=== PATIENT | male | born 1970 | race Caucasian/White ===

== ENCOUNTER → 2017-02-06 | Outpatient (CLI) | payer OTHER ==
[~2017-02-06] MED LIST: /LINE60TA; ACET65TA; ALBU17IN2; ALBU17IN2 INH; BABY81CH; CIPR500T19; COZA100T2 PO; COZA25TA8; CYCL1POW PO; DIOVAN; FOLI1TAB86 PO; GLUC1000; INSUDET SC; INSUR SC; LIPI80TA PO; LOPR50TA; LOPR50TA PO; LOSA50TA20 PO; MEDR4TAB PO; METF1000 PO; NAPR500T2 PO; NITR0.4S; PERC5TAB6 PO; PROV90AE; PROZ20CA11 PO; SYMB80AE; TRAM100T; TRAM50TA2 PO; TRAZ50TA2 PO; VITA100T2 PO; VITMTA PO; ZOCO10TA; ZOCO40TA
== END ==
LOC: M WUC 10:20
PROVIDERS: ATTEND Family Medicine
DX: Z71.3 Dietary counseling and surveillance (principal)

== ENCOUNTER → 2017-04-28 | Outpatient (REF) | payer OTHER ==
[~2017-04-28] MED LIST changes: -METF1000 PO; +METF10004 PO; -NAPR500T2 PO; +NAPR500T3 PO; +NOVOINJ3 SC; +PERC5TAB12 PO; -PERC5TAB6 PO; +TOUJ1.2I SC
[2017-04-28 12:25] LABS: MEAN CORPUSCULAR HEMOGLOBIN 28.5 pg (27.0-33.0); MEAN CORPUSCULAR HGB CONC 33.4 g/dl (32.0-36.5); MEAN CORPUSCULAR VOLUME 85.2 fl (80.0-96.0); RED CELL DISTRIBUTION WIDTH 13.5 % (11.5-14.5); WHITE BLOOD COUNT 6.6 K/mm3 (4.0-10.0)
== END ==
LOC: M SFHCPLAZ 09:12
PROVIDERS: ATTEND Family Medicine
DX: R53.83 Other fatigue (principal)

== ENCOUNTER 2017-05-09 15:11 | Emergency (ER) | payer OTHER ==
[~2017-05-09] VITALS: Ht 193 cm; Wt 159.0 kg
[~2017-05-09 15:11] MED LIST changes: -NOVOINJ3 SC; -TOUJ1.2I SC
[2017-05-09] MEDS ORDERED: NOVOINJ3 SC (15:21)
[2017-05-09] MEDS ORDERED: TOUJ1.2I SC (15:21)
[2017-05-09] MEDS ORDERED: KETOROLAC 30 MG/ML VIAL (J1885) IV ONE (16:15)
[2017-05-09] MEDS ORDERED: NS 1,000 ML IV ONE ×2 (16:15→18:00)
[2017-05-09] MEDS ORDERED: ONDANSETRON 4MG/2ML VIAL (J2405) IV ONE (16:15)
[2017-05-09] MEDS: MORPHINE 4 MG/ML 1ML SYRINGE IV PRN ×2 (16:25→18:02)
[2017-05-09 16:41] LABS: BASO # 0.1 K/mm3 (0.0-0.2); BASO % 0.8 % (0.0-1.0); EOS # 0.2 K/mm3 (0.0-0.50); EOS % 3.4 % (0.0-3.0); LARGE UNSTAINED CELL # 0.2 K/mm3 (0.0-0.4); LARGE UNSTAINED CELL % 2.1 % (0.0-4.0); LYMPH % 26.2 % (24.0-44.0); MEAN CORPUSCULAR HEMOGLOBIN 29.1 pg (27.0-33.0); MEAN CORPUSCULAR HGB CONC 34.5 g/dl (32.0-36.5); MEAN CORPUSCULAR VOLUME 84.2 fl (80.0-96.0); MONO # 0.5 K/mm3 (0.0-0.8); MONO % 6.8 % (0.0-5.0); NEUTROPHILS # 4.2 K/mm3 (1.8-7.7); NEUTROPHILS % 60.7 % (36.0-66.0); PLATELET COUNT, AUTOMATED 237 k/mm3 (150-450); RED CELL DISTRIBUTION WIDTH 13.4 % (11.5-14.5)
--- NOTE | 2017-05-09 16:45 | REP ---
CT ABDOMEN PELVIS WITHOUT IV OR ORAL CONTRAST: Renal stone protocol. HISTORY: Right flank pain. Evaluate for ureteral calculus. COMPARISON STUDY: November 23, 2015. CT FINDINGS: The lung bases are essentially clear. There is no evidence of pleural effusion or upper abdominal ascites. There is mild diffuse fatty infiltration of the liver. No focal liver lesion is seen. Spleen is unremarkable. No adrenal lesion is observed on either side. The gallbladder and the pancreas are unremarkable. There is no evidence of hydronephrosis on either side. No intrarenal calculus is seen. No ureteral stone is observed. No bladder calculus is seen. Prostate and seminal vesicles are unremarkable. There is mild left colonic diverticulosis without CT evidence of diverticulitis. A normal appendix is seen. No abdominal wall defect is observed. Bone window settings show degenerative facet changes in the lumbar spine. Early osteoarthritic spurring is seen in the hips bilaterally. IMPRESSION: No urinary tract calculus. No hydronephrosis seen. Left colonic diverticulosis without CT evidence of diverticulitis. Mild diffuse fatty infiltration of the liver. Normal appendix seen. Signed by Garcia Almanza MD 05/09/2017 04:58 P
[2017-05-09 17:17] LABS: ALBUMIN 4.1 GM/DL (3.2-5.2); ALBUMIN/GLOBULIN RATIO 1.14 (1.00-1.93); ALKALINE PHOSPHATASE 57 U/L (45-117); ALT/SGPT 77 U/L (12-78); ANION GAP 6 MEQ/L (8-16); AST/SGOT 37 U/L (15-37); BILIRUBIN,DIRECT 0.1 MG/DL (0.0-0.2); BILIRUBIN,TOTAL 0.5 MG/DL (0.2-1.0); BLOOD UREA NITROGEN 15 MG/DL (7-18); CARBON DIOXIDE LEVEL 27 MEQ/L (21-32); CHLORIDE LEVEL 106 MEQ/L (98-107); CREATININE FOR GFR 1.03 MG/DL (0.70-1.30); GLOMERULAR FILTRATION RATE > 60.0 (>60); GLUCOSE, FASTING 133 MG/DL (70-105); POTASSIUM SERUM 3.9 MEQ/L (3.5-5.1); SODIUM LEVEL 139 MEQ/L (136-145); TOTAL PROTEIN 7.7 GM/DL (6.4-8.2)
[2017-05-09] MEDS ORDERED: NORCO, ANEXSIA 5/325MG TABLET (HYDROcodone/ACETAMINOPHEN) PO ONE (18:15)
[2017-05-09 19:28] VITALS: BP 112/82
== END 2017-05-09 19:29 | disposition home or self-care (01) ==
LOC: M ED 15:11
DX: R10.9 Unspecified abdominal pain (principal); E11.9 Type 2 diabetes mellitus without complications; F33.9 Major depressive disorder, recurrent, unspecified; Z79.4 Long term (current) use of insulin; Z79.84 Long term (current) use of oral hypoglycemic drugs; Z79.899 Other long term (current) drug therapy; Z88.8 Allergy status to other drugs, medicaments and biological substances
CPT/HCPCS: 74176; 80048; 80076; 81001; 83605; 83690; 85025; 96374; 96375; 96376; 99283; J1885; J2405

== ENCOUNTER → 2017-05-31 | Outpatient (REF) | payer OTHER ==
[~2017-05-31] MED LIST changes: +NOVOINJ3 SC; +TOUJ1.2I SC; +TYLE325T5 PO
[2017-05-31 12:25] LABS: ANION GAP 11 MEQ/L (8-16); BLOOD UREA NITROGEN 11 MG/DL (7-18); CALCIUM LEVEL 8.6 MG/DL (8.5-10.1); CARBON DIOXIDE LEVEL 25 MEQ/L (21-32); CHLORIDE LEVEL 101 MEQ/L (98-107); CREATININE FOR GFR 0.94 MG/DL (0.70-1.30); GLOMERULAR FILTRATION RATE > 60.0 (>60); GLUCOSE, FASTING 311 MG/DL (70-105); POTASSIUM SERUM 4.5 MEQ/L (3.5-5.1); SODIUM LEVEL 137 MEQ/L (136-145)
== END ==
LOC: M SFHCPLAZ 10:03
PROVIDERS: ATTEND Family Medicine
DX: Z01.818 Encounter for other preprocedural examination (principal); I10 Essential (primary) hypertension

== ENCOUNTER → 2017-07-14 | Outpatient (CLI) | payer OTHER ==
[~2017-07-14] MED LIST changes: +MULTCAP PO
[2017-07-14 10:40] LABS: BASO % 0.3 % (0.0-1.0); EOS # 0.2 10^3/uL (0.0-0.50); IMMATURE GRANULOCYTE % 0.2 % (0-0); LYMPH # 1.4 10^3/uL (1.5-4.5); LYMPH % 24.8 % (24.0-44.0); MEAN CORPUSCULAR HEMOGLOBIN 27.8 pg (27.0-33.0); MEAN CORPUSCULAR HGB CONC 32.9 g/dl (32.0-36.5); MEAN CORPUSCULAR VOLUME 84.4 fl (80.0-96.0); MONO # 0.5 10^3/uL (0.0-0.8); MONO % 8.9 % (0.0-5.0); NEUTROPHILS # 3.6 10^3/uL (1.8-7.7); NEUTROPHILS % 62.8 % (36.0-66.0); PLATELET COUNT, AUTOMATED 274 10^3/uL (150-450); RED CELL DISTRIBUTION WIDTH 13.5 % (11.5-14.5); WHITE BLOOD COUNT 5.7 10^3/uL (4.0-10.0)
[2017-07-14 11:21] LABS: ALBUMIN 4.1 GM/DL (3.2-5.2); ALBUMIN/GLOBULIN RATIO 1.17 (1.00-1.93); ALKALINE PHOSPHATASE 82 U/L (45-117); ALT/SGPT 214 U/L (12-78); ANION GAP 9 MEQ/L (8-16); AST/SGOT 109 U/L (15-37); BILIRUBIN,TOTAL 0.7 MG/DL (0.2-1.0); BLOOD UREA NITROGEN 16 MG/DL (7-18); CALCIUM LEVEL 9.1 MG/DL (8.5-10.1); CARBON DIOXIDE LEVEL 27 MEQ/L (21-32); CHLORIDE LEVEL 103 MEQ/L (98-107); CREATININE FOR GFR 0.91 MG/DL (0.70-1.30); FERRITIN 650 NG/ML (26-388); GLOMERULAR FILTRATION RATE > 60.0 (>60); GLUCOSE, FASTING 115 MG/DL (70-105); MAGNESIUM LEVEL 2.1 MG/DL (1.8-2.4); PERCENT SATURATION 22.3 % (19.7-50.0); PHOSPHORUS LEVEL 3.9 MG/DL (2.5-4.9); POTASSIUM SERUM 4.3 MEQ/L (3.5-5.1); SODIUM LEVEL 139 MEQ/L (136-145); TOTAL IRON BINDING CAPACITY 355 UG/DL (250-450); TOTAL PROTEIN 7.6 GM/DL (6.4-8.2)
[2017-07-14 11:41] LABS: VITAMIN B12 LEVEL 1775 PG/ML (247-911)
[2017-07-14 12:36] LABS: PRETREATED FOLATE FOR RBCFOL 17.4 NG/ML
== END ==
LOC: M LAB 09:00
PROVIDERS: ATTEND Surgery
DX: K91.2 Postsurgical malabsorption, not elsewhere classified (principal); E55.9 Vitamin D deficiency, unspecified; Z98.84 Bariatric surgery status

== ENCOUNTER 2017-07-29 08:01 | Emergency (ER) | payer OTHER ==
[~2017-07-29] VITALS: Ht 193 cm; Wt 132.0 kg
[~2017-07-29 08:01] MED LIST changes: -MULTCAP PO; -TYLE325T5 PO
[2017-07-29] MEDS ORDERED: TYLE325T5 PO (08:12)
[2017-07-29] MEDS ORDERED: RIZATRIPTAN MLT 10 MG TAB PO PRN (09:15)
[2017-07-29 09:39] VITALS: BP 120/85
== END 2017-07-29 09:40 | disposition home or self-care (01) ==
LOC: M ED 08:01
DX: R51 Headache (principal); E86.0 Dehydration; R25.2 Cramp and spasm; Z98.84 Bariatric surgery status; Z87.891 Personal history of nicotine dependence; Z79.899 Other long term (current) drug therapy; Z88.8 Allergy status to other drugs, medicaments and biological substances

== ENCOUNTER 2017-08-01 14:36 | Emergency (ER) | payer OTHER ==
[~2017-08-01] VITALS: Ht 193 cm; Wt 127.3 kg
[~2017-08-01 14:36] MED LIST changes: +TYLE325T5 PO
[2017-08-01] MEDS ORDERED: MULTCAP PO (14:46)
[2017-08-01] MEDS ORDERED: NS 1,000 ML IV ONE ×2 (16:30→18:00)
[2017-08-01 17:07] LABS: BASO % 0.7 % (0.0-1.0); EOS # 0.2 10^3/uL (0.0-0.50); EOS % 3.8 % (0.0-3.0); IMMATURE GRANULOCYTE % 0.2 % (0-0); LYMPH # 1.5 10^3/uL (1.5-4.5); LYMPH % 25.4 % (24.0-44.0); MEAN CORPUSCULAR HEMOGLOBIN 28.1 pg (27.0-33.0); MEAN CORPUSCULAR HGB CONC 32.8 g/dl (32.0-36.5); MEAN CORPUSCULAR VOLUME 85.7 fl (80.0-96.0); MONO # 0.6 10^3/uL (0.0-0.8); MONO % 10.2 % (0.0-5.0); NEUTROPHILS # 3.6 10^3/uL (1.8-7.7); NEUTROPHILS % 59.7 % (36.0-66.0); PLATELET COUNT, AUTOMATED 206 10^3/uL (150-450); RED CELL DISTRIBUTION WIDTH 14.1 % (11.5-14.5)
[2017-08-01 17:41] LABS: ALBUMIN 3.9 GM/DL (3.2-5.2); ALBUMIN/GLOBULIN RATIO 1.44 (1.00-1.93); ALKALINE PHOSPHATASE 71 U/L (45-117); ALT/SGPT 84 U/L (12-78); ANION GAP 8 MEQ/L (8-16); AST/SGOT 36 U/L (7-37); BILIRUBIN,DIRECT 0.2 MG/DL (0.0-0.2); BILIRUBIN,TOTAL 0.5 MG/DL (0.2-1.0); BLOOD UREA NITROGEN 14 MG/DL (7-18); CALCIUM LEVEL 9.1 MG/DL (8.5-10.1); CARBON DIOXIDE LEVEL 28 MEQ/L (21-32); CHLORIDE LEVEL 106 MEQ/L (98-107); CREATININE FOR GFR 0.91 MG/DL (0.70-1.30); GLOMERULAR FILTRATION RATE > 60.0 (>60); GLUCOSE, FASTING 91 MG/DL (70-105); SODIUM LEVEL 142 MEQ/L (136-145); TOTAL PROTEIN 6.6 GM/DL (6.4-8.2)
[2017-08-01 19:51] VITALS: BP 129/93
--- NOTE | 2017-08-02 14:13 | ECGEPIP ---
Stationary ECG Study [facility] - ED Test Date: 2017-08-01 Pat Name: JUAN MARRERO Department: Room: - Gender: M Certified [employer]: JEvelyn : 1970 Requested By: LEVAR Mina Order Number: [id number] Reading MD: Aye Troncoso Measurements Intervals [place] Rate: 56 P: 42 DE: 149 QRS: 45 QRSD: 105 T: 22 QT: 409 QTc: 397 Interpretive Statements SINUS BRADYCARDIA NONSPECIFIC T-WAVE ABNORMALITY DECREASED RATE 07/06/15 Electronically Signed On 08-02-2017 14:13:32 EST by Aye Troncoso
== END 2017-08-01 20:27 | disposition home or self-care (01) ==
LOC: M ED 14:36
DX: R63.4 Abnormal weight loss (principal); E86.0 Dehydration; E11.9 Type 2 diabetes mellitus without complications; Z98.0 Intestinal bypass and anastomosis status; Z88.0 Allergy status to penicillin

== ENCOUNTER → 2017-09-22 | Outpatient (CLI) | payer OTHER ==
[2017-09-22 10:28] LABS: BASO # 0.1 10^3/uL (0.0-0.2); BASO % 0.9 % (0.0-1.0); EOS # 0.2 10^3/uL (0.0-0.50); EOS % 2.7 % (0.0-3.0); HEMATOCRIT 42.1 % (42.0-52.0); HEMOGLOBIN 14.2 g/dl (14.0-18.0); IMMATURE GRANULOCYTE % 0.2 % (0-0); LYMPH # 1.4 10^3/uL (1.5-4.5); LYMPH % 24.8 % (24.0-44.0); MEAN CORPUSCULAR HEMOGLOBIN 28.6 pg (27.0-33.0); MEAN CORPUSCULAR HGB CONC 33.7 g/dl (32.0-36.5); MEAN CORPUSCULAR VOLUME 84.9 fl (80.0-96.0); MONO # 0.5 10^3/uL (0.0-0.8); MONO % 8.6 % (0.0-5.0); NEUTROPHILS # 3.4 10^3/uL (1.8-7.7); NEUTROPHILS % 62.8 % (36.0-66.0); PLATELET COUNT, AUTOMATED 244 10^3/uL (150-450); RED BLOOD COUNT 4.96 10^6/uL (4.30-6.10); RED CELL DISTRIBUTION WIDTH 14.1 % (11.5-14.5); WHITE BLOOD COUNT 5.5 10^3/uL (4.0-10.0)
[2017-09-22 10:51] LABS: ALBUMIN 4.2 GM/DL (3.2-5.2); ALKALINE PHOSPHATASE 87 U/L (45-117); ALT/SGPT 58 U/L (12-78); ANION GAP 7 MEQ/L (8-16); AST/SGOT 26 U/L (7-37); BILIRUBIN,TOTAL 0.5 MG/DL (0.2-1.0); BLOOD UREA NITROGEN 10 MG/DL (7-18); CARBON DIOXIDE LEVEL 28 MEQ/L (21-32); CHLORIDE LEVEL 106 MEQ/L (98-107); CREATININE FOR GFR 0.73 MG/DL (0.70-1.30); GLOMERULAR FILTRATION RATE > 60.0 (>60); GLUCOSE, FASTING 125 MG/DL (70-105); POTASSIUM SERUM 4.2 MEQ/L (3.5-5.1); SODIUM LEVEL 141 MEQ/L (136-145); TOTAL PROTEIN 7.2 GM/DL (6.4-8.2)
[2017-09-27 14:13] LABS: ANTINUCLEAR ANTIBODIES DIRECT Negative (Negative); HLA-B27 Negative (.); T PALLIDUM AB (FTA-AB) Non Reactive (Non Reactive); TOXOPLASMA IgG ABY <3.0 IU/mL (0.0-7.1); TOXOPLASMA IgM ABY <3.0 AU/mL (0.0-7.9)
== END ==
LOC: M LAB 09:48
DX: H44.113 Panuveitis, bilateral (principal)
CPT/HCPCS: 80053

== ENCOUNTER → 2017-09-25 | Outpatient (CLI) | payer OTHER ==
[~2017-09-25] MED LIST changes: -/LINE60TA; -ACET65TA; -ALBU17IN2; -ALBU17IN2 INH; -BABY81CH; -CIPR500T19; -COZA100T2 PO; -COZA25TA8; -CYCL1POW PO; -DIOVAN; -FOLI1TAB86 PO; -GLUC1000; -INSUDET SC; -INSUR SC; -LIPI80TA PO; -LOPR50TA; -LOPR50TA PO; -LOSA50TA20 PO; -MEDR4TAB PO; -METF10004 PO; -NAPR500T3 PO; -NITR0.4S; -NOVOINJ3 SC; -PERC5TAB12 PO; +PROHANCE 279.3MG/ML 15ML VIAL (A9576) As Ordered; +PROHANCE 279.3MG/ML 5ML VIAL (A9576) As Ordered; -PROV90AE; -PROZ20CA11 PO; -SYMB80AE; -TOUJ1.2I SC; -TRAM100T; -TRAM50TA2 PO; -TRAZ50TA2 PO; -TYLE325T5 PO; -VITA100T2 PO; -VITMTA PO; -ZOCO10TA; -ZOCO40TA
== END ==
LOC: M RAD 10:35
DX: H44.113 Panuveitis, bilateral (principal); R90.82 White matter disease, unspecified
CPT/HCPCS: A9576

== ENCOUNTER → 2017-11-28 | Outpatient (REF) | payer OTHER ==
[2017-11-28 14:17] LABS: PTT LUPUS TYPE ANTICOAG SCREEN 0.9 (0-1.2)
[2017-11-28 14:18] LABS: BASO % 0.6 % (0.0-1.0); EOS # 0.1 10^3/uL (0.0-0.50); EOS % 1.7 % (0.0-3.0); HEMATOCRIT 41.8 % (42.0-52.0); HEMOGLOBIN 13.9 g/dl (14.0-18.0); IMMATURE GRANULOCYTE % 0.3 % (0-3.0); LYMPH # 1.5 10^3/uL (1.5-4.5); LYMPH % 20.9 % (24.0-44.0); MEAN CORPUSCULAR HEMOGLOBIN 28.6 pg (27.0-33.0); MEAN CORPUSCULAR HGB CONC 33.3 g/dl (32.0-36.5); MONO # 0.6 10^3/uL (0.0-0.8); MONO % 8.2 % (0.0-5.0); NEUTROPHILS # 4.8 10^3/uL (1.8-7.7); NEUTROPHILS % 68.3 % (36.0-66.0); PLATELET COUNT, AUTOMATED 366 10^3/uL (150-450); RED BLOOD COUNT 4.86 10^6/uL (4.30-6.10); RED CELL DISTRIBUTION WIDTH 13.1 % (11.5-14.5); WHITE BLOOD COUNT 7.1 10^3/uL (4.0-10.0)
[2017-11-28 14:29] LABS: VITAMIN B12 LEVEL 725 PG/ML
[2017-11-28 14:30] LABS: FOLATE 15.2 NG/ML
[2017-11-28 14:40] LABS: ERYTHROCYTE SEDIMENTATION RATE 18 mm/hr (0-15)
[2017-11-28 14:47] LABS: ALBUMIN/GLOBULIN RATIO 1.25 (1.00-1.93); ALKALINE PHOSPHATASE 117 U/L (45-117); ALT/SGPT 61 U/L (12-78); ANION GAP 8 MEQ/L (8-16); AST/SGOT 28 U/L (7-37); BILIRUBIN,TOTAL 0.4 MG/DL (0.2-1.0); BLOOD UREA NITROGEN 17 MG/DL (7-18); CALCIUM LEVEL 9.1 MG/DL (8.5-10.1); CARBON DIOXIDE LEVEL 28 MEQ/L (21-32); CHLORIDE LEVEL 105 MEQ/L (98-107); CREATININE FOR GFR 0.71 MG/DL (0.70-1.30); GLOMERULAR FILTRATION RATE > 60.0 (>60); GLUCOSE, FASTING 106 MG/DL (70-100); POTASSIUM SERUM 4.5 MEQ/L (3.5-5.1); RHEUMATOID FACTOR QUANT < 10.0 IU/ML (0-15.0); SODIUM LEVEL 141 MEQ/L (136-145); TOTAL PROTEIN 7.2 GM/DL (6.4-8.2)
[2017-11-28 15:47] LABS: ESTIMATED AVERAGE GLUCOSE 114 MG/DL (60-110); HEMOGLOBIN A1c 5.6 %
[2017-11-29 13:08] LABS: ALBUMIN % 57.1 % (55.8-66.1); ALPHA-1-GLOBULIN % 4.5 % (2.9-4.9); ALPHA-2-GLOBULINS % 14.6 % (7.1-11.8); BETA-1-GLOBULINS % 5.9 % (4.7-7.2); BETA-2-GLOBULINS % 5.2 % (3.2-6.5)
[2017-11-29 13:09] LABS: ALBUMIN 4.11 GM/DL (3.29-5.55); ALPHA-1-GLOBULINS 0.32 GM/DL (0.17-0.41); ALPHA-2-GLOBULINS 1.05 GM/DL (0.42-0.99); BETA-1-GLOBULINS 0.42 GM/DL (0.28-0.60); BETA-2-GLOBULINS 0.37 GM/DL (0.19-0.55); GAMMA GLOBULIN % 12.7 % (11.1-18.8); GAMMA GLOBULINS 0.91 GM/DL (0.65-1.58)
[2017-12-01 00:06] LABS: ANCA-ATYPICAL <1:20 titer (Neg:<1:20); ANTI DOUBLE STRAND-DNA AB 1 IU/mL (0-9); ANTINUCLEAR ANTIBODIES DIRECT Negative (Negative); CYTOPLASMIC NEUTROP AB ANCA-C <1:20 titer (Neg:<1:20); PERINUCLEAR AB ANCA-P <1:20 titer (Neg:<1:20); SJOGREN'S ANTI SS-A <0.2 AI (0.0-0.9); SJOGREN'S ANTI SS-B <0.2 AI (0.0-0.9); VITAMIN E LEVEL 11.4 mg/L (5.3-17.5)
== END ==
LOC: M LABNEURO 08:49
DX: R55 Syncope and collapse (principal)
CPT/HCPCS: 82746

== ENCOUNTER → 2017-12-21 | Outpatient (REF) | payer OTHER ==
[2017-12-21 13:27] LABS: PHOSPHORUS LEVEL 4.6 MG/DL (2.5-4.9)
[2017-12-21 13:27] LABS: MAGNESIUM LEVEL 2.3 MG/DL (1.8-2.4)
== END ==
LOC: M LABDRAWP 11:54
DX: H43.399 Other vitreous opacities, unspecified eye (principal)

== ENCOUNTER → 2018-03-05 | Outpatient (REF) | payer OTHER ==
[2018-03-05 13:18] LABS: APPEARANCE, URINE HAZY (CLEAR); BACTERIA, URINE AUTO NEGATIVE (NEGATIVE); BILIRUBIN, URINE AUTO NEGATIVE (NEGATIVE); BLOOD, URINE BLOOD NEGATIVE (NEGATIVE); COLOR, URINE AMBER (YELLOW); GLUCOSE, URINE (UA) AUTO NEGATIVE (NEGATIVE); KETONE, URINE AUTO NEGATIVE (NEGATIVE); LEUKOCYTE ESTERASE, URINE AUTO NEGATIVE (NEGATIVE); NITRITE, URINE AUTO NEGATIVE (NEGATIVE); PROTEIN, URINE AUTO NEGATIVE (NEGATIVE); RBC, URINE AUTO 0 /HPF (0-3); SPECIFIC GRAVITY URINE AUTO 1.023 (1.002-1.035); SQUAMOUS EPITHELIAL CELL UR AU 0 /HPF (0-6); WBC, URINE AUTO 2 /HPF (0-3)
== END ==
LOC: M SMT 12:55
DX: R39.198 Other difficulties with micturition (principal)

== ENCOUNTER 2018-04-20 04:55 | Emergency (ER) | payer OTHER ==
[2018-04-20] MEDS: diazePAM 5 MG TAB PO (06:15)
[2018-04-20] MEDS: NS 1,000 ML IV (06:15)
[2018-04-20 06:45] LABS: BASO % 0.5 % (0.0-1.0); EOS # 0.1 10^3/uL (0.0-0.50); EOS % 2.1 % (0.0-3.0); HEMATOCRIT 36.5 % (42.0-52.0); HEMOGLOBIN 12.6 g/dl (13.5-17.5); IMMATURE GRANULOCYTE % 0.2 % (0-3.0); LYMPH # 1.8 10^3/uL (1.5-4.5); LYMPH % 28.2 % (24.0-44.0); MEAN CORPUSCULAR HEMOGLOBIN 29.6 pg (27.0-33.0); MEAN CORPUSCULAR HGB CONC 34.5 g/dl (32.0-36.5); MEAN CORPUSCULAR VOLUME 85.9 fl (80.0-96.0); MONO # 0.6 10^3/uL (0.0-0.8); MONO % 10.1 % (0.0-5.0); NEUTROPHILS # 3.7 10^3/uL (1.8-7.7); NEUTROPHILS % 58.9 % (36.0-66.0); PLATELET COUNT, AUTOMATED 261 10^3/uL (150-450); RED BLOOD COUNT 4.25 10^6/uL (4.30-6.10); RED CELL DISTRIBUTION WIDTH 13.6 % (11.5-14.5); WHITE BLOOD COUNT 6.2 10^3/uL (4.0-10.0)
[2018-04-20 07:01] LABS: ANION GAP 8 MEQ/L (8-16); BLOOD UREA NITROGEN 22 MG/DL (7-18); CALCIUM LEVEL 8.5 MG/DL (8.5-10.1); CARBON DIOXIDE LEVEL 27 MEQ/L (21-32); CHLORIDE LEVEL 108 MEQ/L (98-107); CREATININE FOR GFR 0.87 MG/DL (0.70-1.30); GLOMERULAR FILTRATION RATE > 60.0 (>60); GLUCOSE, FASTING 176 MG/DL (70-100); POTASSIUM SERUM 3.9 MEQ/L (3.5-5.1); SODIUM LEVEL 143 MEQ/L (136-145)
== END 2018-04-20 08:45 | disposition home or self-care (01) ==
LOC: M ED 04:55
DX: R25.2 Cramp and spasm (principal); H30.90 Unspecified chorioretinal inflammation, unspecified eye; Z98.84 Bariatric surgery status; Z88.8 Allergy status to other drugs, medicaments and biological substances; Z79.899 Other long term (current) drug therapy
CPT/HCPCS: 83735

== ENCOUNTER 2018-07-27 23:31 | Emergency (ER) | payer OTHER ==
[2018-07-28] MEDS: MECLIZINE 25 MG TABLET PO (00:28)
[2018-07-28] MEDS: ONDANSETRON 4MG/2ML VIAL (J2405) IV (00:28)
[2018-07-28] MEDS: NS 1,000 ML IV (00:28)
[2018-07-28 00:33] LABS: ALBUMIN/GLOBULIN RATIO 1.25 (1.00-1.93); ALKALINE PHOSPHATASE 80 U/L (45-117); ALT/SGPT 75 U/L (12-78); ANION GAP 10 MEQ/L (8-16); AST/SGOT 49 U/L (7-37); BILIRUBIN,DIRECT 0.1 MG/DL (0.0-0.2); BILIRUBIN,TOTAL 0.4 MG/DL (0.2-1.0); BLOOD UREA NITROGEN 19 MG/DL (7-18); CALCIUM LEVEL 8.9 MG/DL (8.5-10.1); CARBON DIOXIDE LEVEL 25 MEQ/L (21-32); CHLORIDE LEVEL 104 MEQ/L (98-107); CPK CREATINE PHOSPHOKINASE 166 U/L (39-308); CREATININE FOR GFR 0.98 MG/DL (0.70-1.30); GLOMERULAR FILTRATION RATE > 60.0 (>60); GLUCOSE, FASTING 103 MG/DL (70-100); LIPASE 125 U/L (73-393); MAGNESIUM LEVEL 2.1 MG/DL (1.8-2.4); MB/CK RELATIVE INDEX 1.02 (< OR =4); POTASSIUM SERUM 4.2 MEQ/L (3.5-5.1); SODIUM LEVEL 139 MEQ/L (136-145); TOTAL PROTEIN 7.2 GM/DL (6.4-8.2); TROPONIN I < 0.02 NG/ML (< 0.10)
[2018-07-28 00:50] LABS: LACTIC ACID SEPSIS PROTOCOL 2.1 MMOL/L (0.4-2.0)
[2018-07-28 00:56] LABS: CALCIUM OXALATE CRYSTALS RFX SMALL; HEMATOCRIT 42.6 % (42.0-52.0); HEMOGLOBIN 14.2 g/dl (13.5-17.5); KETONE, URINE AUTO RFX TRACE mg/dL (NEGATIVE); LEUKOCYTE ESTERASE UR AUTO RFX NEGATIVE (NEGATIVE); MEAN CORPUSCULAR HEMOGLOBIN 29.5 pg (27.0-33.0); MEAN CORPUSCULAR HGB CONC 33.3 g/dl (32.0-36.5); MEAN CORPUSCULAR VOLUME 88.6 fl (80.0-96.0); MUCUS, URINE RFX SMALL (NEGATIVE); NITRITE, URINE AUTO RFX NEGATIVE (NEGATIVE); PLATELET COUNT, AUTOMATED 306 10^3/uL (150-450); RBC, URINE AUTO RFX 0 /HPF (0-3); RED BLOOD COUNT 4.81 10^6/uL (4.30-6.10); RED CELL DISTRIBUTION WIDTH 12.6 % (11.5-14.5); SPECIFIC GRAVITY UR AUTO RFX 1.032 (1.002-1.035); SQUAM EPITHELIAL CELL UR AURFX 0 /HPF (0-6); WBC, URINE AUTO RFX 2 /HPF (0-3)
[2018-07-28 00:57] LABS: ADD MANUAL DIFFER YES; DIFF SLIDE NUMBER 299; POSITIVE DIFF POS FLAG; WHITE BLOOD COUNT 11.6 10^3/uL (4.0-10.0)
[2018-07-28] MEDS: GASTROGRAFIN SOLUTION 30ML PO ×2 (00:59→01:02)
[2018-07-28 01:25] LABS: ATYPICAL LYMPH 1 % (0-5); BASOPHILS 1 % (0-4); LYMPHOCYTES 40 % (16-52); MONOCYTES 9 % (0-8); NEUTROPHILS 49 % (35-75); PLATELET ESTIMATE NORMAL (NORMAL)
[2018-07-28] MEDS ORDERED: ISOVUE-370 76% 100ML VIAL (Q9967) As Ordered (01:41)
[2018-07-28] MEDS: LORazepam 2 MG/ML VIAL (J2060) IV (03:15)
== END 2018-07-28 04:52 | disposition home or self-care (01) ==
LOC: M ED 23:31
DX: R42 Dizziness and giddiness (principal); R11.10 Vomiting, unspecified; R19.7 Diarrhea, unspecified; I49.9 Cardiac arrhythmia, unspecified; E11.9 Type 2 diabetes mellitus without complications; Z98.84 Bariatric surgery status; Z88.8 Allergy status to other drugs, medicaments and biological substances; Z79.899 Other long term (current) drug therapy
CPT/HCPCS: Q9963

== ENCOUNTER → 2018-10-31 | Outpatient (CLI) | payer OTHER ==
[~2018-10-31] MED LIST changes: +/LINE60TA; +ACET65TA; +ALBU17IN2; +ALBU17IN2 INH; +BABY81CH; +CIPR500T19; +COZA100T2 PO; +COZA25TA8; +CYCL1CAP5; +CYCL1POW PO; +DIOVAN; +DULO1CAP PO; +FINA5TAB2; +FOLI1TAB86 PO; +GLUC1000; +HUMI40KI2 IM; +INSUDET SC; +INSUR SC; +LIPI80TA PO; +LOPR50TA; +LOPR50TA PO; +LOSA50TA88 PO; +MEDR4TAB PO; +METF10004 PO; +MULTCAP PO; +MYCO500T; +NAPR-885 PO; +NITR0.4S; +NOVOINJ3 SC; +PERC5TAB12 PO; -PROHANCE 279.3MG/ML 15ML VIAL (A9576) As Ordered; +PROHANCE 279.3MG/ML 15ML VIAL (A9576) As Ordered ONE; -PROHANCE 279.3MG/ML 5ML VIAL (A9576) As Ordered; +PROHANCE 279.3MG/ML 5ML VIAL (A9576) As Ordered ONE; +PROV90AE; +PROZ20CA11 PO; +RANI150T; +SYMB80AE; +TOUJ1.2I SC; +TRAM100T; +TRAM50TA2 PO; +TRAZ50TA2 PO; +TYLE325T5 PO; +VENTAER; +VITA100T2 PO; +VITMTA PO; +ZOCO10TA; +ZOCO40TA
--- NOTE | 2018-10-31 15:21 | REP ---
MR BRAIN WITHOUT AND WITH CONTRAST: HISTORY: Syncope. CONTRAST: ProHance, 20 mL COMPARISON: 09/25/2017 Several punctate areas of increased signal intensity on T2-weighted images are present in the subcortical white matter. This represents small vessel ischemic disease. There is no intraparenchymal hemorrhage, infarct, mass or midline shift. There is no abnormal enhancement. A small developmental venous anomaly is present in the right frontal lobe. There is no abnormal enhancement. The ventricular system is normal in appearance. There is no extracerebral collection. Mucosal thickening is present in the ethmoid and maxillary sinuses. IMPRESSION: Minimal small vessel ischemic disease. Electronically Signed by Jaren Saini MD 10/31/2018 03:26 P
--- NOTE | 2018-10-31 15:29 | REP ---
MR CERVICAL SPINE WITHOUT CONTRAST: HISTORY: Syncope. A small left paracentral disc protrusion is present at the C2-3 level. There is minimal effacement of the thecal sac without spinal cord compression. Uncinate process hypertrophy is present on the left. This produces mild narrowing of the left C2 neural foramen. The right C2 neural foramen is patent. A disc bulge is present at the C3-4 level. There is moderate effacement of the thecal sac without spinal cord compression. Bilateral uncinate process and facet hypertrophy are present. These findings produce moderate narrowing of the C3 neural foramina. A disc bulge is present at the C4-5 level. There is moderate effacement of the thecal sac without spinal cord compression. Bilateral uncinate process and right facet hypertrophy are present. These findings produce moderate narrowing of the C4 neural foramina. A disc bulge and small central disc protrusion are present at the C5-6 level. There is mild effacement of the thecal sac without spinal cord compression. The C5 neural foramina are patent. There is no other disc bulge or herniation. The remaining neural foramina are patent. The spinal cord is normal in signal intensity. Normal signal intensity is present in the cervical vertebral bodies. IMPRESSION: There is cervical spondylosis at the C2-3 through C5-6 levels without spinal cord compression. Electronically Signed by Jaren Saini MD 10/31/2018 03:32 P
== END ==
LOC: M RAD 10:29
PROVIDERS: ATTEND Psychiatry & Neurology Neurology
DX: R55 Syncope and collapse (principal); M50.21 Other cervical disc displacement, high cervical region; M50.221 Other cervical disc displacement at C4-C5 level; M50.222 Other cervical disc displacement at C5-C6 level; M50.223 Other cervical disc displacement at C6-C7 level; M47.892 Other spondylosis, cervical region; I67.82 Cerebral ischemia
CPT/HCPCS: 70553; 72141; A9576

== ENCOUNTER → 2018-11-19 | Outpatient (REF) | payer OTHER ==
[~2018-11-19] MED LIST changes: -PROHANCE 279.3MG/ML 15ML VIAL (A9576) As Ordered ONE; -PROHANCE 279.3MG/ML 5ML VIAL (A9576) As Ordered ONE
[2018-11-19 13:44] LABS: BASO # 0.1 10^3/uL (0.0-0.2); EOS # 0.2 10^3/uL (0.0-0.50); EOS % 3.2 % (0.0-3.0); HEMOGLOBIN 13.3 g/dl (13.5-17.5); LYMPH # 1.8 10^3/uL (1.5-4.5); LYMPH % 29.4 % (24.0-44.0); MEAN CORPUSCULAR HEMOGLOBIN 29.3 pg (27.0-33.0); MEAN CORPUSCULAR HGB CONC 32.4 g/dl (32.0-36.5); MEAN CORPUSCULAR VOLUME 90.3 fl (80.0-96.0); MONO # 0.7 10^3/uL (0.0-0.8); MONO % 10.8 % (0.0-5.0); NEUTROPHILS # 3.4 10^3/uL (1.8-7.7); NEUTROPHILS % 55.3 % (36.0-66.0); PLATELET COUNT, AUTOMATED 290 10^3/uL (150-450); RED BLOOD COUNT 4.54 10^6/uL (4.30-6.10); WHITE BLOOD COUNT 6.2 10^3/uL (4.0-10.0)
[2018-11-19 14:09] LABS: PERCENT SATURATION 33.4 % (19.7-50.0)
== END ==
LOC: M SFHCPLAZ 11:00
PROVIDERS: ATTEND Family Medicine
DX: D64.9 Anemia, unspecified (principal)

== ENCOUNTER → 2018-12-12 | Outpatient (REF) | payer OTHER ==
[2018-12-12 12:10] LABS: ALBUMIN 4.5 GM/DL (3.2-5.2); ALT/SGPT 56 U/L (12-78); BILIRUBIN,TOTAL 0.5 MG/DL (0.2-1.0); BLOOD UREA NITROGEN 14 MG/DL (7-18); C REACTIVE PROTEIN QUANTITATIV < 0.30 MG/DL (0.00-0.30); CALCIUM LEVEL 8.7 MG/DL (8.5-10.1); CARBON DIOXIDE LEVEL 29 MEQ/L (21-32); CHLORIDE LEVEL 108 MEQ/L (98-107); CREATININE FOR GFR 0.78 MG/DL (0.70-1.30); GLOMERULAR FILTRATION RATE > 60.0 (>60); GLUCOSE, FASTING 91 MG/DL (70-100); RHEUMATOID FACTOR QUANT < 10.0 IU/ML (<15.0); SODIUM LEVEL 143 MEQ/L (136-145); TOTAL PROTEIN 7.3 GM/DL (6.4-8.2)
[2018-12-18 00:08] LABS: ANA (HEP2) Negative (.); ANGIOTENSIN 1 CONVERTING ENZYM 26 U/L (14-82); ANTI-SACCHAROMYCES CEREV. IgA <20.0 Units (0.0-24.9); ANTI-SACCHAROMYCES CEREV. IgG 23.6 Units (0.0-24.9); CYCLIC CITRULLINATED PEPTIDE 5 units (0-19); HLA-B27 Negative (.); VITAMIN D 1,25 DIHYDROXY 48.2 pg/mL (19.9-79.3)
== END ==
LOC: M SFHCPLAZ 08:29
PROVIDERS: ATTEND Internal Medicine Rheumatology
DX: H20.9 Unspecified iridocyclitis (principal); M13.0 Polyarthritis, unspecified

== ENCOUNTER 2019-04-08 06:10 | Emergency (ER) | payer OTHER ==
[~2019-04-08] VITALS: Ht 190.5 cm; Wt 104.5 kg
[~2019-04-08 06:10] MED LIST changes: -/LINE60TA; -DULO1CAP PO; +DULO1CAP4 PO; -MYCO500T; +MYCO500T PO; -RANI150T; +RANI150T PO; +ZYVO100T
[2019-04-08] MEDS ORDERED: ONDANSETRON 4MG/2ML VIAL (J2405) IV ONE ×2 (06:30→11:15)
[2019-04-08] MEDS ORDERED: NS 1,000 ML IV ONE (06:30)
[2019-04-08] MEDS ORDERED: KETOROLAC 30 MG/ML VIAL (J1885) IV ONE (06:30)
[2019-04-08 07:10] LABS: BASO # 0.1 10^3/uL (0.0-0.2); BASO % 0.4 % (0.0-1.0); EOS # 0.2 10^3/uL (0.0-0.50); EOS % 1.1 % (0.0-3.0); HEMATOCRIT 45.6 % (42.0-52.0); HEMOGLOBIN 15.1 g/dl (13.5-17.5); LYMPH # 1.3 10^3/uL (1.5-4.5); LYMPH % 8.4 % (24.0-44.0); MEAN CORPUSCULAR HGB CONC 33.1 g/dl (32.0-36.5); MEAN CORPUSCULAR VOLUME 90.5 fl (80.0-96.0); MONO # 1.3 10^3/uL (0.0-0.8); MONO % 8.9 % (0.0-5.0); NEUTROPHILS # 12.2 10^3/uL (1.8-7.7); NEUTROPHILS % 80.8 % (36.0-66.0); PLATELET COUNT, AUTOMATED 268 10^3/uL (150-450); RED BLOOD COUNT 5.04 10^6/uL (4.30-6.10); WHITE BLOOD COUNT 15.1 10^3/uL (4.0-10.0)
[2019-04-08] MEDS ORDERED: ISOVUE-370 76% 100ML VIAL (Q9967) As Ordered ONE (07:16)
[2019-04-08 07:36] LABS: ALBUMIN 4.4 GM/DL (3.2-5.2); BILIRUBIN,DIRECT 0.2 MG/DL (0.0-0.2); BILIRUBIN,TOTAL 0.7 MG/DL (0.2-1.0); TOTAL PROTEIN 8.5 GM/DL (6.4-8.2)
--- NOTE | 2019-04-08 09:36 | REP ---
CT of the abdomen and pelvis with IV contrast, without bowel contrast: Comparison is 07/28/2018. The visualized lung escobar are unremarkable and unchanged. The hepatic parenchyma is homogeneous. The gallbladder is unremarkable. Pancreas and spleen are unremarkable. There is bariatric surgery. This is unchanged. The adrenals and right kidney are unremarkable and unchanged. One of the two previous left renal calculi has migrated into the mid left ureter at the L4 level. There is left hydronephrosis and hydroureter. The abdominal aorta is unremarkable. The bowel and mesentery are unremarkable except for the bariatric surgery. Pelvis: There is no ascites or adenopathy. The bladder is unremarkable. The pelvic bowel loops are unremarkable. Impression: One of the two previous left renal calculi has migrated into the left mid ureter at the L4 level. There is left hydronephrosis and hydroureter. Bariatric surgery. Electronically Signed by César Snyder MD 04/08/2019 09:27 A
[2019-04-08 10:38] VITALS: BP 117/72
[2019-04-08] MEDS ORDERED: BACT800T5 PO (11:03)
[2019-04-08] MEDS ORDERED: ZOFR8TAB24 PO (11:11)
[2019-04-08] MEDS ORDERED: NORC1TAB7 PO (11:11)
[2019-04-17] MEDS ORDERED: OXYC1TAB23 PO (13:34)
[2019-04-17] MEDS ORDERED: INFL10VL IV (13:34)
== END 2019-04-08 11:17 | disposition home or self-care (01) ==
LOC: M ED 06:10
DX: N20.0 Calculus of kidney (principal); E11.9 Type 2 diabetes mellitus without complications; I10 Essential (primary) hypertension; J45.909 Unspecified asthma, uncomplicated
CPT/HCPCS: 74177; 80047; 80076; 81001; 82150; 83605; 83690; 85025; 96374; 96375; 96376; 99284; J1885; J2405; Q9967

== ENCOUNTER → 2019-04-17 | Outpatient (REF) | payer OTHER ==
[~2019-04-17] MED LIST changes: +BACT800T5 PO; +INFL10VL IV; +NORC1TAB7 PO; +OXYC1TAB23 PO; +ZOFR8TAB24 PO
[2019-04-17 14:26] LABS: AMORPHOUS SEDIMENT SMALL (NEGATIVE); APPEARANCE, URINE CLOUDY (CLEAR); BACTERIA, URINE AUTO 1+ (NEGATIVE); BILIRUBIN, URINE AUTO NEGATIVE (NEGATIVE); BLOOD, URINE BLOOD 3+ (NEGATIVE); COLOR, URINE YELLOW (YELLOW); GLUCOSE, URINE (UA) AUTO NEGATIVE (NEGATIVE); GRANULAR CAST, URINE AUTO 3 /LPF; KETONE, URINE AUTO TRACE mg/dL (NEGATIVE); LEUKOCYTE ESTERASE, URINE AUTO 3+ (NEGATIVE); MUCUS, URINE SMALL (NEGATIVE); NITRITE, URINE AUTO NEGATIVE (NEGATIVE); PROTEIN, URINE AUTO NEGATIVE (NEGATIVE); RBC, URINE AUTO 56 /HPF (0-3); SPECIFIC GRAVITY URINE AUTO 1.023 (1.002-1.035); SQUAMOUS EPITHELIAL CELL UR AU 1 /HPF (0-6); UROBILINOGEN, URINE AUTO 0.2 mg/dL (0.0-2.0); WBC, URINE AUTO 54 /HPF (0-3)
== END ==
LOC: M SMT 13:12
PROVIDERS: ATTEND Nurse Practitioner Women's Health
DX: N20.0 Calculus of kidney (principal)

== ENCOUNTER 2019-04-18 07:53 | Day surgery (SDC) | payer OTHER ==
[~2019-04-18] VITALS: Ht 193 cm; Wt 106.3 kg
[2019-04-18 08:42] LABS: INR 0.95; PROTHROMBIN TIME 12.4 SECONDS (11.8-14.0)
[2019-04-18 08:43] LABS: PARTIAL THROMBOPLASTIN TIME 33.1 SECONDS (25.0-38.4)
[2019-04-18] MEDS ORDERED: LIDOCAINE 2% INJ 100 MG/5 ML SDV (FOR ANES.) As Ordered ONE (09:42)
[2019-04-18] MEDS ORDERED: dexameTHASONE 4 MG/ML 1ML VIAL (J1100) As Ordered ONE (09:42)
[2019-04-18] MEDS ORDERED: PROPOFOL 200 MG/20 ML VIAL As Ordered ONE (09:42)
[2019-04-18] MEDS ORDERED: ONDANSETRON 4MG/2ML VIAL (J2405) As Ordered ONE (09:42)
[2019-04-18] MEDS ORDERED: MIDAZOLAM INJ 2 MG/2 ML VIAL (J2250) As Ordered ONE (09:44)
[2019-04-18] MEDS ORDERED: fentaNYL 100 MCG/2 ML INJECTION (J3010) As Ordered ONE (09:45)
[2019-04-18] MEDS ORDERED: CONRAY-60 60% 50ML VIAL (Q9961) As Ordered ONE (10:11)
[2019-04-18] MEDS ORDERED: GLYCOPYRROLATE INJ 0.2 MG/ML 2 ML VIAL As Ordered ONE (10:43)
[2019-04-18] MEDS ORDERED: KETOROLAC 60 MG/2 ML VIAL (J1885) As Ordered ONE (11:06)
[2019-04-18] MEDS ORDERED: PERCOCET 5MG/325MG TAB PO PRN (11:30)
[2019-04-18] MEDS ORDERED: ONDANSETRON 4MG/2ML VIAL (J2405) IV PRN (11:30)
[2019-04-18] MEDS ORDERED: fentaNYL 100 MCG/2 ML INJECTION (J3010) IV PRN (11:30)
[2019-04-18] MEDS ORDERED: LR 1,000 ML IV SCH (11:30)
[2019-04-18] MEDS: oxyCODONE 5MG TAB PO PRN ×2 (11:32→12:10)
[2019-04-18 11:57] VITALS: BP 140/84
--- NOTE | 2019-04-18 12:49 | RO ---
DATE OF PROCEDURE: 04/18/2019 PREPROCEDURE DIAGNOSIS: Left ureteral stones. POSTPROCEDURE DIAGNOSIS: Left ureteral stones. PROCEDURE: Cystoscopy, left ureteroscopy with basket extraction of stones, left retrograde pyelogram with intraoperative interpretation of images, left ureteral stent placement. SURGEON: Dr. Josh Hauser CERTIFIED FAMILY MEDIATOR: None. ANESTHESIA: General. OPERATIVE INDICATIONS: This is a 48-year-old male who was found to have a 7 mm obstructing left ureteral stone and was having intractable pain from this. It was recommended he be brought to the operating room today for the above listed procedure. DESCRIPTION OF PROCEDURE: The patient was brought to the operating room and general anesthesia was induced. Prophylactic antibiotics were infused. He was then placed in dorsal lithotomy position and prepped and draped in the usual sterile fashion. The rigid cystoscope inserted into the urethral meatus and advanced to the bladder. A guide wire was advanced up the left collecting system. I then advanced a ureteral access sheath over the wire into the left collecting system. I then went up the access sheath with the flexible ureteroscope and within the proximal ureter a 5 mm stone was seen. The stone was removed with the basket. I then advanced the scope into the kidney and examined it thoroughly. The kidney was hydronephrotic and only very tiny stone debris was seen. A retrograde pyelogram was performed and notable for moderate left hydronephrosis with no extravasation. I then withdrew the ureteroscope along with the access sheath. In the distal ureter the 7 mm stone was seen. The stone was then grasped with the basket and withdrawn. No additional stones were seen. At this point, the wire was utilized to advance a 6 German x 22-32 cm JJ ureteral stent up into the left collecting system. The wire was removed and there were adequate curls of the stent in the left renal pelvis and in the bladder. The bladder was then emptied of all fluids and this marked the conclusion of the procedure. The patient was then taken out of the dorsal lithotomy position, awakened from anesthesia and transported to the recovery room in stable condition. Estimated blood loss: 5 mL. Complications: None. Specimen: Ureteral stones. Plan: The patient will follow up in the clinic in a few weeks for stent removal. LEANDRO
--- NOTE | 2019-04-18 13:51 | REP ---
RETROGRADE PYELOGRAM: Three views. HISTORY: Cystoscopy. Left ureteroscopy. 8 seconds of fluoroscopy time is reported. FINDINGS: A sequence of three last image hold fluoroscopically obtained spot radiographs of the abdomen document ureteral cannulation, contrast injection, and stent placement. No laterality markers are visible. Electronically Signed by Garcia Almanza MD 04/18/2019 02:20 P
== END 2019-04-18 12:53 | disposition home or self-care (01) ==
LOC: M SDC 07:53
PROVIDERS: ATTEND Urology
DX: N20.1 Calculus of ureter (principal); R10.9 Unspecified abdominal pain; E78.5 Hyperlipidemia, unspecified; Z87.891 Personal history of nicotine dependence; Z98.84 Bariatric surgery status; Z88.8 Allergy status to other drugs, medicaments and biological substances; Z79.899 Other long term (current) drug therapy; Z79.51 Long term (current) use of inhaled steroids; J45.909 Unspecified asthma, uncomplicated
CPT/HCPCS: 36415; 52332; 52352; 74420; 82360; 85610; 85730; 88300; C1769; C1894; C2617; J0690; J1100; J1885; J2250; J2405; J3010; Q9961

== ENCOUNTER → 2019-04-22 | Outpatient (CLI) | payer OTHER ==
--- NOTE | 2019-04-23 04:39 | REP ---
Clinical: Right hand pain Technique: AP, lateral, bilateral oblique views right hand . Findings: There is a minimally displaced corner fracture at the base of the fifth metacarpal bone with overlying soft tissue swelling. Moderate arthritic degenerative changes at the distal interphalangeal joints noted. Impression: Minimally displaced corner fracture at the base of the fifth metacarpal bone. Degenerative changes at the interphalangeal joints. Electronically Signed by Lewis Brooks MD 04/23/2019 04:30 A
== END ==
LOC: M WUC 13:51
PROVIDERS: ATTEND Physician Assistant
DX: S62.316A Displaced fracture of base of fifth metacarpal bone, right hand, initial encounter for closed fracture (principal); X58.XXXA Exposure to other specified factors, initial encounter; Y92.9 Unspecified place or not applicable; Y93.9 Activity, unspecified; Y99.9 Unspecified external cause status

== ENCOUNTER 2019-05-31 18:58 | Emergency (ER) | payer OTHER ==
[~2019-05-31] VITALS: Ht 190.5 cm; Wt 100.0 kg
[~2019-05-31 18:58] MED LIST changes: -VENTAER; +VENTAER INH
[2019-05-31 18:59] VITALS: BP 144/84
[2019-05-31] MEDS ORDERED: RANI1TAB38 PO (19:19)
[2019-05-31] MEDS ORDERED: AUGM875T28 PO (19:48)
[2019-05-31] MEDS ORDERED: AUGMENTIN 875 MG TAB PO ONE (20:00)
== END 2019-05-31 19:56 | disposition home or self-care (01) ==
LOC: M ED 18:58
DX: R68.84 Jaw pain (principal); R22.0 Localized swelling, mass and lump, head; E11.9 Type 2 diabetes mellitus without complications; K21.9 Gastro-esophageal reflux disease without esophagitis; J45.909 Unspecified asthma, uncomplicated; Z87.891 Personal history of nicotine dependence; Z88.8 Allergy status to other drugs, medicaments and biological substances

== ENCOUNTER → 2020-01-27 | Outpatient (REF) | payer OTHER ==
[~2020-01-27] MED LIST changes: +AUGM875T28 PO; +DULO1CAP6 PO; +OLAN5TAB PO; +QUET5TAB PO; +RANI1TAB38 PO
[2020-01-27 13:33] LABS: BASO # 0.1 10^3/uL (0.0-0.2); EOS # 0.3 10^3/uL (0.0-0.5); EOS % 4.6 % (0.0-3.0); HEMATOCRIT 40.8 % (42.0-52.0); HEMOGLOBIN 13.6 g/dl (13.5-17.5); LYMPH # 2.3 10^3/uL (1.5-5.0); LYMPH % 30.8 % (24.0-44.0); MEAN CORPUSCULAR HEMOGLOBIN 29.8 pg (27.0-33.0); MEAN CORPUSCULAR HGB CONC 33.3 g/dl (32.0-36.5); MEAN CORPUSCULAR VOLUME 89.3 fl (80.0-96.0); MONO # 0.7 10^3/uL (0.0-0.8); MONO % 9.4 % (0.0-5.0); NEUTROPHILS % 53.9 % (36.0-66.0); PLATELET COUNT, AUTOMATED 299 10^3/uL (150-450); RED BLOOD COUNT 4.57 10^6/uL (4.30-6.10); WHITE BLOOD COUNT 7.4 10^3/uL (4.0-10.0)
[2020-01-27 13:41] LABS: ALBUMIN 3.8 GM/DL (3.2-5.2); ALT/SGPT 32 U/L (12-78); BILIRUBIN,TOTAL 0.3 MG/DL (0.2-1.0); BLOOD UREA NITROGEN 14 MG/DL (7-18); CARBON DIOXIDE LEVEL 29 MEQ/L (21-32); CHLORIDE LEVEL 107 MEQ/L (98-107); CHOLESTEROL LEVEL 202 MG/DL (<200); CHOLESTEROL RISK RATIO 2.767 (<5); CREATININE FOR GFR 0.86 MG/DL (0.70-1.30); GLOMERULAR FILTRATION RATE > 60.0 (>60); GLUCOSE, FASTING 104 MG/DL (70-100); HDL CHOLESTEROL 73 MG/DL (>40); IRON (FE) 113 UG/DL (65-175); LDL CHOLESTEROL 92 MG/DL (<100); NON-HDL-C 129 MG/DL; POTASSIUM SERUM 4.1 MEQ/L (3.5-5.1); SODIUM LEVEL 141 MEQ/L (136-145); TOTAL PROTEIN 7.1 GM/DL (6.4-8.2); TRIGLYCERIDES LEVEL 187 MG/DL (<150)
[2020-01-27 13:48] LABS: TOTAL 25(OH) VITAMIN D 14.8 NG/ML (30.0-100.0); VITAMIN B12 LEVEL 1224 PG/ML
[2020-01-27 14:17] LABS: FOLATE > 24.0 NG/ML
[2020-01-27 15:01] LABS: HEMOGLOBIN A1c 6.2 %
[2020-01-30 10:07] LABS: VITAMIN A, RETINOL LEVEL 52.7 ug/dL (20.1-62.0); VITAMIN K1 0.9 ng/mL (0.13-1.88)
== END ==
LOC: M SFHCPLAZ 11:26
PROVIDERS: ATTEND Physician Assistant
DX: Z98.84 Bariatric surgery status (principal); E11.9 Type 2 diabetes mellitus without complications; E78.5 Hyperlipidemia, unspecified

== ENCOUNTER 2020-09-14 14:24 | Inpatient (IN) | payer OTHER ==
[~2020-09-14] VITALS: Ht 182.9 cm; Wt 105.2 kg
[2020-09-14] MEDS ORDERED: LORazepam 2 MG/ML VIAL IV STA ×2 (14:30→16:59)
[2020-09-14] MEDS ORDERED: NS 1,000 ML IV ONE ×3 (14:30→16:45)
[2020-09-14 15:06] LABS: BASO # 0.1 10^3/uL (0.0-0.2); BASO % 0.2 % (0.0-1.0); HEMATOCRIT 43.4 % (42.0-52.0); HEMOGLOBIN 14.2 g/dl (13.5-17.5); LYMPH # 1.8 10^3/uL (1.5-5.0); LYMPH % 7.1 % (24.0-44.0); MEAN CORPUSCULAR HEMOGLOBIN 29.6 pg (27.0-33.0); MEAN CORPUSCULAR HGB CONC 32.7 g/dl (32.0-36.5); MEAN CORPUSCULAR VOLUME 90.6 fl (80.0-96.0); MONO # 1.8 10^3/uL (0.0-0.8); MONO % 7.3 % (0.0-5.0); NEUTROPHILS % 84.9 % (36.0-66.0); PLATELET COUNT, AUTOMATED 405 10^3/uL (150-450); RED BLOOD COUNT 4.79 10^6/uL (4.30-6.10); WHITE BLOOD COUNT 24.8 10^3/uL (4.0-10.0)
[2020-09-14 15:46] LABS: ACETAMINOPHEN LEVEL < 2.0 UG/ML (10.0-30.0); ALT/SGPT 46 U/L (12-78); BILIRUBIN,DIRECT 0.5 MG/DL (0.0-0.2); BILIRUBIN,TOTAL 1.2 MG/DL (0.2-1.0); BLOOD UREA NITROGEN 43 MG/DL (7-18); CALCIUM LEVEL 9.7 MG/DL (8.5-10.1); CARBON DIOXIDE LEVEL 19 MEQ/L (21-32); CHLORIDE LEVEL 104 MEQ/L (98-107); CK-MB VALUE MASS 42.4 NG/ML (<3.6); CPK CREATINE PHOSPHOKINASE 3619 U/L (39-308); CREATININE FOR GFR 2.32 MG/DL (0.70-1.30); ETHYL ALCOHOL (ETHANOL) < 0.003 % (0.000-0.010); GLUCOSE, FASTING 96 MG/DL (70-100); MB/CK RELATIVE INDEX 1.17 (< OR =4); SALICYLATE LEVEL 1.7 MG/DL (5.0-30.0); SODIUM LEVEL 141 MEQ/L (136-145); THYROID STIMULATING HORMONE 0.546 uIU/ML (0.358-3.740); TOTAL PROTEIN 8.5 GM/DL (6.4-8.2); TROPONIN I 0.17 NG/ML (< 0.10)
--- NOTE | 2020-09-14 16:39 | REP ---
INDICATION: AMS COMPARISON: None. TECHNIQUE: Axial noncontrast images from the skull base to the vertex with coronal reformations. This CT examination was performed using the following dose reduction techniques: Automated exposure control, adjustment of mA and/or kv according to the patient's size, and use of iterative reconstruction technique. FINDINGS: The ventricles, sulci, and cisterns are normal in position and appearance. [place]-white differentiation is maintained. No acute intracranial hemorrhage, mass/mass effect, pathology or trauma/injury. No evidence for acute infarction. No extra-axial fluid collection. Calvarium is intact. Paranasal sinuses and mastoid air cells are clear. IMPRESSION: Normal noncontrast head CT. No evidence for acute intracranial pathology or trauma/injury. <Electronically signed by Lewis Brooks > 09/14/20 1987
[2020-09-14 17:52] LABS: AMPHETAMINES LEVEL URINE NEGATIVE (NEGATIVE); BARBITURATES URINE NEGATIVE (NEGATIVE); BENZODIAZEPINES URINE NEGATIVE (NEGATIVE); CANNABINOIDS URINE POSITIVE (NEGATIVE); COCAINE METABOLITE URINE NEGATIVE (NEGATIVE); METHADONE URINE NEGATIVE (NEGATIVE); OPIATES URINE NEGATIVE (NEGATIVE); PHENCYCLIDINE URINE NEGATIVE (NEGATIVE)
[2020-09-14] MEDS ORDERED: METH50IN8 SC (19:03)
[2020-09-14] MEDS ORDERED: DULO1CAP6 PO (19:03)
[2020-09-14] MEDS ORDERED: MULT-40 PO (19:03)
[2020-09-14] MEDS ORDERED: MAALOX 30 ML SUSP *UDC PO PRN (19:15)
[2020-09-14] MEDS ORDERED: MOM 30ML SUSPENSION UDC PO PRN (19:15)
[2020-09-14] MEDS ORDERED: ACETAMINOPHEN TAB 650MG DOSE (2X325MG) PO PRN (19:15)
[2020-09-14] MEDS ORDERED: COMMENTS (19:41)
[2020-09-14 20:15] LABS: CK-MB VALUE MASS 35.6 NG/ML (<3.6); MB/CK RELATIVE INDEX 1.22 (< OR =4); TROPONIN I 0.11 NG/ML (< 0.10)
[2020-09-14] MEDS: NS 1,000 ML IV SCH (20:26)
[2020-09-14 20:41] LABS: MAGNESIUM LEVEL 2.1 MG/DL (1.8-2.4)
[2020-09-14] MEDS ORDERED: FOLI1TAB11 PO (20:47)
[2020-09-14 20:56] LABS: PTH INTACT 78.6 PG/ML (18.5-88.0)
[2020-09-14] MEDS ORDERED: ALBUTEROL 90 MCG/ACT 8GM HFA INHALER INH PRN (21:00)
[2020-09-14] MEDS: DULoxetine 30 MG CAP (CYMBALTA) PO SCH (21:00)
[2020-09-14 21:09] LABS: PTH INTACT 61.7 PG/ML (18.5-88.0)
--- NOTE | 2020-09-14 21:22 | HPEPDOC ---
[facility] Medical History & Physical Date of Admission Sep 14, 2020 Date of Service: Sep 14, 2020 Attending Physician: FAWN BUTT MD History and Physical TIME OF SERVICE: 7 35 PM CHIEF COMPLAINT: psychosis HISTORY OF PRESENT ILLNESS: The history was obtained from Scotty Salazar, the patient was to sedated to provide any meaningful history. This 49 yr old males sister called EMS because he was acting erratically; per ER intake notes it was suspected that ingested some kind of recreational drug. When he arrived in the ER he was screaming and agitated and had to be sedated with 4 point restraints and Ativan. After the restraints were removed the patient remained alert but confused and was able to stand up and ambulate but urinated on the floor. At the time of my assessment he was arousable but not speaking. He nodded his head no when asked if he had any pain and asked if he knew where we were. REVIEW OF SYSTEMS: 12-point review of systems negative except as listed in HPI PAST MEDICAL/ SURGICAL HISTORY: Asthma Birdshot choreoretinopathy Gastric bypass (hx of HTN, DLP and DM but these are no longer active issues / likely resolved after surgery) Left finger surgery Tonsillectomy SOCIAL HISTORY: per chart review History of cocaine and alcohol use FAMILY HISTORY: unobtainable ALLERGIES: Please see below. HOME MEDICATIONS: Please see below. PHYSICAL EXAMINATION: VITAL SIGNS: Please see below. GENERAL APPEARANCE: lying in hospital bed HEENT: NC in place / mucus membranes dry / no scleral icterus / no conjunctival injection CARDIOVASCULAR: tachycardic / NMRG / no LE edema LUNGS: CTAB ABDOMEN: flat / soft & NT with palpation MUSCULOSKELETAL: JOSE x 4 extremities /intermittently twitching and flexing and extending his neck NEUROLOGICAL: EOMI / no asterisks PSYCHIATRIC: alert / not answering questions / appears intoxicated with some kind of substance LABORATORY DATA: 09/14/20 14:46 09/14/20 14:46: Immature Granulocyte % (Auto) 0.5, Neutrophils (%) (Auto) 84.9H, Lymphocytes (%) (Auto) 7.1L, Monocytes (%) (Auto) 7.3H, Eosinophils (%) (Auto) 0.0, Basophils (%) (Auto) 0.2, Neutrophils # (Auto) 21.0H, Lymphocytes # (Auto) 1.8, Monocytes # (Auto) 1.8H, Eosinophils # (Auto) 0.0, Basophils # (Auto) 0.1, Nucleated Red Blood Cells % (auto) 0.0, Anion Gap 18H, Glomerular Filtration Rate 32.0L, Calcium Level 9.7, Total Bilirubin 1.2H, Direct Bilirubin 0.5H, Aspartate Amino Transf (AST/SGOT) 108H, Alanine Aminotransferase (ALT/SGPT) 46, Alkaline Phosphatase 99, Total Creatine Kinase 3619H, Creatine Kinase MB 42.4H, Creatine Kinase MB Relative Index 1.17, Troponin I 0.17H, Total Protein 8.5H, Albumin 5.0, Albumin/Globulin Ratio 1.4, Thyroid Stimulating Hormone (TSH) 0.546, Parathyroid Hormone (Intact) 78.6, Salicylates Level 1.7L, Acetaminophen Level < 2.0L, Ethyl Alcohol Level < 0.003 09/14/20 17:14: Urine Opiates Screen NEGATIVE, Urine Methadone Screen NEGATIVE, Urine Barbiturates Screen NEGATIVE, Urine Phencyclidine Screen NEGATIVE, Urine Amphetamines Screen NEGATIVE, Urine Benzodiazepines Screen NEGATIVE, Urine Cocaine Metabolite Screen NEGATIVE, Urine Cannabinoids Screen POSITIVEH 09/14/20 19:23: Total Creatine Kinase 2915H, Creatine Kinase MB 35.6H, Creatine Kinase MB Relative Index 1.22, Troponin I 0.11#H, Parathyroid Hormone (Intact) 61.7, Magnesium Level 2.1 09/14/20 20:34: Lactic Acid Level 7.5*H IMAGING: CT head IMPRESSION: Normal noncontrast head CT.No evidence for acute intracranial pathology or trauma/injury. MICROBIOLOGY: 09/14/20 Blood Culture, Received Pending 09/14/20 Blood Culture, Received Pending 09/14/20 Respiratory Virus Panel (PCR) (SOURAV) - pending.... ASSESSMENT: is a 49 yr old w a hx of Asthma and Birdshot choreoretinopathy who presented with psychosis that may be drug induced; he will be admitted for management and evaluation of Metabolic Encephalopathy, LÁZARO, Rhabdo and SIRS. PLAN: 1 Metabolic Encephalopathy Likely due to polysubstance abuse Tox screen only positive for Cannabinoids CT head neg Plan: admit to medical floor / fall precautions /neurochecks q8H 2 LÁZARO Likely intrarenal 2/2 ingestion of toxins and or Rhabdo Plan: f/u Is and Os / f/u UA with microscopy, Ulytes for FENa / Renal US / IVF / 3 Rhabdomyolysis Likely 2/2 ingestion of toxins Plan: trend CK / IVF / f/u PTH to calculate [place] Rhabdomyolysis Risk Score to predict the risk of severe LÁZARO or mortality in patients with rhabdomyolysis 4 SIRS Likely reactive 2/2 drugs. SIRS criteria: HR = 111 / WBC = 24.8 / RR = 22 qSOFA Score = 1 points = not high risk Plan: f/u lactic acid, UA, chest xray and blood cx to definitively r/o infection 5. Elevated troponin Possibly 2/2 reduced troponin clearance in the setting of LÁZARO and or tachycardia (aka demand ischemia) EKG showed sinus tachycardia with mild (less than 2mm) T wave inversions in V3- V6, II, III, aVF Plan: telemetry / trend trops / treat LÁZARO 6. Chronic Asthma Plan: albuterol PRN along with Fluticasone Inhaler (he will need to be discharged with an inhaled corticosteroid i.e. Fluticasone as a part of maintenance regimen per YESI 2019 guidelines) 7. Birdshot choreoretinopathy Plan: MTX w folic acid 8. Class 1 Obesity ? w BMI of 31.5 He had gastricbypass and clinically doesnt appear obese Plan: will ask staff to recheck his weight DVT Px w SCDs / Ariela Prediction Score for Risk of VTE = 1 = pharmacological px not indicated Dispo: home after more than 2 midnights stay Home Medications Scheduled Duloxetine Hcl (Duloxetine HCl) 60 Mg Capsule.dr, 60 MG PO BID Folic Acid (Folic Acid) 1 Mg Tablet, 1 MG PO DAILY Methotrexate Sodium/Pf (Methotrexate 50 mg/2 ml Vial) 25 Mg/1 Ml Vial, 0.4 ML SC 1XWK Multivitamin (Multivitamins) 1 Each Tablet, 1 TAB PO DAILY Scheduled PRN Albuterol Sulfate (Ventolin Hfa) 108 Mcg/Act Aer, 2 PUFF INH Q4-6HP PRN for W HEEZING Miscellaneous Medications [Comments] MED REC COMPLETED WITH EXTERNAL MED HISTORY Allergies Coded Allergies: lisinopril (Verified Allergy, Severe, ANAPHYLAXIS, 04/08/19) A-FIB/CHADSVASC A-FIB History Current/History of A-Fib/PAF?: No Current PO Anticoag Therapy: No FAWN BUTT MD Sep 14, 2020 21:22
--- NOTE | 2020-09-14 21:24 | REP ---
INDICATION: Leukocytosis and tachycardia COMPARISON: 11/23/2015 TECHNIQUE: Portable AP view of the chest FINDINGS: The mediastinum and cardiac silhouette are stable and within normal limits for portable technique. The lung escobar are clear without acute consolidation, effusion, or pneumothorax. Skeletal structures are intact. IMPRESSION: No acute consolidation or effusion. <Electronically signed by Lewis Brooks > 09/14/20 [id number]
--- NOTE | 2020-09-14 22:27 | REPVR ---
PROCEDURE INFORMATION: Exam: US Retroperitoneal Limited, Kidneys Exam date and time: 09/14/2020 8:06 PM Age: 49 years old Clinical indication: Other: Avni TECHNIQUE: Imaging protocol: Real-time ultrasound of the retroperitoneum with image documentation. Examination was focused on the kidneys. COMPARISON: CT ABD/PEL W/IV CONTRAST ONLY 04/08/2019 7:22 AM FINDINGS: Right kidney: Right kidney measures 12.3 x 6.7 x 5.3 cm. Left kidney: Left kidney measures 10.5 x 5.2 x 7 cm. Bladder: Visualized urinary bladder unremarkable. IMPRESSION: Unremarkable scan. Electronically signed by: Antione Travis On 09/14/2020 22:27:52 PM
[2020-09-15] MEDS: FLUTICASONE HFA 110 MCG 12 GM INHALER (FLOVENT) INH SCH ×3 (00:02→22:58)
[2020-09-15 00:52] LABS: APPEARANCE, URINE CLEAR (CLEAR); BACTERIA, URINE AUTO NEGATIVE (NEGATIVE); BILIRUBIN, URINE AUTO NEGATIVE (NEGATIVE); BLOOD, URINE BLOOD NEGATIVE (NEGATIVE); COLOR, URINE YELLOW (YELLOW); GLUCOSE, URINE (UA) AUTO NEGATIVE (NEGATIVE); KETONE, URINE AUTO 2+ mg/dL (NEGATIVE); LEUKOCYTE ESTERASE, URINE AUTO NEGATIVE (NEGATIVE); MUCUS, URINE SMALL (NEGATIVE); NITRITE, URINE AUTO NEGATIVE (NEGATIVE); PROTEIN, URINE AUTO NEGATIVE (NEGATIVE); RBC, URINE AUTO 3 /HPF (0-3); SPECIFIC GRAVITY URINE AUTO 1.026 (1.002-1.035); SQUAMOUS EPITHELIAL CELL UR AU 0 /HPF (0-6); WBC, URINE AUTO 2 /HPF (0-3)
[2020-09-15 01:31] LABS: PHOSPHOROUS,RANDOM URINE 233.5 MG/DL; POTASSIUM RANDOM URINE 40.7 MEQ/L
[2020-09-15] MEDS: NS 1,000 ML IV SCH ×3 (05:30→10:10)
--- NOTE | 2020-09-15 06:55 | ECGEPIP ---
[facility] - ED Test Date: 2020-09-14 Pat Name: JUAN MARRERO Department: Room: - Gender: Male Hospital Cook: : 1970 Requested By: LEVAR KENT Order Number: [id number] Reading MD: Danie Noonan Measurements Intervals [place] Rate: 95 P: 66 LA: 146 QRS: 51 QRSD: 106 T: 180 QT: 372 QTc: 469 Interpretive Statements SINUS RHYTHM ST DEVIATION AND MODERATE T-WAVE ABNORMALITY, CONSIDER ANTEROLATERAL ISCHEMIA Electronically Signed on 09-15-2020 6:54:47 EST by Danie Noonan
[2020-09-15 07:00] LABS: HEMATOCRIT 37.9 % (42.0-52.0); HEMOGLOBIN 12.4 g/dl (13.5-17.5); MEAN CORPUSCULAR HEMOGLOBIN 29.7 pg (27.0-33.0); MEAN CORPUSCULAR HGB CONC 32.7 g/dl (32.0-36.5); MEAN CORPUSCULAR VOLUME 90.7 fl (80.0-96.0); RED BLOOD COUNT 4.18 10^6/uL (4.30-6.10); WHITE BLOOD COUNT 11.7 10^3/uL (4.0-10.0)
[2020-09-15 07:09] LABS: PLATELET COUNT, AUTOMATED 267 10^3/uL (150-450)
[2020-09-15 07:18] LABS: BLOOD UREA NITROGEN 28 MG/DL (7-18); CALCIUM LEVEL 8.5 MG/DL (8.5-10.1); CARBON DIOXIDE LEVEL 23 MEQ/L (21-32); CHLORIDE LEVEL 109 MEQ/L (98-107); CREATININE FOR GFR 1.01 MG/DL (0.70-1.30); GLOMERULAR FILTRATION RATE > 60.0 (>60); GLUCOSE, FASTING 84 MG/DL (70-100); SODIUM LEVEL 140 MEQ/L (136-145); TROPONIN I 0.04 NG/ML (< 0.10)
[2020-09-15 07:30] VITALS: BP 151/75
[2020-09-15] MEDS ORDERED: ENOXAPARIN 40MG/0.4ML SYRINGE (J1650 PER 10MG) SC SCH (09:00)
[2020-09-15] MEDS: DULoxetine 30 MG CAP (CYMBALTA) PO SCH (09:00)
[2020-09-15] MEDS ORDERED: FOLIC ACID 1 MG TAB PO SCH (09:00)
--- NOTE | 2020-09-15 13:22 | DS.PDOC ---
Discharge Summary General Date of Admission Sep 14, 2020 at 19:10 Date of Discharge 09/15/2020 Discharge Summary PROCEDURES PERFORMED DURING STAY: [None]. ADMITTING DIAGNOSES / DISCHARGE DIAGNOSES: s/p Metabolic Encephalopathy - likely 2/2 polysubstance abuse s/p LÁZARO s/p Rhabdomyolysis s/p Lactic acidosis s/p Elevated troponin Chronic Asthma Birdshot chorioretinopathy Obesity DVT prophylaxis COMPLICATIONS/CHIEF COMPLAINT: Psychosis HISTORY OF PRESENT ILLNESS: Patient is a 49-year-old male with a PMHx of Asthma, Birdshot chorioretinopathy, Gastric bypass, who presented to the emergency room after EMS was called for erratic behavior. Patient was noted to have used recreational drugs. This morning patient had admitted that he had snorted Alejandra. Patient was initially placed on 4-point restraints and given chemical sedation. This morning patient is fully oriented to person, place and time. Denies any suicidal ideation. Denies any chest pain, shortness breath, palpitations, nausea , vomiting, abdominal pain, diarrhea, or urinary discomfort. HOSPITAL COURSE: s/p Metabolic Encephalopathy - likely 2/2 polysubstance abuse - Currently patient is fully oriented to person, place and time - patient had admitted to consuming Alejandra intranasally - CT head negative - Patient denies any suicidal ideation - Patient does not want to seek any counseling at this time - Patient has been advised to remain abstinent of any drug use - Patient has been advised to follow-up with his primary care provider within the next 7 days s/p LÁZARO s/p Rhabdomyolysis s/p Elevated troponin - Patient denies any CP, SOB, palpitations - Troponin trended down - EKG reviewed Chronic Asthma - No evidence of exacerbation - c/w inhaled therapy as ordered Birdshot chorioretinopathy - c/w MTX and Folic acid Obesity - BMI of 31.5 - Complicating medical care DVT prophylaxis - c/w TEDs/Sequentials DISCHARGE MEDICATIONS: Please see below. ALLERGIES: Please see below. PHYSICAL EXAMINATION ON DISCHARGE: General: Lying in bed, no acute distress, comfortable, AAOx3 HEENT: NC, AT CVS: +S1S2 Lungs: Fair air entry b/l, no appreciable wheezing / rhonchi / crackles Abdomen: Soft, ND, NT Extremities: - Edema, - Calf tenderness LABORATORY DATA: Please see below. ACTIVITY: [As tolerated]. DISCHARGE PLAN: Follow-up with primary care provider within the next 7 days Remain compliant with treatment plan and medications Return to the ER if you experience any problems DISPOSITION: Home DISCHARGE CONDITION: [Stable]. TIME SPENT ON DISCHARGE: 35 minutes. Vital Signs/I&Os Vital Signs Date Time Temp Pulse Resp B/P (MAP) Pulse Ox O2 Delivery O2 Flow Rate FiO2 09/15/20 07:30 97.3 86 20 151/75 (100) 98 Room Air 09/14/20 20:01 2.0 I&O- Last 24 Hours up to 6 AM 09/15/20 06:00 Intake Total 4000 ml Balance 4000 ml Laboratory Data Labs 24H Laboratory Tests 2 09/14/20 14:46: Immature Granulocyte % (Auto) 0.5, Neutrophils (%) (Auto) 84.9H, Lymphocytes (%) (Auto) 7.1L, Monocytes (%) (Auto) 7.3H, Eosinophils (%) (Auto) 0.0, Basophils (%) (Auto) 0.2, Neutrophils # (Auto) 21.0H, Lymphocytes # (Auto) 1.8, Monocytes # (Auto) 1.8H, Eosinophils # (Auto) 0.0, Basophils # (Auto) 0.1, Nucleated Red Blood Cells % (auto) 0.0, Anion Gap 18H, Glomerular Filtration Rate 32.0L, Calcium Level 9.7, Total Bilirubin 1.2H, Direct Bilirubin 0.5H, Aspartate Amino Transf (AST/SGOT) 108H, Alanine Aminotransferase (ALT/SGPT) 46, Alkaline Phosphatase 99, Total Creatine Kinase 3619H, Creatine Kinase MB 42.4H, Creatine Kinase MB Relative Index 1.17, Troponin I 0.17H, Total Protein 8.5H, Albumin 5.0, Albumin/Globulin Ratio 1.4, Thyroid Stimulating Hormone (TSH) 0.546, Parathyroid Hormone (Intact) 78.6, Salicylates Level 1.7L, Acetaminophen Level < 2.0L, Ethyl Alcohol Level < 0.003 09/14/20 17:14: Urine Opiates Screen NEGATIVE, Urine Methadone Screen NEGATIVE, Urine Barbiturates Screen NEGATIVE, Urine Phencyclidine Screen NEGATIVE, Urine Amphetamines Screen NEGATIVE, Urine Benzodiazepines Screen NEGATIVE, Urine Cocaine Metabolite Screen NEGATIVE, Urine Cannabinoids Screen POSITIVEH 09/14/20 19:23: Total Creatine Kinase 2915H, Creatine Kinase MB 35.6H, Creatine Kinase MB Relative Index 1.22, Troponin I 0.11#H, Parathyroid Hormone (Intact) 61.7, Magnesium Level 2.1 09/14/20 20:34: Lactic Acid Level 7.5*H 09/15/20 00:17: Troponin I 0.08# 09/15/20 00:18: Urine Color YELLOW, Urine Appearance CLEAR, Urine pH 5.0, Urine Specific [place] 1.026, Urine Protein NEGATIVE, Urine Glucose (Auto)(UA) NEGATIVE, Urine Ketones (Auto) 2+H, Urine Blood NEGATIVE, Urine Nitrite NEGATIVE, Urine Bilirubin NEGATIVE, Urine Urobilinogen 2.0H, Urine Leukocyte Esterase (Auto) NEGATIVE, Urine WBC (Auto) 2, Urine RBC (Auto) 3, Urine Hyaline Casts (Auto) 0, Urine Bacteria (Auto) NEGATIVE, Urine Squamous Epithelial Cells 0, Urine Mucus (Auto) SMALL, Urine Sperm (Auto) , Urine Random Osmolality 1012H, Urine Random Creatinine 151.0, Urine Random Sodium 75, Urine Random Potassium 40.7, Urine Random Phosphorus 233.5, Urine Random Urea Nitrogen 1429 09/15/20 01:08: Lactic Acid Followup at 4 Hours 1.2 09/15/20 06:20: Troponin I 0.04#, Nucleated Red Blood Cells % (auto) 0.0, Anion Gap 8, Glomerular Filtration Rate > 60.0, Calcium Level 8.5 CBC/BMP Laboratory Tests 09/14/20 14:46 09/15/20 06:20 Microbiology Microbiology 09/14/20 Blood Culture, Received Pending 09/14/20 Blood Culture, Received Pending 09/14/20 Respiratory Virus Panel (PCR) ([facility]V) - Final, Complete Discharge Medications Scheduled Duloxetine Hcl (Duloxetine HCl) 60 Mg Capsule.dr, 60 MG PO BID, (Reported) Folic Acid (Folic Acid) 1 Mg Tablet, 1 MG PO DAILY, (Reported) Methotrexate Sodium/Pf (Methotrexate 50 mg/2 ml Vial) 25 Mg/1 Ml Vial, 0.4 ML SC 1XWK, (Reported) Multivitamin (Multivitamins) 1 Each Tablet, 1 TAB PO DAILY, (Reported) Scheduled PRN Albuterol Sulfate (Ventolin Hfa) 108 Mcg/Act Aer, 2 PUFF INH Q4-6HP PRN for WHEEZING, (Reported) Allergies Coded Allergies: lisinopril (Verified Allergy, Severe, ANAPHYLAXIS, 04/08/19) JANETTE FAUSTIN MD Sep 15, 2020 13:22
[2020-09-20] MEDS ORDERED: METHOTREXATE 50MG/2ML VIAL (J9260 PER 50MG) SC SCH (09:00)
== END 2020-09-15 14:00 | disposition home or self-care (01) | DRG 812 ==
LOC: M ED 14:24 → M ED INP 19:10
PROVIDERS: ADMIT Internal Medicine; ATTEND Internal Medicine
DX: T43.641A Poisoning by ecstasy, accidental (unintentional), initial encounter (principal); N17.9 Acute kidney failure, unspecified; E87.2 Acidosis; G93.41 Metabolic encephalopathy; M62.82 Rhabdomyolysis; F12.188 Cannabis abuse with other cannabis-induced disorder; J45.909 Unspecified asthma, uncomplicated; H35.719 Central serous chorioretinopathy, unspecified eye; E66.9 Obesity, unspecified; Z68.31 Body mass index [BMI] 31.0-31.9, adult; Z88.8 Allergy status to other drugs, medicaments and biological substances; Z79.899 Other long term (current) drug therapy; F15.188 Other stimulant abuse with other stimulant-induced disorder

== ENCOUNTER 2020-11-05 09:58 | Emergency (ER) | payer OTHER ==
[~2020-11-05] VITALS: Ht 190.5 cm; Wt 111.4 kg
[~2020-11-05 09:58] MED LIST changes: +COMMENTS; +FOLI1TAB11 PO; +METH50IN8 SC; +MULT-40 PO; +QUET50TA3 PO; -QUET5TAB PO
--- OUTSIDE RECORDS SUMMARY | 2020-11-05 10:06 | CCD ---
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 Care Testing Director Name Role Phone Isreal SANDY Unavailable Unavailable Neerukonda, K Vamsee Unavailable Unavailable Neerukonda, K Vamsee Unavailable Unavailable Neerukonda, K Vamsee Unavailable Unavailable Neerukonda, K Vamsee Unavailable Unavailable Christ CROWLEY Unavailable Unavailable ALIASES , DEFAULT / GENERIC / UNKNOWN PROVIDER * Unavailable Unavailable ALIASES , DEFAULT / GENERIC / UNKNOWN PROVIDER * Unavailable Unavailable ALIASES , DEFAULT / GENERIC / UNKNOWN PROVIDER * Unavailable Unavailable ALIASES , DEFAULT / GENERIC / UNKNOWN PROVIDER * Unavailable Unavailable ALIASES , DEFAULT / GENERIC / UNKNOWN PROVIDER * Unavailable Unavailable ALIASES , DEFAULT / GENERIC / UNKNOWN PROVIDER * Unavailable Unavailable ALIASES , DEFAULT / GENERIC / UNKNOWN PROVIDER * Unavailable Unavailable ALIASES , DEFAULT / GENERIC / UNKNOWN PROVIDER * Unavailable Unavailable ALIASES , DEFAULT / GENERIC / UNKNOWN PROVIDER * Unavailable Unavailable ALIASES , DEFAULT / GENERIC / UNKNOWN PROVIDER * Unavailable Unavailable ALIASES , DEFAULT / GENERIC / UNKNOWN PROVIDER * Unavailable Unavailable ALIASES , DEFAULT / GENERIC / UNKNOWN PROVIDER * Unavailable Unavailable ALIASES , DEFAULT / GENERIC / UNKNOWN PROVIDER * Unavailable Unavailable ALIASES , DEFAULT / GENERIC / UNKNOWN PROVIDER * Unavailable Unavailable ALIASES , DEFAULT / GENERIC / UNKNOWN PROVIDER * Unavailable Unavailable ALIASES , DEFAULT / GENERIC / UNKNOWN PROVIDER * Unavailable Unavailable ALIASES , DEFAULT / GENERIC / UNKNOWN PROVIDER * Unavailable Unavailable ALIASES , DEFAULT / GENERIC / UNKNOWN PROVIDER * Unavailable Unavailable ALIASES , DEFAULT / GENERIC / UNKNOWN PROVIDER * Unavailable Unavailable ALIASES , DEFAULT / GENERIC / UNKNOWN PROVIDER * Unavailable Unavailable ALIASES , DEFAULT / GENERIC / UNKNOWN PROVIDER * Unavailable Unavailable ALIASES , DEFAULT / GENERIC / UNKNOWN PROVIDER * Unavailable Unavailable ALIASES , DEFAULT / GENERIC / UNKNOWN PROVIDER * Unavailable Unavailable ALIASES , DEFAULT / GENERIC / UNKNOWN PROVIDER * Unavailable Unavailable ALIASES , DEFAULT / GENERIC / UNKNOWN PROVIDER * Unavailable Unavailable ALIASES , DEFAULT / GENERIC / UNKNOWN PROVIDER * Unavailable Unavailable ALIASES , DEFAULT / GENERIC / UNKNOWN PROVIDER * Unavailable Unavailable ALIASES , DEFAULT / GENERIC / UNKNOWN PROVIDER * Unavailable Unavailable ALIASES , DEFAULT / GENERIC / UNKNOWN PROVIDER * Unavailable Unavailable ALIASES , DEFAULT / GENERIC / UNKNOWN PROVIDER * Unavailable Unavailable ALIASES , DEFAULT / GENERIC / UNKNOWN PROVIDER * Unavailable Unavailable ALIASES , DEFAULT / GENERIC / UNKNOWN PROVIDER * Unavailable Unavailable ALIASES , DEFAULT / GENERIC / UNKNOWN PROVIDER * Unavailable Unavailable ALIASES , DEFAULT / GENERIC / UNKNOWN PROVIDER * Unavailable Unavailable ALIASES , DEFAULT / GENERIC / UNKNOWN PROVIDER * Unavailable Unavailable ALIASES , DEFAULT / GENERIC / UNKNOWN PROVIDER * Unavailable Unavailable ALIASES , DEFAULT / GENERIC / UNKNOWN PROVIDER * Unavailable Unavailable ALIASES , DEFAULT / GENERIC / UNKNOWN PROVIDER * Unavailable Unavailable ALIASES , DEFAULT / GENERIC / UNKNOWN PROVIDER * Unavailable Unavailable ALIASES , DEFAULT / GENERIC / UNKNOWN PROVIDER * Unavailable Unavailable ALIASES , DEFAULT / GENERIC / UNKNOWN PROVIDER * Unavailable Unavailable ALIASES , DEFAULT / GENERIC / UNKNOWN PROVIDER * Unavailable Unavailable ALIASES , DEFAULT / GENERIC / UNKNOWN PROVIDER * Unavailable Unavailable ALIASES , DEFAULT / GENERIC / UNKNOWN PROVIDER * Unavailable Unavailable ALIASES , DEFAULT / GENERIC / UNKNOWN PROVIDER * Unavailable Unavailable ALIASES , DEFAULT / GENERIC / UNKNOWN PROVIDER * Unavailable Unavailable ALIASES , DEFAULT / GENERIC / UNKNOWN PROVIDER * Unavailable Unavailable ALIASES , DEFAULT / GENERIC / UNKNOWN PROVIDER * Unavailable Unavailable ALIASES , DEFAULT / GENERIC / UNKNOWN PROVIDER * Unavailable Unavailable ALIASES , DEFAULT / GENERIC / UNKNOWN PROVIDER * Unavailable Unavailable ALIASES , DEFAULT / GENERIC / UNKNOWN PROVIDER * Unavailable Unavailable ALIASES , DEFAULT / GENERIC / UNKNOWN PROVIDER * Unavailable Unavailable ALIASES , DEFAULT / GENERIC / UNKNOWN PROVIDER * Unavailable Unavailable Cecille SOUAS Unavailable Unavailable SWAN [id number], T EMIL [id number] Unavailable Unavailable SWAN [id number], T EMIL [id number] Unavailable Unavailable SWAN [id number], T EMIL [id number] Unavailable Unavailable Isreal REEDTHIA Unavailable Unavailable Marga B Scotty HIGGINS Unavailable Unavailable Velasquez Gresham MD Unavailable Unavailable Velasquez Gresham MD Unavailable Unavailable Velasquez Gresham MD Unavailable Unavailable Velasquez Gresham MD Unavailable Unavailable Velasquez Gresham MD Unavailable Unavailable Velasquez Gresham MD Unavailable Unavailable Velasquez Gresham MD Unavailable Unavailable Velasquez Gresham MD Unavailable Unavailable Velasquez Gresham MD Unavailable Unavailable Velasquez Gresham MD Unavailable Unavailable Velasquez Gresham MD Unavailable Unavailable Velasquez Gresham MD Unavailable Unavailable Velasquez Gresham MD Unavailable Unavailable Velasquez Gresham MD Unavailable Unavailable Velasquez Gresham MD Unavailable Unavailable Velasquez Gresham MD Unavailable Unavailable Velasquez Gresham MD Unavailable Unavailable Velasquez Gresham MD Unavailable Unavailable Velasquez Gresham MD Unavailable Unavailable Velasquez Gresham MD Unavailable Unavailable Velasquez Gresham MD Unavailable Unavailable Velasquez Gresham MD Unavailable Unavailable Velasquez Gresham MD Unavailable Unavailable Velasquez Gresham MD Unavailable Unavailable Velasquez Gresham MD Unavailable Unavailable Velasquez Gresham MD Unavailable Unavailable Velasquez Gresham MD Unavailable Unavailable Velasquez Gresham MD Unavailable Unavailable Velasquez Gresham MD Unavailable Unavailable Velasquez Gresham MD Unavailable Unavailable Velasquez Gresham MD Unavailable Unavailable Velasquez Gresham MD Unavailable Unavailable Velasquez Gresham MD Unavailable Unavailable Velasquez Gresham MD Unavailable Unavailable Velasquez Gresham MD Unavailable Unavailable Velasquez Gresham MD Unavailable Unavailable Velasquez Gresham MD Unavailable Unavailable Velasquez Gresham MD Unavailable Unavailable Velasquez Gresham MD Unavailable Unavailable Won SCOTT Unavailable Unavailable EDGAR HIGGINS, [id number] Isreal HWANG MD Unavailable Unavailisreal HERNÁNDEZ MD, [id number] Isreal HWANG MD Unavailable Unavailisreal HERNÁNDEZ MD, [id number] Isreal HWANG MD Unavailable Unavailisreal HERNÁNDEZ MD, [id number] Isreal HWANG MD Unavailable Unavailisreal HERNÁNDEZ MD, [id number] Isreal HWANG MD Unavailable Unavailisreal HERNÁNDEZ MD, [id number] Isreal HWANG MD Unavailable Unavailisreal HERNÁNDEZ MD, [id number] Isreal HWANG MD Unavailable Unavailisreal HERNÁNDEZ MD, [id number] Isreal HWANG MD Unavailable Unavailisreal HERNÁNDEZ MD, [id number] Isreal HWANG MD Unavailable Unavailisreal HERNÁNDEZ MD, [id number] Isreal HWANG MD Unavailable Unavailisreal HERNÁNDEZ MD, [id number] Isreal HWANG MD Unavailable Unavailisreal HERNÁNDEZ MD, [id number] Isreal HWANG MD Unavailable Unavailisreal HERNÁNDEZ MD, [id number] Isreal HWANG MD Unavailable Unavailisreal HERNÁNDEZ MD, [id number] Isreal HWANG MD Unavailable Unavailisreal HERNÁNDEZ MD, [id number] Isreal HWANG MD Unavailable Kirill HERNÁNDEZ MD, [id number] Isreal HWANG MD Unavailable Kirill HERNÁNDEZ MD, [id number] Isreal HWANG MD Unavailable Kirill beasley Re-disclosure Warning The records that you are about to access may contain information from federally-assisted alcohol or drug abuse programs. If such information is present, then the following federally mandated warning applies: This information has been disclosed to you from records protected by federal confidentiality rules (42 CFR part 2). The federal rules prohibit you from making any further disclosure of this information unless further disclosure is expressly permitted by the written consent of the person to whom it pertains or as otherwise permitted by 42 CFR part 2. A general authorization for the release of medical or other information is NOT sufficient for this purpose. The Federal rules restrict any use of the information to criminally investigate or prosecute any alcohol or drug abuse patient.The records that you are about to access may contain highly sensitive health information, the redisclosure of which is protected by Article 27-F of the [facility] Public Health law. If you continue you may have access to information: Regarding HIV / AIDS; Provided by facilities licensed or operated by the [facility] Office of Mental Health; or Provided by the [facility] Office for People With Developmental Disabilities. If such information is present, then the following [facility] mandated warning applies: This information has been disclosed to you from confidential records which are protected by state law. State law prohibits you from making any further disclosure of this information without the specific written consent of the person to whom it pertains, or as otherwise permitted by law. Any unauthorized further disclosure in violation of state law may result in a fine or assisted sentence or both. A general authorization for the release of medical or other information is NOT sufficient authorization for further disc losure. Family History Family Member Name Family Member Gender Family Member Status Date o f Status Description Data Source(s) Unknown Male Problem [facility] ([facility]) Unknown Male Problem [facility] ([facility]) Encounters Encounter Providers Location Date Indications Data Source(s ) Outpatient Attender: Scotty Gresham MD 2020 12:00:00 A M [facility] Outpatient 11/09/2020 12:00:00 AM [facility] Outpatient 11/02/2020 12:00:00 AM [facility] Outpatient 10/12/2020 12:00:00 AM [facility] Outpatient Attender: EMIL LUANN [id number] 10/02/2020 12:00:0 0 AM [facility] Outpatient Attender: [id number] ERI HERNÁNDEZ MD 10/01/2020 12:00:00 AM [facility] Outpatient Attender: Scotty Gresham MD 09/08/2020 12:00:00 A M [facility] Outpatient Attender: EMIL KONG [id number] 09/03/2020 12:00:0 0 AM [facility] Outpatient Attender: Scotty Gresham MD 09/01/2020 12:00:00 A M [facility] Outpatient Attender: Scotty Gresham MD 08/25/2020 12:00:00 A [facility] Outpatient Attender: DEFAULT / [place] / UNKNOWN PROVIDER ALIASES Attender: LIZETTE SOUSA 08/05/2020 12:00:00 AM [facility] 08/05/2020 11:47:06 AM [facility] 07/31/2020 12:00:00 AM [facility] Outpatient 07/20/2020 12:00:00 AM [facility] Outpatient 07/14/2020 12:00:00 AM [facility] Outpatient Attender: EMIL KONG [id number] 06/23/2020 12:00:0 0 AM [facility] Outpatient Attender: DEFAULT / [place] / UNKNOWN PROVIDER ALIASES Attender: MATTEO CROWLEY 06/22/2020 12:00:00 AM [facility] Outpatient 06/02/2020 12:00:00 AM [facility] Outpatient Attender: Scotty Gresham MD [id number] 12:00:00 AM [facility] - 04/21/2020 01:19:08 PM [facility] Attender: Scotty Gresham MD 04/14/2020 12:00:00 A M [facility] Outpatient Attender: Scotty Gresham MD 04/07/2020 12:00:00 A M [facility] Outpatient Attender: Scotty Gresham MD 03/31/2020 12:00:00 A M [facility] Outpatient Attender: EMIL KONG [id number] 03/2020 12:00:00 AM EDT - 03/24/2020 09:33:36 AM [facility] Attender: [id number] ERI HERNÁNDEZ MD 03/24/2020 12:00:00 AM [facility] Outpatient Attender: [id number] ERI HERNÁNDEZ MD 03/24/2020 12:00:00 AM [facility] Outpatient Attender: PAT SCOTT 03/09/2020 12:00:00 AM [facility] Outpatient 03/05/2020 12:00:00 AM [facility] Outpatient 02/27/2020 12:00:00 AM [facility] Outpatient 02/21/2020 12:00:00 AM [facility] Outpatient [id number] [place] [address] 01/27/2020 12:00:00 AM EDT [facility] ([facility]) Outpatient Attender: EMIL KONG [id number] 01/2020 12:00:00 AM EDT - 01/21/2020 01:40:58 PM [facility] Attender: MARCELO REED 01/10/2020 12:00:00 AM [facility] Outpatient Attender: Scotty Gresham MD 12/03/2019 12:00:00 A M [facility] Outpatient Attender: Scotty Gresham MD 11/26/2019 12:00:00 A M [facility] Outpatient Attender: Scotty Gresham MD 11/19/2019 12:00:00 A M [facility] Outpatient Attender: Otf Lackeytender: EMIL KONG [id number] 11/05/2019 12:00:00 AM EST - 11/05/2019 11:46:54 AM [facility] Attender: [id number] ERI HERNÁNDEZ MD 11/05/2019 12:00:00 AM [facility] Outpatient Attender: [id number] ERI HERNÁNDEZ MD 10/01/2019 12:00:00 AM [facility] Outpatient Attender: MANUEL SANDY 09/30/2019 12:00:00 AM [facility] Outpatient Attender: EMIL KONG [id number] 09/24/2019 12:00:0 0 AM [facility] Outpatient 09/23/2019 12:00:00 AM [facility] Outpatient Attender: Scotty Gresham MD 09/20/2019 12:00:00 A M [facility] Outpatient Attender: [id number] ERI HERNÁNDEZ MD 09/12/2019 12:00:00 AM [facility] Outpatient Attender: [id number] ERI HERNÁNDEZ MD 09/10/2019 12:00:00 AM [facility] Medications Medication Brand Name Start Date Product Form Dose Route Admi nistrative Instructions Pharmacy Instructions Status Indications Reaction Description Data Source(s) Tropicamide 10 MG/ML Ophthalmic Solution tropicamide (MYDRIACYL) 1 % ophthalmic solution 1 drop tropicamide (MYDRIACYL) 1 % ophthalmic solution 1 drop 03/24/2020 09:00:00 AM EDT 1 [drp] Both Eyes completed 1 drop, Both Eyes, Once, Mon03/24/20 at 0900, For 1 [facility] Medication administered onsite Phenylephrine Hydrochloride 25 MG/ML Oph thalmic Solution phenylephrine (MYDFRIN) 2.5 % ophthalmic solution 1 drop phenylephrine (MYDFRIN) 2.5 % ophthalmic solution 1 drop 03/24/2020 09:00:00 AM EDT 1 [drp] Both Eyes completed 1 drop, Both Eyes, Once, Mon03/24/20 at 0900, For 1 [facility] Medication administered onsite Proparacaine hydrochloride 5 MG/ML Ophth almic Solution proparacaine (ALCAINE) 0.5 % ophthalmic solution 1 drop proparacaine (ALCAINE) 0.5 % ophthalmic solution 1 drop 03/24/2020 09:00:00 AM EDT 1 [drp] Both Eyes completed 1 drop, Both Eyes, Once, Tu03/24/20 at 0900, For 1 [facility] Medication administered onsite indocyanine green (IC-GREEN) injection 2.5 mg [id number] 12:45:00 PM EDT 2.5 mg Intravenous completed On Cellcept t herapyRetinal vasculitis of both eyesPanuveitis, both eyes 2.5 mg, Intravenous, Once, T ue 5/5/20 at 1245, For 1 dose [facility] 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, both eyes Medication administered onsite fluorescein 10 % injection 300 mg [id number] 01/21/2020 12:45:00 PM E DT 300 mg Intravenous completed On Cellcept ther apyRetinal vasculitis of both eyesPanuveitis, both eyes 300 mg (rounded from 250 mg = 2.5 mL), Intravenous, Once, 5/5/20 at 1245, For 1 dose [facility] 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, both eyes Medication administered onsite Proparacaine hydrochloride 5 MG/ML Ophth almic Solution proparacaine (ALCAINE) 0.5 % ophthalmic solution 1 drop proparacaine (ALCAINE) 0.5 % ophthalmic solution 1 drop 01/21/2020 12:00:00 PM EDT 1 [drp] Both Eyes completed 1 drop, Both Eyes, Once, 5/5/20 at 1200, For 1 [facility] Medication administered onsite Phenylephrine Hydrochloride 25 MG/ML Oph thalmic Solution phenylephrine (MYDFRIN) 2.5 % ophthalmic solution 1 drop phenylephrine (MYDFRIN) 2.5 % ophthalmic solution 1 drop 01/21/2020 12:00:00 PM EDT 1 [drp] Both Eyes completed 1 drop, Both Eyes, Once, 5/5/20 at 1200, For 1 [facility] Medication administered onsite Tropicamide 10 MG/ML Ophthalmic Solution tropicamide (MYDRIACYL) 1 % ophthalmic solution 1 drop tropicamide (MYDRIACYL) 1 % ophthalmic solution 1 drop 01/21/2020 12:00:00 PM EDT 1 [drp] Both Eyes completed 1 drop, Both Eyes, Once, 5/5/20 at 1200, For 1 [facility] Medication administered onsite 2 ML Methotrexate 25 MG/ML Injection Met hotrexate Sodium (PF) 50 MG/2ML Injection Solution Methotrexate Sodium (PF) 50 MG/2ML Injection Solution 01/21/2020 12:00:00 AM EDT 10 mg Subcutaneous active Inject 0.4 mLs into the skin once for 1 dose [facility] Insulin Syringe-Needle U-100 26G X 1/2" 1 ML (B-D INSU JOSE SYRINGE 1CC/26G) [id number] 01/21/2020 12:00:00 AM EDT active Use as directed. Use as directed [facility] Folic Acid 1 MG Oral Tablet Folic Acid 1 MG Oral Table t (FOLVITE) Folic Acid 1 MG Oral Tablet (FOLVITE) 01/21/2020 12:00:00 AM EDT 1 mg Oral active Take 1 tablet by mouth daily [facility] Omeprazole 40 MG Delayed Release Oral Ca psule Omeprazole 40 MG Oral Capsule Delayed Release Omeprazole 40 MG Oral Capsule Delayed Release 01/16/20 20 12:00:00 AM EDT 40 mg Oral aborted Take 1 capsule by mouth daily [facility] mycophenolate mofetil 500 MG Oral Tablet Mycophenolate Mofetil 500 MG Oral Tablet (CellCept) Mycophenolate Mofetil 500 MG Oral Tablet (CellCept) 12:00:00 AM EDT 500 mg Oral aborted Take 1 tablet by mouth Two Times Daily [facility] fluorescein 10 % injection 500 mg [id number] 11/05/2019 10:45:[address] 500 mg Intravenous completed Panuveitis, both eyes 50 0 mg (5 mL), Intravenous, Once, 11/05/19 at 1045, For 1 dose [facility] Panuveitis, both eyes Medication administered onsite indocyanine green (IC-GREEN) injection 2.5 mg [id number] 10:45:00 AM EST 2.5 mg Intravenous completed Panuveitis, both eyes 2.5 mg, Intravenous, Once, 11/05/19 at 1045, For 1 dose [facility] Panuveitis, both eyes Medication administered onsite Proparacaine hydrochloride 5 MG/ML Ophth almic Solution proparacaine (ALCAINE) 0.5 % ophthalmic solution 1 drop proparacaine (ALCAINE) 0.5 % ophthalmic solution 1 drop 11/05/2019 10:30:00 AM EST 1 [drp] Both Eyes completed 1 drop, Both Eyes, Once, 11/05/19 at 1030, For 1 do se [facility] Medication administered onsite Phenylephrine Hydrochloride 25 MG/ML Oph thalmic Solution phenylephrine (MYDFRIN) 2.5 % ophthalmic solution 1 drop phenylephrine (MYDFRIN) 2.5 % ophthalmic solution 1 drop 11/05/2019 10:30:00 AM EST 1 [drp] Both Eyes completed 1 drop, Both Eyes, Once, Mon11/05/19 at 1030, For 1 do se [facility] Medication administered onsite Tropicamide 10 MG/ML Ophthalmic Solution tropicamide (MYDRIACYL) 1 % ophthalmic solution 1 drop tropicamide (MYDRIACYL) 1 % ophthalmic solution 1 drop 11/05/2019 10:30:00 AM EST 1 [drp] Both Eyes completed 1 drop, Both Eyes, Once, Mon11/05/19 at 1030, For 1 [facility] Medication administered onsite Insurance Providers Payer name Policy type / Coverage type Policy ID Covered libertarian ID Covered libertarian's relationship to bowling Policy Bowling Plan Information [facility] [id number] SP [id number] [facility] I [id number] Self [id number] [facility] [id number] SP [id number] [facility] [id number] SP [id number] [facility] O [id number] S [id number] [facility]-Med[facility] [id number] ANS-Medicaid [id number] ANS-Medicaid [id number] ANS-Medicaid [id number] ANS-Medicaid [id number] ANSI-Medicaid [id number] ANSI-Medicaid [id number] ANSI-Medicaid [id number] ANSI-Medicaid [id number] ANSI-Medicaid [id number] ANSI-Medicaid [id number] ANSI-Medicaid [id number] ANSI-Medicaid [id number] ANSI-Medicaid [id number] ANSI-Medicaid [id number] ANSI-Medicaid [id number] ANSI-Medicaid [id number] ANSI-Medicaid [id number] ANSI-Medicaid [id number] ANSI-Medicaid [id number] ANSI-Medicaid [id number] ANSI-Medicaid [id number] ANSI-Medicaid [id number] ANSI-Medicaid [id number] ANSI-Medicaid [id number] ANSI-Medicaid [id number] ANSI-Medicaid [id number] ANSI-Medicaid [id number] ANSI-Medicaid [id number] ANSI-Medicaid [id number] ANSI-Medicaid [id number] ANSI-Medicaid [id number] ANSI-Medicaid [id number] ANSI-Medicaid [id number] ANSI-Medicaid [id number] ANSI-Medicaid [id number] ANSI-Medicaid [id number] ANSI-Medicaid [id number] ANSI-Medicaid [id number] ANSI-Medicaid [id number] ANSI-Medicaid [id number] ANSI-Medicaid [id number] ANSI-Medicaid [id number] ANSI-Medicaid [id number] ANSI-Medicaid [id number] ANSI-Medicaid [id number] ANSI-Medicaid [id number] ANSI-Medicaid [id number] ANSI-Medicaid [id number] ANSI-Medicaid [id number] ANSI-Medicaid [id number] ANSI-Medicaid [id number] [facility] [id number] [facility] [id number] [id number] S [id number] [facility] [id number] Self [id number] [facility] I [id number] Self [id number] [employer] COMM[employer] PLAN MCDHMO [id number] SP [id number] [facility] U [id number] Self [id number] [employer] COMMUNITY PLAN MCDHMO [id number] [facility] Medicaid Medicaid [id number] Self [id number] [facility] MEDICAID [id number] [place] [id number] MEDICAID [id number] [place] [id number] [facility] MEDICAID PI PI UNHC COMMUNITY PLAN MCDHMO [id number] SP [id number] [employer]HC COMMUNITY PLAN MCDHMO [id number] SP [id number] MEDICAID [id number] SP [id number] [employer] COMMUNITY PLAN MCDHMO [id number] SP [id number] [place] PPO 302/307 [id number] SP [id number] SELF PAY UNAVAILABLE SP UNAVAILA BLE MEDICAID [id number] SP [id number] [facility] [id number] SP [id number] [employer] [id number] SP [id number] [employer] PLUS [id number] SP [id number] [employer] COMMUNITY PLAN [facility] [id number] SP [id number] [employer] COMMUNITY PLAN [facility] [id number] SP [id number] [employer] COMMUNITY PLAN [facility] [id number] SP [id number] MEDICAID S [id number] S [id number] [facility] INSURANCE FUND [id number] SP [id number] Problems, Conditions, and Diagnoses Code Display Name Description Problem Type Effective Dates Data Source(s) H35.00 10798556 Retinopathy Problem 01/27/2020 12:00:00 AM E DT eCW1 ([facility]) R26.89 [id number] Loss of balance Problem 01/27/2020 12:00:00 AM EDT eCW1 ([facility]) D89.89 [id number] 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, not elsewhere classified Problem 01/27/2020 12:00:00 AM EDT eCW1 ([facility]) H35.00 [id number] Unspecified background retinopathy Proble m 01/27/2020 12:00:00 AM EDT eCW1 ([facility]) E11.9 [id number] Type 2 diabetes mellitus in remission Pro blem 10/28/2019 12:00:00 AM EST eCW1 ([facility]) F32.9 Major depression, single episode Major d epressive disorder, single episode, unspecified Problem 10/28/2019 12:00:00 AM EST eCW1 (Critical access hospital) 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 Di agnosis 08/05/2020 08:06:40 AM EST [facility] Z79.899 Other buttermaker (current) drug therapy [facility] (current[facility] drug therapy Diagnosis 03/24/2020 08:53:24 AM EDT [facility] 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, bilateral Cystoid macular degeneration, bilateral Diagnosis 03/24/2020 08:53:24 AM EDT [facility] 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, bilateral Retinal vasculitis, bila teral Diagnosis 03/24/2020 08:53:24 AM T [facility] H44.113 Panuveitis, bilateral Panuveitis, bilateral Diagnosis 03/24/2020 08:53:24 AM [facility] Surgeries/Procedures Procedure Description Date Indications Data Source(s) INDOCYANINE GREEN ANGIOGRAPHY W/INTERP & REPORT INDOC YANINE GREEN ANGIOGRAPHY (ICG)-OD-RIGHT EYE Routine 01/21/2020 1:11 PM EDT Panuveitis, 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 01/21/2020 05:11:37 PM EDT On Cellcept t herapyRetinal vasculitis of both eyesPanuveitis, both eyes [facility] 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, both eyes COLOR FUNDUS PHOTOGRAPHY - OU - BOTH EYES COLOR FUNDU S PHOTOGRAPHY - OU - BOTH EYES Routine 01/21/2020 1:11 PM EDT Panuveitis, 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 01/21/2020 05:11:33 PM EDT On Cellcept t herapyRetinal vasculitis of both eyesPanuveitis, both eyes [facility] 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, both eyes FLUORESCEIN ANGIOGRAPHY - OU - BOTH EYES FLUORESCEIN ANGIOGRAPHY - OU - BOTH EYES Routine 01/21/2020 1:11 PM EDT Panuveitis, 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 01/21/2020 05:11:26 PM EDT On Cellcept t herapyRetinal vasculitis of both eyesPanuveitis, both eyes [facility] 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, both eyes OCT RETINA OCT RETINA Routine 01/21/2020 12:05 PM EDT Panuveitis, both eyes 01/21/2020 04:05:28 PM EDT Panuveitis, bot h [facility] Panuveitis, both eyes FLUORESCEIN ANGIOGRAPHY - OU - BOTH EYES FLUORESCEIN ANGIOGRAPHY - OU - BOTH EYES Routine 11/05/2019 11:16 AM EST Panuveitis, both eyes 11/05/2019 04:16:43 PM EST Panuveitis, bot h [facility] Panuveitis, both eyes INDOCYANINE GREEN ANGIOGRAPHY W/INTERP & REPORT INDOC YANINE GREEN ANGIOGRAPHY (ICG)-OU-BOTH EYES Routine 11/05/2019 11:16 AM EST Panuveitis, both eyes 11/05/2019 04:16:29 PM EST Panuveitis, bot h [facility] Panuveitis, both eyes COLOR FUNDUS PHOTOGRAPHY - OU - BOTH EYES COLOR FUNDU S PHOTOGRAPHY - OU - BOTH EYES Routine 11/05/2019 11:16 AM EST Panuveitis, both eyes 11/05/2019 04:16:25 PM EST Panuveitis, bot h [facility] Panuveitis, both eyes Results ID Date Data Source [id number] 09/14/2020 07:43:00 PM EST [facility] Name Value Range Interpretation Code Description Data Kacey rce(s) Supporting Document(s) SARS-CoV-2 (COVID 19) [facility] This lab was ordered by [facility] a nd reported by [facility]. ID Date Data Source [id number] 08/05/2020 09:11:48 AM EST [facility] Name Value Range Interpretation Code Description Data Kacey rce(s) Supporting Document(s) Leukocytes [#/volume] in Blood by Automated count 5.6 10*3/uL 4-10 [facility] Erythrocytes [#/volume] in Blood by Automated count 4.36 10*6/uL 4.6- 6.1 L [facility] Hemoglobin [Mass/volume] in Blood 12.9 g/dL 13.5-18 L [facility] Hematocrit [Volume Fraction] of Blood by Automated count 38.5 % 4 1-53 L [facility] Erythrocyte mean corpuscular volume [Entitic volume] by Auto mated count 88.3 fL 80-96 [facility] Erythrocyte mean corpuscular hemoglobin [Entitic mass] by Automated count 29.6 pg 27-33 [facility] Erythrocyte mean corpuscular hemoglobin concentration [Mass/volume] by Automated count 33.5 g/dL 32.0-36.[facility] distribution width [Ratio] by Automated count 14.3 % 11.5-14.5 [facility] Platelets [#/volume] in Blood by Automated count 236 10*3/uL 150-400 [facility] Differential cell count method - Blood [facility] Neutrophils/100 leukocytes in Blood by Automated count 51 % [facility] Lymphocytes/100 leukocytes in Blood by Automated count 32 % [facility] Monocytes/100 leukocytes in Blood by Automated count 12 % [facility] Eosinophils/100 leukocytes in Blood by Automated count 4 % [facility] Basophils/100 leukocytes in Blood by Automated count 1 % [facility] Neutrophils [#/volume] in Blood by Automated count 2.86 10*3/uL 1.8-7 .0 [facility] Lymphocytes [#/volume] in Blood by Automated count 1.79 10*3/uL 1.2-4 .0 [facility] Monocytes [#/volume] in Blood by Automated count 0.66 10*3/uL 0-0.8 [facility] Eosinophils [#/volume] in Blood by Automated count 0.23 10*3/uL 0-0.5 [facility] Basophils [#/volume] in Blood by Automated count 0.05 10*3/uL 0-0.2 [facility] Nucleated erythrocytes/100 leukocytes [Ratio] in Blood by Automated count 0 /100{WBCs} 0-0 [facility] ID Date Data Source [id number] 08/05/2020 09:45:39 AM [facility] Name Value Range Interpretation Code Description Data Kacey rce(s) Supporting Document(s) Albumin [Mass/volume] in Serum or Plasma by Bromocresol green (BCG) dye binding method 4.1 g/dL 3.5-5.2 [facility] Bilirubin.total [Mass/volume] in Serum or Plasma 0.3 mg/dL <1.2 [facility] Calcium [Mass/volume] in Serum or Plasma 8.3 mg/dL 8.6-10.0 L [facility] Chloride [Moles/volume] in Serum or Plasma 105 mmol/L 98-107 [facility] Creatinine [Mass/volume] in Serum or Plasma 0.72 mg/dL 0.70-1.20 [facility] Glucose [Mass/volume] in Serum or Plasma 133 mg/dL 70-140 [facility] Alkaline phosphatase [Enzymatic activity/volume] in Serum or Plasma 63 U/L 40-129 [facility] Potassium [Moles/volume] in Serum or Plasma 4.3 mmol/L 3.4-5.1 [facility] Protein [Mass/volume] in Serum or Plasma 6.2 g/dL 6.4-8.3 L [facility] Sodium [Moles/volume] in Serum or Plasma 139 mmol/L 136-145 [facility] Aspartate aminotransferase [Enzymatic activity/volume] in Serum or Plasma 23 U/L <40 [facility] Urea nitrogen [Mass/volume] in Serum or Plasma 13 mg/dL 6-20 [facility] Osmolality of Serum or Plasma by calculation 290 mosm/kg 275-300 [facility] Creatinine/Urea nitrogen [Mass Ratio] in Serum or Plasma 18 [facility] Bicarbonate [Moles/volume] in Serum 25 mmol/L 22-29 [facility] Alanine aminotransferase [Enzymatic activity/volume] in Seru m or Plasma 15 U/L <41 [facility] Anion gap 3 in Serum or Plasma 9 mmol/L 8-15 [facility] Glomerular filtration rate/1.73 sq M pre dicted among non-blacks [Volume Rate/Area] in Serum or Plasma by Creatinine-based formula (MDRD) >6 0 [facility] Glomerular filtration rate/1.73 sq M pre dicted among blacks [Volume Rate/Area] in Serum or Plasma by Creatinine-based formula (MDRD) >60 [facility] ID Date Data Source [id number] 06/22/2020 09:23:25 AM T [facility] Name Value Range Interpretation Code Description Data Kacey rce(s) Supporting Document(s) Leukocytes [#/volume] in Blood by Automated count 8.5 10*3/uL 4-10 [facility] Erythrocytes [#/volume] in Blood by Automated count 4.57 10*6/uL 4.6- 6.1 L [facility] Hemoglobin [Mass/volume] in Blood 13.5 g/dL 13.5-18 [facility] Hematocrit [Volume Fraction] of Blood by Automated count 39.9 % 4 1-53 L [facility] Erythrocyte mean corpuscular volume [Entitic volume] by Auto mated count 87.3 fL 80-96 [facility] Erythrocyte mean corpuscular hemoglobin [Entitic mass] by Automated count 29.6 pg 27-33 [facility] Erythrocyte mean corpuscular hemoglobin concentration [Mass/volume] by Automated count 33.9 g/dL 32.0-36.0 [facility] Erythrocyte distribution width [Ratio] by Automated count 14.0 % 11.5-14.5 [facility] Platelets [#/volume] in Blood by Automated count 264 10*3/uL 150-400 [facility] Differential cell count method - Blood [facility] Neutrophils/100 leukocytes in Blood by Automated count 71 % [facility] Lymphocytes/100 leukocytes in Blood by Automated count 15 % [facility] Monocytes/100 leukocytes in Blood by Automated count 12 % [facility] Eosinophils/100 leukocytes in Blood by Automated count 1 % [facility] Basophils/100 leukocytes in Blood by Automated count 1 % [facility] Neutrophils [#/volume] in Blood by Automated count 6.16 10*3/uL 1.8-7 .0 [facility] Lymphocytes [#/volume] in Blood by Automated count 1.25 10*3/uL 1.2-4 .0 [facility] Monocytes [#/volume] in Blood by Automated count 1.00 10*3/uL 0-0.8 H [facility] Eosinophils [#/volume] in Blood by Automated count 0.06 10*3/uL 0-0.5 [facility] Basophils [#/volume] in Blood by Automated count 0.06 10*3/uL 0-0.2 [facility] Nucleated erythrocytes/100 leukocytes [Ratio] in Blood by Automated count 0 /100{WBCs} 0-0 [facility] ID Date Data Source [id number] 06/22/2020 10:15:47 AM EDT [facility] Name Value Range Interpretation Code Description Data Kacey rce(s) Supporting Document(s) Albumin [Mass/volume] in Serum or Plasma by Bromocresol green (BCG) dye binding method 4.7 g/dL 3.5-5.2 [facility] Bilirubin.total [Mass/volume] in Serum or Plasma 0.5 mg/dL <1.2 [facility] Calcium [Mass/volume] in Serum or Plasma 9.5 mg/dL 8.6-10.0 [facility] Chloride [Moles/volume] in Serum or Plasma 98 mmol/L 98-107 [facility] Creatinine [Mass/volume] in Serum or Plasma 1.10 mg/dL 0.70-1.20 [facility] Glucose [Mass/volume] in Serum or Plasma 134 mg/dL 70-140 [facility] Alkaline phosphatase [Enzymatic activity/volume] in Serum or Plasma 91 U/L 40-129 [facility] Potassium [Moles/volume] in Serum or Plasma 3.7 mmol/L 3.4-5.1 [facility] Protein [Mass/volume] in Serum or Plasma 7.2 g/dL 6.4-8.3 [facility] Sodium [Moles/volume] in Serum or Plasma 133 mmol/L 136-145 L [facility] Aspartate aminotransferase [Enzymatic activity/volume] in Serum or Plasma 37 U/L <40 [facility] Urea nitrogen [Mass/volume] in Serum or Plasma 14 mg/dL 6-20 [facility] Osmolality of Serum or Plasma by calculation 279 mosm/kg 275-300 [facility] Creatinine/Urea nitrogen [Mass Ratio] in Serum or Plasma 13 [facility] Bicarbonate [Moles/volume] in Serum 22 mmol/L 22-29 [facility] Alanine aminotransferase [Enzymatic activity/volume] in Seru m or Plasma 23 U/L <41 [facility] Anion gap 3 in Serum or Plasma 13 mmol/L 8-15 [facility] Glomerular filtration rate/1.73 sq M pre dicted among non-blacks [Volume Rate/Area] in Serum or Plasma by Creatinine-based formula (MDRD) 77 mL/min/1.73m2 >60 [facility] Glomerular filtration rate/1.73 sq M pre dicted among blacks [Volume Rate/Area] in Serum or Plasma by Creatinine-based formula (MDRD) 89 mL/min/1.73m2 >60 [facility] ID Date Data Source [id number] 04/21/2020 09:07:22 PM EDT [facility] Name Value Range Interpretation Code Description Data Kacey rce(s) Supporting Document(s) Progress Note [facility] VKIVZj9pNgUXQiYr86/YIMmoOBEaf1MgEQcfVBa1TWajVGVcL3VnSYH7zO3ySEW7SAhMKeXpPuBzEUC3 lbm [file] 59vz3vidk4RW3R3UxkRZmXIq4i+qVv7iCZN8Adn+global program director [file] AgICAgICAgICAgICAgICAgICAgICAgICAgICAgICAg YLNnILVtRPCaBVRgLNBpZTGiMQJzGYWhTB3LGMRaCEZeBJMiPPRoLPDqLPCrNVRuLJXbWJOvIUMrAQLz ICAgICAgICAgICAgICAgICAgICAgICAgICAgICAgICAgICAgICAgICAgICAgICAgICAgICAgICAgICAg RPGuOOVbFB9LDSEdSQNrIQKjFDPaGYUlSXGoQETlXH AgICAgICAgICAgICAgICAgICAgICAgICAgICAgICAgICAgICAgICAgICAgICAgICAgICAgICAgICAgIC DmLAIdJXSwRLWzNQEbBKZfFM1FPSPqRPWuMIChTODeLKXkKFWvLWKiBXZxRAUjGCEbQIXcHPAwSRJkFG AgICAgICAgICAgICAgICAgICAgICAgICAgICAgICAg KNNmFPJyDOIjOLRfGMBnMZNpCHSrDNEySDVmMF5HATKrLJQwDEOnDLCrXWAvITYgRTOjFHSgBOEvJHXw ICAgICAgICAgICAgICAgICAgICAgICAgICAgICAgICAgICAgICAgICAgICAgICAgICAgICAgICAgICAg OAXlFLOpBUKzKV4FSMOnUGJxZQZuIHWxYRRvOFNnNM AgICAgICAgICAgICAgICAgICAgICAgICAgICAgICAgICAgICAgICAgICAgICAgICAgICAgICAgICAgIC JvCDCmKBIjJQAtDXXrPKGiJGGtQY6HXVJgCYJyMTLpPMLqTQEtPONwTEAyFIKpFXWxOWLtBSQbELFtSK AgICAgICAgICAgICAgICAgICAgICAgICAgICAgICAg XPIyRARnZVBoFUIwGNNqQYGgAFKtCQZjXYOcXCCrSG0YEKIvFDIgTKCtIBMcYGMaEXShXSYzHANvEHZu ICAgICAgICAgICAgICAgICAgICAgICAgICAgICAgICAgICAgICAgICAgICAgICAgICAgICAgICAgICAg LTChFCQxZTCxTQIdCF9BADBsGQKoTJRrBRFxXMUyGF AgICAgICAgICAgICAgICAgICAgICAgICAgICAgICAgICAgICAgICAgICAgICAgICAgICAgICAgICAgIC YrHCRwZNVrAPOvONIeAEWxKVCgIJYtKD5QMCQmEPPpDNFwMXMbXRYiGAPqZDLtKYXiKOOvIWUkXNHrNH AgICAgICAgICAgICAgICAgICAgICAgICAgICAgICAg JUUlJCViHLIkWRIrKYZxVRUsJOVtPACvPVBeAJLyIGRrSD5ZIP89sJNmn7I2BZUmAJ4wjjo/Rh5RQEzv fnXbyBFsSF5PWlNpKQ4vtb5EXzNmVT6wuc5EDAcUHyOrP2L5kKSoJQPbADALJsUhW82lUUoeLd53YIjx IYAaRpAhJDq6Gq5WZiBjI9wiIBKdKbW8GQGsUfAmIC lfZM5Jy1GvhDFkVLi+Lu4RCN3fk9ThMEagGEAxVM5cwl1AXAdGKyQqH4UqegY0PGVaXLQjSz3CVBAvNL TbvDHqPUHnAXGAYmVvR4XcjV80ESJWUw4+SMfwmrIwMsfILoBiPZDei9WtZQo2HZ1DJKOmLIf2lMPyNJ RjK6Kdz2OcCt27DZCvMnjnJHC1eGRtVjXBsQmfHT3w AW7GCZC9FDehTX1uPGWvXCA4ScWnOZHQGM6APHCmYBXqgAUiTTOuMXTXOU4BLJwbFEE1JIHnhsAqoSJx KQbsMT1YYPNsffUpZUurFUVXNNp+Nu0BKU9mv7YfPModANXdHO8dzz1AJGzXNbAwU7Y9cFIkC3S5FYep Qn9YTDKgIAInIIwgWWTUHIgpDI9NUH9vgiX0YC7InV ObGNYxICRacYPlWOa7K95nxJTrBYavCR9FWJK+Denise+Nr1XEPSzFXUtTNGyVeUvZCHIMtKtY4ViH2KUk2 KpP9DbZC47sFscwkXrCOxoMJ4ZRQ8jELLqCLUICO6PrPOotG8cajLaGCTsCMSTQoEfM46zrDUfRVUcYT Q2RLVnXx1HNAUuK3QmmhGbwCxmyhRfQKEzLWSMCH8A FLqoxhOftERbzPioIE89gYbuAI9HPp2DOhIwPJ4cyw0RfMFmYj5POENgNa1GQBHgGRFfUXExHUS4BRDq GvIfMWkaUJDaADWeNYY2GSExEBAtRJ0DZxXvWBBnPXdkOLXoTNFqCHKkiw7DGGOpPPQbIIa6ZAQyAJNo IXMwCNztHGSlLUMfORY3SJLiCBSnIF5MJtNlJQSaYD Y3WdSgCWIaYUKskq4GQPInYUYkBnJ2MrDzLMTuPFTsERjsKGUoUGPnGML3RZPxOKTdPP8AYfAsKXAxVN VrJjCwPBRpEBLujf6FRRWwNPXvIkFeMZObAOLsJCVuRArjQOTmCJI5HPC3YWVfJVKlIP5FAiZoVTSgQZ F5TkIbTZIxYCUfdp1JMCYjYEIrUPp4JMCcFZCmLSLc GBnmIHSmBLS2FoLdWVJjDEBcJE8UCrXiWAJfPKX6MwmyYFMaJUCsjp8BSCGySYArUpwySYLrEUMwPQPw JBeeTMQqSAF0XNk2SQUaLJMcXB9TMcMrYOUhGNpnTdWnZSDzHCEles6GACIvCDZuJzWtFOMlDUDsDRJe CGilIJXsOLD5RBQlYOSkUVUgIP3YFfQhQLDlIDkrZq YkTNEpRLWclj6LNPIcSSCkZIG0WPNwVGJiJARoCEl9uwLzgFWaRHm9PG7BG6DvfjOsFtHGMa5Pv177AM GyNUMgMw6YL6akZl2bMTNoQXISMh2RCRy9WlYyWoZ6KeQwRCkfMPYmAVZyNpZwRuo5B1ZbTZNqMCE+ID hyCfFgBGoeYICrVuS2AUQrLkS9IEN3GAG7FHVmUSGv XQ4fHPFACe7+WXghcISunOacVAFYJtX0OIE7HJitWATTXx2Y ID Date Data Source [id number] 04/21/2020 09:07:17 PM EDT [facility] Name Value Range Interpretation Code Description Data Kacey rce(s) Supporting Document(s) Progress Note [facility] HESYIo1vEzJOKtAk17/CJUhwJLJtk7JqEJilBTd3LYrrJFAoE1YcLAW3pK9fDVR0OMaFMpQcVgUcKAU0 lbm [file] XcQvF3DMHrHARwTJLyKxEdYEU+IS7uPGk+Gp7Xa1ApqpW0wjWfETozGwM5Hm6ZSEWYS9TJHi== ID Date Data Source [id number] 04/21/2020 08:35:17 AM EDT [facility] Name Value Range Interpretation Code Description Data Kacey e(s) Supporting Document(s) Leukocytes [#/volume] in Blood by Automated count 8.6 10*3/uL 4-10 [facility] Erythrocytes [#/volume] in Blood by Automated count 4.77 10*6/uL 4.6- 6.1 [facility] Hemoglobin [Mass/volume] in Blood 14.0 g/dL 13.5-18 [facility] Hematocrit [Volume Fraction] of Blood by Automated count 41.6 % 4 1-53 [facility] Erythrocyte mean corpuscular volume [Entitic volume] by Auto mated count 87.1 fL 80-96 [facility] Erythrocyte mean corpuscular hemoglobin [Entitic mass] by Automated count 29.4 pg 27-33 [facility] Erythrocyte mean corpuscular hemoglobin concentration [Mass/volume] by Automated count 33.8 g/dL 32.0-36.0 [facility] Erythrocyte distribution width [Ratio] by Automated count 14.6 % 11.5-14.5 H [facility] Platelets [#/volume] in Blood by Automated count 234 10*3/uL 150-400 [facility] Differential cell count method - Blood [facility] Neutrophils/100 leukocytes in Blood by Automated count 54 % [facility] Lymphocytes/100 leukocytes in Blood by Automated count 32 % [facility] Monocytes/100 leukocytes in Blood by Automated count 10 % [facility] Eosinophils/100 leukocytes in Blood by Automated count 3 % [facility] Basophils/100 leukocytes in Blood by Automated count 1 % [facility] Neutrophils [#/volume] in Blood by Automated count 4.69 10*3/uL 1.8-7 .0 [facility] Lymphocytes [#/volume] in Blood by Automated count 2.71 10*3/uL 1.2-4 .0 [facility] Monocytes [#/volume] in Blood by Automated count 0.83 10*3/uL 0-0.8 H [facility] Eosinophils [#/volume] in Blood by Automated count 0.28 10*3/uL 0-0.5 [facility] Basophils [#/volume] in Blood by Automated count 0.08 10*3/uL 0-0.2 [facility] Nucleated erythrocytes/100 leukocytes [Ratio] in Blood by Automated count 0 /100{WBCs} 0-0 [facility] ID Date Data Source [id number] 04/21/2020 09:19:19 AM EDT [facility] Name Value Range Interpretation Code Description Data Kacey rce(s) Supporting Document(s) Albumin [Mass/volume] in Serum or Plasma by Bromocresol green (BCG) dye binding method 4.2 g/dL [facility] Bilirubin.total [Mass/volume] in Serum or Plasma 0.3 mg/dL <1.2 [facility] Calcium [Mass/volume] in Serum or Plasma 8.9 mg/dL 8.6-10.0 [facility] Chloride [Moles/volume] in Serum or Plasma 103 mmol/L 98-107 [facility] Creatinine [Mass/volume] in Serum or Plasma 0.82 mg/dL 0.70-1.20 [facility] Glucose [Mass/volume] in Serum or Plasma 131 mg/dL 70-140 [facility] Alkaline phosphatase [Enzymatic activity/volume] in Serum or Plasma 82 U/L 40-129 [facility] Potassium [Moles/volume] in Serum or Plasma 4.4 mmol/L 3.4-5.1 [facility] Hemolyzed Protein [Mass/volume] in Serum or Plasma 6.7 g/dL 6.4-8.3 [facility] Sodium [Moles/volume] in Serum or Plasma 140 mmol/L 136-145 [facility] Aspartate aminotransferase [Enzymatic activity/volume] in Serum or Plasma 22 U/L <40 [facility] Urea nitrogen [Mass/volume] in Serum or Plasma 10 mg/dL 6-20 [facility] Osmolality of Serum or Plasma by calculation 291 mosm/kg 275-300 [facility] Creatinine/Urea nitrogen [Mass Ratio] in Serum or Plasma 12 [facility] Bicarbonate [Moles/volume] in Serum 28 mmol/L 22-29 [facility] Alanine aminotransferase [Enzymatic activity/volume] in Seru m or Plasma 19 U/L <41 [facility] Anion gap 3 in Serum or Plasma 9 mmol/L 8-15 [facility] Glomerular filtration rate/1.73 sq M pre dicted among non-blacks [Volume Rate/Area] in Serum or Plasma by Creatinine-based formula (MDRD) >6 0 [facility] Glomerular filtration rate/1.73 sq M pre dicted among blacks [Volume Rate/Area] in Serum or Plasma by Creatinine-based formula (MDRD) >60 [facility] ID Date Data Source [id number] 04/21/2020 09:19:19 AM [facility] Name Value Range Interpretation Code Description Data Kacey rce(s) Supporting Document(s) C reactive protein [Mass/volume] in Serum or Plasma <8.0 [facility] ID Date Data Source [id number] 03/24/2020 09:27:15 AM [facility] Name Value Range Interpretation Code Description Data Kacey rce(s) Supporting Document(s) Progress Note [facility] RBBRFt0uGtQBZyDt54/OTBleHDFyw4NyRCsqMRo1HIsqOVQsL2YpMPU6vE5pKOU9QGcBQbZuCrQjHgR4 [facility] [file] PL3jUCLNMp5+XVggfPHqdXmcVQASZjQ4Nah8FRepLKGGEp1O ID Date Data Source [id number] 01/23/2020 11:32:44 AM EDT [facility] Name Value Range Interpretation Code Description Data Kacey rce(s) Supporting Document(s) Progress Note [facility] JZBKGc8dIcGKFmQl93/URUzcQCZcw2WyGTvxPKm3EMufUFTaW0GwJSX3tP0oJEC4HDyXIxNdHgDbHHH3 lbm [file] Ms5Xw2LureN5ilAkZHnwSUQ2Nl5ITOTAU1NPOp== ID Date Data Source [id number] 11/07/2019 01:01:07 PM EST [facility] Name Value Range Interpretation Code Description Data Kacey rce(s) Supporting Document(s) Progress Note [facility] QCCADv8bGzVKPmYg62/PEOzwVXMaa3ElQMmqANb4JFbgNDSrE8QdVBC8dA7zALH5EIjDMlHjQrFwKmCa lbm [file] Ye7Be3OiknK9vrQiNGhiVAq1QE0KKQTSH9UJVs== ID Date Data Source [id number] 11/07/2019 01:00:47 PM [facility] Name Value Range Interpretation Code Description Data Kacey rce(s) Supporting Document(s) Progress Note [facility] ZKLREo9wAfGDAnIk13/PARohXJJnd2DpOWdeCCh2EJxuVEXvV1CePWQ8mX3wHAP3VIeWPuAeCdUjHrEn lbm ImJrbKUfInRTUoJowUTlKqADjvHmbodTDeGV6RjJM4WFVnI88pFFFyJRWeP4ApCIR6NjD+Xy6MNGDnaD QgSH2TUekO7JffytWR0e8d+XxVRiputTyAFq9g6Cmi9vr9TBxB0Rd7jKjOmFOTaQwpewz2+y11wAPPO5 mQo8tNIS+Y6iqf+63qFBAi//5LThyLUkrSf+uPjsfI aEZ+/laezlM9Nbz1hLjYAxVeYzx+WD8r38xRacoo8PQwVbiRvbmBI+XcOsi9nC3T12gF6aAFjmcIeuZD kJgp3Rt0kjd0YHBk5+zMQyJ3nQlIkravWE0rf5Sp756/LyOKdG0J6lvkzp0IfAuMwrJmMym7uE3G3b9R GbiiSFq8tXFBHKpx3jupw3PS5hC06DTdSLXLXKDnwb wv4PxJtU173ZvaTXk2CW0h/SRhME/IRTCLXmN/RMaHH43qVJ5wzPKsYwoOXvyWkbFbHxcr5LziFNJrY3 8E3IN2NMunGX1vVEnzVAqelXgGm+dlJlzpW6Dzx5mG7j7rxc61W1Ys0l92cCQUquzkw5hrFu293SdynE r7mmk90SYNokESo5trDZtnyA4pqQ0qa5jeXAfp0LvI JpguLFj4RJeNnotTGyuXeiskgvr8YS4ffNW0mAHazKt5weTKo3Sy5XAkDIbB23lvRShVHu3yJpaCcl4e TcyrwWdXOLYUmt8FE7W+OmLJtatJ5GpZW4cQsL1Xff8WI/T89MeLQzJZUkrWtsoIpkjCBDyHdzf8W6HI LZIUyTITULMHGGCoo3afTBVGVkwaZWfHe19JG0CxEq 0TucwTVcrBSL3JJ6FYWgzOrXeV/qa5Jb+BNS4fLYiFF/wkIL+QYag/53yxXdQSCc29lFQFIsZhfNIF4n I7e5EkNf0+yeDf9b3FYOu2n+apIdqLWD684wKBx7qSBoj02Eo9gjZkGrAHkpnaK8iCm/Vigil/30mQ1ZzL [file] AgICAgICAgICAgICAgICAgICAgICAgICAgICAgICAgICAgICAgICAgICAgICAgICAgDQogICAgICAgIC AgICAgICAgICAgICAgICAgICAgICAgICAgICAgICAg ICAgICAgICAgICAgICAgICAgICAgICAgICAgICAgICAgICAgICAgICAgICAgICAgICAgICAgICAgICAg DQogICAgICAgICAgICAgICAgICAgICAgICAgICAgICAgICAgICAgICAgICAgICAgICAgICAgICAgICAg ICAgICAgICAgICAgICAgICAgICAgICAgICAgICAgIC AgICAgICAgICAgDQogICAgICAgICAgICAgICAgICAgICAgICAgICAgICAgICAgICAgICAgICAgICAgIC AgICAgICAgICAgICAgICAgICAgICAgICAgICAgICAgICAgICAgICAgICAgICAgICAgICAgDQogICAgIC AgICAgICAgICAgICAgICAgICAgICAgICAgICAgICAg ICAgICAgICAgICAgICAgICAgICAgICAgICAgICAgICAgICAgICAgICAgICAgICAgICAgICAgICAgICAg ICAgDQogICAgICAgICAgICAgICAgICAgICAgICAgICAgICAgICAgICAgICAgICAgICAgICAgICAgICAg ICAgICAgICAgICAgICAgICAgICAgICAgICAgICAgIC AgICAgICAgICAgICAgDQogICAgICAgICAgICAgICAgICAgICAgICAgICAgICAgICAgICAgICAgICAgIC AgICAgICAgICAgICAgICAgICAgICAgICAgICAgICAgICAgICAgICAgICAgICAgICAgICAgICAgDQogIC AgICAgICAgICAgICAgICAgICAgICAgICAgICAgICAg ICAgICAgICAgICAgICAgICAgICAgICAgICAgICAgICAgICAgICAgICAgICAgICAgICAgICAgICAgICAg ICAgICAgDQogICAgICAgICAgICAgICAgICAgICAgICAgICAgICAgICAgICAgICAgICAgICAgICAgICAg ICAgICAgICAgICAgICAgICAgICAgICAgICAgICAgIC AgICAgICAgICAgICAgICAgDQogICAgICAgICAgICAgICAgICAgICAgICAgICAgICAgICAgICAgICAgIC AgICAgICAgICAgICAgICAgICAgICAgICAgICAgICAgICAgICAgICAgICAgICAgICAgICAgICAgICAgDQ u2H5jgXKYgWZXxCB6dQWa8Td8+YAhMGiTyEHM2imCs tH8KXM4sy8EoVCptRMOrm2NiXDq9DN4YRMHnQVhuSR0TTDtubd7FAROxDABbcUZTf0sgNgMkTOT5XVRx UvohLG0AVRHlX5qjasGlUSSdLSWYSSasGQNGLQcvDVKQSZVvIPLeAnBpLyFeORKrJPBkOQGRCZ9ZTqTz C2JymQ03QLVDTx1+JStexbRxBjoVPoHhPRGlc7TfJX h9OG0UKEBzOoxtw4EzGlZgIOVRCTmkZP8YKJN7GEWvNMKiIt5DPBQqF399czSpDN7IXi6GYqHsYE4ekw 9URpJeKQWpPlaZKjy8SQmfZU9SfURiZKzBsz4kymBkymYZv5EztkBzdQXSl6SduxCuXRWFo2PkCNKQXI VvgNCkPiH3HnGnNtNlENn1CePeTK0eAKwcUZ9EICK8 BOzdNNMaSLHrH6iUIuQmPPDcRfVuuWxdDN0ZWlIsL4SqqkQgiZChKsThNYOTGo2+DQplbmRvYmoNCjM0 HIGee4UcPYw4ZS7XQPFaJTviBE2POPQyyU8pYXpcJK7MXrGfFYNvCTVFWgKbC29vkOToKMm9A5UcKuFc ZGVkRmlsZXMgPDwvTmFtZXMgWyBdDQogID4+ID4+DQ kyCS5SDMvibbXtKYHcQo4VJIRjFGNoIL6bACSwVXFpY5M7gDfqNZPNYzYwY1mstwjbID4rUXStI564nP ifzfZnMEMbBVShJy8JTPOuYEK6YBRizOGkNrHaXXSRJLbuEA4LvTTjBYP3yU7dHHkkLOEgQKHnT3mVTj KnkHqiRY91jViigcRvsMSbFWk+Qz3WDM5dq4CbAYf7 cdVbBIgpDPK3AJekIHBeHNLwSYBhTHF9PNB6KLAROvZpSINrGIXfIRslPELhOILplx9VLTBtFEEiXBd7 ZYMxGJNwIVUjDMofHXXjZPU2VRdiHYRrYQDvWX9QLiNdAIZvOUHpECauFFGdFHRoop5KVRCyYPGaGndh CDYoFTKvFMNkVKixXNKgOAPyQIQ6VNUhYRIrTV5KTo DxWSCsJRL5ZWSyUSDeLNCkqp4CIEHeNVZsMJr1IPKnQZZzUDQcWIgfSROlOER8DrS3ZALwUELyVY6GLq VzESSlEYk9EwLrREKoFCPyvw9ZFUHpXYYjUnKoBgErEOEsODTsHNkuQBHeWFYzPAKbKQShSTBzRU7SBq JgRSYmEKqkIVFyNUPrVBDujm6WDSRkTXWjAoHyWlEp DHPnRNIpBTsfWVUqUKV5RfUwIUXxQWEeRD9FPjFzGUZjBEu0FzuqTXVrIAQxus7TGJYeDHXkERGdSoPy QSWkXZRqKWkqRZVfMGLnBgN8VPBzMFHaNZ5PFxVeRSChVfW9FSaePDEpJLYqjr6MVDZhGHIjMQf4VpSw OQAjAQHmWNysTMGsDEMdTIT1YZMrCOSbTR3YNrLpBI MkVvDvCDVwFZNsFQEyka9YDVXcBYYhOrM6XfKbWXGhMDTnDPazIAVaXOWxQAVhNIScEGMmCB7MMzBeVH GxDgXbGiKoGECzIXUywd3AIFJgEGQtKZY9PJBmNIGtUFMpUQccDVDdFTE7MRV1NGJyPZNgFG2IQtGmIP OeDkP1KoQnFBPmCTRdmu7YRRMsGGTkODU5WGRqVGEf WMPwMMobXVMrADW9JZP6AABmFARpEM9LZzXfWSGcAgExCFBdKWEyMSLkrm6XCKMmQLYhNjstAPZhHJMv XLGlLQzqZONbMAU9Nub9FAQuQRHkWA4BNaRePNTxNnj4BrZtAUQjMJWwez3RvMOpiXutax3DUPdYPq6K nJhvCDV4QSffBe7foCBwELToJWRACu8YdeUdWKAvUU ERFDjvDNTzSUQeHAMrZrToEDHsF3A3SBKfWXvzO6AhBJeeTYBjVeXvHuJ8EQAyOpR8CBSfIyT8DJzbRb A0SXGoEmB7WYGaQLWmONQ+JI6wEAt+Vv3Bw6IilxB8hnFjKTyaEAR0Xv5FJIFVJ9DPCb== Procedure Social History Code Duration Value Status Description Data Source(s ) Alcohol intake 03/24/2020 12:00:00 AM EDT Ex-drinker (finding) comp leted Ex- drinker (finding) [facility] Smoking 03/24/2020 12:00:00 AM EDT Former smoker completed Former smoker [facility] Smoking 01/27/2020 12:00:00 AM EDT Former Smoker completed Former Smoker eCW1 ([facility]) Alcohol intake 01/21/2020 12:00:00 AM EDT Ex-drinker (finding) comp leted Ex- drinker (finding) [facility] Smoking 01/21/2020 12:00:00 AM EDT Former smoker completed Former smoker [facility] Alcohol intake 11/07/2019 12:00:00 AM EST Ex-drinker (finding) comp leted Ex- drinker (finding) [facility] Smoking 11/07/2019 12:00:00 AM EST Former smoker completed Former smoker [facility] Vital Signs ID Date Data Source UNK Name Value Range Interpretation Code Description Data Source(s) Diastolic blood pressure 80 mm[Hg] 80 mm[Hg] eCW1 ([facility]) Systolic blood pressure 108 mm[Hg] 108 mm[Hg] e CW1 ([facility]) Body temperature 97.7 [degF] 97.7 [degF] eCW1 ( [facility]) Respiratory rate 18 /min 18 /min eCW1 ([facility]) Heart rate 86 /min 86 /min eCW1 ([facility]) Body mass index (BMI) [Ratio] 28.21 kg/m2 28.21 kg/m2 eCW1 ([facility]) Body height 76 [in_i] 76 [in_i] eCW1 ([facility]) Body weight 231.8 [lb_av] 231.8 [lb_av] eCW1 ([facility]) ID Date Data Source [id number] 08/05/2020 11:53:07 AM [facility] Name Value Range Interpretation Code Description Data Source(s) WEIGHT RECORDED 238.5 lb 238.5 lb [facility] ID Date Data Source [id number] 03/09/2020 03:26:55 PM [facility] Name Value Range Interpretation Code Description Data Source(s) WEIGHT RECORDED 219.8 lb 219.8 lb [facility] ID Date Data Source [id number] 01/10/2020 01:45:05 PM [facility] Name Value Range Interpretation Code Description Data Source(s) WEIGHT RECORDED 225.4 lb 225.4 lb [facility] ID Date Data Source [id number] 09/30/2019 11:48:30 AM [facility] Value Range Interpretation Code Description Data Source(s) WEIGHT RECORDED 227 lb 227 lb [facility] Patient Treatment Plan of Care Planned Activity Planned Date Details Description Data Source (s) Tropicamide 10 MG/ML Ophthalmic Solution 03/24/2020 09:00:00 AM [facility] Phenylephrine Hydrochloride 25 MG/ML Ophthalmic Soluti on 03/24/2020 09:00:00 AM [facility] ospital Proparacaine hydrochloride 5 MG/ML Ophthalmic Solution 03/24/2020 09:00:00 AM [facility] ospital indocyanine green (IC-GREEN) injection 2.5 mg 01/21/2020 12:45:00 P M [facility] fluorescein 10 % injection 300 mg 01/21/2020 12:45:00 PM [facility] Proparacaine hydrochloride 5 MG/ML Ophthalmic Solution 01/21/2020 12:00:00 PM [facility] ospital Phenylephrine Hydrochloride 25 MG/ML Ophthalmic Soluti on 01/21/2020 12:00:00 PM [facility] ospital Tropicamide 10 MG/ML Ophthalmic Solution 01/21/2020 12:00:00 PM [facility] Insulin Syringe-Needle U-100 26G X 1/2" 1 ML (B-D INSU JOSE SYRINGE 1CC/26G) 01/21/2020 12:00:00 AM [facility] Folic Acid 1 MG Oral Tablet 01/21/2020 12:00:00 AM [facility] 2 ML Methotrexate 25 MG/ML Injection 01/21/2020 12:00:00 AM [facility] Omeprazole 40 MG Delayed Release Oral Capsule 01/16/2020 12:00:00 A M [facility] mycophenolate mofetil 500 MG Oral Tablet 01/15/2020 12:00:00 AM [facility] indocyanine green (IC-GREEN) injection 2.5 mg 11/05/2019 10:45:00 A M [facility] fluorescein 10 % injection 500 mg 11/05/2019 10:45:00 AM [facility] Tropicamide 10 MG/ML Ophthalmic Solution 11/05/2019 10:30:00 AM [facility] Phenylephrine Hydrochloride 25 MG/ML Ophthalmic Soluti on 11/05/2019 10:30:00 AM [facility] ospital Proparacaine hydrochloride 5 MG/ML Ophthalmic Solution 11/05/2019 10:30:00 AM [facility] ospital
[2020-11-05] MEDS ORDERED: KETOROLAC 30 MG/ML 1ML VIAL IV ONE (11:15)
[2020-11-05] MEDS ORDERED: diazePAM 10MG/2ML SYRINGE (J3360 PER 5MG) IV ONE (11:15)
--- OUTSIDE RECORDS SUMMARY | 2020-11-05 11:32 | CCD ---
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 Role Phone Isreal SANDY Unavailable Unavailable [...] / UNKNOWN PROVIDER * Unavailable Unavailable Cecille SOUSA Unavailable Unavailable SWAN [id number], T EMIL [phone] Unavailable Unavailable SWAN [id number], T EMIL [id number] Unavailable Unavailable SWAN 201973, T EMIL [id number] Unavailable Unavailable Isreal REEDTHIA Unavailable Unavailable Marga [...] Unavailable Won SCOTT Unavailable Unavailable EDGAR HIGGINS, [id number] Isreal HWANG MD Unavailable Unavailisreal HERNÁNDEZ MD, [id number] Isreal HWANG MD Unavailable Unavailisreal HERNÁNDEZ MD, [id number] Isreal HWANG MD Unavailable Unavailisreal HERNÁNDEZ MD, [id number] Isreal HWANG MD Unavailable Unavailisreal HERNÁNDEZ MD, [id number] Isreal HWANG MD Unavailable Unavailisreal HERNÁNDEZ MD, [id number] Isreal HWANG MD Unavailable Unavailisreal HERNÁNDEZ MD, [id number] Isreal HWANG MD Unavailable Unavailisreal HERNÁNDEZ MD, [id number] Isreal HWANG MD Unavailable Unavailisreal HERNÁNDEZ MD, [id number] Isreal HWANG MD Unavailable Unavailisreal HERNÁNDEZ MD, [id number] Isreal HWANG MD Unavailable Unavailisreal HERNÁNDEZ MD, [id number] Isreal HWANG MD Unavailable Unavailisreal HERNÁNDEZ MD, [id number] Isreal HWANG MD Unavailable Unavailisreal HERNÁNDEZ MD, [id number] Isreal HWANG MD Unavailable Unavailisreal HERNÁNDEZ MD, [id number] Isreal HWANG MD Unavailable Unavailisreal HERNÁNDEZ MD, [id number] Isreal HWANG MD Unavailable Kirill HERNÁNDEZ MD, [id number] Isreal HWANG MD Unavailable Kirill HERNÁNDEZ MD, [id number] Isreal HWANG MD Unavailable Kirill beasley Re-disclosure [...] is protected by Article 27-F of the [facility] Public Health law. If you continue you may have access to information: Regarding HIV / AIDS; Provided by facilities licensed or operated by the [facility] Office of Mental Health; or Provided by the [facility] Office for People With Developmental Disabilities. If such information is present, then the following [facility] mandated warning applies: This information has been [...] law may result in a fine or care home sentence or both. A general authorization for the release of medical or other information is NOT sufficient authorization for further disc losure. Family History Family Member Name Family Member Gender Family Member Status Date o f Status Description Data Source(s) Unknown Male Problem [facility] ([facility] Unknown Male Problem [facility] ([facility]) Encounters Encounter Providers Location Date Indications Data Source(s ) Outpatient Attender: Scotty Gresham MD 2020 12:00:00 A M [facility] Outpatient 11/09/2020 12:00:[address] [facility] Outpatient 11/02/2020 12:00:[address] [facility] Outpatient 10/12/2020 12:00:[address] [facility] Outpatient Attender: EMIL LUANN [id number] 10/02/2020 12:00:[address] [facility] Outpatient Attender: [id number] ERI HERNÁNDEZ MD 10/01/2020 12:00:[address] [facility] Outpatient Attender: Scotty Gresham MD 09/08/2020 12:00:[address] [facility] Outpatient Attender: EMIL KONG [id number] 09/03/2020 12:00:[address] [facility] Outpatient Attender: Scotty Gresham MD 09/01/2020 12:00:[address] [facility] Outpatient Attender: Scotty Gresham MD 08/25/2020 12:00:00 A [facility] Outpatient Attender: DEFAULT / [place] / UNKNOWN PROVIDER ALIASES Attender: LIZETTE SOUSA 08/05/2020 12:00:[address] [facility] - 08/05/2020 11:47:06 AM [facility] 07/31/2020 12:00:[address] [facility] Outpatient 07/20/2020 12:00:[address] [facility] Outpatient 07/14/2020 12:00:00 AM [facility] Outpatient Attender: EMIL KONG [id number] 06/23/2020 12:00:0 0 AM [facility] Outpatient Attender: DEFAULT / [place] / UNKNOWN PROVIDER ALIASES Attender: MATTEO CROWLEY 06/22/2020 12:00:00 AM [facility] Outpatient 06/02/2020 12:00:00 AM [facility] Outpatient Attender: Scotty Gresham MD [id number] 12:00:00 AM [facility] - 04/21/2020 01:19:08 PM [facility] iridocyclitis Outpatient Attender: Scotty Gresham MD 04/14/2020 12:00:00 A M [facility] Outpatient Attender: Scotty Gresham MD 04/07/2020 12:00:00 A M [facility] Outpatient Attender: Scotty Gresham MD 03/31/2020 12:00:00 A M [facility] Outpatient Attender: EMIL KONG [id number] 03/2020 12:00:00 AM EDT - 03/24/2020 09:33:36 AM [facility] Attender: [id number] ERI HERNÁNDEZ MD 03/24/2020 12:00:00 AM [facility] Outpatient Attender: [id number] ERI HERNÁNDEZ MD 03/24/2020 12:00:00 AM [facility] Outpatient Attender: PAT SCOTT 03/09/2020 12:00:00 AM [facility] Outpatient 03/05/2020 12:00:00 AM [facility] Outpatient 02/27/2020 12:00:00 AM [facility] Outpatient 02/21/2020 12:00:00 AM [facility] Outpatient [id number] [facility] [facility], [facility] [id number] 01/27/2020 12:00:00 AM EDT [facility] Outpatient Attender: EMIL KONG [id number] 01/2020 12:00:00 AM EDT - 01/21/2020 01:40:58 PM [facility] Out[facility] Attender: MARCELO REED 01/10/2020 12:00:00 AM [facility] Outpatient Attender: Scotty Gresham MD 12/03/2019 12:00:00 A M [facility] Outpatient Attender: Scotty Gresham MD 11/26/2019 12:00:00 A M [facility] Outpatient Attender: Scotty Gresham MD 11/19/2019 12:00:[address] [facility] Outpatient Attender: Otf Lackeytender: EMIL KONG [id number] 11/05/2019 12:00:00 AM EST - 11/05/2019 11:46:54 AM [facility] Attender: [id number] ERI HERNÁNDEZ MD 11/05/2019 12:00:[address] [facility] Outpatient Attender: [id number] ERI HERNÁNDEZ MD 10/01/2019 12:00:[address] [facility] Outpatient Attender: MANUEL DERX 09/30/2019 12:00:[address] [facility] Outpatient Attender: EMIL KONG [id number] 09/24/2019 12:00:[address] [facility] Outpatient 09/23/2019 12:00:[address] [facility] Outpatient Attender: Scotty Gresham MD 09/20/2019 12:00:[address] [facility] Outpatient Attender: [id number] ERI HERNÁNDEZ MD 09/12/2019 12:00:[address] [facility] Outpatient Attender: [id number] ERI HERNÁNDEZ MD 09/10/2019 12:00:[address] [facility] Medications Medication Brand Name Start Date Product Form Dose Route Admi nistrative Instructions Pharmacy Instructions Status Indications Reaction Description Data Source(s) Tropicamide 10 MG/ML Ophthalmic Solution tropicamide (MYDRIACYL) 1 % ophthalmic solution 1 drop tropicamide (MYDRIACYL) 1 % ophthalmic solution 1 drop 03/24/2020 09:00:00 AM EDT 1 [drp] Both Eyes completed 1 drop, Both Eyes, Once, Mon03/24/20 at 0900, For 1 [facility] Medication administered onsite Phenylephrine Hydrochloride 25 MG/ML Oph thalmic Solution phenylephrine (MYDFRIN) 2.5 % ophthalmic solution 1 drop phenylephrine (MYDFRIN) 2.5 % ophthalmic solution 1 drop 03/24/2020 09:00:00 AM EDT 1 [drp] Both Eyes completed 1 drop, Both Eyes, Once, Mon03/24/20 at 0900, For 1 [facility] Medication administered onsite Proparacaine hydrochloride 5 MG/ML Ophth almic Solution proparacaine (ALCAINE) 0.5 % ophthalmic solution 1 drop proparacaine (ALCAINE) 0.5 % ophthalmic solution 1 drop 03/24/2020 09:00:00 AM EDT 1 [drp] Both Eyes completed 1 drop, Both Eyes, Once, Mon03/24/20 at 0900, For 1 [facility] Medication administered onsite indocyanine green (IC-GREEN) injection 2.5 mg [id number] 12:45:00 PM EDT 2.5 mg Intravenous completed On Cellcept t herapyRetinal vasculitis of both eyesPanuveitis, both eyes 2.5 mg, Intravenous, Once, T ue 5/5/20 at 1245, For 1 dose [facility] 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, both eyes Medication administered onsite fluorescein 10 % injection 300 mg [id number] 01/21/2020 12:45:00 PM E DT 300 mg Intravenous completed On Cellcept ther apyRetinal vasculitis of both eyesPanuveitis, both eyes 300 mg (rounded from 250 mg = 2.5 mL), Intravenous, Once, 5/5/20 at 1245, For 1 dose [facility] 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, both eyes Medication administered onsite Proparacaine hydrochloride 5 MG/ML Ophth almic Solution proparacaine (ALCAINE) 0.5 % ophthalmic solution 1 drop proparacaine (ALCAINE) 0.5 % ophthalmic solution 1 drop 01/21/2020 12:00:00 PM EDT 1 [drp] Both Eyes completed 1 drop, Both Eyes, Once, 5/5/20 at 1200, For 1 [facility] Medication administered onsite Phenylephrine Hydrochloride 25 MG/ML Oph thalmic Solution phenylephrine (MYDFRIN) 2.5 % ophthalmic solution 1 drop phenylephrine (MYDFRIN) 2.5 % ophthalmic solution 1 drop 01/21/2020 12:00:00 PM EDT 1 [drp] Both Eyes completed 1 drop, Both Eyes, Once, 5/5/20 at 1200, For 1 [facility] Medication administered onsite Tropicamide 10 MG/ML Ophthalmic Solution tropicamide (MYDRIACYL) 1 % ophthalmic solution 1 drop tropicamide (MYDRIACYL) 1 % ophthalmic solution 1 drop 01/21/2020 12:00:00 PM EDT 1 [drp] Both Eyes completed 1 drop, Both Eyes, Once, 5/5/20 at 1200, For 1 [facility] Medication administered onsite 2 ML Methotrexate 25 MG/ML Injection Met hotrexate Sodium (PF) 50 MG/2ML Injection Solution Methotrexate Sodium (PF) 50 MG/2ML Injection Solution 01/21/2020 12:00:00 AM EDT 10 mg Subcutaneous active Inject 0.4 mLs into the skin once for 1 dose [facility] Insulin Syringe-Needle U-100 26G X 1/2" 1 ML (B-D INSU JOSE SYRINGE 1CC/26G) [id number] 01/21/2020 12:00:00 AM EDT active Use as directed. Use as directed [facility] Folic Acid 1 MG Oral Tablet Folic Acid 1 MG Oral Table t (FOLVITE) Folic Acid 1 MG Oral Tablet (FOLVITE) 01/21/2020 12:00:00 AM EDT 1 mg Oral active Take 1 tablet by mouth daily [facility] Omeprazole 40 MG Delayed Release Oral Ca psule Omeprazole 40 MG Oral Capsule Delayed Release Omeprazole 40 MG Oral Capsule Delayed Release 01/16/20 20 12:00:00 AM EDT 40 mg Oral aborted Take 1 capsule by mouth daily [facility] mycophenolate mofetil 500 MG Oral Tablet Mycophenolate Mofetil 500 MG Oral Tablet (CellCept) Mycophenolate Mofetil 500 MG Oral Tablet (CellCept) 12:00:00 AM EDT 500 mg Oral aborted Take 1 tablet by mouth Two Times Daily [facility] fluorescein 10 % injection 500 mg [id number] 11/05/2019 10:45:[address] 500 mg Intravenous completed Panuveitis, both eyes 50 0 mg (5 mL), Intravenous, Once, 11/05/19 at 1045, For 1 dose [facility] Panuveitis, both eyes Medication administered onsite indocyanine green (IC-GREEN) injection 2.5 mg [id number] 10:45:00 AM EST 2.5 mg Intravenous completed Panuveitis, both eyes 2.5 mg, Intravenous, Once, 11/05/19 at 1045, For 1 dose [facility] Panuveitis, both eyes Medication administered onsite Proparacaine hydrochloride 5 MG/ML Ophth almic Solution proparacaine (ALCAINE) 0.5 % ophthalmic solution 1 drop proparacaine (ALCAINE) 0.5 % ophthalmic solution 1 drop 11/05/2019 10:30:00 AM EST 1 [drp] Both Eyes completed 1 drop, Both Eyes, Once, 11/05/19 at 1030, For 1 do se [facility] Medication administered onsite Phenylephrine Hydrochloride 25 MG/ML Oph thalmic Solution phenylephrine (MYDFRIN) 2.5 % ophthalmic solution 1 drop phenylephrine (MYDFRIN) 2.5 % ophthalmic solution 1 drop 11/05/2019 10:30:00 AM EST 1 [drp] Both Eyes completed 1 drop, Both Eyes, Once, Mon11/05/19 at 1030, For 1 do se [facility] Medication administered onsite Tropicamide 10 MG/ML Ophthalmic Solution tropicamide (MYDRIACYL) 1 % ophthalmic solution 1 drop tropicamide (MYDRIACYL) 1 % ophthalmic solution 1 drop 11/05/2019 10:30:00 AM EST 1 [drp] Both Eyes completed 1 drop, Both Eyes, Once, Mon11/05/19 at 1030, For 1 [facility] Medication administered onsite Insurance Providers Payer name Policy type / Coverage type Policy ID Covered republican ID Covered republican's relationship to bowling Policy Bowling Plan Information [employer] [facility] [id number] SP [id number] [facility] I [id number] Self [id number] [employer] [facility] [id number] SP [id number] [facility] [id number] SP [id number] [facility] O [id number] S [id number] [facility] [id number] ANS-Medicaid [id number] ANSI-Medicaid [id number] ANSI-Medicaid [id number] ANSI-Medicaid [id number] ANSI-Medicaid [id number] ANSI-Medicaid [id number] ANSI-Medicaid [id number] ANSI-Medicaid [id number] ANSI-Medicaid [id number] ANSI-Medicaid [id number] ANSI-Medicaid [id number] ANSI-Medicaid [id number] ANSI-Medicaid [id number] ANSI-Medicaid [id number] ANSI-Medicaid [id number] ANSI-Medicaid [id number] ANSI-Medicaid [id number] ANSI-Medicaid [id number] ANSI-Medicaid [id number] ANSI-Medicaid [id number] ANSI-Medicaid [id number] ANSI-Medicaid [id number] ANSI-Medicaid [id number] ANSI-Medicaid [id number] ANSI-Medicaid [id number] ANSI-Medicaid [id number] ANSI-Medicaid [id number] ANSI-Medicaid [id number] ANSI-Medicaid [id number] ANSI-Medicaid [id number] ANSI-Medicaid [id number] ANSI-Medicaid [id number] ANSI-Medicaid [id number] ANSI-Medicaid [id number] ANSI-Medicaid [id number] ANSI-Medicaid [id number] ANSI-Medicaid [id number] ANSI-Medicaid [id number] ANSI-Medicaid [id number] ANSI-Medicaid [id number] ANSI-Medicaid [id number] ANSI-Medicaid [id number] ANSI-Medicaid [id number] ANSI-Medicaid [id number] ANSI-Medicaid [id number] ANSI-Medicaid [id number] ANSI-Medicaid [id number] ANSI-Medicaid [id number] ANSI-Medicaid [id number] ANSI-Medicaid [id number] ANSI-Medicaid [id number] [facility]-[employer] Commercial [id number] Self [id number] [facility] [id number] S [id number] [facility]-[employer] Commercial [id number] Self [id number] [facility] I [id number] Self [id number] [employer] MCDHMO [id number] SP [id number] [facility] CARE U [id number] Self [id number] [employer]AN MCDHMO [id number] [facility] Medicaid Medicaid [id number] Self [id number] [facility] MEDICAID [id number] [place] [id number] MEDICAID [id number] [place] [id number] [facility] MEDICAID PI PI [employer] COMM[employer]ITY PLAN MCDHMO [id number] SP [id number] [employer] COMM[employer] PLAN MCDHMO [id number] SP [id number] MEDICAID [id number] SP [id number] [employer] COMM[employer] PLAN MCDHMO [id number] SP [id number] [employer] [place] PPO 302/307 [id number] SP [id number] SELF PAY UNAVAILABLE SP UNAVAILA BLE MEDICAID [id number] SP [id number] [employer] [id number] SP [id number] [employer] [id number] SP [id number] [employer] PLUS [id number] SP [id number] [employer] PLAN MCDO [id number] SP [id number] [employer] COMM[employer]ITY PLAN MCDO [id number] SP [id number] [employer] COMM[employer] PLAN [facility] [id number] SP [id number] MEDICAID S [id number] S [id number] [facility] FUND [id number] SP [id number] Problems, Conditions, and Diagnoses Code Display Name Description Problem Type Effective Dates Data Source(s) H35.00 21454902 Retinopathy Problem 01/27/2020 12:00:00 AM E DT eCW1 ([facility]) R26.89 909004810 Loss of balance Problem 01/27/2020 12:00:00 AM EDT eCW1 ([facility]) D89.89 122250230 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, not elsewhere classified Problem 01/27/2020 12:00:00 AM EDT eCW1 ([facility]) H35.00 [id number] Unspecified background retinopathy Proble m 01/27/2020 12:00:00 AM EDT eCW1 ([facility]) E11.9 [id number] Type 2 diabetes mellitus in remission Pro blem 10/28/2019 12:00:00 AM EST eCW1 ([facility]) F32.9 Major depression, single episode Major d epressive disorder, single episode, unspecified Problem 10/28/2019 12:00:00 AM EST eCW1 ([facility]) 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 Di agnosis 08/05/2020 08:06:40 AM EST [facility] 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 O ther long-term (current) drug therapy Diagnosis 03/24/2020 08:53:24 AM EDT [facility] 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, bilateral Cystoid macular degeneration, bilateral Diagnosis 03/24/2020 08:53:24 AM EDT [facility] 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, bilateral Retinal vasculitis, bila teral Diagnosis 03/24/2020 08:53:24 AM [facility] H44.113 Panuveitis, bilateral Panuveitis, bilateral Diagnosis 03/24/2020 08:53:24 AM [facility] Surgeries/Procedures Procedure Description Date Indications Data Source(s) INDOCYANINE GREEN ANGIOGRAPHY W/INTERP & REPORT INDOC YANINE GREEN ANGIOGRAPHY (ICG)-OD-RIGHT EYE Routine 01/21/2020 1:11 PM EDT Panuveitis, 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 01/21/2020 05:11:37 PM EDT On Cellcept t herapyRetinal vasculitis of both eyesPanuveitis, both eyes [facility] 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, both eyes COLOR FUNDUS PHOTOGRAPHY - OU - BOTH EYES COLOR FUNDU S PHOTOGRAPHY - OU - BOTH EYES Routine 01/21/2020 1:11 PM EDT Panuveitis, 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 01/21/2020 05:11:33 PM EDT On Cellcept t herapyRetinal vasculitis of both eyesPanuveitis, both eyes [facility] 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, both eyes FLUORESCEIN ANGIOGRAPHY - OU - BOTH EYES FLUORESCEIN ANGIOGRAPHY - OU - BOTH EYES Routine 01/21/2020 1:11 PM EDT Panuveitis, 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 01/21/2020 05:11:26 PM EDT On Cellcept t herapyRetinal vasculitis of both eyesPanuveitis, both eyes [facility] 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, both eyes OCT RETINA OCT RETINA Routine 01/21/2020 12:05 PM EDT Panuveitis, both eyes 01/21/2020 04:05:28 PM EDT Panuveitis, bot h [facility] Panuveitis, both eyes FLUORESCEIN ANGIOGRAPHY - OU - BOTH EYES FLUORESCEIN ANGIOGRAPHY - OU - BOTH EYES Routine 11/05/2019 11:16 AM EST Panuveitis, both eyes 11/05/2019 04:16:43 PM EST Panuveitis, bot h [facility] Panuveitis, both eyes INDOCYANINE GREEN ANGIOGRAPHY W/INTERP & REPORT INDOC YANINE GREEN ANGIOGRAPHY (ICG)-OU-BOTH EYES Routine 11/05/2019 11:16 AM EST Panuveitis, both eyes 11/05/2019 04:16:29 PM EST Panuveitis, bot h [facility] Panuveitis, both eyes COLOR FUNDUS PHOTOGRAPHY - OU - BOTH EYES COLOR FUNDU S PHOTOGRAPHY - OU - BOTH EYES Routine 11/05/2019 11:16 AM EST Panuveitis, both eyes 11/05/2019 04:16:25 PM EST Panuveitis, bot h [facility] Panuveitis, both eyes Results ID Date Data Source [id number] 09/14/2020 07:43:00 PM EST [facility] Name Value Range Interpretation Code Description Data Kacey rce(s) Supporting Document(s) SARS-CoV-2 (COVID 19) [facility] This lab was ordered by [facility] a nd reported by [facility]. ID Date Data Source [id number] 08/05/2020 09:11:48 AM EST [facility] Name Value Range Interpretation Code Description Data Kacey rce(s) Supporting Document(s) Leukocytes [#/volume] in Blood by Automated count 5.6 10*3/uL 4-10 [facility] Erythrocytes [#/volume] in Blood by Automated count 4.36 10*6/uL 4.6- 6.1 L [facility] Hemoglobin [Mass/volume] in Blood 12.9 g/dL 13.5-18 L [facility] Hematocrit [Volume Fraction] of Blood by Automated count 38.5 % 4 1-53 L [facility] Erythrocyte mean corpuscular volume [Entitic volume] by Auto mated count 88.3 fL 80-96 [facility] Erythrocyte mean corpuscular hemoglobin [Entitic mass] by Automated count 29.6 pg 27-33 [facility] Erythrocyte mean corpuscular hemoglobin concentration [Mass/volume] by Automated count 33.5 g/dL 32.0-36.0 [facility] Erythrocyte distribution width [Ratio] by Automated count 14.3 % 11.5-14.5 [facility] Platelets [#/volume] in Blood by Automated count 236 10*3/uL 150-400 [facility] Differential cell count method - Blood [facility] Neutrophils/100 leukocytes in Blood by Automated count 51 % [facility] Lymphocytes/100 leukocytes in Blood by Automated count 32 % [facility] Monocytes/100 leukocytes in Blood by Automated count 12 % [facility] Eosinophils/100 leukocytes in Blood by Automated count 4 % [facility] Basophils/100 leukocytes in Blood by Automated count 1 % [facility] Neutrophils [#/volume] in Blood by Automated count 2.86 10*3/uL 1.8-7 .0 [facility] Lymphocytes [#/volume] in Blood by Automated count 1.79 10*3/uL 1.2-4 .0 [facility] Monocytes [#/volume] in Blood by Automated count 0.66 10*3/uL 0-0.8 [facility] Eosinophils [#/volume] in Blood by Automated count 0.23 10*3/uL 0-0.5 [facility] Basophils [#/volume] in Blood by Automated count 0.05 10*3/uL 0-0.2 [facility] Nucleated erythrocytes/100 leukocytes [Ratio] in Blood by Automated count 0 /100{WBCs} 0-0 [facility] ID Date Data Source [id number] 08/05/2020 09:45:39 AM [facility] Name Value Range Interpretation Code Description Data Kacey rce(s) Supporting Document(s) Albumin [Mass/volume] in Serum or Plasma by Bromocresol green (BCG) dye binding method 4.1 g/dL 3.5-5.2 [facility] Bilirubin.total [Mass/volume] in Serum or Plasma 0.3 mg/dL <1.2 [facility] Calcium [Mass/volume] in Serum or Plasma 8.3 mg/dL 8.6-10.0 L [facility] Chloride [Moles/volume] in Serum or Plasma 105 mmol/L 98-107 [facility] Creatinine [Mass/volume] in Serum or Plasma 0.72 mg/dL 0.70-1.20 [facility] Glucose [Mass/volume] in Serum or Plasma 133 mg/dL 70-140 [facility] Alkaline phosphatase [Enzymatic activity/volume] in Serum or Plasma 63 U/L 40-129 [facility] Potassium [Moles/volume] in Serum or Plasma 4.3 mmol/L 3.4-5.1 [facility] Protein [Mass/volume] in Serum or Plasma 6.2 g/dL 6.4-8.3 L [facility] Sodium [Moles/volume] in Serum or Plasma 139 mmol/L 136-145 [facility] Aspartate aminotransferase [Enzymatic activity/volume] in Serum or Plasma 23 U/L <40 [facility] Urea nitrogen [Mass/volume] in Serum or Plasma 13 mg/dL 6-20 [facility] Osmolality of Serum or Plasma by calculation 290 mosm/kg 275-300 [facility] Creatinine/Urea nitrogen [Mass Ratio] in Serum or Plasma 18 [facility] Bicarbonate [Moles/volume] in Serum 25 mmol/L 22-29 [facility] Alanine aminotransferase [Enzymatic activity/volume] in Seru m or Plasma 15 U/L <41 [facility] Anion gap 3 in Serum or Plasma 9 mmol/L 8-15 [facility] Glomerular filtration rate/1.73 sq M pre dicted among non-blacks [Volume Rate/Area] in Serum or Plasma by Creatinine-based formula (MDRD) >6 0 [facility] Glomerular filtration rate/1.73 sq M pre dicted among blacks [Volume Rate/Area] in Serum or Plasma by Creatinine-based formula (MDRD) >60 [facility] ID Date Data Source [id number] 06/22/2020 09:23:25 AM EDT [facility] Name Value Range Interpretation Code Description Data Kacey rce(s) Supporting Document(s) Leukocytes [#/volume] in Blood by Automated count 8.5 10*3/uL 4-10 [facility] Erythrocytes [#/volume] in Blood by Automated count 4.57 10*6/uL 4.6- 6.1 [facility] Hemoglobin [Mass/volume] in Blood 13.5 g/dL 13.5-18 [facility] Hematocrit [Volume Fraction] of Blood by Automated count 39.9 % 4 1-53 L [facility] Erythrocyte mean corpuscular volume [Entitic volume] by Auto mated count 87.3 fL 80-96 [facility] Erythrocyte mean corpuscular hemoglobin [Entitic mass] by Automated count 29.6 pg 27-33 [facility] Erythrocyte mean corpuscular hemoglobin concentration [Mass/volume] by Automated count 33.9 g/dL 32.0-36.0 [facility] Erythrocyte distribution width [Ratio] by Automated count 14.0 % 11.5-14.5 [facility] Platelets [#/volume] in Blood by Automated count 264 10*3/uL 150-400 [facility] Differential cell count method - Blood [facility] Neutrophils/100 leukocytes in Blood by Automated count 71 % [facility] Lymphocytes/100 leukocytes in Blood by Automated count 15 % [facility] Monocytes/100 leukocytes in Blood by Automated count 12 % [facility] Eosinophils/100 leukocytes in Blood by Automated count 1 % [facility] Basophils/100 leukocytes in Blood by Automated count 1 % [facility] Neutrophils [#/volume] in Blood by Automated count 6.16 10*3/uL 1.8-7 .0 [facility] Lymphocytes [#/volume] in Blood by Automated count 1.25 10*3/uL 1.2-4 .0 [facility] Monocytes [#/volume] in Blood by Automated count 1.00 10*3/uL 0-0.8 H [facility] Eosinophils [#/volume] in Blood by Automated count 0.06 10*3/uL 0-0.5 [facility] Basophils [#/volume] in Blood by Automated count 0.06 10*3/uL 0-0.2 [facility] Nucleated erythrocytes/100 leukocytes [Ratio] in Blood by Automated count 0 /100{WBCs} 0-0 [facility] ID Date Data Source [id number] 06/22/2020 10:15:47 AM EDT [facility] Name Value Range Interpretation Code Description Data Kacey rce(s) Supporting Document(s) Albumin [Mass/volume] in Serum or Plasma by Bromocresol green (BCG) dye binding method 4.7 g/dL 3.5-5.2 [facility] Bilirubin.total [Mass/volume] in Serum or Plasma 0.5 mg/dL <1.2 [facility] Calcium [Mass/volume] in Serum or Plasma 9.5 mg/dL 8.6-10.0 [facility] Chloride [Moles/volume] in Serum or Plasma 98 mmol/L 98-107 [facility] Creatinine [Mass/volume] in Serum or Plasma 1.10 mg/dL 0.70-1.20 [facility] Glucose [Mass/volume] in Serum or Plasma 134 mg/dL 70-140 [facility] Alkaline phosphatase [Enzymatic activity/volume] in Serum or Plasma 91 U/L 40-129 [facility] Potassium [Moles/volume] in Serum or Plasma 3.7 mmol/L 3.4-5.1 [facility] Protein [Mass/volume] in Serum or Plasma 7.2 g/dL 6.4-8.3 [facility] Sodium [Moles/volume] in Serum or Plasma 133 mmol/L 136-145 L [facility] Aspartate aminotransferase [Enzymatic activity/volume] in Serum or Plasma 37 U/L <40 [facility] Urea nitrogen [Mass/volume] in Serum or Plasma 14 mg/dL 6-20 [facility] Osmolality of Serum or Plasma by calculation 279 mosm/kg 275-300 [facility] Creatinine/Urea nitrogen [Mass Ratio] in Serum or Plasma 13 [facility] Bicarbonate [Moles/volume] in Serum 22 mmol/L 22-29 [facility] Alanine aminotransferase [Enzymatic activity/volume] in Seru m or Plasma 23 U/L <41 [facility] Anion gap 3 in Serum or Plasma 13 mmol/L 8-15 [facility] Glomerular filtration rate/1.73 sq M pre dicted among non-blacks [Volume Rate/Area] in Serum or Plasma by Creatinine-based formula (MDRD) 77 mL/min/1.73m2 >60 [facility] Glomerular filtration rate/1.73 sq M pre dicted among blacks [Volume Rate/Area] in Serum or Plasma by Creatinine-based formula (MDRD) 89 mL/min/1.73m2 >60 [facility] ID Date Data Source [id number] 04/21/2020 09:07:22 PM EDT [facility] Name Value Range Interpretation Code Description Data Kacey rce(s) Supporting Document(s) Progress Note [facility] PADSQv1tDsQEAwGh32/MQIcfVIDmj4FhRSofFMk8NBwwSSPtY4YkMFP3zM3dQZN3GKfAYgLqOvKmBUI1 lbm [file] [id number]+yRt5yISD2Dpj+gunner mate [file] AgICAgICAgICAgICAgICAgICAgICAgICAgICAgICAg YPLeSAVxDPSqTEQlBPCtJFVsARAaVAChFO1NILQhWJNzTRHuXCMiEYWvUVUxHTSrTYQtHETsAQUxFTTy ICAgICAgICAgICAgICAgICAgICAgICAgICAgICAgICAgICAgICAgICAgICAgICAgICAgICAgICAgICAg WDKwGOZvID4ORPAbFIEpGKTxHYOiDYWlHIVnBVEeIC AgICAgICAgICAgICAgICAgICAgICAgICAgICAgICAgICAgICAgICAgICAgICAgICAgICAgICAgICAgIC WuIXOpHSJtYUYqESVuULFhOD2QCZIpEPWfGHBlGAJcGHHwPPWhSMKcYZLaDELjKGBaGSOtUWYcBCUqGQ AgICAgICAgICAgICAgICAgICAgICAgICAgICAgICAg GXOzSHKeANYxUNToOPZbVPXrMBJlQSDuZRWmGY7JBCZbJJOhWBXfSXAjZBRrPVVqXDHyXAVyQNPwRHRm ICAgICAgICAgICAgICAgICAgICAgICAgICAgICAgICAgICAgICAgICAgICAgICAgICAgICAgICAgICAg ASRsPRPyHQTeTH8WKHBfITLbCEVoJORzGQWtVTQbFP AgICAgICAgICAgICAgICAgICAgICAgICAgICAgICAgICAgICAgICAgICAgICAgICAgICAgICAgICAgIC QaHCYpITTgQOCcSFLiDCYpAJJdST9OUTCnFTVwVUMiLVUcJYLoDKHzPGRqZVPnAANwNGZjENRtLSAiNB AgICAgICAgICAgICAgICAgICAgICAgICAgICAgICAg YAErXVNqIENdJCNaJSNeIJWyZERdLBOgSLYmBZNqMI4FNUReTRVgXPXtLAVrEWIuJXIjQSRuZFOyKQTj ICAgICAgICAgICAgICAgICAgICAgICAgICAgICAgICAgICAgICAgICAgICAgICAgICAgICAgICAgICAg MJRnTVEfRHUbRHCgBK7YMLPrAXJmKCFlVTLxIENrDW AgICAgICAgICAgICAgICAgICAgICAgICAgICAgICAgICAgICAgICAgICAgICAgICAgICAgICAgICAgIC LtIQMjBSXaGKJaEKFdXOHcNWIeUWZmWU4GXSQlBXScPLHiMNDjOPIqIJYaXIJyKUIsLAYqNUBtGZRqCD AgICAgICAgICAgICAgICAgICAgICAgICAgICAgICAg SHCnPVZoOSUcJKVkYZSgPTDnFWZvUNLiRTJoDCXsWSOhXX2INI68lARhw4K2ZEZoVM1hnxe/Te3AUDnb wpRfbWDmDC0XKuOiPK7kzq4IXfJjZU7dte1YGWiBFvNlW2S0uODgYGUdVWRNFzGmX55nBOlbKe58ZTle FOUqFxRbIDg8If9ZHvZwS3ieGRRmTrG3HDWoRsOiMK fqGD8Pj3VvpZFqRPh+Tz4BMC0fk4NlBWfdFCPlBJ5teq0VDCbIKdWwO8ElabH9CQHfCTPvRd1PFRGeYK UtlHTfOQJmWRGEWtKqN3FtvP64MBKKKr2+MFngylKiXpuZJhCbFIVfm1CmTKw7ZZ9URNLmILp3vMCrFK RrD8Mtz6IvGf81BOPoCvrhCGT2tJGxPkKDjLrmZW0i WQ1SHIO1MSzdZG4eGIYcJIC5XdVkGEXSTX7MXVNrSNYrfAIuWMUtRNOMDK0LRNalGYS6BTGgelMhpSLf KJhaAQ5DSMLyurSpBJypCRFJLRu+Mc9LNB5ih5GuOZhjREWkKI7kyj8NTApPTqTtU0W9pPZpI1O0TVno Cs0KPOYjMQOvQWyxESNYDLpvYF0ODQ4qiqW1YW0AwD NxEMGcJQLnsYXaWYc4R96vkUNpYOzrYR8GAGB+Denise+Ul7VOUAcZLNdMJBjTaKkBNOYLvFwK2BgQ0ZGl6 SwR9UvSK44hEdaspLqUIocER8YLC2zUHHlQQBYFU3BuOWwqH8onhAiIMEvKJNLLrHcE89qrGMwBFEyNU Z3JZCmPp4JRVZnK0ZwbnGfxXutqwHcAKNhEAXGXZ4N FBltluByfWCfmGwrMA19qEomIX2VRu4ULbLlLF2jkj8PnZYgDe0EGOGnIb1ATYIqKHYaHKGpYWO2HKKp WbZuPLmiORUbNKTgKTB2ACRvTYYmWS9YMpAnZIWoNTqkBQPcUNAoFECqou7DNDIaMQKdRUv9EIWcPAWf UWKcPPfoDYMoZWAtAKA4YNXvXLZiGZ7ZRfGqOOSmYQ D7ImBvBCRnKLFhyh1VKWAaYXJoHxG1AxGgZSAySFUwFVekUWRmQBEiPGP9WRNlMJHnTQ7UQuRtHSWiCC WkHxPdBSDeGPNjmn5BFQOiCHFdGuJgHHXnPPGhSKGrAHspZEKyOYV9TDO0FSAsAFGzHI2EGdHiKYLcVU C9ZcTuCGUhESXfiv7UPSLbZEJoYWe0MYGoVFVaUKLe GGizZKTlPKI5OlZaSLMvMNYxVU2TTeWbIYOkQBH1DgrtTZBdDXZpml3XAFCqVSWsCjgzEYOwUJAsPAFe QYpbPMBqUSA9UZb0NPVvNQHxOZ8UAfQwQIKmSTelWvWfLNHzYHBibq4NCOJnVNXkMgLuHLZzLHZhSSVw WCscHLXmMUX5TNXcUBExGWGnVG7HTlLaHVSdYUwyQr JiTGBwLWByld9RCVYsNEQuEBA3OEKwHRGvZFUmCAe4vfTjbGTiPEd6CC7LD7JmiqVfKcDPGr6Qo303SR PoKCZxLu7BM4ztPb4tKGIhFKZWIy9PJQu8VtFfYjY8ViRcGApbHETuIISkReIpYsj6H2CoRXRtEZI+ID ctEnQjQEtpMOUiQuG6TRShZqW9CYX1QYB8AMHoOQEe MW8lOCFWSd5+GWdtzPEwaHttQXJAByH7AER2EEcxCQVTGb2U ID Date Data Source [id number] 04/21/2020 09:07:17 PM EDT [facility] Name Value Range Interpretation Code Description Data Kacey rce(s) Supporting Document(s) Progress Note [facility] BRKNUm3iKjQXXyCx57/NXQvlOWCoz5FwIDxgCAz0NAazEQYvG1DcZWJ2pW7jRTU2QMaGLaWkCmNuUPC1 lbm [file] ICAgICAgICAgICAgICAgICAgICAgICAgICAgICAgICAgICAgICAgICAgICAgICAgICAgICAgICAgICAg YRSuJGJvORPbMYXjRBWpVTFiBCBfHNOdLVSdNNWmRAGnWQLqESYqMA5JOMXeQYTzWRFyZEQkSSHtYBBv ICAgICAgICAgICAgICAgICAgICAgICAgICAgICAgIC LpWZTwCWOrKTSiTGQfYUOrNSWvPHZyBFIlTXMhSQVkKNXpIZLeVGFgBJGxODHoWYCvHI7XZVNdUSExQX AgICAgICAgICAgICAgICAgICAgICAgICAgICAgICAgICAgICAgICAgICAgICAgICAgICAgICAgICAgIC AgICAgICAgICAgICAgICAgICAgICAgICAgICAgICAg LU8JZDYmAKYlNLWgVXInHOYbHQEzDALqTMItKTKwJUOcSPGzQBLoPKLmKQEvEFHxVXZeCUTqDMPiZBId WEYpPKKjJXCdCTUjWIJcKYVfNWQfJDDiBJEgPMOfZKGwUOCkISBgRGAxQD5UNWNhOVZmCBScRTAdXSSi ICAgICAgICAgICAgICAgICAgICAgICAgICAgICAgIC VuCGWbLXScCKVbWLTsYZZwEPStWEQzZSMaCDIxYGIsIDQtGNOtVTKfGAKdOGSeRNBlENEfBV9NUIEeTY AgICAgICAgICAgICAgICAgICAgICAgICAgICAgICAgICAgICAgICAgICAgICAgICAgICAgICAgICAgIC AgICAgICAgICAgICAgICAgICAgICAgICAgICAgICAg GRSrME8NZLYvFJRlUOIwZKFsMMWuOIPpGQRcDNFuURKtOUYeACQlRPLuIRQiYYQeECUmTRBsVEMgSWKs TXLvYNJyKETpVPIrEKMyUODvHDAmNIWyIGNiKAEfWEPnAMRiWTFpEJOpEQAvYK7JKAJaYUBoKFEeSDMx ICAgICAgICAgICAgICAgICAgICAgICAgICAgICAgIC QjRUEsPTSgDKAvEWClFTBnXUHxDUYkYZJlSKSpJVJzSGHrLZSfVBPqTJIsQBDvIADmCUFvDSDkFG7IUG AgICAgICAgICAgICAgICAgICAgICAgICAgICAgICAgICAgICAgICAgICAgICAgICAgICAgICAgICAgIC AgICAgICAgICAgICAgICAgICAgICAgICAgICAgICAg ZOXbYCQoMJ0SYPRrXCVfYAYiMLSzMBZeQOIgKKHmAYQbLUWnJOJiCUHwKDAaQBShBUJjXYFxEZMvCWQn GEHuJWRtEIRyPHHdKRRlCVLeNYIrPDNtKLPfBRKyGAMiAOEbOIEySWUxNTGuGJVeHW4DUT69pHPnw0K7 RXAyZM1esep/Sb0AMJyogrPgaWMpZA1FVsFbBT9zmb 1EIkOkOZ3mwe5XIChDSqXjN3H4cQIeHZDrQRZULzMzA17tSOwyPu32ZYriZSOjYpWrSNe7Kr8FHcZoP3 riZPNiRmD1NZQsLgT7CLSpApZ6NYIrTzJdYJdlUA3Pn7RwjEKeQGe+Kt5PPZ1jn7YeDMzwOuCzXP3dok 4TQKsGKaQwT9AkaeF0VFD0GZOaZq2TQSMaPMByxHYy IaWuXZZKKbMmU1IbnW16VKALOs6+IDphxtHaEakDLaA0VQFif5BbWFj5DR5QJXKzRBp6xQLpPLHjK4Si s6NqJe48LRCkBarhD9J5aHCgLOUvjlB1LWdrYY8VEjFpKMBxPQ43NnZsQtBvFYv5BlCoBI7pLOpqBN2G SDK4TAupYPSjQHAeX4tAEmUnARYuDDGkuHdgDA3OLs KuN9HucgHxuGJiZhGiHUTHEl1+YSxcyaWoIncNYhG7JAFgy3HfXWc1HL4PTWAmTKlyWA6ZZJFzbA3lEM jjZM9UVuPeSYXoFMXDRbYqJ03zqYOxUXy8Y4ToLxHyJTFlOcdwBSTlHMmhJwKzYVGbGdQhBMnqCD0+ID 4+YYbmKD7DXIbnpfMsFAWvMw9YHRXyVRFtYG2lWIYn RTEaO9K2dBvdKDKFHtEuG6ehqacnLE1kAVOhE874oMjgscNhVJA6LEGsKq1CAXIdNQY9BFDsyIXyDkYb TKOVHJlcNU2YuQFlQCD0aJ5nRKnzCGIeYSSoN7jBNhYhnVblAE00yHbmnsMmfCVxWJo+Zz3KFK9sv1Wi TSs1moFzFBmoIOW5QJlvLPZsOKZuFOIzXDU1QNW1DA JMHiScYJGxIRVwYQnxTODpEBYehs6YCVLbJEIvNVV7GiJqDPWtKXYyAKcpWCFrQPA1EBW2WVLaPYKrNW 9ZVbKaDZXnAAIuYFpvUDUtUKKhkm2NZCCuWPDiWsCqDkQyRHScBQPaYQuoROAhJDDpZPO5XDOcTJFcWP 8WWyAcQYOfWMS6UpSkWUPcNPIech6MXROhTJJyKOea GcVkUXIdBWOtLBtyPDFcGVF4WTl1LBDpCWSiXL1YFqUwLJLkTKy5AOByJQIiVVZqys1PQHUvEPNaKVu4 DuJdCFPtKXPaHGdnUQHdXRI6NJH5SODhCMMjDL5FMuBdYYHiWNhfLeGtGURgDPEnel7VRODvQRXeWIF1 OEYgXGRjQKHdROnuBBMuJVWyYvkzTVDtBCHpRJ4JDm QcIIKyJNV5RGZgFDQeGDReyt1DDMPeEEQkAQsbZXCtNKIiWNSvHIqjYWJuSLKiToR9SDLoADUfZP2XFn UrSWChEzM2HGXnSRPxIISvie7OTFNdNNUyYxO2DPZzDGWoYVDyWDkaSNNiOGZfUFJeVCKvIGSjCR5YRb LaLFAtVtW8WWFgDBVsXJXzff5UEVEaREYxZmg6GkZh IKCrJKOkQDyyKSVuMSS4GWJmREIpPVUwOA2XFpCpHHKeZbY5YyyaXQKdWEFndk3RFOOaXHUbOrBqIYBf FUEqEGCsCRlcXGYsYSC2XZb0FNSoWBVyHA1PRdZpFRMhHkOfDxyuILXlASDdbd2NdDGgpZuamk8HZCiT Un4ZxGmyNCY6YTgwQj6myAMyKTHqFMMTAz8GvdAeBM ZvMYOLUJcnIQOoKLdzGwL3UkSjADBwBrD8THGdAlV3LqedFdTyTwLkUldiWbJ8FNWdNFPwISAqTSBrAN SxPoI0ICFcXTRrDRVbWfUqDSR+PM0eISa+Zr2Sp2ZyweN6zcAoYAojQbK1Db2VOIYHZ4ZYCm== ID Date Data Source [id number] 04/21/2020 08:35:17 AM EDT [facility] Name Value Range Interpretation Code Description Data Kacey e(s) Supporting Document(s) Leukocytes [#/volume] in Blood by Automated count 8.6 10*3/uL 4-10 [facility] Erythrocytes [#/volume] in Blood by Automated count 4.77 10*6/uL 4.6- 6.1 [facility] Hemoglobin [Mass/volume] in Blood 14.0 g/dL 13.5-18 [facility] Hematocrit [Volume Fraction] of Blood by Automated count 41.6 % 4 1-53 [facility] Erythrocyte mean corpuscular volume [Entitic volume] by Auto mated count 87.1 fL 80-96 [facility] Erythrocyte mean corpuscular hemoglobin [Entitic mass] by Automated count 29.4 pg 27-33 [facility] Erythrocyte mean corpuscular hemoglobin concentration [Mass/volume] by Automated count 33.8 g/dL 32.0-36.0 [facility] Erythrocyte distribution width [Ratio] by Automated count 14.6 % 11.5-14.5 H [facility] Platelets [#/volume] in Blood by Automated count 234 10*3/uL 150-400 [facility] Differential cell count method - Blood [facility] Neutrophils/100 leukocytes in Blood by Automated count 54 % [facility] Lymphocytes/100 leukocytes in Blood by Automated count 32 % [facility] Monocytes/100 leukocytes in Blood by Automated count 10 % [facility] Eosinophils/100 leukocytes in Blood by Automated count 3 % [facility] Basophils/100 leukocytes in Blood by Automated count 1 % [facility] Neutrophils [#/volume] in Blood by Automated count 4.69 10*3/uL 1.8-7 .0 [facility] Lymphocytes [#/volume] in Blood by Automated count 2.71 10*3/uL 1.2-4 .0 [facility] Monocytes [#/volume] in Blood by Automated count 0.83 10*3/uL 0-0.8 H [facility] Eosinophils [#/volume] in Blood by Automated count 0.28 10*3/uL 0-0.5 [facility] Basophils [#/volume] in Blood by Automated count 0.08 10*3/uL 0-0.2 [facility] Nucleated erythrocytes/100 leukocytes [Ratio] in Blood by Automated count 0 /100{WBCs} 0-0 [facility] ID Date Data Source [id number] 04/21/2020 09:19:19 AM EDT [facility] Name Value Range Interpretation Code Description Data Kacey rce(s) Supporting Document(s) Albumin [Mass/volume] in Serum or Plasma by Bromocresol green (BCG) dye binding method 4.2 g/dL 3.5-5.2 [facility] Bilirubin.total [Mass/volume] in Serum or Plasma 0.3 mg/dL <1.2 [facility] Calcium [Mass/volume] in Serum or Plasma 8.9 mg/dL 8.6-10.0 [facility] Chloride [Moles/volume] in Serum or Plasma 103 mmol/L 98-107 [facility] Creatinine [Mass/volume] in Serum or Plasma 0.82 mg/dL 0.70-1.20 [facility] Glucose [Mass/volume] in Serum or Plasma 131 mg/dL 70-140 [facility] Alkaline phosphatase [Enzymatic activity/volume] in Serum or Plasma 82 U/L 40-129 [facility] Potassium [Moles/volume] in Serum or Plasma 4.4 mmol/L 3.4-5.1 [facility] Hemolyzed Protein [Mass/volume] in Serum or Plasma 6.7 g/dL 6.4-8.3 [facility] Sodium [Moles/volume] in Serum or Plasma 140 mmol/L 136-145 [facility] Aspartate aminotransferase [Enzymatic activity/volume] in Serum or Plasma 22 U/L <40 [facility] Urea nitrogen [Mass/volume] in Serum or Plasma 10 mg/dL 6-20 [facility] Osmolality of Serum or Plasma by calculation 291 mosm/kg 275-300 [facility] Creatinine/Urea nitrogen [Mass Ratio] in Serum or Plasma 12 [facility] Bicarbonate [Moles/volume] in Serum 28 mmol/L 22-29 [facility] Alanine aminotransferase [Enzymatic activity/volume] in Seru m or Plasma 19 U/L <41 [facility] Anion gap 3 in Serum or Plasma 9 mmol/L 8-15 [facility] Glomerular filtration rate/1.73 sq M pre dicted among non-blacks [Volume Rate/Area] in Serum or Plasma by Creatinine-based formula (MDRD) >6 0 [facility] Glomerular filtration rate/1.73 sq M pre dicted among blacks [Volume Rate/Area] in Serum or Plasma by Creatinine-based formula (MDRD) >60 [facility] ID Date Data Source [id number] 04/21/2020 09:19:19 AM [facility] Name Value Range Interpretation Code Description Data Kacey rce(s) Supporting Document(s) C reactive protein [Mass/volume] in Serum or Plasma <8.0 [facility] ID Date Data Source [id number] 03/24/2020 09:27:15 AM [facility] Name Value Range Interpretation Code Description Data Kacey rce(s) Supporting Document(s) Progress Note [facility] [id number]jHnMgR2 lbm [file] SD6jPUKLAf9+MPivhMNpyNtsLEAUWfT6Zaa0NAmwYSDRMw6H ID Date Data Source [id number] 01/23/2020 11:32:44 AM EDT [facility] Name Value Range Interpretation Code Description Data Kacey rce(s) Supporting Document(s) Progress Note [facility] PBTLEv2lIzJZGnVn43/LQGsuHMDrs8KhYUdsNNf7IYrnJGKgE7UmPFR8zS6xUYK2TAdBCcEaGiKcKRA2 lbm [file] ICAgICAgICAgICAgICAgICAgICAgICAgICAgICAgICAgICAgICAgICAgICAgICAgICAgICAgICAgICAg LVQxKMUfUDKeHEHwJSDkZXXaLXXwMFKcYOSiJJ7SKX AgICAgICAgICAgICAgICAgICAgICAgICAgICAgICAgICAgICAgICAgICAgICAgICAgICAgICAgICAgIC QdETEpWGEiHUDeBRMoWHZjQZRyCMSvNUFtMOWkQERaGXIkTWAdJU0YXSRvPMBwPJYlYPFhSBZqNUJlVQ AgICAgICAgICAgICAgICAgICAgICAgICAgICAgICAg JENfARMdGNCaBZVgANGxNKObOWYvSRNiUWQsRFUtOZIiPFKyRESfWVYcKPXrFIJzPG8LPCHySIQpLWRz ICAgICAgICAgICAgICAgICAgICAgICAgICAgICAgICAgICAgICAgICAgICAgICAgICAgICAgICAgICAg ICAgICAgICAgICAgICAgICAgICAgICAgICAgICAgIA 0KICAgICAgICAgICAgICAgICAgICAgICAgICAgICAgICAgICAgICAgICAgICAgICAgICAgICAgICAgIC YeSETwUDMvCIWjGRFrNTVgRSWuCAXjGADyDZQnXRNqXEJsZVVgJPNlLF5RQATmZUDhYEAnMPLiCCJbIA AgICAgICAgICAgICAgICAgICAgICAgICAgICAgICAg PWHzUCHpSRWuPNXkQUVqRXSzZJMgBWGiRBJkHVIuJGKrICFtVXFgQDUnKFXwBRKiDPDrBR4CBXGqKBAo ICAgICAgICAgICAgICAgICAgICAgICAgICAgICAgICAgICAgICAgICAgICAgICAgICAgICAgICAgICAg ICAgICAgICAgICAgICAgICAgICAgICAgICAgICAgIC ZfLN1QCGPyYWHfBFAdAZEmEIVcPLVvRTPiQVSyCQHqVBEtEUUxNNIcQQCwMMDdTGLlGUOcXTIdNWUbAL BrWSCwOOKxVLKqYLPmZRZlBQAzQNPeBWJcYREdZLRcBIXtTNUkXPKdHEYrBH4JSKEkOXCbGUYlYLCrRA AgICAgICAgICAgICAgICAgICAgICAgICAgICAgICAg UDRrTAPzGAOdIJCxNYZqXGZmIFVrZGWdGZEeQCWlLXXnZVIgOLTeQBMtDVKrUKBeEJPrRDDkAC8AZDCd ICAgICAgICAgICAgICAgICAgICAgICAgICAgICAgICAgICAgICAgICAgICAgICAgICAgICAgICAgICAg ICAgICAgICAgICAgICAgICAgICAgICAgICAgICAgIC XmKITmMH4ERC05tZSrf7C5KKXcUE4rdqu/Hy9QAHpwgmRuoSVjOS8JStEnRR8zsh5HXfIxQZ3ikc0VOH nCEpTqX7M6kVRuWSFrFJINBtErG98vUTmlWm29AKsmYKDhNoDkNHb0Fl4AYfXhK4gaSMCvUoY2YPGgGj Z9RQQjDtX4AENwEuJkXZVbAWVuVXQaWSGRQJQ1ZZHv HmPoPXipMC2Hk7HdwCB2QDk+Tg4ISZ8uo8CfMZptCdWfRU4xoj2RRZsQMuMaO9VfmdW8OXOfICHiQv0K MKDkDUOepGUoGaPvLQPMGrDzQ5FvuI55JWZJDc0+MIqaadPfWlyCPoEsFBGgz7TuMQx3GA8TSEXiWWt8 bYEwHALcY9Bxf7VfQb13ASIqKpfnId7mTTL1BPCwX5 njteipQPKeQUCmNC81ZiYiZgOtTIR9PHWwCX8pPAsqHS1TRRL1DDwgRTDvBCOvL4fGMcRpMUWrZmRscC xmHA2LOkPdZ6GqpbWdcGNzBxZhQCOENa5+JCxifyRuUpiLAjY1PGBfx5LxFFs6XV1UNUWfEOsjYN3ZFA ExtH1nTGtmVO5NKhMeZUFfSIFFAwWtW63sjZUjFAf1 N2GtWjCzXGYnWkacQWHmDRguYbCdJDEuQqRhQElpLP8+ID4+INfiJS2EHVfzxlCbZYGiCh9LWYOsCWVd CD6kJXNkYLFiA0R1sWxqDQAXGmSwC2untnzdFM1zIHBcA498xYjjalJyNTCyMHYpGq3IIZXmZLG4DECc tSIqTbZbNCQVMJptIM8WxIAbMFT4eB8hDIqiRHMtSO YdN6sYTsFxuZwsYQ37pVywqjDxfYPfMIa+Hb5WCZ3nd7UzAVa3avAdZZwpNPL7YCgvXGLmGEDjRHJjDA O0WLD2LIBKUcFbLSTpPZVkTCojHNWcYLHbrw2ZVLJkPIUxQaWzKEUuNYUfNBWxRDemGMNlKCL7NoguFQ AoERRwMV4ZHmUaLFDxDRAjIJeeXKVaFAHipf9IJLMw NNXzGxI7UmUzWIHxBXVeVSpvVRBqTLKjXCRfJVBqOVXtGG5IXuDlLQSmJUTrLYIeYDTeTWXjqx8MSZYu EBQaOsU2HBBlKBEvATSeQXzlEPIbZTE7WIN0QBNtNKNfNE3PPyVsOYOnROv7UWrfYCQsANUile6JCACe UIQbVLUyPNFvXFRsWTEgEKmvCDPtIAZeYKU4VXLfYD IzQK9UGxKaHOSbVAZ9COIdSHDrRBCliv0KDYWsCNTyCNl5DjZeTEIeXJDmWLtfISWsRKE5MQAzIWBuST QwMC5TSwAoBVCqNLo4MTetUCZgDACcty4LRLDsTYAnFMZdHtIsWMVkEPIwKNdrRSAaWJWcSGS3UKYgTJ ScAD7FEcZuYCKgTeO7NFuyLWZfEFIgfs2DLMOlLEOb EXd9WsTuTIZoOJLuTAsgJLKeSIElMKQ8FLUiGMMkZW0CVkYoDNBgPrGcGTKlVMVoHYVfve6XPPBcFDOm Fyh5EpOxOEKxGZYcEXbrSZGuMHF3VANvRJKjRUGfWE1FQmVjRMIwHyVbYBVyMWLoFSLmbu0SQBDuSZNq SWE3HIYoVNEuGWAkPJdbJUKbEPB5GpW0YKZxNFIbQQ 8QImWoCYPsLjX9PUOiELQbSARvbr5ARFRxPYTtDVumCWMkYMYrWIDmTXncRHIxHCO6JET1FSSfVNXjMW 2CPrLjEMKyJsH7SnQpXIOiGDHwvz9AQBOvNVHdXntuEWMjKENnAIPrSMwaSLAsYAY0CTs8GHSmGADiAW 2TCxFaHNZgCuxiJbJfRKJpJSHepj2SxNXysCoscd6K BWqEAo5LoLiiCXI3MXddUs2jjERqEYBnWWGVKp0PjqVbGFQdPUUTLItaGSBmJTJcQgZ0NQPqLpSmBeAu FgSeRRD1GQRjVkXxLZYbXYM9UcN0WvI5QXFqUBN1RGKhIfVpRhGgYHIyXTT3SITlP0S4Pxm+NU8rJKv+ Hc0Ws7YxlcQ7gnXkDUfbHTH6Ri9DYJFXL7IIFh== ID Date Data Source [id number] 11/07/2019 01:01:07 PM EST [facility] Name Value Range Interpretation Code Description Data Kacey rce(s) Supporting Document(s) Progress Note [facility] JPABSb3lWlGROtSk21/CASfeNMGqv1XlXHxmCAf7OTtcJDHtO5JpGAH8cB3xLPJ2TBpLPyFjWnNlIlFl lbm [file] Ez8Ua0LzgnT9loMtMAbyPTs5QL3MVSQPC3CKBv== ID Date Data Source [id number] 11/07/2019 01:00:47 PM [facility] Name Value Range Interpretation Code Description Data Kacey rce(s) Supporting Document(s) Progress Note [facility] XAGFMk4vTgVHRwQa88/HLRlzYBNlk6RfNWgsLDi0XNoqLQEtR1ZmCVN6tB7wCKQ6STqFWzFdJcUyUgVs lbm PyGcfVNvJyXBXgQvlDXtFwESayEafjtDUjOK2UrNL7ILTmF11iPBDkPPKjW9FpXBB6WiA+Kd1ZPODfyY IuSZ4HFceY6VualyKG6a8e+VsVPeplwPoBHu0q0Qmg1tj2WSdB1Cf1eTqYeRVIkXcjwda9+x26rPZYJ9 fLe9aXKA+Y6iqf+63qFBAi//5LThyLUkrSf+uPjsfI aEZ+/krvqfB9Cbn5oIvBJmOkRpo+TS8d44mYnwft0WEmEjrWsybJR+LrVkw8gX5D78fK7tAGjkwJqoKN hXyz6Fq5hfe4DALw9+yXEyA0xRrQodizBS1cl1Zg133/QzADwC9X7nhprp3LeSrIbbPvHgu6rT7S0h5H UxohQSn0oOQSOAkm2nvcr4BA4jY45OTxHQRIYDWmgh zf1YaBbK790NaeMBm3QV2x/SRhME/IRTCLXmN/JCwBB04jSF4azYDmLtjNXjfVtiSkTdha0UzdOYGbB7 9E5LI4SToqYM6xVUvsBSdxhEjOb+nwFxteI1Rsm1hB8y3xyd80D8Op4r36kJKYvuqos4mfSw039XthuS n1vxp75MPEjnJAo5zdXHdiwB3xkI6lc3puHWtu4EeF ZothAYe9BEkGewaBBdgOjgaixuy8JJ2ouHX5dTJkhSe9cpUMs1Jc5JDfEJzB62kyFRnROd1qXwqUdr4k UlxqmLtKPJERqk8TO8E+QwHKnrpM7VyBR0fZuE1Qmn9OU/A57CfQVoDQWenRpfgSpijMCXnAtdx2X1SK IEXWwUQVYMJRGZCjm7zhOTWRSuybATwTb89AM6GuWu 6PwjbNQumGKC8XO4GSDtdKxOpQ/qa5Jb+AAI3jKBkGJ/wkIL+QYag/34olLzXJSg28rXSGRdCodGBC5l I8v4JgJf0+ulQa1n1RLTw9h+fsYvtWBY325oUOt1aOGci78La1waIzTnDJoyarD5iVn/Vigil/16aY5NwB [file] AgICAgICAgICAgICAgICAgICAgICAgICAgICAgICAgICAgICAgICAgICAgICAgICAgDQogICAgICAgIC AgICAgICAgICAgICAgICAgICAgICAgICAgICAgICAg ICAgICAgICAgICAgICAgICAgICAgICAgICAgICAgICAgICAgICAgICAgICAgICAgICAgICAgICAgICAg DQogICAgICAgICAgICAgICAgICAgICAgICAgICAgICAgICAgICAgICAgICAgICAgICAgICAgICAgICAg ICAgICAgICAgICAgICAgICAgICAgICAgICAgICAgIC AgICAgICAgICAgDQogICAgICAgICAgICAgICAgICAgICAgICAgICAgICAgICAgICAgICAgICAgICAgIC AgICAgICAgICAgICAgICAgICAgICAgICAgICAgICAgICAgICAgICAgICAgICAgICAgICAgDQogICAgIC AgICAgICAgICAgICAgICAgICAgICAgICAgICAgICAg ICAgICAgICAgICAgICAgICAgICAgICAgICAgICAgICAgICAgICAgICAgICAgICAgICAgICAgICAgICAg ICAgDQogICAgICAgICAgICAgICAgICAgICAgICAgICAgICAgICAgICAgICAgICAgICAgICAgICAgICAg ICAgICAgICAgICAgICAgICAgICAgICAgICAgICAgIC AgICAgICAgICAgICAgDQogICAgICAgICAgICAgICAgICAgICAgICAgICAgICAgICAgICAgICAgICAgIC AgICAgICAgICAgICAgICAgICAgICAgICAgICAgICAgICAgICAgICAgICAgICAgICAgICAgICAgDQogIC AgICAgICAgICAgICAgICAgICAgICAgICAgICAgICAg ICAgICAgICAgICAgICAgICAgICAgICAgICAgICAgICAgICAgICAgICAgICAgICAgICAgICAgICAgICAg ICAgICAgDQogICAgICAgICAgICAgICAgICAgICAgICAgICAgICAgICAgICAgICAgICAgICAgICAgICAg ICAgICAgICAgICAgICAgICAgICAgICAgICAgICAgIC AgICAgICAgICAgICAgICAgDQogICAgICAgICAgICAgICAgICAgICAgICAgICAgICAgICAgICAgICAgIC AgICAgICAgICAgICAgICAgICAgICAgICAgICAgICAgICAgICAgICAgICAgICAgICAgICAgICAgICAgDQ q5R7uhKTQmFOXoDR0eLIq9Ua9+KXpPRbObWOT0qyVv oN4QXT8ue8XdOXjtIYTrc8VkEEo6EG2WRYUaLFewCT2UZYdhhe5PTOXeHAAuaDLLs1mwJbDrMBI4WBTt ZkgfOS7UXZDxR9oiorVmUDAkPHFIDXiuOFFJKTrfVRREAIBcSRKfXlUuHiKtQUKzDIDtNGTKSU3ESgCc U1OtwP85LXYIVs8+PQrkkyXgHqjANhZwZLXvn9EoGL k2ZW5AXNOyYijtp8UjSrEmYAFPEIjkRI1DCAV0EVJgBFQkMy8FNZAeO712jjVwMI7RAq0AKfByIC8pyw 8GIdNjECTnJgsAQjm6SHeeYU7VwZEvCHvSuq7yhlPmpoOYf7SvryXnxVFQd4DeyyOcWBEFm0DqFGLKMQ WjhXQvTuD7XeTfDlQxIDp5NpNxNB1nBBplFF6IWDC9 HCajCJWnRXXyV9nAXdOwYCBeFeAzeZsjQB2DSgVfZ0TftrXlfDDdDiKyYFUZIa5+DQplbmRvYmoNCjM0 BHYch5FaVZc3CS2SYNDuPDggFN7UTPHmkO9fJCumQD6XIdPlHHAmBDVSBwKaJ50liCBjKBq2T0DdQvHh ZGVkRmlsZXMgPDwvTmFtZXMgWyBdDQogID4+ID4+DQ vxPG9CQGkuupRjZOZsDp3OZGAgXUVoEP8nJDZqWDCqA8N1uXsvHWQBNoWwW8ahgsfkNE5iMYNyS082rW ndqcNfICUlJNRqDv0NFJDeLCW2UGNcqYMoAlQtQDVOQImaJB4AnUGyBPL9gO4pBTxvMVIrGJQcW1xWQh XjbGblQW66uMcyphEiyYAkKFy+Mq9VHO6px3AgAVs2 xtGyHYjxOJB7GTqvHBUfRMVoGKQsVQP3XGY0GHEFVyXoLFEkSKCmPTkhFRUpKVFcel8ONAZiCTTgGHn7 TTQeBMPkNJKoOAwtNCPtBHI0EEnqKBVgQMNuFW0CMkPoGSNnUHZoTFkcFWFtOQZmnv3DTXZnJJWtHmwc AEUhHIMfBWCwFBetLZJrTZWnCYD2VMGcFCSqPZ5TJt GdRJYeJHR4JZOnMVOsJJBcbr4IKPDzSLUzGGl2WDRiJUZcOMYiIDesYUSjSDX1PbL6HGKyUARzLN6HGa QjZIEzYIg0AuIzLNZfNYBvnm6NTTClGIXbXkUqCzWoTOIyURBvHOtcYVFlTHZfZROnWNKaGZJqNT0VUw WjRSMdTZsbICDwOLIkVHGgqd7OJBFvRDShXjCeDrNz HFDiOJKuKXbxQOLpSJG0AiXuMVZaEUHiQL7JIiJoNHPsYCu1QfplJLCnGVEkig8IBYQeAQCdQJYnJcCe QQRrUMUvYEtqIQByRBTlZsB1OCNaWQZxQT7DKxIcNQUqSiB6TRzdUDUrOPWtjl6YYXAgAMGtTJf4RgJz SNYdNSAzZUwgDLVfYGYnLOT7JJBqGQLrOU5TUwEyKT BoQkMuPZNlOJVvFXOhhy3CKPEtLBRwRzM4AfBhNVRoNQVpPXofRDYzSLYjJFPfKPRlSYAyCB0SBiJfEB LuYoOdZzZgKUXpNGFwfp1LBIDzECInKCF1ULIkDUPjKMLvLOojVZHlTNI1IIO6FAIlXKCbXY3KLjBtMW OqFdY8MlRrXKErKJVcrj5UNZVuKQOnXLQ7ACJjJDPj LTHrXSsfWVEpHIP2XVP4FAYtWVAjRO4XKsEiVOUqPcTdNMKdZSHbNULgjm1OLCQbKXNmLuttRRNbGEQd UXXtAZhyALQdPHV3Gas7YGLtNCFoYH2EYhRoPQBfUgh6HoIuPPXqWMFdkv9ZiPAzvInopi6URTrNJh5V dPgrNAP1GGkmSj8igQUuUTQtBGOMUh7KtsJtHDUdWY IMQWloCPHuCVOmWYUpJjQvFOVmX1B6TONgENnxY3TrIMoxVMTbOaHeHiN4GVZoItI3BNYcBzU9ZUzbHj S2EHMjWaA2FJGfKTAgRAG+FM3hEOk+Oq9Jv5PdefA9ekSzCIkvBEL2Zc7RIIJPI3JKFb== Procedure Social History Code Duration Value Status Description Data Source(s ) Alcohol intake 03/24/2020 12:00:00 AM EDT Ex-drinker (finding) comp leted Ex- drinker (finding) [facility] Smoking 03/24/2020 12:00:00 AM EDT Former smoker completed Former smoker [facility] Smoking 01/27/2020 12:00:00 AM EDT Former Smoker completed Former Smoker eCW1 ([facility]) Alcohol intake 01/21/2020 12:00:00 AM EDT Ex-drinker (finding) comp leted Ex- drinker (finding) [facility] Smoking 01/21/2020 12:00:00 AM EDT Former smoker completed Former smoker [facility] Alcohol intake 11/07/2019 12:00:00 AM EST Ex-drinker (finding) comp leted Ex- drinker (finding) [facility] Smoking 11/07/2019 12:00:00 AM EST Former smoker completed Former smoker [facility] Vital Signs ID Date Data Source UNK Name Value Range Interpretation Code Description Data Source(s) Diastolic blood pressure 80 mm[Hg] 80 mm[Hg] eCW1 ([facility]) Systolic blood pressure 108 mm[Hg] 108 mm[Hg] e CW1 ([facility]) Body temperature 97.7 [degF] 97.7 [degF] eCW1 ( [facility]) Respiratory rate 18 /min 18 /min eCW1 ([facility]) Heart rate 86 /min 86 /min eCW1 ([facility]) Body mass index (BMI) [Ratio] 28.21 kg/m2 28.21 kg/m2 eCW1 ([facility]) Body height 76 [in_i] 76 [in_i] eCW1 ([facility]) Body weight 231.8 [lb_av] 231.8 [lb_av] eCW1 ([facility]) ID Date Data Source [id number] 08/05/2020 11:53:07 AM [facility] Name Value Range Interpretation Code Description Data Source(s) WEIGHT RECORDED 238.5 lb 238.5 lb [facility] ID Date Data Source [id number] 03/09/2020 03:26:55 PM [facility] Value Range Interpretation Code Description Data Source(s) WEIGHT RECORDED 219.8 lb 219.8 lb [facility] ID Date Data Source [id number] 01/10/2020 01:45:05 PM [facility] Name Value Range Interpretation Code Description Data Source(s) WEIGHT RECORDED 225.4 lb 225.4 lb [facility] ID Date Data Source [id number] 09/30/2019 11:48:30 AM [facility] Value Range Interpretation Code Description Data Source(s) WEIGHT RECORDED 227 lb 227 lb [facility] Patient Treatment Plan of Care Planned Activity Planned Date Details Description Data Source (s) Tropicamide 10 MG/ML Ophthalmic Solution 03/24/2020 09:00:00 AM [facility] Phenylephrine Hydrochloride 25 MG/ML Ophthalmic Soluti on 03/24/2020 09:00:00 AM [facility] ospital Proparacaine hydrochloride 5 MG/ML Ophthalmic Solution 03/24/2020 09:00:00 AM [facility]ital indocyanine green (IC-GREEN) injection 2.5 mg 01/21/2020 12:45:00 P M [facility] fluorescein 10 % injection 300 mg 01/21/2020 12:45:00 PM [facility] Proparacaine hydrochloride 5 MG/ML Ophthalmic Solution 01/21/2020 12:00:00 PM [facility] Phenylephrine Hydrochloride 25 MG/ML Ophthalmic Soluti on 01/21/2020 12:00:00 PM [facility] Tropicamide 10 MG/ML Ophthalmic Solution 01/21/2020 12:00:00 PM [facility] Insulin Syringe-Needle U-100 26G X 1/2" 1 ML (B-D INSU JOSE SYRINGE 1CC/26G) 01/21/2020 12:00:00 AM [facility] Folic Acid 1 MG Oral Tablet 01/21/2020 12:00:00 AM [facility] 2 ML Methotrexate 25 MG/ML Injection 01/21/2020 12:00:00 AM [facility] Omeprazole 40 MG Delayed Release Oral Capsule 01/16/2020 12:00:00 A M [facility] mycophenolate mofetil 500 MG Oral Tablet 01/15/2020 12:00:00 AM [facility] indocyanine green (IC-GREEN) injection 2.5 mg 11/05/2019 10:45:[address] [facility] fluorescein 10 % injection 500 mg 11/05/2019 10:45:[address] [facility] Tropicamide 10 MG/ML Ophthalmic Solution 11/05/2019 10:30:[address] [facility] Phenylephrine Hydrochloride 25 MG/ML Ophthalmic Soluti on 11/05/2019 10:30:00 AM [facility] ospital Proparacaine hydrochloride 5 MG/ML Ophthalmic Solution 11/05/2019 10:30:00 AM [facility] ospital
[2020-11-05 11:43] LABS: HEMATOCRIT 34.3 % (42.0-52.0); HEMOGLOBIN 11.2 g/dl (13.5-17.5); MEAN CORPUSCULAR HEMOGLOBIN 28.7 pg (27.0-33.0); MEAN CORPUSCULAR HGB CONC 32.7 g/dl (32.0-36.5); MEAN CORPUSCULAR VOLUME 87.9 fl (80.0-96.0); PLATELET COUNT, AUTOMATED 404 10^3/uL (150-450); WHITE BLOOD COUNT 9.1 10^3/uL (4.0-10.0)
[2020-11-05 12:07] LABS: ALBUMIN 4.1 GM/DL (3.2-5.2); ALT/SGPT 35 U/L (12-78); BILIRUBIN,TOTAL 0.4 MG/DL (0.2-1.0); BLOOD UREA NITROGEN 17 MG/DL (7-18); CALCIUM LEVEL 9.4 MG/DL (8.5-10.1); CARBON DIOXIDE LEVEL 28 MEQ/L (21-32); CHLORIDE LEVEL 105 MEQ/L (98-107); CPK CREATINE PHOSPHOKINASE 979 U/L (39-308); CREATININE FOR GFR 1.03 MG/DL (0.70-1.30); GLOMERULAR FILTRATION RATE > 60.0 (>60); GLUCOSE, FASTING 97 MG/DL (70-100); POTASSIUM SERUM 4.1 MEQ/L (3.5-5.1); SODIUM LEVEL 142 MEQ/L (136-145); TOTAL PROTEIN 7.3 GM/DL (6.4-8.2)
[2020-11-05] MEDS ORDERED: HYDROMORPHONE HCL 0.5 MG/ 0.5 ML SYRINGE (J1170 PER 1) IV ONE (12:30)
--- NOTE | 2020-11-05 13:13 | REP ---
INDICATION: right sided back pain, possible rib fracture. COMPARISON: Comparison chest CT study November 10, 2014.. TECHNIQUE: Helical scanning is acquired. 3 mm axial images are generated. Coronal and sagittal MPR and coronal MIP images are generated. FINDINGS: Preliminary signaling design engineer radiograph is unremarkable. There is no evidence of pneumothorax or hemothorax on either side. No mediastinal hematoma is appreciated. No hilar or mediastinal mass or adenopathy is seen. There are multiple nondisplaced right-sided rib fractures involving the right lateral 7th 8th 9th and 10th ribs and the right posterior 11th rib. No other fracture is appreciated. No contusion mass or significant pulmonary nodule is appreciated. In the upper abdomen normal adrenal glands are seen. The patient appears to be status post gastric bypass. IMPRESSION: Nondisplaced fractures of the right 7th through 11th ribs. No complication identified. Otherwise no acute disease. <Electronically signed by Jeffery Almanza > 11/05/20 [id number]
[2020-11-05] MEDS ORDERED: PERC5TAB12 PO (13:52)
[2020-11-05] MEDS ORDERED: KETO10TAB PO (13:52)
[2020-11-05] MEDS ORDERED: PERCOCET 5MG/325MG TAB PO ONE (14:00)
[2020-11-05 14:18] VITALS: BP 148/87
== END 2020-11-05 14:32 | disposition home or self-care (01) ==
LOC: M ED 09:58
DX: S22.39XA Fracture of one rib, unspecified side, initial encounter for closed fracture (principal); E11.9 Type 2 diabetes mellitus without complications; I10 Essential (primary) hypertension; J45.909 Unspecified asthma, uncomplicated; Z88.8 Allergy status to other drugs, medicaments and biological substances; Z98.84 Bariatric surgery status; Y92.9 Unspecified place or not applicable; Y93.9 Activity, unspecified; Y99.9 Unspecified external cause status
CPT/HCPCS: 71250; 80053; 82550; 85027; 94010; 96374; 96375; 99284; J1170; J1885; J3360

== ENCOUNTER → 2020-11-17 | Outpatient (CLI) | payer MEDICAID ==
[~2020-11-17] MED LIST changes: +KETO10TAB PO
== END ==
LOC: M OUTALCOH 13:08
PROVIDERS: ATTEND Psychiatry & Neurology Psychiatry
DX: F14.20 Cocaine dependence, uncomplicated (principal)

== ENCOUNTER 2020-12-26 11:12 | Inpatient (IN) | payer MEDICAID, OTHER ==
[~2020-12-26] VITALS: Ht 193 cm; Wt 102.0 kg
[2020-12-26] MEDS ORDERED: POLY510P14 PO (11:23)
[2020-12-26] MEDS ORDERED: TRAZ-252 PO (11:23)
[2020-12-26] MEDS ORDERED: MAGN400T2 PO (11:23)
[2020-12-26] MEDS ORDERED: HYDR-3363 PO (11:23)
[2020-12-26] MEDS ORDERED: [UNRECOGNIZED DRUG - CODE] PO (11:23)
[2020-12-26] MEDS ORDERED: MULT400T10 PO (11:23)
[2020-12-26] MEDS ORDERED: METH50IN8 (11:23)
[2020-12-26] MEDS ORDERED: BACL10TA2 PO (11:23)
[2020-12-26] MEDS ORDERED: TAMS1CAP17 PO (11:23)
[2020-12-26] MEDS ORDERED: FOLI1TAB11 PO (11:23)
[2020-12-26] MEDS ORDERED: D31000TA2 PO (11:23)
[2020-12-26 12:45] LABS: HEMATOCRIT 39.7 % (42.0-52.0); HEMOGLOBIN 13.3 g/dl (13.5-17.5); MEAN CORPUSCULAR HGB CONC 33.5 g/dl (32.0-36.5); MEAN CORPUSCULAR VOLUME 89.4 fl (80.0-96.0); PLATELET COUNT, AUTOMATED 288 10^3/uL (150-450); RED BLOOD COUNT 4.44 10^6/uL (4.30-6.10); WHITE BLOOD COUNT 9.6 10^3/uL (4.0-10.0)
[2020-12-26 13:24] LABS: ACETAMINOPHEN LEVEL < 2.0 UG/ML (10.0-30.0); ALBUMIN 4.2 GM/DL (3.2-5.2); ALT/SGPT 46 U/L (12-78); AMPHETAMINES LEVEL URINE NEGATIVE (NEGATIVE); BARBITURATES URINE NEGATIVE (NEGATIVE); BENZODIAZEPINES URINE NEGATIVE (NEGATIVE); BILIRUBIN,DIRECT 0.1 MG/DL (0.0-0.2); BILIRUBIN,TOTAL 0.4 MG/DL (0.2-1.0); BLOOD UREA NITROGEN 14 MG/DL (7-18); CALCIUM LEVEL 8.8 MG/DL (8.5-10.1); CANNABINOIDS URINE NEGATIVE (NEGATIVE); CARBON DIOXIDE LEVEL 30 MEQ/L (21-32); CHLORIDE LEVEL 106 MEQ/L (98-107); COCAINE METABOLITE URINE NEGATIVE (NEGATIVE); CPK CREATINE PHOSPHOKINASE 175 U/L (39-308); CREATININE FOR GFR 0.76 MG/DL (0.70-1.30); ETHYL ALCOHOL (ETHANOL) < 0.003 % (0.000-0.010); GLOMERULAR FILTRATION RATE > 60.0 (>56); GLUCOSE, FASTING 116 MG/DL (70-100); METHADONE URINE NEGATIVE (NEGATIVE); OPIATES URINE NEGATIVE (NEGATIVE); PHENCYCLIDINE URINE NEGATIVE (NEGATIVE); POTASSIUM SERUM 4.4 MEQ/L (3.5-5.1); SALICYLATE LEVEL < 1.7 MG/DL (5.0-30.0); SODIUM LEVEL 140 MEQ/L (136-145); TOTAL PROTEIN 7.5 GM/DL (6.4-8.2)
[2020-12-26 15:22] LABS: RSV AMPLIFICATION NEGATIVE (NEGATIVE)
[2020-12-26] MEDS ORDERED: LORazepam 2 MG TAB PO PRN (18:05)
[2020-12-26] MEDS ORDERED: LORazepam 2 MG TAB PO STA (18:10)
[2020-12-26] MEDS ORDERED: ACETAMINOPHEN TAB 650MG DOSE (2X325MG) PO ONE (20:15)
[2020-12-26] MEDS: DULoxetine 30 MG CAP (CYMBALTA) PO SCH (20:36)
[2020-12-26] MEDS: BACLOFEN 10 MG TAB PO SCH (20:36)
[2020-12-26] MEDS: traZODone 50 MG TAB PO SCH (20:36)
[2020-12-26] MEDS: THIAMINE 100 MG TAB PO SCH (20:36)
[2020-12-27] MEDS: TAMSULOSIN 0.4 MG CAP PO SCH ×2 (08:44→08:54)
[2020-12-27] MEDS: FOLIC ACID 1 MG TAB PO SCH ×2 (08:44→08:54)
[2020-12-27] MEDS: THIAMINE 100 MG TAB PO SCH ×3 (08:44→20:42)
[2020-12-27] MEDS: DULoxetine 30 MG CAP (CYMBALTA) PO SCH ×3 (08:44→20:42)
[2020-12-27] MEDS: MULTIVITAMINS/MINERALS THERAP 1 TAB PO SCH ×2 (08:45→08:55)
[2020-12-27] MEDS ORDERED: FOLIC ACID 1 MG TAB PO SCH (09:00)
[2020-12-27] MEDS ORDERED: LORazepam 2 MG TAB PO STA (09:49)
--- NOTE | 2020-12-27 16:23 | ECGEPIP ---
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
[2020-12-27] MEDS ORDERED: hydrOXYzine 25 MG TAB PO STA (19:13)
[2020-12-27] MEDS ORDERED: ACETAMINOPHEN 325 MG TAB PO ONE (19:15)
[2020-12-27] MEDS ORDERED: BACLOFEN 10 MG TAB PO ONE (19:15)
[2020-12-27] MEDS: traZODone 50 MG TAB PO SCH (20:42)
[2020-12-27] MEDS: BACLOFEN 10 MG TAB PO SCH (20:42)
[2020-12-28] MEDS ORDERED: MULTIVITAMINS/MINERALS THERAP 1 TAB PO ONE (07:20)
[2020-12-28] MEDS ORDERED: SENNA 8.6 MG TAB (SENOKOT) PO ONE (07:20)
[2020-12-28] MEDS ORDERED: VITAMIN D 1,000 INTERNATIONAL UNITS TABLET PO ONE (07:20)
[2020-12-28] MEDS ORDERED: TAMSULOSIN 0.4 MG CAP PO ONE (07:20)
[2020-12-28] MEDS ORDERED: DULoxetine 30 MG CAP (CYMBALTA) PO ONE (07:20)
[2020-12-28] MEDS ORDERED: MAGNESIUM OXIDE 400MG TAB (MAG-OX) PO ONE (07:20)
[2020-12-28] MEDS ORDERED: FOLIC ACID 1 MG TAB PO ONE (07:20)
[2020-12-28] MEDS ORDERED: BACLOFEN 10 MG TAB PO ONE (07:55)
[2020-12-28] MEDS ORDERED: hydrOXYzine 25 MG TAB PO ONE ×2 (07:55→13:05)
[2020-12-28] MEDS: MULTIVITAMINS/MINERALS THERAP 1 TAB PO SCH (08:09)
[2020-12-28] MEDS: FOLIC ACID 1 MG TAB PO SCH (08:09)
[2020-12-28] MEDS: DULoxetine 30 MG CAP (CYMBALTA) PO SCH (08:10)
[2020-12-28] MEDS: TAMSULOSIN 0.4 MG CAP PO SCH (08:10)
[2020-12-28] MEDS: THIAMINE 100 MG TAB PO SCH (08:10)
[2020-12-28] MEDS ORDERED: MOM 30ML SUSPENSION UDC PO PRN (13:45)
[2020-12-28] MEDS ORDERED: MAALOX 30 ML SUSP *UDC PO PRN (13:45)
[2020-12-28] MEDS ORDERED: IBUPROFEN 400MG TAB PO PRN (13:45)
[2020-12-28] MEDS ORDERED: traZODone 50 MG TAB PO PRN (13:45)
[2020-12-28] MEDS ORDERED: ALBUTEROL 90 MCG/ACT 8GM HFA INHALER INH PRN (15:05)
[2020-12-28] MEDS ORDERED: hydrOXYzine 25 MG TAB PO PRN (15:05)
[2020-12-28] MEDS ORDERED: BACLOFEN 10 MG TAB PO PRN (15:05)
[2020-12-28] MEDS ORDERED: MIRALAX *UNIT DOSE* 17GM PACKET PO PRN (15:05)
[2020-12-28 16:00] VITALS: BP 156/77
[2020-12-28] MEDS ORDERED: BACLOFEN 10 MG TAB PO SCH (16:00)
[2020-12-28] MEDS ORDERED: ACETAMINOPHEN TAB 650MG DOSE (2X325MG) PO PRN (17:40)
[2020-12-28] MEDS ORDERED: GABAPENTIN 100 MG CAP PO ONE (17:40)
[2020-12-28 18:00] VITALS: BP 137/100
[2020-12-28] MEDS ORDERED: LORazepam 0.5 MG TAB PO PRN (18:05)
[2020-12-28] MEDS ORDERED: LORazepam 1 MG TAB PO STA (18:06)
[2020-12-28 18:26] LABS: HEMATOCRIT 45.1 % (42.0-52.0); HEMOGLOBIN 15.2 g/dl (13.5-17.5); MEAN CORPUSCULAR HEMOGLOBIN 29.1 pg (27.0-33.0); MEAN CORPUSCULAR HGB CONC 33.7 g/dl (32.0-36.5); MEAN CORPUSCULAR VOLUME 86.4 fl (80.0-96.0); PLATELET COUNT, AUTOMATED 363 10^3/uL (150-450); RED BLOOD COUNT 5.22 10^6/uL (4.30-6.10)
[2020-12-28] MEDS ORDERED: TIZA4TAB4 PO (18:33)
[2020-12-28] MEDS ORDERED: GABA-1171 PO (18:33)
[2020-12-28] MEDS ORDERED: ATIV1TAB10 PO (18:33)
[2020-12-28] MEDS ORDERED: HYDR50TA70 PO (18:33)
[2020-12-28] MEDS ORDERED: ACET1TAB55 PO (18:33)
[2020-12-28] MEDS ORDERED: TRAZ-252 PO (18:33)
[2020-12-28 18:50] LABS: ALBUMIN 4.4 GM/DL (3.2-5.2); ALT/SGPT 39 U/L (12-78); BILIRUBIN,TOTAL 0.4 MG/DL (0.2-1.0); BLOOD UREA NITROGEN 23 MG/DL (7-18); CARBON DIOXIDE LEVEL 23 MEQ/L (21-32); CHLORIDE LEVEL 106 MEQ/L (98-107); CK-MB VALUE MASS 2.5 NG/ML (<3.6); CPK CREATINE PHOSPHOKINASE 157 U/L (39-308); CREATININE FOR GFR 1.08 MG/DL (0.70-1.30); GLOMERULAR FILTRATION RATE > 60.0 (>56); GLUCOSE, FASTING 85 MG/DL (70-100); MAGNESIUM LEVEL 2.4 MG/DL (1.8-2.4); MB/CK RELATIVE INDEX 1.59 (< OR =4); POTASSIUM SERUM 3.7 MEQ/L (3.5-5.1); SODIUM LEVEL 137 MEQ/L (136-145); TOTAL PROTEIN 8.4 GM/DL (6.4-8.2); TROPONIN I < 0.02 NG/ML (< 0.10)
[2020-12-28 19:04] LABS: WHITE BLOOD COUNT 14.9 10^3/uL (4.0-10.0)
[2020-12-28 19:07] LABS: ATYPICAL LYMPH 8 % (0-5); LYMPHOCYTES 23 % (16-44); MONOCYTES 10 % (0-5); NEUTROPHILS 59 % (28-66)
[2020-12-28 19:08] LABS: PLATELET CLUMPS SMALL AMT; PLATELET ESTIMATE NORMAL (NORMAL)
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
[2020-12-28] MEDS ORDERED: SENOKOT S TAB PO SCH (21:00)
[2020-12-28] MEDS ORDERED: tiZANidine 4 MG TAB PO SCH (21:00)
[2020-12-28] MEDS ORDERED: DULoxetine 30 MG CAP (CYMBALTA) PO SCH (21:00)
[2020-12-28] MEDS ORDERED: hydrOXYzine 50 MG TAB PO PRN (22:00)
--- NOTE | 2020-12-28 23:39 | ECGEPIP ---
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
[2020-12-29] MEDS ORDERED: TAMSULOSIN 0.4 MG CAP PO SCH (09:00)
[2020-12-29] MEDS ORDERED: MAGNESIUM OXIDE 400MG TAB (MAG-OX) PO SCH (09:00)
[2020-12-29] MEDS ORDERED: VITAMIN D 1,000 INTERNATIONAL UNITS TABLET PO SCH (09:00)
[2020-12-29] MEDS ORDERED: GABAPENTIN 100 MG CAP PO SCH (09:00)
[2020-12-29] MEDS ORDERED: FOLIC ACID 1 MG TAB PO SCH (09:00)
[2020-12-30] MEDS ORDERED: MIRALAX *UNIT DOSE* 17GM PACKET PO PRN (17:20)
[2020-12-30] MEDS ORDERED: traZODone 50 MG TAB PO PRN (17:20)
[2020-12-30] MEDS ORDERED: ALBUTEROL 90 MCG/ACT 8GM HFA INHALER INH PRN (17:20)
[2020-12-30] MEDS ORDERED: MOM 30ML SUSPENSION UDC PO PRN (17:20)
[2020-12-30] MEDS ORDERED: MAGNESIUM OXIDE 400MG TAB (MAG-OX) PO ONE (18:15)
[2020-12-30] MEDS ORDERED: MULTIVITAMINS/MINERALS THERAP 1 TAB PO ONE (18:15)
[2020-12-30 18:34] VITALS: BP 158/92
[2020-12-30] MEDS: LORazepam 1 MG TAB PO PRN (20:45)
[2020-12-30] MEDS: BACLOFEN 10 MG TAB PO PRN (20:46)
[2020-12-30] MEDS: DOCUSATE SODIUM 100MG CAPSULE PO SCH (21:33)
[2020-12-30] MEDS: tiZANidine 4 MG TAB PO SCH (21:33)
[2020-12-30] MEDS: THIAMINE 100 MG TAB PO SCH (21:33)
[2020-12-30] MEDS: DULoxetine 30 MG CAP (CYMBALTA) PO SCH (21:33)
[2020-12-30] MEDS: GABAPENTIN 100 MG CAP PO SCH (21:34)
[2020-12-31 06:22] VITALS: BP 158/98
[2020-12-31] MEDS: hydrOXYzine 50 MG TAB PO PRN ×2 (08:08→20:55)
[2020-12-31] MEDS: BACLOFEN 10 MG TAB PO PRN ×2 (08:09→20:55)
[2020-12-31] MEDS: MULTIVITAMINS/MINERALS THERAP 1 TAB PO SCH (08:09)
[2020-12-31] MEDS: THIAMINE 100 MG TAB PO SCH ×2 (08:09→21:58)
[2020-12-31] MEDS: DOCUSATE SODIUM 100MG CAPSULE PO SCH ×2 (08:09→21:57)
[2020-12-31] MEDS: TAMSULOSIN 0.4 MG CAP PO SCH (08:09)
[2020-12-31] MEDS: DULoxetine 30 MG CAP (CYMBALTA) PO SCH ×2 (08:10→21:56)
[2020-12-31] MEDS: VITAMIN D 1,000 INTERNATIONAL UNITS TABLET PO SCH (08:10)
[2020-12-31] MEDS: GABAPENTIN 100 MG CAP PO SCH ×3 (08:10→21:57)
[2020-12-31] MEDS: MAGNESIUM OXIDE 400MG TAB (MAG-OX) PO SCH (08:10)
[2020-12-31] MEDS: FOLIC ACID 1 MG TAB PO SCH (08:10)
[2020-12-31] MEDS: LORazepam 1 MG TAB PO PRN ×2 (09:50→21:57)
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
[2020-12-31] MEDS ORDERED: LURASIDONE 20 MG TAB (LATUDA) PO SCH (18:00)
[2020-12-31 18:13] VITALS: BP 130/81
[2020-12-31] MEDS: ACETAMINOPHEN TAB 650MG DOSE (2X325MG) PO PRN (20:56)
[2020-12-31] MEDS: tiZANidine 4 MG TAB PO SCH (21:57)
[2020-12-31] MEDS: traZODone 50 MG TAB PO PRN (21:57)
[2021-01-01 06:24] VITALS: BP 118/78
[2021-01-01] MEDS: DULoxetine 30 MG CAP (CYMBALTA) PO SCH ×2 (08:38→19:46)
[2021-01-01] MEDS: TAMSULOSIN 0.4 MG CAP PO SCH (08:38)
[2021-01-01] MEDS: THIAMINE 100 MG TAB PO SCH ×2 (08:38→19:46)
[2021-01-01] MEDS: VITAMIN D 1,000 INTERNATIONAL UNITS TABLET PO SCH (08:38)
[2021-01-01] MEDS: BACLOFEN 10 MG TAB PO PRN ×2 (08:38→18:03)
[2021-01-01] MEDS: DOCUSATE SODIUM 100MG CAPSULE PO SCH ×2 (08:38→19:46)
[2021-01-01] MEDS: GABAPENTIN 100 MG CAP PO SCH ×3 (08:39→19:46)
[2021-01-01] MEDS: ACETAMINOPHEN TAB 650MG DOSE (2X325MG) PO PRN (08:39)
[2021-01-01] MEDS: MAGNESIUM OXIDE 400MG TAB (MAG-OX) PO SCH (08:39)
[2021-01-01] MEDS: FOLIC ACID 1 MG TAB PO SCH (08:39)
[2021-01-01] MEDS: hydrOXYzine 50 MG TAB PO PRN ×2 (08:39→19:46)
[2021-01-01] MEDS: MULTIVITAMINS/MINERALS THERAP 1 TAB PO SCH (08:39)
[2021-01-01] MEDS: LORazepam 1 MG TAB PO PRN ×2 (10:26→21:50)
--- NOTE | 2021-01-01 13:56 | MHIPN ---
[facility] PROGRESS NOTE DATE: 01/01/2021 SUBJECTIVE: "I'm still depressed. I feel safe here, but I don't know what I will do when I get out." OBJECTIVE: He is a 50-year-old white male, single, who used to live with his ex-fiance, was admitted because of suicidal thoughts. Patient reportedly wanted to jump into the river, however, changed his mind and came for help to the emergency room (ER). Patient has a history of depression and marcus. He had several psychiatric hospitalizations. He has an extensive history of drug use. He used cocaine for a long time. Now he uses what he calls Methylone. Currently patient is interacting with peers. He is attending groups. His sleep is still disturbed and patient still depressed. MENTAL STATUS EXAMINATION: Tall, well-built, well-groomed male who makes good eye contact. Speech rate, rhythm, volume are good. Mood is depressed. Affect is constricted. Thought content: Denied any suicidal or homicidal thoughts. Perception: Denied any auditory or visual hallucinations. Memory, immediate, remote, recent, is good. VITAL SIGNS: Temperature 97.5, respiratory rate is 18, pulse is 79, blood pressure 118/78, pulse oximetry 98. LABORATORY DATA: CBC: WBC is 14.9, high. The rest of the parameters are within normal limits. CMP within normal limits. His toxicology was normal. DIAGNOSES: 1. Mood disorder, not otherwise specified, rule out bipolar 2 disorder. 2. Posttraumatic stress disorder. 3. Panic disorder without agoraphobia. 4. Cocaine use disorder. 5. History of concussion. ASSESSMENT AND PLAN: Patient currently is improving but still has suicidal thoughts. I would like to increase his Latuda to 40 mg at night and increase his gabapentin to 200 mg three times daily. ESTIMATED LENGTH OF STAY: 4-5 days. TIME SPENT: Half an hour.
[2021-01-01 16:05] VITALS: BP 137/72
[2021-01-01] MEDS: LURASIDONE HCL 40 MG TAB (LATUDA) PO SCH (18:03)
[2021-01-01] MEDS: tiZANidine 4 MG TAB PO SCH (19:47)
[2021-01-01] MEDS: traZODone 50 MG TAB PO PRN (21:50)
[2021-01-02 06:48] VITALS: BP 125/78
[2021-01-02] MEDS: DULoxetine 30 MG CAP (CYMBALTA) PO SCH ×2 (08:33→21:00)
[2021-01-02] MEDS: THIAMINE 100 MG TAB PO SCH ×2 (08:33→21:00)
[2021-01-02] MEDS: VITAMIN D 1,000 INTERNATIONAL UNITS TABLET PO SCH (08:33)
[2021-01-02] MEDS: GABAPENTIN 100 MG CAP PO SCH ×2 (08:33→15:31)
[2021-01-02] MEDS: DOCUSATE SODIUM 100MG CAPSULE PO SCH ×2 (08:33→21:00)
[2021-01-02] MEDS: MULTIVITAMINS/MINERALS THERAP 1 TAB PO SCH (08:33)
[2021-01-02] MEDS: BACLOFEN 10 MG TAB PO PRN ×2 (08:33→18:45)
[2021-01-02] MEDS: TAMSULOSIN 0.4 MG CAP PO SCH (08:33)
[2021-01-02] MEDS: hydrOXYzine 50 MG TAB PO PRN ×2 (08:34→15:38)
[2021-01-02] MEDS: MAGNESIUM OXIDE 400MG TAB (MAG-OX) PO SCH (08:34)
[2021-01-02] MEDS: FOLIC ACID 1 MG TAB PO SCH (08:34)
[2021-01-02] MEDS: LORazepam 1 MG TAB PO PRN ×2 (09:56→18:45)
[2021-01-02 16:02] VITALS: BP 142/81
[2021-01-02] MEDS: LURASIDONE HCL 40 MG TAB (LATUDA) PO SCH (17:44)
[2021-01-02] MEDS: tiZANidine 4 MG TAB PO SCH (21:00)
[2021-01-02] MEDS: GABAPENTIN 300 MG CAP PO SCH (21:00)
[2021-01-03] MEDS: hydrOXYzine 50 MG TAB PO PRN ×2 (00:59→09:09)
[2021-01-03] MEDS: traZODone 50 MG TAB PO PRN (00:59)
[2021-01-03] MEDS: tiZANidine 4 MG TAB PO SCH ×2 (00:59→22:45)
[2021-01-03] MEDS: GABAPENTIN 300 MG CAP PO SCH ×4 (00:59→22:45)
[2021-01-03 06:00] VITALS: BP 127/79
[2021-01-03] MEDS: MULTIVITAMINS/MINERALS THERAP 1 TAB PO SCH (08:36)
[2021-01-03] MEDS: MAGNESIUM OXIDE 400MG TAB (MAG-OX) PO SCH (08:36)
[2021-01-03] MEDS: THIAMINE 100 MG TAB PO SCH ×2 (08:37→22:45)
[2021-01-03] MEDS: VITAMIN D 1,000 INTERNATIONAL UNITS TABLET PO SCH (08:37)
[2021-01-03] MEDS: BACLOFEN 10 MG TAB PO PRN ×2 (08:37→17:25)
[2021-01-03] MEDS: LORazepam 1 MG TAB PO PRN (08:37)
[2021-01-03] MEDS: TAMSULOSIN 0.4 MG CAP PO SCH (08:37)
[2021-01-03] MEDS: FOLIC ACID 1 MG TAB PO SCH (08:37)
[2021-01-03] MEDS: DOCUSATE SODIUM 100MG CAPSULE PO SCH ×2 (08:37→22:45)
[2021-01-03] MEDS: DULoxetine 30 MG CAP (CYMBALTA) PO SCH ×2 (08:37→22:45)
[2021-01-03] MEDS: hydrOXYzine 25 MG TAB PO PRN (16:11)
[2021-01-03 16:51] VITALS: BP 128/85
[2021-01-03] MEDS ORDERED: LURASIDONE 20 MG TAB (LATUDA) PO SCH (18:00)
[2021-01-04] MEDS: ACETAMINOPHEN TAB 650MG DOSE (2X325MG) PO PRN ×2 (02:33→20:00)
[2021-01-04] MEDS: hydrOXYzine 25 MG TAB PO PRN ×2 (02:33→10:15)
[2021-01-04] MEDS: BACLOFEN 10 MG TAB PO PRN ×4 (02:33→23:18)
[2021-01-04 06:07] VITALS: BP 139/85
[2021-01-04] MEDS: FOLIC ACID 1 MG TAB PO SCH (08:15)
[2021-01-04] MEDS: GABAPENTIN 300 MG CAP PO SCH ×3 (08:15→23:18)
[2021-01-04] MEDS: DULoxetine 30 MG CAP (CYMBALTA) PO SCH ×2 (08:15→23:18)
[2021-01-04] MEDS: DOCUSATE SODIUM 100MG CAPSULE PO SCH ×2 (08:15→23:18)
[2021-01-04] MEDS: MAGNESIUM OXIDE 400MG TAB (MAG-OX) PO SCH (08:15)
[2021-01-04] MEDS: TAMSULOSIN 0.4 MG CAP PO SCH (08:15)
[2021-01-04] MEDS: THIAMINE 100 MG TAB PO SCH ×2 (08:15→23:18)
[2021-01-04] MEDS: MULTIVITAMINS/MINERALS THERAP 1 TAB PO SCH (08:15)
[2021-01-04] MEDS: VITAMIN D 1,000 INTERNATIONAL UNITS TABLET PO SCH (08:15)
[2021-01-04] MEDS ORDERED: PROPRANOLOL 10 MG TAB PO ONE (10:35)
--- NOTE | 2021-01-04 13:43 | MHIPNPDOC ---
[facility] Progress Note Progress Note DATE OF SERVICE: 01/04/21 SUBJECTIVE: "I'm still depressed. I feel safe here, but I don't know what I will do when I get out."I was angry yesterday I am anxious" OBJECTIVE: He is a 50-year-old white male, single, who used to live with his ex-fiance, was admitted because of suicidal thoughts. Patient reportedly wanted to jump into the river, however, changed his mind and came for help to the emergency room (ER). Patient has a history of depression and marcus. He had several psychiatric hospitalizations. He has an extensive history of drug use. He used cocaine for a long time. Now he uses what he calls Methylone. Currently patient is interacting with peers. He is attending groups. His sleep is still disturbed and patient still depressed. H continues to be anxious MENTAL STATUS EXAMINATION: Tall, well-built, well-groomed male who makes good eye contact. Speech rate, rhythm, volume are good. Mood is depressed. Affect is constricted. Thought content: Denied any suicidal or homicidal thoughts. Perception: Denied any auditory or visual hallucinations. Memory, immediate, remote, recent, is good. VITAL SIGNS: Temperature 97.5, respiratory rate is 18, pulse is 79, blood pressure 118/78, pulse oximetry 98. LABORATORY DATA: CBC: WBC is 14.9, high. The rest of the parameters are within normal limits. CMP within normal limits. His toxicology was normal. DIAGNOSES: 1. Mood disorder, not otherwise specified, rule out bipolar 2 disorder. 2. Posttraumatic stress disorder. 3. Panic disorder without agoraphobia. 4. Cocaine use disorder. 5. History of concussion. ASSESSMENT AND PLAN: Patient currently is improving but still has suicidal thoughts. I would like to increase his Latuda to 40 mg at night and increase his gabapentin to 200 mg three times daily.Add propranolol 10 mg tid. ESTIMATED LENGTH OF STAY: 4-5 days. TIME SPENT: 25 min Vital Signs Vital Signs Date Time Temp Pulse Resp B/P (MAP) Pulse Ox O2 Delivery O2 Flow Rate FiO2 01/04/21 06:07 97.9 77 18 139/85 (103) 97 Room Air Current Medications Current Medications Medications (Trade) Dose Ordered Sig/Melanie Route PRN Reason Start Time Stop Time Status Last Admin Dose Admin Acetaminophen (Tylenol Tab) 650 mg Q4HP PRN PO PAIN OR FEVER 12/30/20 17:20 01/04/21 02:33 Acetaminophen (Tylenol Tab) 650 mg Q6HP PRN PO PAIN / FEVER 12/28/20 17:40 12/28/20 21:19 DC Al Hydrox/Mg Hydrox/Simethicone (Mylanta) 30 ml Q4HP PRN PO HEARTBURN/INDIGESTION 12/28/20 13:45 12/28/20 21:19 DC Albuterol Sulfate (Proventil, Ventolin Hfa) 2 puff Q4H PRN INH WHEEZING 12/28/20 15:05 12/28/20 21:19 DC Albuterol Sulfate (Proventil, Ventolin Hfa) 2 puff Q4HP PRN INH SHORTNESS OF BREATH 12/30/20 17:20 Baclofen (Lioresal) 10 mg Q8H PRN PO MUSCLE SPASMS 12/28/20 15:05 12/28/20 21:19 DC 12/28/20 15:42 Baclofen (Lioresal) 10 mg Q8HP PRN PO MUSCLE SPASMS 12/30/20 17:20 01/04/21 11:29 Baclofen (Lioresal) 10 mg QHS PO 12/26/20 21:00 12/28/20 09:04 DC 12/27/20 20:42 Baclofen (Lioresal) 10 mg TID PO 12/28/20 16:00 12/28/20 15:09 DC Docusate Sodium (Colace) 100 mg BID PO 12/30/20 21:00 01/04/21 08:15 Duloxetine HCl (Cymbalta) 60 mg BID PO 12/26/20 21:00 12/28/20 15:09 DC 12/28/20 08:10 Duloxetine HCl (Cymbalta) 60 mg BID PO 12/28/20 21:00 12/28/20 21:19 DC Duloxetine HCl (Cymbalta) 60 mg BID PO 12/30/20 21:00 01/04/21 08:15 Folic Acid (Folic Acid) 1 mg DAILY PO 12/27/20 09:00 12/26/20 18:09 DC Folic Acid (Folic Acid) 1 mg DAILY PO 12/27/20 09:00 12/28/20 15:09 DC 12/28/20 08:09 Folic Acid (Folic Acid) 1 mg DAILY PO 12/29/20 09:00 12/28/20 21:19 DC Folic Acid (Folic Acid) 1 mg DAILY PO 12/31/20 09:00 01/04/21 08:15 Gabapentin (Neurontin) 100 mg TID PO 12/29/20 09:00 12/28/20 21:19 DC Gabapentin (Neurontin) 100 mg TID PO 12/30/20 21:00 01/01/21 11:31 DC 01/01/21 08:39 Gabapentin (Neurontin) 200 mg TID PO 01/01/21 16:00 01/02/21 19:59 DC 01/02/21 15:31 Gabapentin (Neurontin) 300 mg TID PO 01/02/21 21:00 01/04/21 08:15 Home Med (Med Rec Complete!) ASDIRECTED XX 12/26/20 16:40 12/26/20 16:48 DC Hydroxyzine HCl (Atarax) 25 mg Q4H PRN PO ANXIETY 12/28/20 15:05 12/28/20 17:43 DC 12/28/20 15:41 Hydroxyzine HCl (Atarax) 25 mg STAT STAT PO 12/27/20 19:13 12/27/20 19:15 DC 12/27/20 20:42 Hydroxyzine HCl (Atarax) 50 mg Q6HP PRN PO ANXIETY/AGITATION 12/28/20 22:00 12/28/20 21:19 DC Hydroxyzine HCl (Atarax) 50 mg Q6HP PRN PO ANXIETY 12/30/20 17:20 01/03/21 15:32 DC 01/03/21 09:09 Hydroxyzine HCl (Atarax) 75 mg Q6HP PRN PO ANXIETY 01/03/21 15:30 01/04/21 10:15 Ibuprofen (Advil) 400 mg Q6HP PRN PO PAIN 12/28/20 13:45 12/28/20 17:43 DC Lorazepam (Ativan) 1 mg BIDP PRN PO ANXIETY 12/28/20 18:05 12/28/20 21:19 DC 12/28/20 18:08 Lorazepam (Ativan) 1 mg BIDP PRN PO ANXIETY 12/30/20 17:20 01/03/21 08:37 Lorazepam (Ativan) 1 mg STAT STAT PO 12/28/20 18:06 12/28/20 18:09 DC Lorazepam (Ativan) 2 mg ASDIRECTED PRN PO SEE PROTOCOL 12/26/20 18:05 12/28/20 15:09 DC Lorazepam (Ativan) 2 mg STAT STAT PO 12/26/20 18:10 12/26/20 18:12 DC 12/26/20 18:27 Lorazepam (Ativan) 2 mg STAT STAT PO 12/27/20 09:49 12/27/20 09:50 DC 12/27/20 09:53 Lurasidone HCl (Latuda) 20 mg DAILY@18 PO 12/31/20 18:00 01/01/21 11:31 DC 12/31/20 17:33 Lurasidone HCl (Latuda) 40 mg DAILY@18 PO 01/01/21 18:00 01/03/21 15:31 DC 01/02/21 17:44 Lurasidone HCl (Latuda) 60 mg DAILY@18 PO 01/03/21 18:00 01/03/21 17:25 Magnesium Hydroxide (Milk Of Magnesia) 30 ml DAILYPRN PRN PO CONSTIPATION 12/28/20 13:45 12/28/20 21:19 DC Magnesium Hydroxide (Milk Of Magnesia) 30 ml DAILYPRN PRN PO CONSTIPATION 12/30/20 17:20 Magnesium Oxide (Mag-Ox) 400 mg DAILY PO 12/29/20 09:00 12/28/20 21:19 DC Magnesium Oxide (Mag-Ox) 400 mg DAILY PO 12/31/20 09:00 01/04/21 08:15 Miscellaneous (Unresolved Clarification Entry) SEE LABEL COMMENTS DAILY XX 12/26/20 09:00 12/26/20 18:01 DC Multivitamins (Theragram-M) 1 tab DAILY PO 12/27/20 09:00 12/28/20 15:09 DC 12/28/20 08:09 Multivitamins (Theragram-M) 1 tab DAILY PO 12/31/20 09:00 01/04/21 08:15 Polyethylene Glycol (Miralax) 1 pkt DAILY PRN PO CONSTIPATION 12/28/20 15:05 12/28/20 21:19 DC Polyethylene Glycol (Miralax) 1 pkt DAILYPRN PRN PO CONSTIPATION 12/30/20 17:20 Propranolol HCl (Inderal) 10 mg TID PO 01/04/21 16:00 Senna/Docusate Sodium (Senokot S) 1 tab BID PO 12/28/20 21:00 12/28/20 21:19 DC Tamsulosin HCl (Flomax) 0.4 mg DAILY PO 12/27/20 09:00 12/28/20 15:09 DC 12/28/20 08:10 Tamsulosin HCl (Flomax) 0.4 mg DAILY PO 12/29/20 09:00 12/28/20 21:19 DC Tamsulosin HCl (Flomax) 0.4 mg DAILY PO 12/31/20 09:00 01/04/21 08:15 Thiamine HCl (Thiamine HCl) 100 mg BID PO 12/26/20 21:00 12/28/20 15:09 DC 12/28/20 08:10 Thiamine HCl (Thiamine HCl) 100 mg BID PO 12/30/20 21:00 01/04/21 08:15 Tizanidine HCl (Zanaflex) 4 mg QHS PO 12/28/20 21:00 12/28/20 21:19 DC Tizanidine HCl (Zanaflex) 4 mg QHS PO 12/30/20 21:00 01/03/21 22:45 Trazodone HCl (Desyrel) 50 mg QHS PO 12/26/20 21:00 12/28/20 15:09 DC 12/27/20 20:42 Trazodone HCl (Desyrel) 50 mg QHSP PRN PO INSOMNIA 12/28/20 13:45 12/28/20 21:19 DC Trazodone HCl (Desyrel) 50 mg QHSP PRN PO INSOMNIA 12/30/20 17:20 12/31/20 16:18 DC Trazodone HCl (Desyrel) 100 mg QHSP PRN PO INSOMNIA 12/31/20 21:00 01/03/21 00:59 Vitamin D (Vitamin D) 2,000 units DAILY PO 12/29/20 09:00 12/28/20 21:19 DC Vitamin D (Vitamin D) 2,000 units DAILY PO 12/31/20 09:00 01/04/21 08:15 Allergies Coded Allergies: lisinopril (Verified Allergy, Severe, ANAPHYLAXIS, 04/08/19) ROBERT FLOREZ MD Jan 04, 2021 13:43
[2021-01-04] MEDS: PROPRANOLOL 10 MG TAB PO SCH ×2 (16:47→23:20)
[2021-01-04 17:53] VITALS: BP 130/92
[2021-01-04] MEDS: LORazepam 1 MG TAB PO PRN (20:00)
[2021-01-04] MEDS: traZODone 50 MG TAB PO PRN (23:17)
[2021-01-04] MEDS: tiZANidine 4 MG TAB PO SCH (23:18)
[2021-01-05 06:26] VITALS: BP 138/84
[2021-01-05] MEDS: TAMSULOSIN 0.4 MG CAP PO SCH (08:31)
[2021-01-05] MEDS: VITAMIN D 1,000 INTERNATIONAL UNITS TABLET PO SCH (08:31)
[2021-01-05] MEDS: FOLIC ACID 1 MG TAB PO SCH (08:32)
[2021-01-05] MEDS: MULTIVITAMINS/MINERALS THERAP 1 TAB PO SCH (08:32)
[2021-01-05] MEDS: GABAPENTIN 300 MG CAP PO SCH ×3 (08:32→22:11)
[2021-01-05] MEDS: DULoxetine 30 MG CAP (CYMBALTA) PO SCH ×2 (08:33→22:11)
[2021-01-05] MEDS: MAGNESIUM OXIDE 400MG TAB (MAG-OX) PO SCH (08:33)
[2021-01-05] MEDS: THIAMINE 100 MG TAB PO SCH ×2 (08:33→22:11)
[2021-01-05] MEDS: DOCUSATE SODIUM 100MG CAPSULE PO SCH ×2 (08:33→22:12)
[2021-01-05] MEDS: BACLOFEN 10 MG TAB PO PRN (08:34)
[2021-01-05] MEDS: PROPRANOLOL 10 MG TAB PO SCH ×3 (08:34→22:12)
[2021-01-05] MEDS: LORazepam 1 MG TAB PO PRN (14:44)
[2021-01-05] MEDS: hydrOXYzine 25 MG TAB PO PRN (14:44)
--- NOTE | 2021-01-05 16:31 | MHIPNPDOC ---
[facility] Progress Note Progress Note DATE OF SERVICE: 01/05/21 SUBJECTIVE: "I'm still depressed. I feel safe here, but I don't know what I will do when I get out."I was angry yesterday I am anxious"Pt was angry as his medication Latuda was not given to him due to some mis communication. However it was given later. OBJECTIVE: He is a 50-year-old white male, single, who used to live with his ex-fiance, was admitted because of suicidal thoughts. Patient reportedly wanted to jump into the river, however, changed his mind and came for help to the emergency room (ER). Patient has a history of depression and marcus. He had several psychiatric hospitalizations. He has an extensive history of drug use. He used cocaine for a long time. Now he uses what he calls Methylone. Currently patient is interacting with peers. He is attending groups. His sleep is still disturbed and patient still depressed. H continues to be anxious. Pt was verbally aggressive and screaming , cursing , calmed down later. MENTAL STATUS EXAMINATION: Tall, well-built, well-groomed male who makes good eye contact. Speech rate, rhythm, volume are good. Mood is depressed. Affect is constricted. Thought content: Denied any suicidal or homicidal thoughts. Perception: Denied any auditory or visual hallucinations. Memory, immediate, remote, recent, is good. VITAL SIGNS: Temperature 97.5, respiratory rate is 18, pulse is 79, blood pressure 118/78, pulse oximetry 98. LABORATORY DATA: CBC: WBC is 14.9, high. The rest of the parameters are within normal limits. CMP within normal limits. His toxicology was normal. DIAGNOSES: 1. Mood disorder, not otherwise specified, rule out bipolar 2 disorder. 2. Posttraumatic stress disorder. 3. Panic disorder without agoraphobia. 4. Cocaine use disorder. 5. History of concussion. ASSESSMENT AND PLAN: Patient currently is improving but still has suicidal thoughts. I would like to increase his Latuda to 60 mg at night and increase his gabapentin to 200 mg three times daily.Add propranolol 10 mg tid.Increase Latuda 60 mg Hs ESTIMATED LENGTH OF STAY: 4-5 days. TIME SPENT: 25 min Vital Signs Vital Signs Date Time Temp Pulse Resp B/P (MAP) Pulse Ox O2 Delivery O2 Flow Rate FiO2 01/05/21 15:12 71 138/84 01/05/21 06:26 97.5 20 100 Room Air Current Medications Current Medications Medications (Trade) Dose Ordered Sig/Melanie Route PRN Reason Start Time Stop Time Status Last Admin Dose Admin Acetaminophen (Tylenol Tab) 650 mg Q4HP PRN PO PAIN OR FEVER 12/30/20 17:20 01/04/21 20:00 Acetaminophen (Tylenol Tab) 650 mg Q6HP PRN PO PAIN / FEVER 12/28/20 17:40 12/28/20 21:19 DC Al Hydrox/Mg Hydrox/Simethicone (Mylanta) 30 ml Q4HP PRN PO HEARTBURN/INDIGESTION 12/28/20 13:45 12/28/20 21:19 DC Albuterol Sulfate (Proventil, Ventolin Hfa) 2 puff Q4H PRN INH WHEEZING 12/28/20 15:05 12/28/20 21:19 DC Albuterol Sulfate (Proventil, Ventolin Hfa) 2 puff Q4HP PRN INH SHORTNESS OF BREATH 12/30/20 17:20 Baclofen (Lioresal) 10 mg Q8H PRN PO MUSCLE SPASMS 12/28/20 15:05 12/28/20 21:19 DC 12/28/20 15:42 Baclofen (Lioresal) 10 mg Q8HP PRN PO MUSCLE SPASMS 12/30/20 17:20 01/05/21 08:34 Baclofen (Lioresal) 10 mg QHS PO 12/26/20 21:00 12/28/20 09:04 DC 12/27/20 20:42 Baclofen (Lioresal) 10 mg TID PO 12/28/20 16:00 12/28/20 15:09 DC Docusate Sodium (Colace) 100 mg BID PO 12/30/20 21:00 01/05/21 08:33 Duloxetine HCl (Cymbalta) 60 mg BID PO 12/26/20 21:00 12/28/20 15:09 DC 12/28/20 08:10 Duloxetine HCl (Cymbalta) 60 mg BID PO 12/28/20 21:00 12/28/20 21:19 DC Duloxetine HCl (Cymbalta) 60 mg BID PO 12/30/20 21:00 01/05/21 08:33 Folic Acid (Folic Acid) 1 mg DAILY PO 12/27/20 09:00 12/26/20 18:09 DC Folic Acid (Folic Acid) 1 mg DAILY PO 12/27/20 09:00 12/28/20 15:09 DC 12/28/20 08:09 Folic Acid (Folic Acid) 1 mg DAILY PO 12/29/20 09:00 12/28/20 21:19 DC Folic Acid (Folic Acid) 1 mg DAILY PO 12/31/20 09:00 01/05/21 08:32 Gabapentin (Neurontin) 100 mg TID PO 12/29/20 09:00 12/28/20 21:19 DC Gabapentin (Neurontin) 100 mg TID PO 12/30/20 21:00 01/01/21 11:31 DC 01/01/21 08:39 Gabapentin (Neurontin) 200 mg TID PO 01/01/21 16:00 01/02/21 19:59 DC 01/02/21 15:31 Gabapentin (Neurontin) 300 mg TID PO 01/02/21 21:00 01/05/21 15:12 Home Med (Med Rec Complete!) ASDIRECTED XX 12/26/20 16:40 12/26/20 16:48 DC Hydroxyzine HCl (Atarax) 25 mg Q4H PRN PO ANXIETY 12/28/20 15:05 12/28/20 17:43 DC 12/28/20 15:41 Hydroxyzine HCl (Atarax) 25 mg STAT STAT PO 12/27/20 19:13 12/27/20 19:15 DC 12/27/20 20:42 Hydroxyzine HCl (Atarax) 50 mg Q6HP PRN PO ANXIETY/AGITATION 12/28/20 22:00 12/28/20 21:19 DC Hydroxyzine HCl (Atarax) 50 mg Q6HP PRN PO ANXIETY 12/30/20 17:20 01/03/21 15:32 DC 01/03/21 09:09 Hydroxyzine HCl (Atarax) 75 mg Q6HP PRN PO ANXIETY 01/03/21 15:30 01/05/21 14:44 Ibuprofen (Advil) 400 mg Q6HP PRN PO PAIN 12/28/20 13:45 12/28/20 17:43 DC Lorazepam (Ativan) 1 mg BIDP PRN PO ANXIETY 12/28/20 18:05 12/28/20 21:19 DC 12/28/20 18:08 Lorazepam (Ativan) 1 mg BIDP PRN PO ANXIETY 12/30/20 17:20 01/05/21 14:44 Lorazepam (Ativan) 1 mg STAT STAT PO 12/28/20 18:06 12/28/20 18:09 DC Lorazepam (Ativan) 2 mg ASDIRECTED PRN PO SEE PROTOCOL 12/26/20 18:05 12/28/20 15:09 DC Lorazepam (Ativan) 2 mg STAT STAT PO 12/26/20 18:10 12/26/20 18:12 DC 12/26/20 18:27 Lorazepam (Ativan) 2 mg STAT STAT PO 12/27/20 09:49 12/27/20 09:50 DC 12/27/20 09:53 Lurasidone HCl (Latuda) 20 mg DAILY@18 PO 12/31/20 18:00 01/01/21 11:31 DC 12/31/20 17:33 Lurasidone HCl (Latuda) 40 mg DAILY@18 PO 01/01/21 18:00 01/03/21 15:31 DC 01/02/21 17:44 Lurasidone HCl (Latuda) 60 mg DAILY@18 PO 01/03/21 18:00 01/04/21 14:56 DC 01/03/21 17:25 Lurasidone HCl (Latuda) 60 mg DAILY@18 PO 01/05/21 18:00 Magnesium Hydroxide (Milk Of Magnesia) 30 ml DAILYPRN PRN PO CONSTIPATION 12/28/20 13:45 12/28/20 21:19 DC Magnesium Hydroxide (Milk Of Magnesia) 30 ml DAILYPRN PRN PO CONSTIPATION 12/30/20 17:20 Magnesium Oxide (Mag-Ox) 400 mg DAILY PO 12/29/20 09:00 12/28/20 21:19 DC Magnesium Oxide (Mag-Ox) 400 mg DAILY PO 12/31/20 09:00 01/05/21 08:33 Miscellaneous (Unresolved Clarification Entry) SEE LABEL COMMENTS DAILY XX 12/26/20 09:00 12/26/20 18:01 DC Multivitamins (Theragram-M) 1 tab DAILY PO 12/27/20 09:00 12/28/20 15:09 DC 12/28/20 08:09 Multivitamins (Theragram-M) 1 tab DAILY PO 12/31/20 09:00 01/05/21 08:32 Polyethylene Glycol (Miralax) 1 pkt DAILY PRN PO CONSTIPATION 12/28/20 15:05 12/28/20 21:19 DC Polyethylene Glycol (Miralax) 1 pkt DAILYPRN PRN PO CONSTIPATION 12/30/20 17:20 Propranolol HCl (Inderal) 10 mg TID PO 01/04/21 16:00 01/05/21 15:12 Senna/Docusate Sodium (Senokot S) 1 tab BID PO 12/28/20 21:00 12/28/20 21:19 DC Tamsulosin HCl (Flomax) 0.4 mg DAILY PO 12/27/20 09:00 12/28/20 15:09 DC 12/28/20 08:10 Tamsulosin HCl (Flomax) 0.4 mg DAILY PO 12/29/20 09:00 12/28/20 21:19 DC Tamsulosin HCl (Flomax) 0.4 mg DAILY PO 12/31/20 09:00 01/05/21 08:31 Thiamine HCl (Thiamine HCl) 100 mg BID PO 12/26/20 21:00 12/28/20 15:09 DC 12/28/20 08:10 Thiamine HCl (Thiamine HCl) 100 mg BID PO 12/30/20 21:00 01/05/21 08:33 Tizanidine HCl (Zanaflex) 4 mg QHS PO 12/28/20 21:00 12/28/20 21:19 DC Tizanidine HCl (Zanaflex) 4 mg QHS PO 12/30/20 21:00 01/04/21 23:18 Trazodone HCl (Desyrel) 50 mg QHS PO 12/26/20 21:00 12/28/20 15:09 DC 12/27/20 20:42 Trazodone HCl (Desyrel) 50 mg QHSP PRN PO INSOMNIA 12/28/20 13:45 12/28/20 21:19 DC Trazodone HCl (Desyrel) 50 mg QHSP PRN PO INSOMNIA 12/30/20 17:20 12/31/20 16:18 DC Trazodone HCl (Desyrel) 100 mg QHSP PRN PO INSOMNIA 12/31/20 21:00 01/04/21 23:17 Vitamin D (Vitamin D) 2,000 units DAILY PO 12/29/20 09:00 12/28/20 21:19 DC Vitamin D (Vitamin D) 2,000 units DAILY PO 12/31/20 09:00 01/05/21 08:31 Allergies Coded Allergies: lisinopril (Verified Allergy, Severe, ANAPHYLAXIS, 04/08/19) ROBERT FLOREZ MD Jan 05, 2021 16:31
[2021-01-05 18:00] VITALS: BP 130/78
[2021-01-05] MEDS ORDERED: LURASIDONE 20 MG TAB (LATUDA) PO SCH (18:00)
[2021-01-05] MEDS: traZODone 50 MG TAB PO PRN (22:11)
[2021-01-05] MEDS: tiZANidine 4 MG TAB PO SCH (22:11)
[2021-01-06 06:31] VITALS: BP 158/88
[2021-01-06] MEDS: TAMSULOSIN 0.4 MG CAP PO SCH (08:04)
[2021-01-06] MEDS: FOLIC ACID 1 MG TAB PO SCH (08:05)
[2021-01-06] MEDS: DOCUSATE SODIUM 100MG CAPSULE PO SCH ×2 (08:05→20:41)
[2021-01-06] MEDS: MAGNESIUM OXIDE 400MG TAB (MAG-OX) PO SCH (08:05)
[2021-01-06] MEDS: DULoxetine 30 MG CAP (CYMBALTA) PO SCH ×2 (08:05→20:41)
[2021-01-06] MEDS: VITAMIN D 1,000 INTERNATIONAL UNITS TABLET PO SCH (08:06)
[2021-01-06] MEDS: MULTIVITAMINS/MINERALS THERAP 1 TAB PO SCH (08:06)
[2021-01-06] MEDS: THIAMINE 100 MG TAB PO SCH ×2 (08:06→20:41)
[2021-01-06] MEDS: PROPRANOLOL 10 MG TAB PO SCH (08:06)
[2021-01-06] MEDS: GABAPENTIN 300 MG CAP PO SCH ×3 (08:06→20:41)
[2021-01-06] MEDS: BACLOFEN 10 MG TAB PO PRN ×2 (08:08→16:35)
[2021-01-06] MEDS: hydrOXYzine 25 MG TAB PO PRN (10:09)
--- NOTE | 2021-01-06 13:56 | MHIPNPDOC ---
[facility] Progress Note Progress Note DATE OF SERVICE: 01/06/21 SUBJECTIVE: "I'm still depressed. I feel safe here, but I don't know what I will do when I get out."I was angry yesterday I am anxious"Pt was angry as his medication Latuda was not given to him due to some mis communication. However it was given later. OBJECTIVE: He is a 50-year-old white male, single, who used to live with his ex-fiance, was admitted because of suicidal thoughts. Patient reportedly wanted to jump into the river, however, changed his mind and came for help to the emergency room (ER). Patient has a history of depression and marcus. He had several psychiatric hospitalizations. He has an extensive history of drug use. He used cocaine for a long time. Now he uses what he calls Methylone. Currently patient is interacting with peers. He is attending groups. His sleep is still disturbed and patient still depressed. He continues to be anxious,feels restless and complained of vague suicidal thoughts.He was angry screaming ,cursing about medication changes . MENTAL STATUS EXAMINATION: Tall, well-built, well-groomed male who makes good eye contact. Speech rate, rhythm, volume are good. Mood is depressed. Affect is constricted. Thought content: Denied any suicidal or homicidal thoughts. Perception: Denied any auditory or visual hallucinations. Memory, immediate, remote, recent, is good. LABORATORY DATA: CBC: WBC is 14.9, high. The rest of the parameters are within normal limits. CMP within normal limits. His toxicology was normal. DIAGNOSES: 1. Mood disorder, not otherwise specified, rule out bipolar 2 disorder. 2. Posttraumatic stress disorder. 3. Panic disorder without agoraphobia. 4. Cocaine use disorder. 5. History of concussion. ASSESSMENT AND PLAN: Patient currently is improving but still has suicidal thoughts. Possibility of akathisia,due to Latuda, Decrease Latuda 40 mg Hs , Increase propranolol to20 mg tid. ESTIMATED LENGTH OF STAY: 4-5 days. TIME SPENT: 25 min Vital Signs Vital Signs Date Time Temp Pulse Resp B/P (MAP) Pulse Ox O2 Delivery O2 Flow Rate FiO2 01/06/21 08:06 64 158/88 01/06/21 06:31 97.1 20 99 Room Air Current Medications Current Medications Medications (Trade) Dose Ordered Sig/Melanie Route PRN Reason Start Time Stop Time Status Last Admin Dose Admin Acetaminophen (Tylenol Tab) 650 mg Q4HP PRN PO PAIN OR FEVER 12/30/20 17:20 01/04/21 20:00 Acetaminophen (Tylenol Tab) 650 mg Q6HP PRN PO PAIN / FEVER 12/28/20 17:40 12/28/20 21:19 DC Al Hydrox/Mg Hydrox/Simethicone (Mylanta) 30 ml Q4HP PRN PO HEARTBURN/INDIGESTION 12/28/20 13:45 12/28/20 21:19 DC Al Hydrox/Mg Hydrox/Simethicone (Mylanta) 30 ml Q6HP PRN PO HEARTBURN 01/06/21 13:35 Albuterol Sulfate (Proventil, Ventolin Hfa) 2 puff Q4H PRN INH WHEEZING 12/28/20 15:05 12/28/20 21:19 DC Albuterol Sulfate (Proventil, Ventolin Hfa) 2 puff Q4HP PRN INH SHORTNESS OF BREATH 12/30/20 17:20 Baclofen (Lioresal) 10 mg Q8H PRN PO MUSCLE SPASMS 12/28/20 15:05 12/28/20 21:19 DC 12/28/20 15:42 Baclofen (Lioresal) 10 mg Q8HP PRN PO MUSCLE SPASMS 12/30/20 17:20 01/06/21 08:08 Baclofen (Lioresal) 10 mg QHS PO 12/26/20 21:00 12/28/20 09:04 DC 12/27/20 20:42 Baclofen (Lioresal) 10 mg TID PO 12/28/20 16:00 12/28/20 15:09 DC Docusate Sodium (Colace) 100 mg BID PO 12/30/20 21:00 01/06/21 08:05 Duloxetine HCl (Cymbalta) 60 mg BID PO 12/26/20 21:00 12/28/20 15:09 DC 12/28/20 08:10 Duloxetine HCl (Cymbalta) 60 mg BID PO 12/28/20 21:00 12/28/20 21:19 DC Duloxetine HCl (Cymbalta) 60 mg BID PO 12/30/20 21:00 01/06/21 08:05 Folic Acid (Folic Acid) 1 mg DAILY PO 12/27/20 09:00 12/26/20 18:09 DC Folic Acid (Folic Acid) 1 mg DAILY PO 12/27/20 09:00 12/28/20 15:09 DC 12/28/20 08:09 Folic Acid (Folic Acid) 1 mg DAILY PO 12/29/20 09:00 12/28/20 21:19 DC Folic Acid (Folic Acid) 1 mg DAILY PO 12/31/20 09:00 01/06/21 08:05 Gabapentin (Neurontin) 100 mg TID PO 12/29/20 09:00 12/28/20 21:19 DC Gabapentin (Neurontin) 100 mg TID PO 12/30/20 21:00 01/01/21 11:31 DC 01/01/21 08:39 Gabapentin (Neurontin) 200 mg TID PO 01/01/21 16:00 01/02/21 19:59 DC 01/02/21 15:31 Gabapentin (Neurontin) 300 mg TID PO 01/02/21 21:00 01/06/21 08:06 Home Med (Med Rec Complete!) ASDIRECTED XX 12/26/20 16:40 12/26/20 16:48 DC Hydroxyzine HCl (Atarax) 25 mg Q4H PRN PO ANXIETY 12/28/20 15:05 12/28/20 17:43 DC 12/28/20 15:41 Hydroxyzine HCl (Atarax) 25 mg STAT STAT PO 12/27/20 19:13 12/27/20 19:15 DC 12/27/20 20:42 Hydroxyzine HCl (Atarax) 50 mg Q6HP PRN PO ANXIETY/AGITATION 12/28/20 22:00 12/28/20 21:19 DC Hydroxyzine HCl (Atarax) 50 mg Q6HP PRN PO ANXIETY 12/30/20 17:20 01/03/21 15:32 DC 01/03/21 09:09 Hydroxyzine HCl (Atarax) 75 mg Q6HP PRN PO ANXIETY 01/03/21 15:30 01/06/21 10:09 Ibuprofen (Advil) 400 mg Q6HP PRN PO PAIN 12/28/20 13:45 12/28/20 17:43 DC Lorazepam (Ativan) 1 mg BIDP PRN PO ANXIETY 12/28/20 18:05 12/28/20 21:19 DC 12/28/20 18:08 Lorazepam (Ativan) 1 mg BIDP PRN PO ANXIETY 12/30/20 17:20 01/05/21 14:44 Lorazepam (Ativan) 1 mg STAT STAT PO 12/28/20 18:06 12/28/20 18:09 DC Lorazepam (Ativan) 2 mg ASDIRECTED PRN PO SEE PROTOCOL 12/26/20 18:05 12/28/20 15:09 DC Lorazepam (Ativan) 2 mg STAT STAT PO 12/26/20 18:10 12/26/20 18:12 DC 12/26/20 18:27 Lorazepam (Ativan) 2 mg STAT STAT PO 12/27/20 09:49 12/27/20 09:50 DC 12/27/20 09:53 Lurasidone HCl (Latuda) 20 mg DAILY@18 PO 12/31/20 18:00 01/01/21 11:31 DC 12/31/20 17:33 Lurasidone HCl (Latuda) 40 mg DAILY@18 PO 01/01/21 18:00 01/03/21 15:31 DC 01/02/21 17:44 Lurasidone HCl (Latuda) 60 mg DAILY@18 PO 01/03/21 18:00 01/04/21 14:56 DC 01/03/21 17:25 Lurasidone HCl (Latuda) 60 mg DAILY@18 PO 01/05/21 18:00 01/05/21 17:35 Magnesium Hydroxide (Milk Of Magnesia) 30 ml DAILYPRN PRN PO CONSTIPATION 12/28/20 13:45 12/28/20 21:19 DC Magnesium Hydroxide (Milk Of Magnesia) 30 ml DAILYPRN PRN PO CONSTIPATION 12/30/20 17:20 Magnesium Oxide (Mag-Ox) 400 mg DAILY PO 12/29/20 09:00 12/28/20 21:19 DC Magnesium Oxide (Mag-Ox) 400 mg DAILY PO 12/31/20 09:00 01/06/21 08:05 Miscellaneous (Unresolved Clarification Entry) SEE LABEL COMMENTS DAILY XX 12/26/20 09:00 12/26/20 18:01 DC Multivitamins (Theragram-M) 1 tab DAILY PO 12/27/20 09:00 12/28/20 15:09 DC 12/28/20 08:09 Multivitamins (Theragram-M) 1 tab DAILY PO 12/31/20 09:00 01/06/21 08:06 Polyethylene Glycol (Miralax) 1 pkt DAILY PRN PO CONSTIPATION 12/28/20 15:05 12/28/20 21:19 DC Polyethylene Glycol (Miralax) 1 pkt DAILYPRN PRN PO CONSTIPATION 12/30/20 17:20 Propranolol HCl (Inderal) 10 mg TID PO 01/04/21 16:00 01/06/21 08:06 Senna/Docusate Sodium (Senokot S) 1 tab BID PO 12/28/20 21:00 12/28/20 21:19 DC Tamsulosin HCl (Flomax) 0.4 mg DAILY PO 12/27/20 09:00 12/28/20 15:09 DC 12/28/20 08:10 Tamsulosin HCl (Flomax) 0.4 mg DAILY PO 12/29/20 09:00 12/28/20 21:19 DC Tamsulosin HCl (Flomax) 0.4 mg DAILY PO 12/31/20 09:00 01/06/21 08:04 Thiamine HCl (Thiamine HCl) 100 mg BID PO 12/26/20 21:00 12/28/20 15:09 DC 12/28/20 08:10 Thiamine HCl (Thiamine HCl) 100 mg BID PO 12/30/20 21:00 01/06/21 08:06 Tizanidine HCl (Zanaflex) 4 mg QHS PO 12/28/20 21:00 12/28/20 21:19 DC Tizanidine HCl (Zanaflex) 4 mg QHS PO 12/30/20 21:00 01/05/21 22:11 Trazodone HCl (Desyrel) 50 mg QHS PO 12/26/20 21:00 12/28/20 15:09 DC 12/27/20 20:42 Trazodone HCl (Desyrel) 50 mg QHSP PRN PO INSOMNIA 12/28/20 13:45 12/28/20 21:19 DC Trazodone HCl (Desyrel) 50 mg QHSP PRN PO INSOMNIA 12/30/20 17:20 12/31/20 16:18 DC Trazodone HCl (Desyrel) 100 mg QHSP PRN PO INSOMNIA 12/31/20 21:00 01/05/21 22:11 Vitamin D (Vitamin D) 2,000 units DAILY PO 12/29/20 09:00 12/28/20 21:19 DC Vitamin D (Vitamin D) 2,000 units DAILY PO 12/31/20 09:00 01/06/21 08:06 Allergies Coded Allergies: lisinopril (Verified Allergy, Severe, ANAPHYLAXIS, 04/08/19) ROBERT FLOREZ MD Jan 06, 2021 13:56
[2021-01-06] MEDS: LORazepam 1 MG TAB PO PRN (14:03)
[2021-01-06] MEDS: MAALOX 30 ML SUSP *UDC PO PRN ×2 (14:03→22:29)
[2021-01-06] MEDS: ACETAMINOPHEN TAB 650MG DOSE (2X325MG) PO PRN ×2 (16:03→20:41)
[2021-01-06 16:26] VITALS: BP 122/76
[2021-01-06] MEDS: PROPRANOLOL 20 MG TAB PO SCH ×2 (16:35→20:41)
[2021-01-06] MEDS: LURASIDONE 20 MG TAB (LATUDA) PO SCH (16:36)
[2021-01-06 17:41] VITALS: BP 122/76
[2021-01-06] MEDS: tiZANidine 4 MG TAB PO SCH (20:41)
[2021-01-06] MEDS: traZODone 50 MG TAB PO PRN (22:29)
[2021-01-06] MEDS ORDERED: SIMETHICONE 80MG CHEW TAB PO PRN (23:20)
[2021-01-07] MEDS: BACLOFEN 10 MG TAB PO PRN ×2 (05:03→15:17)
[2021-01-07] MEDS: ACETAMINOPHEN TAB 650MG DOSE (2X325MG) PO PRN ×3 (05:03→15:20)
[2021-01-07 06:38] VITALS: BP 109/61
[2021-01-07] MEDS: THIAMINE 100 MG TAB PO SCH (09:10)
[2021-01-07] MEDS: MULTIVITAMINS/MINERALS THERAP 1 TAB PO SCH (09:10)
[2021-01-07] MEDS: FOLIC ACID 1 MG TAB PO SCH (09:10)
[2021-01-07] MEDS: DOCUSATE SODIUM 100MG CAPSULE PO SCH (09:11)
[2021-01-07] MEDS: GABAPENTIN 300 MG CAP PO SCH (09:11)
[2021-01-07] MEDS: TAMSULOSIN 0.4 MG CAP PO SCH (09:12)
[2021-01-07] MEDS: MAGNESIUM OXIDE 400MG TAB (MAG-OX) PO SCH (09:12)
[2021-01-07] MEDS: DULoxetine 30 MG CAP (CYMBALTA) PO SCH (09:12)
[2021-01-07] MEDS: PROPRANOLOL 20 MG TAB PO SCH (09:15)
[2021-01-07] MEDS: VITAMIN D 1,000 INTERNATIONAL UNITS TABLET PO SCH (09:16)
--- NOTE | 2021-01-07 10:36 | MHIPNPDOC ---
[facility] Progress Note Progress Note DATE OF SERVICE: 01/07/21 SUBJECTIVE: Pt calmer and cooperative ,complains of twitching of muscles and anxiety. Reports "I may be craving for drugs" . OBJECTIVE: He is a 50-year-old white male, single, who used to live with his ex-fiance, was admitted because of suicidal thoughts. Patient reportedly wanted to jump into the river, however, changed his mind and came for help to the emergency room (ER). Patient has a history of depression and marcus. He had several psychiatric hospitalizations. He has an extensive history of drug use. He used cocaine for a long time. Now he uses what he calls Methylone. Currently patient is interacting with peers. He is attending groups. His sleep is still disturbed and patient still depressed. He continues to be anxious,feels restless and complained of vague suicidal thoughts.He was angry screaming ,cursing about medication changes yesterday ,and calmer today. MENTAL STATUS EXAMINATION: Tall, well-built, well-groomed male who makes good eye contact. Speech rate, rhythm, volume are good. Mood is depressed. Affect is constricted. Thought content: Denied any suicidal or homicidal thoughts. Perception: Denied any auditory or visual hallucinations. Memory, immediate, remote, recent, is good. LABORATORY DATA: CBC: WBC is 14.9, high. The rest of the parameters are within normal limits. CMP within normal limits. His toxicology was normal. DIAGNOSES: 1. Mood disorder, not otherwise specified, rule out bipolar 2 disorder. 2. Posttraumatic stress disorder. 3. Panic disorder without agoraphobia. 4. Cocaine use disorder. 5. History of concussion. ASSESSMENT AND PLAN: Patient currently is improving but still has suicidal thoughts. Possibility of akathisia,due to Latuda, Decrease Latuda 40 mg Hs , Decrease propranolol to10 mg tid. as it has not helped with anxiety and it is lowering blood pressure to sub normal.Did not express suicidal thoughts.Increase gabapentin to 400mg tid. ESTIMATED LENGTH OF STAY: days. TIME SPENT: 25 min Vital Signs Vital Signs Date Time Temp Pulse Resp B/P (MAP) Pulse Ox O2 Delivery O2 Flow Rate FiO2 01/07/21 09:15 76 144/82 01/07/21 06:38 97.7 20 98 Room Air Current Medications Current Medications Medications (Trade) Dose Ordered Sig/Melanie Route PRN Reason Start Time Stop Time Status Last Admin Dose Admin Acetaminophen (Tylenol Tab) 650 mg Q4HP PRN PO PAIN OR FEVER 12/30/20 17:20 01/07/21 09:18 Acetaminophen (Tylenol Tab) 650 mg Q6HP PRN PO PAIN / FEVER 12/28/20 17:40 12/28/20 21:19 DC Al Hydrox/Mg Hydrox/Simethicone (Mylanta) 30 ml Q4HP PRN PO HEARTBURN/INDIGESTION 12/28/20 13:45 12/28/20 21:19 DC Al Hydrox/Mg Hydrox/Simethicone (Mylanta) 30 ml Q6HP PRN PO HEARTBURN 01/06/21 13:35 01/06/21 22:29 Albuterol Sulfate (Proventil, Ventolin Hfa) 2 puff Q4H PRN INH WHEEZING 12/28/20 15:05 12/28/20 21:19 DC Albuterol Sulfate (Proventil, Ventolin Hfa) 2 puff Q4HP PRN INH SHORTNESS OF BREATH 12/30/20 17:20 Baclofen (Lioresal) 10 mg Q8H PRN PO MUSCLE SPASMS 12/28/20 15:05 12/28/20 21:19 DC 12/28/20 15:42 Baclofen (Lioresal) 10 mg Q8HP PRN PO MUSCLE SPASMS 12/30/20 17:20 01/07/21 05:03 Baclofen (Lioresal) 10 mg QHS PO 12/26/20 21:00 12/28/20 09:04 DC 12/27/20 20:42 Baclofen (Lioresal) 10 mg TID PO 12/28/20 16:00 12/28/20 15:09 DC Docusate Sodium (Colace) 100 mg BID PO 12/30/20 21:00 01/07/21 09:11 Duloxetine HCl (Cymbalta) 60 mg BID PO 12/26/20 21:00 12/28/20 15:09 DC 12/28/20 08:10 Duloxetine HCl (Cymbalta) 60 mg BID PO 12/28/20 21:00 12/28/20 21:19 DC Duloxetine HCl (Cymbalta) 60 mg BID PO 12/30/20 21:00 01/07/21 09:12 Folic Acid (Folic Acid) 1 mg DAILY PO 12/27/20 09:00 12/26/20 18:09 DC Folic Acid (Folic Acid) 1 mg DAILY PO 12/27/20 09:00 12/28/20 15:09 DC 12/28/20 08:09 Folic Acid (Folic Acid) 1 mg DAILY PO 12/29/20 09:00 12/28/20 21:19 DC Folic Acid (Folic Acid) 1 mg DAILY PO 12/31/20 09:00 01/07/21 09:10 Gabapentin (Neurontin) 100 mg TID PO 12/29/20 09:00 12/28/20 21:19 DC Gabapentin (Neurontin) 100 mg TID PO 12/30/20 21:00 01/01/21 11:31 DC 01/01/21 08:39 Gabapentin (Neurontin) 200 mg TID PO 01/01/21 16:00 01/02/21 19:59 DC 01/02/21 15:31 Gabapentin (Neurontin) 300 mg TID PO 01/02/21 21:00 01/07/21 10:11 DC 01/07/21 09:11 Gabapentin (Neurontin) 400 mg TID PO 01/07/21 16:00 UNV Home Med (Med Rec Complete!) ASDIRECTED XX 12/26/20 16:40 12/26/20 16:48 DC Hydroxyzine HCl (Atarax) 25 mg Q4H PRN PO ANXIETY 12/28/20 15:05 12/28/20 17:43 DC 12/28/20 15:41 Hydroxyzine HCl (Atarax) 25 mg STAT STAT PO 12/27/20 19:13 12/27/20 19:15 DC 12/27/20 20:42 Hydroxyzine HCl (Atarax) 50 mg Q6HP PRN PO ANXIETY/AGITATION 12/28/20 22:00 12/28/20 21:19 DC Hydroxyzine HCl (Atarax) 50 mg Q6HP PRN PO ANXIETY 12/30/20 17:20 01/03/21 15:32 DC 01/03/21 09:09 Hydroxyzine HCl (Atarax) 75 mg Q6HP PRN PO ANXIETY 01/03/21 15:30 01/06/21 10:09 Ibuprofen (Advil) 400 mg Q6HP PRN PO PAIN 12/28/20 13:45 12/28/20 17:43 DC Lorazepam (Ativan) 1 mg BIDP PRN PO ANXIETY 12/28/20 18:05 12/28/20 21:19 DC 12/28/20 18:08 Lorazepam (Ativan) 1 mg BIDP PRN PO ANXIETY 12/30/20 17:20 01/06/21 14:03 Lorazepam (Ativan) 1 mg STAT STAT PO 12/28/20 18:06 12/28/20 18:09 DC Lorazepam (Ativan) 2 mg ASDIRECTED PRN PO SEE PROTOCOL 12/26/20 18:05 12/28/20 15:09 DC Lorazepam (Ativan) 2 mg STAT STAT PO 12/26/20 18:10 12/26/20 18:12 DC 12/26/20 18:27 Lorazepam (Ativan) 2 mg STAT STAT PO 12/27/20 09:49 12/27/20 09:50 DC 12/27/20 09:53 Lurasidone HCl (Latuda) 20 mg DAILY@18 PO 12/31/20 18:00 01/01/21 11:31 DC 12/31/20 17:33 Lurasidone HCl (Latuda) 40 mg DAILY@18 PO 01/01/21 18:00 01/03/21 15:31 DC 01/02/21 17:44 Lurasidone HCl (Latuda) 40 mg DAILY@18 PO 01/06/21 18:00 01/06/21 16:36 Lurasidone HCl (Latuda) 60 mg DAILY@18 PO 01/03/21 18:00 01/04/21 14:56 DC 01/03/21 17:25 Lurasidone HCl (Latuda) 60 mg DAILY@18 PO 01/05/21 18:00 01/06/21 14:46 DC 01/05/21 17:35 Magnesium Hydroxide (Milk Of Magnesia) 30 ml DAILYPRN PRN PO CONSTIPATION 12/28/20 13:45 12/28/20 21:19 DC Magnesium Hydroxide (Milk Of Magnesia) 30 ml DAILYPRN PRN PO CONSTIPATION 12/30/20 17:20 Magnesium Oxide (Mag-Ox) 400 mg DAILY PO 12/29/20 09:00 12/28/20 21:19 DC Magnesium Oxide (Mag-Ox) 400 mg DAILY PO 12/31/20 09:00 01/07/21 09:12 Miscellaneous (Unresolved Clarification Entry) SEE LABEL COMMENTS DAILY XX 12/26/20 09:00 12/26/20 18:01 DC Multivitamins (Theragram-M) 1 tab DAILY PO 12/27/20 09:00 12/28/20 15:09 DC 12/28/20 08:09 Multivitamins (Theragram-M) 1 tab DAILY PO 12/31/20 09:00 01/07/21 09:10 Polyethylene Glycol (Miralax) 1 pkt DAILY PRN PO CONSTIPATION 12/28/20 15:05 12/28/20 21:19 DC Polyethylene Glycol (Miralax) 1 pkt DAILYPRN PRN PO CONSTIPATION 12/30/20 17:20 Propranolol HCl (Inderal) 10 mg TID PO 01/04/21 16:00 01/06/21 14:46 DC 01/06/21 08:06 Propranolol HCl (Inderal) 10 mg TID PO 01/07/21 16:00 UNV Propranolol HCl (Inderal) 20 mg TID PO 01/06/21 16:00 01/07/21 10:11 DC 01/07/21 09:15 Senna/Docusate Sodium (Senokot S) 1 tab BID PO 12/28/20 21:00 12/28/20 21:19 DC Simethicone (Mylicon) 80 mg Q6HP PRN PO GAS PAIN 01/06/21 23:20 01/06/21 23:27 Tamsulosin HCl (Flomax) 0.4 mg DAILY PO 12/27/20 09:00 12/28/20 15:09 DC 12/28/20 08:10 Tamsulosin HCl (Flomax) 0.4 mg DAILY PO 12/29/20 09:00 12/28/20 21:19 DC Tamsulosin HCl (Flomax) 0.4 mg DAILY PO 12/31/20 09:00 01/07/21 09:12 Thiamine HCl (Thiamine HCl) 100 mg BID PO 12/26/20 21:00 12/28/20 15:09 DC 12/28/20 08:10 Thiamine HCl (Thiamine HCl) 100 mg BID PO 12/30/20 21:00 01/07/21 09:10 Tizanidine HCl (Zanaflex) 4 mg QHS PO 12/28/20 21:00 12/28/20 21:19 DC Tizanidine HCl (Zanaflex) 4 mg QHS PO 12/30/20 21:00 01/06/21 20:41 Trazodone HCl (Desyrel) 50 mg QHS PO 12/26/20 21:00 12/28/20 15:09 DC 12/27/20 20:42 Trazodone HCl (Desyrel) 50 mg QHSP PRN PO INSOMNIA 12/28/20 13:45 12/28/20 21:19 DC Trazodone HCl (Desyrel) 50 mg QHSP PRN PO INSOMNIA 12/30/20 17:20 12/31/20 16:18 DC Trazodone HCl (Desyrel) 100 mg QHSP PRN PO INSOMNIA 12/31/20 21:00 01/06/21 22:29 Vitamin D (Vitamin D) 2,000 units DAILY PO 12/29/20 09:00 12/28/20 21:19 DC Vitamin D (Vitamin D) 2,000 units DAILY PO 12/31/20 09:00 01/07/21 09:16 Allergies Coded Allergies: lisinopril (Verified Allergy, Severe, ANAPHYLAXIS, 04/08/19) ROBERT FLOREZ MD Jan 07, 2021 10:36
[2021-01-07] MEDS: PROPRANOLOL 10 MG TAB PO SCH (15:18)
[2021-01-07] MEDS: GABAPENTIN 400MG CAP PO SCH (15:18)
[2021-01-07] MEDS: LURASIDONE 20 MG TAB (LATUDA) PO SCH (17:29)
[2021-01-07 18:36] VITALS: BP 119/76
[2021-01-07] MEDS: LORazepam 1 MG TAB PO PRN (19:00)
[2021-01-08] MEDS: THIAMINE 100 MG TAB PO SCH ×2 (00:34→08:05)
[2021-01-08] MEDS: GABAPENTIN 400MG CAP PO SCH ×2 (00:35→08:05)
[2021-01-08] MEDS: PROPRANOLOL 10 MG TAB PO SCH ×2 (00:35→08:06)
[2021-01-08] MEDS: DULoxetine 30 MG CAP (CYMBALTA) PO SCH ×2 (00:35→08:05)
[2021-01-08] MEDS: tiZANidine 4 MG TAB PO SCH (00:35)
[2021-01-08] MEDS: DOCUSATE SODIUM 100MG CAPSULE PO SCH ×2 (00:35→08:06)
[2021-01-08] MEDS: TAMSULOSIN 0.4 MG CAP PO SCH (08:04)
[2021-01-08] MEDS: VITAMIN D 1,000 INTERNATIONAL UNITS TABLET PO SCH (08:04)
[2021-01-08] MEDS: MULTIVITAMINS/MINERALS THERAP 1 TAB PO SCH (08:05)
[2021-01-08] MEDS: FOLIC ACID 1 MG TAB PO SCH (08:05)
[2021-01-08 08:06] VITALS: BP 119/76
[2021-01-08] MEDS: MAGNESIUM OXIDE 400MG TAB (MAG-OX) PO SCH (08:06)
[2021-01-08] MEDS: BACLOFEN 10 MG TAB PO PRN (08:08)
[2021-01-08] MEDS: ACETAMINOPHEN TAB 650MG DOSE (2X325MG) PO PRN (08:08)
[2021-01-08] MEDS: LORazepam 1 MG TAB PO PRN (09:01)
[2021-01-08] MEDS ORDERED: CYMB1CAP5 PO (09:27)
[2021-01-08] MEDS ORDERED: HYDR50TA70 PO (09:27)
[2021-01-08] MEDS ORDERED: LATU20TA PO (09:27)
[2021-01-08] MEDS ORDERED: VITAD1000T PO (09:27)
[2021-01-08] MEDS ORDERED: TIZA4TAB4 PO (09:27)
[2021-01-08] MEDS ORDERED: DOK1CAP7 PO (09:27)
[2021-01-08] MEDS ORDERED: FLOM0.4C39 PO (09:27)
[2021-01-08] MEDS ORDERED: GABA-845 PO (09:27)
[2021-01-08] MEDS ORDERED: TRAZ1TAB14 PO (09:27)
[2021-01-08] MEDS ORDERED: VENTAER INH (09:27)
--- NOTE | 2021-01-08 15:41 | MHDS ---
[facility] DISCHARGE SUMMARY DATE OF ADMISSION: 12/28/2020 DATE OF DISCHARGE: 01/08/2021 PRINCIPAL DIAGNOSES: 1. Mood disorder, not otherwise specified, rule out bipolar 2 disorder. 2. Posttraumatic stress disorder. 3. Panic disorder without agoraphobia 4. Cocaine use disorder. 5. History of concussion. IDENTIFYING DATA: He is a 50-year-old white male single. [facility] He was admitted because of suicidal thoughts and possible attempt. [place] The patient has a long history of substance abuse and he was in the rehab. Soon after coming from the rehab, his had order of protection against, which made him severely depressed. The patient initially was admitted to [facility] and he had severe diaphoresis and sent to medical unit. From there, he was transferred back. He has a history of multiple psychiatric hospitalizations. He has a history of cocaine dependence. For details of initial evaluation, past psychiatric history, medical history, substance abuse history, social history, please refer to the initial evaluation. COURSE IN THE HOSPITAL: The patient was transferred from the medical unit. He was severely depressed expressing suicidal thoughts, placed on various medications. Initially, he was on Cymbalta, which is home medications. He was taking 50 mg twice daily. He was placed on Latuda for possible bipolar disorder and also on gabapentin. He was complaining of some twitches and restlessness. He was placed on hydroxyzine. He was also placed on propranolol, which did not help him much, but however, his blood pressure was coming down, so it was discontinued. He was provided with individual group and [facility] therapy. The patient started attending activities. There were no suicidal thoughts or attempt on the unit. However, he had some behavioral issues, screaming and cursing at doctors, which he actually control himself late in the course of time. He slept better. Denies any side effects on medication. He was stable at the time of discharge. Initially, his Latuda was increased and then decreased because he showed some signs of akathisia. MENTAL STATUS EXAMINATION: Causally dressed with good personal hygiene, grooming was good. Mood was euthymic. Affect is appropriate. Speech, rate, rhythm, volume are good. Thought process: Linear, goal directed. Denied any auditory or visual hallucinations. Denied any suicidal or homicidal ideas. Memory immediate, recent, remote are good. PLAN: Send him home. He will initially go to his sister's place and from there he will go to [facility] to get an apartment. He will be followed up [facility] and [facility]. Will also get outpatient substance abuse treatment. DISCHARGE MEDICATIONS: Gabapentin 400 mg three times a day, Latuda 40 mg once daily, hydroxyzine 75 mg twice daily, trazodone 150 mg once daily. Duloxetine 60 mg twice a day. Time spent is less than 30 minutes.
[2021-01-11] MEDS ORDERED: ABIL10TA9 PO (08:43)
== END 2021-01-08 10:10 | disposition short-term general hospital (02) | DRG 754 ==
LOC: M ED 11:12 → M ED INP 12-28 13:42 → M PSY 12-28 14:30 → UNDODISIN 12-28 18:20 → M PSY 12-30 15:00
PROVIDERS: ADMIT Psychiatry & Neurology Psychiatry; ATTEND Psychiatry & Neurology Psychiatry
DX: F32.9 Major depressive disorder, single episode, unspecified (principal); G40.89 Other seizures; Z79.899 Other long term (current) drug therapy; Z88.8 Allergy status to other drugs, medicaments and biological substances

== ENCOUNTER 2020-12-28 18:11 | Inpatient (IN) | payer MEDICAID ==
[~2020-12-28] VITALS: Ht 193 cm; Wt 102.0 kg
[~2020-12-28 18:11] MED LIST changes: +BACL10TA2 PO; +D31000TA2 PO; +HYDR-3363 PO; +MAGN400T2 PO; +METH50IN8; +MULT400T10 PO; +POLY510P14 PO; +TAMS1CAP17 PO; +TRAZ-252 PO; +[UNRECOGNIZED DRUG - CODE] PO
[2020-12-28] MEDS ORDERED: ACETAMINOPHEN TAB 650MG DOSE (2X325MG) PO PRN (18:20)
[2020-12-28] MEDS ORDERED: LORazepam 2 MG TAB PO PRN (18:20)
[2020-12-28] MEDS ORDERED: MOM 30ML SUSPENSION UDC PO PRN (18:20)
[2020-12-28] MEDS ORDERED: TRAZ-252 PO (18:33)
[2020-12-28] MEDS ORDERED: HYDR50TA70 PO (18:33)
[2020-12-28] MEDS ORDERED: ATIV1TAB10 PO (18:33)
[2020-12-28] MEDS ORDERED: ACET1TAB55 PO (18:33)
[2020-12-28] MEDS ORDERED: GABA-1171 PO (18:33)
[2020-12-28] MEDS ORDERED: TIZA4TAB4 PO (18:33)
[2020-12-28 18:40] VITALS: BP 133/82
[2020-12-28] MEDS ORDERED: POLYETHYLENE GLYCOL (MIRALAX) 238GM BOTTLE PO PRN (18:50)
--- NOTE | 2020-12-28 18:55 | HPEPDOC ---
[facility] Medical History & Physical Date of Admission Dec 28, 2020 Date of Service: Dec 28, 2020 History and Physical Chief complaint: Presented to the ER after experiencing suicidal thoughts after expressing I want to kill myself. Rapid assessment was called because patient was found on the ground, diaphoretic History of present illness: Patient is a 50-year-old male who was initially presented to [facility] on 12/26 and was eventually admitted to the inpatient mental health unit on 12/28. Today at around 5:50 PM a rapid assessment team was called to evaluate patient after he was reported to have had excessive sweating and found lying on the ground after he was advised by nursing staff. Upon her arrival, patient denied any pain. Has not experience any nausea or vomiting. Denies shortness of breath or palpitations. Reports normal bowel movements. Denies any urinary discomfort. Has not experience any recent fevers. Patient reports that he feels anxious. She reports that this has happened to him in the past, most recently a couple of days ago. He attributes this to anxiety. Patient had a stat EKG completed while in the inpatient mental health unit that was unremarkable and similar to EKG tracing on 12/26. Stat lab work was acquired and is currently still pending. 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 Past Surgical History: Gastric bypass surgery 4 years prior Left finger fracture Bilateral tympanostomies Kidney stone lithotripsy Tonsillectomy Salivary stone Allergies: See below Medications: See below Family History: - No history of malignancies Social History: - Denies the use of tobacco; patient was that he quit using drugs November 26 reported the use of Alejandra and cocaine; patient was that he has not used any alcohol since August - Denies recent travel or sick contacts - Lives alone - Occupation; currently unemployed Review of Systems: 10 point review of systems complete, all negative otherwise stated in HPI Physical exam: - Vitals: BP [131/75], HR [69], RR [18], Sat [99%RA], Temp [97.7F] - General: Upon my arrival, patient was lying on the floor, extremely diaphoretic, denies any pain, AAOx3 - HEENT: NC, AT, PERRLA, EOMI - CVS: RRR, +S1S2, - Murmurs / rubs / gallops - Lungs: Fair air entry bilaterally, No appreciable wheezing / rales / rhonchi - Abdomen: Soft, Non-distended, Non-tender - Extremities: No lower extremity edema, No calf tenderness - Neuro: No focal motor or sensory deficit - Skin: No visible rashes Labs: See below Imaging: See below EKG: See below Assessment and Plan: Diaphoresis - likely 2/2 anxiety attack, possibly 2/2 cardiac etiology, possibly 2/2 withdrawal - Upon arrival, patient was found on the ground, extremely diaphoretic - Patient denied any chest pain, shortness of breath or palpitations - Blood pressure was noted to be hypertensive, systolics of 180; has since improved - Patient is to EKG completed in [facility] that was essentially unchanged compared to prior tracing ; Qtc of 448 - Stat lab work CBC, CMP, mag lactic acid cardiac markers are pending - Will check CXR / ECHO - Will start telemetry monitoring - Patient was given a dose of Ativan 1 mg by mouth - Will start CIWA protocol / Thiamine / Folate / Multivitamins Suicidal ideation - Patient was initially admitted to the inpatient mental health unit for suicidal ideation - Will continue with one-to-one observation and suicide precautions Depression / Anxiety / Insomnia - c/w Hydroxyzine / Ativan - c/w Duloxetine - c/w Trazodone Polysubstance abuse - Reported last use was 11/26 - UDS on 12/26 was negative Chronic back pain / muscle spasms - c/w Tizanidine / Baclofen / Tylenol - c/w Gabapentin BPH / urinary incontinence - c/w Tamsulosin Reports a prior history of multiple brain trauma 2/2 multiple concussions - No focal neurologic deficits noted DVT prophylaxis - Will start Heparin SQ Vital Signs Vital Signs Date Time Temp Pulse Resp B/P (MAP) Pulse Ox O2 Delivery O2 Flow Rate FiO2 12/28/20 18:40 96.8 88 20 133/82 (99) 100 Room Air Home Medications Scheduled Cholecalciferol (Vitamin D3) (Vitamin D3) 1,000 Unit Tablet, 2,000 UNITS PO DAILY Duloxetine Hcl (Duloxetine HCl) 60 Mg Capsule.dr, 60 MG PO BID Folic Acid (Folic Acid) 1 Mg Tablet, 1 MG PO DAILY Gabapentin (Gabapentin) 100 Mg Capsule, 100 MG PO TID for PAIN/ANXIETY Magnesium Oxide (Magnesium Oxide) 400 Mg Tablet, 400 MG PO DAILY Multivitamin with Folic Acid (Tab-A-Juanita Tablet) 400 Mcg Tablet, 1 TAB PO DAILY Sennosides/Docusate Sodium (Sm Stool Softener-Laxative Tab) 1 Each Tablet, 1 TAB PO BID Tamsulosin Hcl (Tamsulosin HCl) 0.4 Mg Capsule, 0.4 MG PO DAILY Tizanidine HCl (Tizanidine HCl) 4 Mg Tablet, 4 MG PO QHS for MUSCLE SPASMS Trazodone HCl (Trazodone HCl) 50 Mg Tablet, 50 MG PO QHS Scheduled PRN Acetaminophen (Acetaminophen) 325 Mg Tablet, 650 MG PO Q6HP PRN for PAIN / FEVER Albuterol Sulfate (Ventolin Hfa) 108 Mcg/Act Aer, 2 PUFF INH Q4H PRN for WHEEZING Baclofen (Baclofen) 10 Mg Tablet, 10 MG PO Q8H PRN for MUSCLE SPASMS Hydroxyzine HCl (Hydroxyzine HCl) 25 Mg Tablet, 25 MG PO Q4H PRN for ANXIETY Hydroxyzine HCl (Hydroxyzine HCl) 50 Mg Tablet, 50 MG PO Q6HP PRN for ANXIETY/AGITATION Lorazepam (Ativan) 0.5 Mg Tablet, 1 MG PO BIDP PRN for ANXIETY Polyethylene Glycol 3350 (Polyethylene Glycol 3350) 510 Gm Powder, 17 GM PO DAILY PRN for CONSTIPATION MIX WITH WATER OR JUICE Trazodone HCl (Trazodone HCl) 50 Mg Tablet, 50 MG PO QHSP PRN for INSOMNIA Allergies Coded Allergies: lisinopril (Verified Allergy, Severe, ANAPHYLAXIS, 04/08/19) JANETTE FAUSTIN MD Dec 28, 2020 18:55
[2020-12-28] MEDS ORDERED: ALBUTEROL 90 MCG/ACT 8GM HFA INHALER INH PRN (19:00)
[2020-12-28] MEDS: NS 1,000 ML IV SCH (19:42)
[2020-12-28 20:00] VITALS: BP 132/79
--- NOTE | 2020-12-28 20:00 | REP ---
INDICATION: Diaphoresis. COMPARISON: 09/14/2020 TECHNIQUE: Portable FINDINGS: The technique utilized in obtaining the radiograph has magnified the cardiac silhouette and accentuated the interstitial markings. The superior mediastinal structures are midline. The cardiac silhouette is unremarkable in size, shape, and position. The diaphragmatic surfaces of the lungs are regular, and the costophrenic angles are clear. The pulmonary escobar are clear. The imaged osseous structures are intact. IMPRESSION: There is no acute cardiopulmonary disease or significant change compared to the prior exam.. <Electronically signed by Ian Matthews > 12/28/201955
[2020-12-28] MEDS ORDERED: MIRALAX *UNIT DOSE* 17GM PACKET PO PRN (20:05)
[2020-12-28] MEDS: HEPARIN SOD (PORCINE) 5000UNITS/ML 1ML VIAL/SYRINGE SC SCH (20:51)
[2020-12-28] MEDS: tiZANidine 4 MG TAB PO SCH (20:52)
[2020-12-28] MEDS: THIAMINE 100 MG TAB PO SCH (20:52)
[2020-12-28] MEDS: traZODone 50 MG TAB PO SCH (20:52)
[2020-12-28] MEDS: DOCUSATE SODIUM 100MG CAPSULE PO SCH (20:52)
[2020-12-28] MEDS: GABAPENTIN 100 MG CAP PO SCH (20:52)
[2020-12-28] MEDS: DULoxetine 30 MG CAP (CYMBALTA) PO SCH (20:52)
[2020-12-28] MEDS: hydrOXYzine 50 MG TAB PO PRN (21:45)
[2020-12-29] VITALS (7 sets, daily range): BP systolic 107–132; BP diastolic 66–79
[2020-12-29 01:28] LABS: CPK CREATINE PHOSPHOKINASE 186 U/L (39-308); MB/CK RELATIVE INDEX 1.61 (< OR =4); TROPONIN I < 0.02 NG/ML (< 0.10)
[2020-12-29] MEDS: BACLOFEN 10 MG TAB PO PRN ×2 (03:21→15:57)
[2020-12-29] MEDS: HEPARIN SOD (PORCINE) 5000UNITS/ML 1ML VIAL/SYRINGE SC SCH ×3 (03:21→20:21)
[2020-12-29] MEDS: hydrOXYzine 50 MG TAB PO PRN ×3 (03:21→22:45)
[2020-12-29] MEDS: NS 1,000 ML IV SCH ×3 (04:59→15:53)
[2020-12-29] MEDS: LORazepam 0.5 MG TAB PO PRN ×2 (05:00→22:48)
[2020-12-29 06:21] LABS: BASO % 0.5 % (0.0-1.0); EOS # 0.2 10^3/uL (0.0-0.5); EOS % 2.5 % (0.0-3.0); HEMATOCRIT 36.9 % (42.0-52.0); LYMPH % 36.5 % (24.0-44.0); MEAN CORPUSCULAR HEMOGLOBIN 29.5 pg (27.0-33.0); MEAN CORPUSCULAR HGB CONC 33.1 g/dl (32.0-36.5); MEAN CORPUSCULAR VOLUME 89.1 fl (80.0-96.0); MONO # 0.7 10^3/uL (0.0-0.8); NEUTROPHILS # 4.2 10^3/uL (1.5-8.5); NEUTROPHILS % 51.3 % (36.0-66.0); RED BLOOD COUNT 4.14 10^6/uL (4.30-6.10); WHITE BLOOD COUNT 8.1 10^3/uL (4.0-10.0)
[2020-12-29 06:25] LABS: HEMOGLOBIN 12.2 g/dl (13.5-17.5); PLATELET COUNT, AUTOMATED 256 10^3/uL (150-450)
[2020-12-29 06:53] LABS: BLOOD UREA NITROGEN 18 MG/DL (7-18); CALCIUM LEVEL 8.5 MG/DL (8.5-10.1); CARBON DIOXIDE LEVEL 27 MEQ/L (21-32); CHLORIDE LEVEL 105 MEQ/L (98-107); CK-MB VALUE MASS 2.6 NG/ML (<3.6); CPK CREATINE PHOSPHOKINASE 181 U/L (39-308); GLOMERULAR FILTRATION RATE > 60.0 (>56); GLUCOSE, FASTING 85 MG/DL (70-100); MAGNESIUM LEVEL 2.1 MG/DL (1.8-2.4); MB/CK RELATIVE INDEX 1.44 (< OR =4); POTASSIUM SERUM 3.9 MEQ/L (3.5-5.1); SODIUM LEVEL 140 MEQ/L (136-145); TROPONIN I < 0.02 NG/ML (< 0.10)
[2020-12-29] MEDS: DOCUSATE SODIUM 100MG CAPSULE PO SCH ×2 (09:02→20:21)
[2020-12-29] MEDS: MULTIVITAMINS/MINERALS THERAP 1 TAB PO SCH (09:03)
[2020-12-29] MEDS: THIAMINE 100 MG TAB PO SCH ×2 (09:03→20:22)
[2020-12-29] MEDS: FOLIC ACID 1 MG TAB PO SCH (09:03)
[2020-12-29] MEDS: GABAPENTIN 100 MG CAP PO SCH ×3 (09:03→20:22)
[2020-12-29] MEDS: MAGNESIUM OXIDE 400MG TAB (MAG-OX) PO SCH (09:03)
[2020-12-29] MEDS: DULoxetine 30 MG CAP (CYMBALTA) PO SCH ×2 (09:03→20:24)
[2020-12-29] MEDS: VITAMIN D 1,000 INTERNATIONAL UNITS TABLET PO SCH (09:03)
[2020-12-29] MEDS: TAMSULOSIN 0.4 MG CAP PO SCH (09:03)
--- NOTE | 2020-12-29 09:33 | IPNPDOC ---
Text Note Date of Service The patient was seen on 12/29/20. NOTE Subjective: Patient seen and examined at bedside. No acute overnight events reported. Patient has no new medical complaints this morning. Objective: - Vitals: See below - General: Sitting comfortably at edge of bed - HEENT: NC, AT, PERRLA, EOMI - CVS: RRR, +S1S2, - Murmurs / rubs / gallops - Lungs: Fair air entry bilaterally, No appreciable wheezing / rales / rhonchi - Abdomen: Soft, Non-distended, Non-tender - Extremities: No lower extremity edema, No calf tenderness - Neuro: No focal motor or sensory deficit - Skin: No visible rashes Assessment and Plan: Diaphoresis - likely 2/2 anxiety attack, possibly 2/2 cardiac etiology, possibly 2/2 withdrawal - Workup thus far has been unrevealing - Patient states he has had 20-30 of these episodes over the last year and outpatient workup has also been unrevealing including EEG and Holter monitor - Echocardiogram pending, continue telemetry - Will start CIWA protocol / Thiamine / Folate / Multivitamins Suicidal ideation - Patient was initially admitted to the inpatient mental health unit for suicidal ideation - Will continue with one-to-one observation and suicide precautions Depression / Anxiety / Insomnia - c/w Hydroxyzine / Ativan - c/w Duloxetine - c/w Trazodone Polysubstance abuse - Reported last use was 11/26 - UDS on 12/26 was negative Chronic back pain / muscle spasms - c/w Tizanidine / Baclofen / Tylenol - c/w Gabapentin BPH / urinary incontinence - c/w Tamsulosin Reports a prior history of multiple brain trauma 2/2 multiple concussions - No focal neurologic deficits noted DVT prophylaxis - Heparin SC Dispo: pending echocardiogram, continue telemetry; anticipate discharge to [facility] in 24- 48 hours VS,Fishbone, I+O VS, Fishbone, I+O Laboratory Tests 12/29/20 05:43 Vital Signs Date Time Temp Pulse Resp B/P (MAP) Pulse Ox O2 Delivery O2 Flow Rate FiO2 12/29/20 09:04 93 116/77 12/29/20 07:38 96.7 18 97 Room Air I&O- Last 24 Hours up to 6 AM 12/29/20 06:00 Intake Total 2810 ml Output Total 975 ml Balance 1835 ml JEAN RANGEL MD Dec 29, 2020 09:33
[2020-12-29] MEDS: traZODone 50 MG TAB PO SCH (22:45)
[2020-12-29] MEDS: tiZANidine 4 MG TAB PO SCH (22:45)
[2020-12-30] VITALS (7 sets, daily range): BP systolic 103–135; BP diastolic 68–83
[2020-12-30] MEDS: NS 1,000 ML IV SCH (01:00)
[2020-12-30] MEDS: HEPARIN SOD (PORCINE) 5000UNITS/ML 1ML VIAL/SYRINGE SC SCH ×2 (03:12→11:00)
[2020-12-30 05:55] LABS: HEMATOCRIT 34.6 % (42.0-52.0); HEMOGLOBIN 11.4 g/dl (13.5-17.5); MEAN CORPUSCULAR HEMOGLOBIN 29.6 pg (27.0-33.0); MEAN CORPUSCULAR HGB CONC 32.9 g/dl (32.0-36.5); MEAN CORPUSCULAR VOLUME 89.9 fl (80.0-96.0); PLATELET COUNT, AUTOMATED 228 10^3/uL (150-450); RED BLOOD COUNT 3.85 10^6/uL (4.30-6.10); WHITE BLOOD COUNT 5.5 10^3/uL (4.0-10.0)
[2020-12-30 06:34] LABS: BASOPHILS 1 % (0-1); EOSINOPHILS 1 % (0-3); LYMPHOCYTES 48 % (16-44); MONOCYTES 8 % (0-5); NEUTROPHILS 42 % (28-66); PLATELET ESTIMATE NORMAL (NORMAL)
[2020-12-30 06:48] LABS: BLOOD UREA NITROGEN 11 MG/DL (7-18); CALCIUM LEVEL 8.5 MG/DL (8.5-10.1); CARBON DIOXIDE LEVEL 27 MEQ/L (21-32); CHLORIDE LEVEL 109 MEQ/L (98-107); CREATININE FOR GFR 0.72 MG/DL (0.70-1.30); GLOMERULAR FILTRATION RATE > 60.0 (>56); GLUCOSE, FASTING 88 MG/DL (70-100); MAGNESIUM LEVEL 2.1 MG/DL (1.8-2.4); SODIUM LEVEL 143 MEQ/L (136-145)
[2020-12-30] MEDS: DOCUSATE SODIUM 100MG CAPSULE PO SCH (09:28)
[2020-12-30] MEDS: THIAMINE 100 MG TAB PO SCH (09:28)
[2020-12-30] MEDS: VITAMIN D 1,000 INTERNATIONAL UNITS TABLET PO SCH (09:29)
[2020-12-30] MEDS: TAMSULOSIN 0.4 MG CAP PO SCH (09:29)
[2020-12-30] MEDS: DULoxetine 30 MG CAP (CYMBALTA) PO SCH (09:29)
[2020-12-30] MEDS: BACLOFEN 10 MG TAB PO PRN (09:29)
[2020-12-30] MEDS: FOLIC ACID 1 MG TAB PO SCH (09:29)
[2020-12-30] MEDS: LORazepam 0.5 MG TAB PO PRN (09:29)
[2020-12-30] MEDS: MULTIVITAMINS/MINERALS THERAP 1 TAB PO SCH (09:29)
[2020-12-30] MEDS: MAGNESIUM OXIDE 400MG TAB (MAG-OX) PO SCH (09:30)
[2020-12-30] MEDS: GABAPENTIN 100 MG CAP PO SCH ×2 (09:30→15:37)
--- NOTE | 2020-12-30 10:52 | ECHO ---
DATE OF PROCEDURE: 12/29/2020 Age: 50 Gender: Male Height: 193 cm Weight: 99 kg REFERRING PHYSICIAN: Dr. Jimmy Ramirez. INDICATION: Syncope. MEASUREMENTS: IVS 1.2 cm LV 4.6 cm LVPW 1.2 cm LA 4.1 cm Aorta 3.4 cm Mitral E wave velocity 97 A wave 80 E prime septal 7.7 E prime lateral 11.5 FINDINGS: This study is of acceptable technical quality. There are fair parasternal and subcostal views but good apical views. Patient is in sinus rhythm. Left ventricle is normal size. Mild left ventricle hypertrophy is noted. Overall normal LV systolic function with estimated LVEF 60 to 65%. Right ventricle is normal size and systolic function. Both atria appear normal, I cannot completely rule out that the left atrium is actually mildly enlarged. Aortic valve is mildly sclerotic. It was poorly visualized. I cannot comment on its structure. Mitral and tricuspid valves appear normal. Pulmonic valve was not well seen. No pericardial effusion is noted. Inferior vena cava was not visualized. Aortic root is normal. Aortic arch also appears normal. Abdominal aorta was not seen. Doppler interrogation of aortic valve reveals trivial stenosis (mean gradient 6 mmHg) and no insufficiency. There is trace mitral insufficiency. Tricuspid valve is functionally competent. Mitral inflow pattern and tissue Doppler imaging of mitral annulus revealed normal diastolic function. CONCLUSIONS: 1. Study is of acceptable technical quality, underlying sinus rhythm. 2. Normal LV size with mild LVH and preserved LV systolic and diastolic function. Estimated LVEF 60 to 65%. 3. No hemodynamically significant valvular disease. 4. Unable to estimated central venous pressure and pulmonary artery pressure. 5. Global longitudinal strain negative 19% (normal). MTDD
--- NOTE | 2020-12-30 11:34 | DSES ---
DISCHARGE SUMMARY DATE OF ADMISSION: 12/29/2020 DATE OF DISCHARGE: 12/30/2020 PRINCIPAL DIAGNOSIS: Panic attack with diaphoresis. SECONDARY DIAGNOSES: 1. History of chronic anxiety with panic attacks. 2. Polysubstance abuse. 3. Chronic back pain. 4. BPH. 5. Multiple concussions with history of brain trauma. HISTORY OF PRESENT ILLNESS: This patient is a 50-year-old who was in the mental health unit. He has 50-60 severe panic attacks a year. He had one in the [facility], he was diaphoretic, sweating, and laying on the ground. He says that is how he typically behaves with a bad panic attack, but he was nonetheless transferred from the [facility] to a monitored medical bed for this one. HOSPITAL COURSE: Nothing remarkable occurred. His enzymes were negative. Telemetry was unremarkable. His panic attack passed soon after transfer out of [facility]. DISPOSITION: He is transferred back to [facility]. I have spoken to Dr. Tello who will see him in consultation. He is medically stable for transfer back to [facility]. DISCHARGE MEDICATIONS: His medicines will continue to be: 1. Flomax 0.4 mg daily. 2. Magox 400 mg daily. 3. Vitamin D 2000 units daily. 4. Multivitamin. 5. Folic acid 1 mg daily. 6. Baclofen 10 mg q. 8 hours p.r.n. 7. Trazodone 50 mg q. h.s. 8. Zanaflex 4 mg q. h.s. 9. Neurontin 100 mg t.i.d. 10. Cymbalta 60 mg b.i.d. 11. Thiamine 100 mg b.i.d. 12. MiraLAX as needed. 13. Colace as needed. 14. Atarax 50 mg q. 7 hours p.r.n. 15. Albuterol 2 puffs q. 4 hours p.r.n. 16. Ativan 1 mg b.i.d. p.r.n. 17. Tylenol as needed. DISCHARGE ACTIVITY: As tolerated. DISCHARGE DIET: No added salt diet. DISCHARGE FOLLOW-UP: 1. Psychiatry. 2. Primary care provider after discharge from [facility].
--- NOTE | 2020-12-30 15:00 | MHCR ---
[facility] CONS[facility] DATE: 12/30/2020 IDENTIFYING DATA: He is a 50-year-old male who was initially admitted to the inpatient mental health unit ([facility]) for suicidal ideation. He was transferred to medical side after he was found on the floor diaphoretic. He was stabilized on the medical unit. Patient was evaluated today, and he still continues to have suicidal thoughts without plans. MENTAL STATUS EXAMINATION: Lying in bed, neatly dressed with clean clothes. Cooperative. Made good eye contact. Psychomotor retardation is normal. Mood is depressed. Affect is constricted. Thought process linear, goal directed. Thought content: Complains of suicidal thoughts. His insight and judgment are fair. Memory, immediate, remote, recent, is good. DIAGNOSES: 1. Depressive disorder, not otherwise specified. 2. Polysubstance abuse. 3. History of BPH. 4. Gastric bypass surgery 4 years ago. 5. Kidney stone. PLAN: [facility] once he is stable.
[2020-12-30] MEDS: hydrOXYzine 50 MG TAB PO PRN (15:37)
--- NOTE | 2020-12-31 19:21 | HPEPDOC ---
General Date of Admission Dec 29, 2020 at 09:29 Date of Service: Dec 31, 2020 Chief Complaint The patient is a 50-year-old male admitted with a reason for visit of Diaphoresis. Source: Patient History of Present Illness Patient's 50 years old male with past history of polysubstance abuse, asthma, history of gastric bypass, depression and anxiety was transferred from general medical floor to mental health unit for continuation of treatment. Initially patient was presented to mental health unit with psychosis secondary to polysubstance abuse. During mental health unit stay he developed severe panic Attack with generalized anxiety and he was transferred to general medical floor to rule out seizure-like activity. During my interview patient denied fever, chills, chest pain, palpitations, nausea, and diarrhea or dysuria Home Medications Scheduled Cholecalciferol (Vitamin D3) (Vitamin D3) 1,000 Unit Tablet, 2,000 UNITS PO DAILY, (Reported) Duloxetine Hcl (Duloxetine HCl) 60 Mg Capsule.dr, 60 MG PO BID, (Reported) Folic Acid (Folic Acid) 1 Mg Tablet, 1 MG PO DAILY, (Reported) Gabapentin (Gabapentin) 100 Mg Capsule, 100 MG PO TID for PAIN/ANXIETY Magnesium Oxide (Magnesium Oxide) 400 Mg Tablet, 400 MG PO DAILY, (Reported) Multivitamin with Folic Acid (Tab-A-Juanita Tablet) 400 Mcg Tablet, 1 TAB PO DAILY, (Reported) Sennosides/Docusate Sodium (Sm Stool Softener-Laxative Tab) 1 Each Tablet, 1 TAB PO BID, (Reported) Tamsulosin Hcl (Tamsulosin HCl) 0.4 Mg Capsule, 0.4 MG PO DAILY, (Reported) Tizanidine HCl (Tizanidine HCl) 4 Mg Tablet, 4 MG PO QHS for MUSCLE SPASMS Trazodone HCl (Trazodone HCl) 50 Mg Tablet, 50 MG PO QHS, (Reported) Scheduled PRN Acetaminophen (Acetaminophen) 325 Mg Tablet, 650 MG PO Q6HP PRN for PAIN / FEVER Albuterol Sulfate (Ventolin Hfa) 108 Mcg/Act Aer, 2 PUFF INH Q4H PRN for WHEEZING, (Reported) Baclofen (Baclofen) 10 Mg Tablet, 10 MG PO Q8H PRN for MUSCLE SPASMS, (Reported) Hydroxyzine HCl (Hydroxyzine HCl) 25 Mg Tablet, 25 MG PO Q4H PRN for ANXIETY, (Reported) Hydroxyzine HCl (Hydroxyzine HCl) 50 Mg Tablet, 50 MG PO Q6HP PRN for ANXIETY/AGITATION Lorazepam (Ativan) 0.5 Mg Tablet, 1 MG PO BIDP PRN for ANXIETY Polyethylene Glycol 3350 (Polyethylene Glycol 3350) 510 Gm Powder, 17 GM PO DAILY PRN for CONSTIPATION, (Reported) MIX WITH WATER OR JUICE Trazodone HCl (Trazodone HCl) 50 Mg Tablet, 50 MG PO QHSP PRN for INSOMNIA Allergies Coded Allergies: lisinopril (Verified Allergy, Severe, ANAPHYLAXIS, 04/08/19) Past Medical History Medical History Depression / Anxiety Polysubstance abuse Chronic back pain / muscle spasms BPH / urinary incontinence Patient reports a prior history of multiple brain trauma secondary to multiple concussions Surgical History Gastric bypass surgery 4 years prior Left finger fracture Bilateral tympanostomies Kidney stone lithotripsy Family History I personally reviewed with family history and found not pertinent Social History * Smoker: former Smoker Alcohol: sober Drugs: cocaine A-FIB/CHADSVASC A-FIB History Current/History of A-Fib/PAF?: No Current PO Anticoag Therapy: No Review of Systems Constitutional: Denies: Chills, Fever Eyes: Denies: Pain Skin: Denies: Rash, Lesions Pulmonary: Denies: Dyspnea Cardiovascular: Denies: Chest Pain Gastrointestinal: Denies: Nausea Genitourinary: Denies: Dysuria Hematologic: Denies: Bruising Musculoskeletal: Denies: Neck Pain Neurological: Denies: Weakness Psych: Reports: Anxiety Physical Examination General Exam: Positive: Alert, Cooperative Eye Exam: Positive: PERRLA ENT Exam: Positive: Atraumatic Neck Exam: Positive: Supple; Negative: JVD Chest Exam: Positive: Clear to auscultation Heart Exam: Positive: Rate Normal Telemetry: Positive: No significant arrhythmia Abdomen Exam: Positive: Normal bowel sounds Extremity Exam: Negative: Clubbing, Cyanosis Skin Exam: Positive: Nl turgor and temperature Neuro Exam: Positive: Normal Gait Psych Exam: Positive: Anxiety Vital Signs Vital Signs Date Time Temp Pulse Resp B/P (MAP) Pulse Ox O2 Delivery O2 Flow Rate FiO2 12/30/20 16:00 97.2 75 18 119/75 (90) 98 Room Air Assessment/Plan Patient's 50 years old male with past history of polysubstance abuse, asthma, history of gastric bypass, depression and anxiety was transferred from general medical floor to mental health unit for continuation of treatment. Initially patient was presented to mental health unit with psychosis secondary to polysubstance abuse. During mental health unit stay he developed severe panic Attack with generalized anxiety and he was transferred to general medical floor to rule out seizure-like activity. During my interview patient denied fever, chills, chest pain, palpitations, nausea, and diarrhea or dysuria Problems (1) Depression Status: Acute Problem Text: Defer treatment to psych team (2) Urinary incontinence Status: Chronic Problem Text: Continue tamsulosin Plan / VTE VTE Prophylaxis Ordered?: No VTE Exclusion Mechanical Proph: Low Risk for VTE GAYLA REDMAN DO Dec 31, 2020 19:21
== END 2020-12-30 17:00 | DRG 756 ==
LOC: M PCU 18:29 → INTOOBSV 18:29 → OBSVTOIN 12-29 09:29
PROVIDERS: ADMIT Internal Medicine; ATTEND Family Medicine
DX: F41.0 Panic disorder [episodic paroxysmal anxiety] (principal); R45.851 Suicidal ideations; F32.9 Major depressive disorder, single episode, unspecified; R61 Generalized hyperhidrosis; G47.00 Insomnia, unspecified; M62.830 Muscle spasm of back; N40.1 Benign prostatic hyperplasia with lower urinary tract symptoms; R32 Unspecified urinary incontinence; Z98.84 Bariatric surgery status; Z87.442 Personal history of urinary calculi; Z79.899 Other long term (current) drug therapy; Z87.820 Personal history of traumatic brain injury

== ENCOUNTER → 2021-01-11 | Outpatient (CLI) | payer MEDICAID ==
[~2021-01-11] MED LIST changes: +ABIL10TA9 PO; +ACET1TAB55 PO; +ATIV1TAB10 PO; +CYMB1CAP5 PO; +DOK1CAP7 PO; +FLOM0.4C39 PO; +GABA-1171 PO; +GABA-845 PO; +HYDR50TA70 PO; +LATU20TA PO; +TIZA4TAB4 PO; +TRAZ1TAB14 PO; +VITAD1000T PO
== END ==
LOC: M OUTALCOH 12:48
PROVIDERS: ATTEND Psychiatry & Neurology Psychiatry
DX: Z00.00 Encounter for general adult medical examination without abnormal findings (principal)

== ENCOUNTER → 2021-02-02 | Outpatient (CLI) | payer MEDICAID, OTHER ==
[~2021-02-02] MED LIST changes: +GABA-283 PO; -GABA-845 PO
--- NOTE | 2021-02-03 02:48 | REPPI ---
INDICATION: RIB PAIN LEFT SIDE COMPARISON: Chest x-ray dated 12/28/2020 TECHNIQUE: Frontal view of the chest with multiple views of the left hemithorax. FINDINGS: Frontal view of the chest demonstrates no acute cardiopulmonary process, contusion, effusion, or pneumothorax. Very subtle chronic changes at the left base are suggested. There is a minimally displaced fracture along the posterior aspect of the left 11th rib as well as a subtle nondisplaced fracture along the anterolateral margin of the left 10th and possibly 9th ribs. IMPRESSION: 9th through 11th rib fractures as noted above. <Electronically signed by Lewis Brooks > 02/03/21 1415
== END ==
LOC: M PLAIMG 15:46
PROVIDERS: ATTEND Physician Assistant
DX: R07.81 Pleurodynia (principal)

== ENCOUNTER 2021-02-12 08:45 | Outpatient (RCR) | payer MEDICAID | END 2021-02-15 | LOC: M OUTALCOH 08:45 | PROVIDERS: ATTEND Psychiatry & Neurology Psychiatry | DX: F16.20 Hallucinogen dependence, uncomplicated (principal); F14.20 Cocaine dependence, uncomplicated; F12.10 Cannabis abuse, uncomplicated ==

== ENCOUNTER 2021-03-15 08:45 | Outpatient (RCR) | payer MEDICAID | END 2021-03-17 | LOC: M OUTALCOH 08:45 | PROVIDERS: ATTEND Psychiatry & Neurology Psychiatry | DX: F16.20 Hallucinogen dependence, uncomplicated (principal); F14.20 Cocaine dependence, uncomplicated; F12.10 Cannabis abuse, uncomplicated ==

== ENCOUNTER 2021-04-16 13:12 | Outpatient (RCR) | payer MEDICAID ==
[~2021-04-16 13:12] MED LIST changes: +OLAN1TAB16 PO; -OLAN5TAB PO
== END 2021-04-17 ==
LOC: M OUTALCOH 13:12
PROVIDERS: ATTEND Psychiatry & Neurology Psychiatry
DX: F16.20 Hallucinogen dependence, uncomplicated (principal); F14.20 Cocaine dependence, uncomplicated; F12.10 Cannabis abuse, uncomplicated

== ENCOUNTER 2021-05-10 14:00 | Outpatient (RCR) | payer MEDICAID ==
[~2021-05-10 14:00] MED LIST changes: +DOK1CAP4 PO; -DOK1CAP7 PO; -QUET50TA3 PO; +QUET50TA4 PO
== END 2021-05-18 ==
LOC: M OUTALCOH 14:00
PROVIDERS: ATTEND Psychiatry & Neurology Psychiatry
DX: F16.20 Hallucinogen dependence, uncomplicated (principal); F14.20 Cocaine dependence, uncomplicated; F12.10 Cannabis abuse, uncomplicated

== ENCOUNTER 2021-06-14 08:00 | Outpatient (RCR) | payer MEDICAID | END 2021-06-17 | LOC: M OUTALCOH 08:00 | PROVIDERS: ATTEND Psychiatry & Neurology Psychiatry | DX: F16.20 Hallucinogen dependence, uncomplicated (principal); F14.20 Cocaine dependence, uncomplicated; F12.10 Cannabis abuse, uncomplicated ==

== ENCOUNTER 2021-06-21 08:55 | Outpatient (RCR) | payer MEDICAID | END 2021-07-18 | LOC: M OUTALCOH 08:55 | PROVIDERS: ATTEND Psychiatry & Neurology Psychiatry | DX: F16.20 Hallucinogen dependence, uncomplicated (principal); F14.20 Cocaine dependence, uncomplicated; F12.10 Cannabis abuse, uncomplicated ==

== ENCOUNTER → 2021-12-17 | Outpatient (REF) | payer OTHER, MEDICAID ==
[~2021-12-17] MED LIST changes: -D31000TA2 PO; +LOSA50TA28 PO; -LOSA50TA88 PO; +TIZA10TA PO; -TIZA4TAB4 PO; +VITA100093 PO
[2021-12-17 17:36] LABS: BASO # 0.1 10^3/uL (0.0-0.2); BASO % 0.6 % (0.0-1.0); EOS # 0.1 10^3/uL (0.0-0.5); EOS % 1.1 % (0.0-3.0); HEMATOCRIT 43.6 % (42.0-52.0); HEMOGLOBIN 14.8 g/dl (13.5-17.5); LYMPH # 1.8 10^3/uL (1.5-5.0); MEAN CORPUSCULAR HEMOGLOBIN 29.5 pg (27.0-33.0); MEAN CORPUSCULAR HGB CONC 33.9 g/dl (32.0-36.5); MEAN CORPUSCULAR VOLUME 86.9 fl (80.0-96.0); MONO # 0.8 10^3/uL (0.0-0.8); MONO % 8.4 % (2.0-8.0); NEUTROPHILS # 6.8 10^3/uL (1.5-8.5); NEUTROPHILS % 70.6 % (36.0-66.0); PLATELET COUNT, AUTOMATED 283 10^3/uL (150-450); RED BLOOD COUNT 5.02 10^6/uL (4.30-6.10); WHITE BLOOD COUNT 9.6 10^3/uL (4.0-10.0)
[2021-12-17 17:50] LABS: ALBUMIN 4.2 GM/DL (3.2-5.2); ALT/SGPT 42 U/L (12-78); BILIRUBIN,TOTAL 0.5 MG/DL (0.2-1.0); BLOOD UREA NITROGEN 15 MG/DL (7-18); CARBON DIOXIDE LEVEL 29 MEQ/L (21-32); CHLORIDE LEVEL 105 MEQ/L (98-107); CHOLESTEROL LEVEL 196 MG/DL (<200); CHOLESTEROL RISK RATIO 3.843 (<5); CREATININE FOR GFR 0.97 MG/DL (0.70-1.30); GLOMERULAR FILTRATION RATE > 60.0 (>56); GLUCOSE, FASTING 94 MG/DL (70-100); HDL CHOLESTEROL 51 MG/DL (>40); IRON (FE) 105 UG/DL (65-175); LDL CHOLESTEROL 116 MG/DL (<100); NON-HDL-C 145 MG/DL; POTASSIUM SERUM 4.6 MEQ/L (3.5-5.1); SODIUM LEVEL 139 MEQ/L (136-145); TOTAL PROTEIN 7.4 GM/DL (6.4-8.2); TRIGLYCERIDES LEVEL 147 MG/DL (<150)
[2021-12-17 17:56] LABS: TOTAL 25(OH) VITAMIN D 19.8 NG/ML (30.0-100.0); VITAMIN B12 LEVEL 452 PG/ML (247-911)
== END ==
LOC: M PLALAB 16:52
DX: Z98.84 Bariatric surgery status (principal); Z13.220 Encounter for screening for lipoid disorders; Z12.5 Encounter for screening for malignant neoplasm of prostate

== ENCOUNTER → 2022-01-18 | Outpatient (REF) | payer OTHER ==
[~2022-01-18] MED LIST changes: +SENN-152 PO; -[UNRECOGNIZED DRUG - CODE] PO
[2022-01-18 17:39] LABS: BASO # 0.1 10^3/uL (0.0-0.2); BASO % 0.8 % (0.0-1.0); EOS # 0.1 10^3/uL (0.0-0.5); EOS % 1.6 % (0.0-3.0); HEMATOCRIT 43.1 % (42.0-52.0); HEMOGLOBIN 14.5 g/dl (13.5-17.5); LYMPH # 1.8 10^3/uL (1.5-5.0); LYMPH % 28.6 % (24.0-44.0); MEAN CORPUSCULAR HEMOGLOBIN 28.6 pg (27.0-33.0); MEAN CORPUSCULAR HGB CONC 33.6 g/dl (32.0-36.5); MONO # 0.6 10^3/uL (0.0-0.8); MONO % 8.5 % (2.0-8.0); NEUTROPHILS # 3.9 10^3/uL (1.5-8.5); NEUTROPHILS % 60.2 % (36.0-66.0); PLATELET COUNT, AUTOMATED 258 10^3/uL (150-450); RED BLOOD COUNT 5.07 10^6/uL (4.30-6.10); WHITE BLOOD COUNT 6.4 10^3/uL (4.0-10.0)
[2022-01-18 18:10] LABS: ALBUMIN 4.2 GM/DL (3.2-5.2); ALT/SGPT 41 U/L (12-78); BILIRUBIN,DIRECT 0.1 MG/DL (0.0-0.2); BILIRUBIN,TOTAL 0.4 MG/DL (0.2-1.0); BLOOD UREA NITROGEN 15 MG/DL (7-18); CARBON DIOXIDE LEVEL 26 MEQ/L (21-32); CHLORIDE LEVEL 106 MEQ/L (98-107); CREATININE FOR GFR 0.86 MG/DL (0.70-1.30); GLOMERULAR FILTRATION RATE > 60.0 (>56); GLUCOSE, FASTING 101 MG/DL (70-100); IRON (FE) 85 UG/DL (65-175); MAGNESIUM LEVEL 2.2 MG/DL (1.8-2.4); PHOSPHORUS LEVEL 3.5 MG/DL (2.5-4.9); POTASSIUM SERUM 4.4 MEQ/L (3.5-5.1); SODIUM LEVEL 138 MEQ/L (136-145); TOTAL PROTEIN 7.3 GM/DL (6.4-8.2)
[2022-01-18 18:15] LABS: HEPATITIS B SURFACE ANTIBODY NEGATIVE (POSITIVE); TOTAL 25(OH) VITAMIN D 17.8 NG/ML (30.0-100.0)
[2022-01-18 18:16] LABS: VITAMIN B12 LEVEL 594 PG/ML (247-911)
[2022-01-18 18:20] LABS: ERYTHROCYTE SEDIMENTATION RATE 9 mm/hr (0-20)
[2022-01-18 18:26] LABS: HEPATITIS B SURFACE ANTIGEN NEGATIVE (NEGATIVE)
[2022-01-18 18:54] LABS: HEPATITIS C VIRUS ABY INDEX 0.1 INDEX (<0.8)
== END ==
LOC: M SFHCRHEU 15:32
PROVIDERS: ATTEND Internal Medicine
DX: H30.93 Unspecified chorioretinal inflammation, bilateral (principal); M79.10 Myalgia, unspecified site; Z11.59 Encounter for screening for other viral diseases

== ENCOUNTER 2022-02-25 11:51 | Outpatient (CLI) | payer OTHER ==
[~2022-02-25] VITALS: Ht 190.5 cm; Wt 113.6 kg
[~2022-02-25 11:51] MED LIST changes: +ALBUTEROL SULFATE 2.5 MG/0.5 ML INH NEB SOLN INH PRN; +EPINEPHrine INJ 1 MG/ML 1ML AMP IM PRN; +diphenhydrAMINE 50MG/ML VIAL (J1200) IV PRN; +methylPREDNISolone 125MG 2ML VIAL IV PRN
[2022-02-25 12:00] VITALS: BP 129/77
[2022-02-25] MEDS ORDERED: ACETAMINOPHEN 650MG ER TAB (TYLENOL ARTHRITIS) PO ONE (12:00)
[2022-02-25] MEDS ORDERED: inFLIXimab INJECTION 1,200 MG in NS 180 ML IV ONE (12:00)
[2022-02-25] MEDS ORDERED: NS IV ONE (12:00)
[2022-02-25] MEDS ORDERED: INFLIXIMAB IV ONE (12:00)
[2022-02-25] MEDS ORDERED: diphenhydrAMINE 50MG PO PRIOR TO INFUSION PO ONE (12:00)
[2022-02-25 12:10] VITALS: BP 129/77
[2022-02-25 15:05] VITALS: BP 115/71
[2022-02-25 15:45] VITALS: BP 137/84
== END 2022-02-25 15:45 | disposition home or self-care (01) ==
LOC: M INFU 11:51
PROVIDERS: ATTEND Internal Medicine
DX: H30.93 Unspecified chorioretinal inflammation, bilateral (principal); Z88.8 Allergy status to other drugs, medicaments and biological substances
CPT/HCPCS: 96413; 96415; J1745

== ENCOUNTER 2022-03-10 09:40 | Outpatient (CLI) | payer OTHER ==
[~2022-03-10] VITALS: Ht 193 cm; Wt 116.0 kg
[~2022-03-10 09:40] MED LIST changes: +ACETAMINOPHEN 650MG ER TAB (TYLENOL ARTHRITIS) PO ONE; +INFLIXIMAB IV ONE; +NS IV ONE; +diphenhydrAMINE 50MG PO PRIOR TO INFUSION PO ONE
[2022-03-10 09:51] VITALS: BP 154/88
[2022-03-10] MEDS ORDERED: inFLIXimab INJECTION 1,200 MG in NS 180 ML IV ONE (10:25)
[2022-03-10 11:00] VITALS: BP 142/85
[2022-03-10 11:15] VITALS: BP 134/81
[2022-03-10 11:30] VITALS: BP 132/86
[2022-03-10 12:03] VITALS: BP 130/67
[2022-03-10 12:45] VITALS: BP 128/61
== END 2022-03-10 12:45 | disposition home or self-care (01) ==
LOC: M INFU 09:40
PROVIDERS: ATTEND Internal Medicine
DX: H30.93 Unspecified chorioretinal inflammation, bilateral (principal); Z88.8 Allergy status to other drugs, medicaments and biological substances
CPT/HCPCS: 96413; 96415; J1745

== ENCOUNTER 2022-04-13 10:15 | Outpatient (CLI) | payer OTHER ==
[~2022-04-13] VITALS: Ht 193 cm; Wt 116.4 kg
[2022-04-13 10:15] VITALS: BP 132/76
[~2022-04-13 10:15] MED LIST changes: -INFLIXIMAB IV ONE; -NS IV ONE; +inFLIXimab INJECTION 1,200 MG in NS 180 ML IV ONE
[2022-04-13 11:35] VITALS: BP 136/75
[2022-04-13 11:50] VITALS: BP 121/73
[2022-04-13 12:05] VITALS: BP 119/71
[2022-04-13 12:20] VITALS: BP 121/73
[2022-04-13 12:50] VITALS: BP 125/70
== END 2022-04-13 13:45 | disposition home or self-care (01) ==
LOC: M INFU 10:15
PROVIDERS: ATTEND Internal Medicine
DX: H30.93 Unspecified chorioretinal inflammation, bilateral (principal); Z88.8 Allergy status to other drugs, medicaments and biological substances
CPT/HCPCS: 96413; 96415; J1745

== ENCOUNTER 2022-07-11 09:39 | Outpatient (CLI) | payer OTHER ==
[~2022-07-11] VITALS: Ht 193 cm; Wt 122.2 kg
[~2022-07-11 09:39] MED LIST changes: +ACETAMINOPHEN 650MG PO PRIOR TO INFUSION PO ONE; +INFLIXIMAB IV ONE; +NS 1,000 ML IV SCH; +NS IV ONE; +diphenhydrAMINE 50MG CAP PO ONE
[2022-07-11 09:45] VITALS: BP 149/79
[2022-07-11] MEDS ORDERED: inFLIXimab INJECTION 1,200 MG in NS 180 ML IV ONE (10:00)
[2022-07-11 11:00] VITALS: BP 121/67
[2022-07-11 11:30] VITALS: BP 115/71
[2022-07-11 12:30] VITALS: BP 136/84
[2022-07-11 13:30] VITALS: BP 137/88
== END 2022-07-11 13:30 | disposition home or self-care (01) ==
LOC: M INFU 09:39
PROVIDERS: ATTEND Internal Medicine
DX: H30.93 Unspecified chorioretinal inflammation, bilateral (principal); Z88.8 Allergy status to other drugs, medicaments and biological substances
CPT/HCPCS: 96413; 96415; J1745

== ENCOUNTER → 2022-10-07 | Outpatient (CLI) | payer OTHER ==
[~2022-10-07] MED LIST changes: -ACETAMINOPHEN 650MG ER TAB (TYLENOL ARTHRITIS) PO ONE; -ACETAMINOPHEN 650MG PO PRIOR TO INFUSION PO ONE; -ALBUTEROL SULFATE 2.5 MG/0.5 ML INH NEB SOLN INH PRN; -EPINEPHrine INJ 1 MG/ML 1ML AMP IM PRN; -INFLIXIMAB IV ONE; -NS 1,000 ML IV SCH; -NS IV ONE; -diphenhydrAMINE 50MG CAP PO ONE; -diphenhydrAMINE 50MG PO PRIOR TO INFUSION PO ONE; -diphenhydrAMINE 50MG/ML VIAL (J1200) IV PRN; -inFLIXimab INJECTION 1,200 MG in NS 180 ML IV ONE; -methylPREDNISolone 125MG 2ML VIAL IV PRN
[2022-10-07 16:13] LABS: BASO % 0.4 % (0.0-1.0); EOS # 0.1 10^3/uL (0.0-0.5); EOS % 1.3 % (0.0-3.0); HEMATOCRIT 40.6 % (42.0-52.0); HEMOGLOBIN 13.6 g/dl (13.5-17.5); LYMPH # 2.6 10^3/uL (1.5-5.0); MEAN CORPUSCULAR HEMOGLOBIN 29.7 pg (27.0-33.0); MEAN CORPUSCULAR HGB CONC 33.5 g/dl (32.0-36.5); MEAN CORPUSCULAR VOLUME 88.6 fl (80.0-96.0); MONO # 0.8 10^3/uL (0.0-0.8); MONO % 9.2 % (2.0-8.0); NEUTROPHILS # 4.8 10^3/uL (1.5-8.5); NEUTROPHILS % 57.6 % (36.0-66.0); PLATELET COUNT, AUTOMATED 322 10^3/uL (150-450); RED BLOOD COUNT 4.58 10^6/uL (4.30-6.10); WHITE BLOOD COUNT 8.4 10^3/uL (4.0-10.0)
[2022-10-07 16:25] LABS: C REACTIVE PROTEIN QUANTITATIV < 0.40 MG/DL (<1.0)
[2022-10-07 16:27] LABS: ALBUMIN 4.2 G/DL (3.2-5.2); ALKALINE PHOSPHATASE 70 U/L (46-116); ALT/SGPT 50 U/L (7.0-40); AST/SGOT 36 U/L (<34); BILIRUBIN,DIRECT 0.2 MG/DL (<0.4); BILIRUBIN,TOTAL 0.5 MG/DL (0.3-1.2); BLOOD UREA NITROGEN 17 MG/DL (9-23); CALCIUM LEVEL 9.5 MG/DL (8.5-10.1); CARBON DIOXIDE LEVEL 28 MMOL/L (20-31); CHLORIDE LEVEL 104 MMOL/L (98-107); GLOMERULAR FILTRATION RATE > 60.0 (>56); GLUCOSE, FASTING 128 MG/DL (60-100); POTASSIUM SERUM 4.7 MMOL/L (3.5-5.1); SODIUM LEVEL 137 MMOL/L (136-145); TOTAL PROTEIN 7.3 G/DL (5.7-8.2)
[2022-10-07 16:29] LABS: TOTAL 25(OH) VITAMIN D 31.7 NG/ML (20.0-100.0)
[2022-10-07 16:30] LABS: ERYTHROCYTE SEDIMENTATION RATE 13 mm/hr (0-20)
== END ==
LOC: M PLALAB 14:20
PROVIDERS: ATTEND Internal Medicine
DX: E55.9 Vitamin D deficiency, unspecified (principal)

== ENCOUNTER 2022-10-31 08:35 | Outpatient (CLI) | payer OTHER ==
[~2022-10-31] VITALS: Ht 193 cm; Wt 122.1 kg
[~2022-10-31 08:35] MED LIST changes: +ALBUTEROL SULFATE 2.5MG/0.5ML INH NEB SOLN INH PRN; +EPINEPHrine INJ 1 MG/ML 1ML AMP IM PRN; +diphenhydrAMINE 50MG/ML VIAL IV PRN; +methylPREDNISolone 125MG 2ML VIAL IV PRN
[2022-10-31] MEDS ORDERED: ACETAMINOPHEN 650MG ER TAB (TYLENOL ARTHRITIS) PO ONE (09:00)
[2022-10-31] MEDS ORDERED: inFLIXimab INJECTION 1,200 MG in NS 180 ML IV ONE (09:00)
[2022-10-31] MEDS ORDERED: diphenhydrAMINE 50MG PO PRIOR TO INFUSION PO ONE (09:00)
[2022-10-31 09:06] VITALS: BP 139/93
[2022-10-31 11:55] VITALS: BP 131/79
== END 2022-10-31 12:00 | disposition home or self-care (01) ==
LOC: M INFU 08:35
PROVIDERS: ATTEND Internal Medicine
DX: H44.113 Panuveitis, bilateral (principal); H30.93 Unspecified chorioretinal inflammation, bilateral; Z88.8 Allergy status to other drugs, medicaments and biological substances
CPT/HCPCS: 96413; 96415; J1745

== ENCOUNTER 2022-11-05 14:18 | Emergency (ER) | payer OTHER ==
[~2022-11-05] VITALS: Ht 190.5 cm; Wt 122.5 kg
[~2022-11-05 14:18] MED LIST changes: -ALBUTEROL SULFATE 2.5MG/0.5ML INH NEB SOLN INH PRN; -EPINEPHrine INJ 1 MG/ML 1ML AMP IM PRN; -diphenhydrAMINE 50MG/ML VIAL IV PRN; -methylPREDNISolone 125MG 2ML VIAL IV PRN
[2022-11-05] MEDS ORDERED: INFL10VL IV (14:33)
[2022-11-05] MEDS ORDERED: FOLI1TAB11 (14:33)
[2022-11-05] MEDS ORDERED: METH25IN12 (14:33)
[2022-11-05] MEDS ORDERED: BACITRACIN OINTMENT 30GM TUBE TOP ONE (14:45)
[2022-11-05] MEDS ORDERED: CEPHALEXIN 500 MG CAP PO ONE (14:45)
[2022-11-05] MEDS ORDERED: BOOSTRIX/ADACEL VACCINE (DIPHTH/PERTUSS/ACELL/TETANUS) 0.5ML SYR IM.IMMUN ONE (14:45)
[2022-11-05] MEDS ORDERED: CEPH500C PO (15:02)
[2022-11-05 15:30] VITALS: BP 154/92
== END 2022-11-05 15:46 | disposition home or self-care (01) ==
LOC: M ED 15:19
DX: T23.071A Burn of unspecified degree of right wrist, initial encounter (principal); X12.XXXA Contact with other hot fluids, initial encounter; Y92.89 Other specified places as the place of occurrence of the external cause; Z88.8 Allergy status to other drugs, medicaments and biological substances; Z79.899 Other long term (current) drug therapy

== ENCOUNTER 2022-12-12 09:01 | Outpatient (CLI) | payer OTHER ==
[~2022-12-12] VITALS: Ht 193 cm; Wt 122.1 kg
[~2022-12-12 09:01] MED LIST changes: +ACETAMINOPHEN 650MG ER TAB (TYLENOL ARTHRITIS) PO ONE; +ACETAMINOPHEN TAB 650MG DOSE (2X325MG) PO ONE; +ALBUTEROL SULFATE 2.5MG/0.5ML INH NEB SOLN INH PRN; +CEPH500C PO; +EPINEPHrine INJ 1 MG/ML 1ML AMP IM PRN; +FOLI1TAB11; +METH25IN12; +NS 1,000 ML IV SCH; +diphenhydrAMINE 25MG CAP PO ONE; +diphenhydrAMINE 50MG/ML VIAL IV PRN; +inFLIXimab INJECTION 1,200 MG in NS 180 ML IV ONE; +methylPREDNISolone 125MG 2ML VIAL IV PRN
[2022-12-12 09:05] VITALS: BP 132/100
[2022-12-12 10:15] VITALS: BP 126/77
[2022-12-12 11:38] VITALS: BP 126/77
== END 2022-12-12 11:45 | disposition home or self-care (01) ==
LOC: M INFU 09:01
PROVIDERS: ATTEND Internal Medicine
DX: H44.113 Panuveitis, bilateral (principal); H30.93 Unspecified chorioretinal inflammation, bilateral; Z88.8 Allergy status to other drugs, medicaments and biological substances
CPT/HCPCS: 96413; 96415; J1745

== ENCOUNTER → 2022-12-22 | Outpatient (CLI) | payer OTHER ==
[~2022-12-22] MED LIST changes: -ACETAMINOPHEN 650MG ER TAB (TYLENOL ARTHRITIS) PO ONE; -ACETAMINOPHEN TAB 650MG DOSE (2X325MG) PO ONE; -ALBUTEROL SULFATE 2.5MG/0.5ML INH NEB SOLN INH PRN; -EPINEPHrine INJ 1 MG/ML 1ML AMP IM PRN; -NS 1,000 ML IV SCH; -diphenhydrAMINE 25MG CAP PO ONE; -diphenhydrAMINE 50MG/ML VIAL IV PRN; -inFLIXimab INJECTION 1,200 MG in NS 180 ML IV ONE; -methylPREDNISolone 125MG 2ML VIAL IV PRN
[2022-12-22 11:09] LABS: BASO # 0.1 10^3/uL (0.0-0.2); BASO % 0.8 % (0.0-1.0); EOS # 0.2 10^3/uL (0.0-0.5); EOS % 2.2 % (0.0-3.0); HEMATOCRIT 42.9 % (42.0-52.0); HEMOGLOBIN 14.1 g/dl (13.5-17.5); LYMPH # 2.3 10^3/uL (1.5-5.0); LYMPH % 27.1 % (24.0-44.0); MEAN CORPUSCULAR HGB CONC 32.9 g/dl (32.0-36.5); MEAN CORPUSCULAR VOLUME 88.3 fl (80.0-96.0); MONO # 0.8 10^3/uL (0.0-0.8); MONO % 9.9 % (2.0-8.0); NEUTROPHILS # 5.1 10^3/uL (1.5-8.5); NEUTROPHILS % 59.8 % (36.0-66.0); PLATELET COUNT, AUTOMATED 273 10^3/uL (150-450); RED BLOOD COUNT 4.86 10^6/uL (4.30-6.10); WHITE BLOOD COUNT 8.5 10^3/uL (4.0-10.0)
[2022-12-22 11:31] LABS: IRON (FE) 95 UG/DL (65-175)
[2022-12-22 11:32] LABS: ALBUMIN 3.9 G/DL (3.2-5.2); ALKALINE PHOSPHATASE 69 U/L (46-116); ALT/SGPT 43 U/L (7.0-40); AST/SGOT 30 U/L (<34); BILIRUBIN,TOTAL 0.5 MG/DL (0.3-1.2); BLOOD UREA NITROGEN 12 MG/DL (9-23); CALCIUM LEVEL 8.7 MG/DL (8.5-10.1); CARBON DIOXIDE LEVEL 30 MMOL/L (20-31); CHLORIDE LEVEL 104 MMOL/L (98-107); CHOLESTEROL LEVEL 194 MG/DL (<200); CREATININE FOR GFR 0.83 MG/DL (0.70-1.30); GLOMERULAR FILTRATION RATE > 60.0 (>56); GLUCOSE, FASTING 121 MG/DL (60-100); LDL CHOLESTEROL 117.2 MG/DL (<100); POTASSIUM SERUM 4.7 MMOL/L (3.5-5.1); SODIUM LEVEL 140 MMOL/L (136-145); TOTAL PROTEIN 6.9 G/DL (5.7-8.2); TRIGLYCERIDES LEVEL 99 MG/DL (<150)
[2022-12-22 11:36] LABS: THYROID STIMULATING HORMONE 1.133 uIU/ML (0.55-4.78); TOTAL 25(OH) VITAMIN D 27.7 NG/ML (20.0-100.0); VITAMIN B12 LEVEL 511 PG/ML (211-911)
== END ==
LOC: M PLALAB 08:48
PROVIDERS: ATTEND Physician Assistant
DX: Z12.5 Encounter for screening for malignant neoplasm of prostate (principal)

== ENCOUNTER → 2023-01-10 | Outpatient (CLI) | payer OTHER | LOC: M SOG 09:57 | PROVIDERS: ATTEND Physician Assistant | DX: M79.641 Pain in right hand (principal); M79.642 Pain in left hand ==

== ENCOUNTER → 2023-01-17 | Outpatient (REF) | payer OTHER ==
[2023-01-17 18:35] LABS: BASO # 0.1 10^3/uL (0.0-0.2); BASO % 0.8 % (0.0-1.0); EOS # 0.3 10^3/uL (0.0-0.5); EOS % 2.8 % (0.0-3.0); HEMATOCRIT 44.2 % (42.0-52.0); HEMOGLOBIN 14.8 g/dl (13.5-17.5); LYMPH # 3.3 10^3/uL (1.5-5.0); MEAN CORPUSCULAR HEMOGLOBIN 29.4 pg (27.0-33.0); MEAN CORPUSCULAR HGB CONC 33.5 g/dl (32.0-36.5); MEAN CORPUSCULAR VOLUME 87.7 fl (80.0-96.0); MONO # 0.9 10^3/uL (0.0-0.8); MONO % 9.6 % (2.0-8.0); NEUTROPHILS # 4.6 10^3/uL (1.5-8.5); NEUTROPHILS % 50.6 % (36.0-66.0); PLATELET COUNT, AUTOMATED 276 10^3/uL (150-450); RED BLOOD COUNT 5.04 10^6/uL (4.30-6.10)
[2023-01-17 19:04] LABS: C REACTIVE PROTEIN QUANTITATIV < 0.40 MG/DL (<1.0)
[2023-01-17 19:05] LABS: ALBUMIN 4.3 G/DL (3.2-5.2); ALKALINE PHOSPHATASE 70 U/L (46-116); ALT/SGPT 38 U/L (7.0-40); AST/SGOT 21 U/L (<34); BILIRUBIN,DIRECT 0.1 MG/DL (<0.4); BILIRUBIN,TOTAL 0.4 MG/DL (0.3-1.2); BLOOD UREA NITROGEN 14 MG/DL (9-23); CALCIUM LEVEL 9.2 MG/DL (8.5-10.1); CARBON DIOXIDE LEVEL 30 MMOL/L (20-31); CHLORIDE LEVEL 102 MMOL/L (98-107); CREATININE FOR GFR 0.79 MG/DL (0.70-1.30); GLOMERULAR FILTRATION RATE > 60.0 (>56); GLUCOSE, FASTING 94 MG/DL (60-100); POTASSIUM SERUM 4.6 MMOL/L (3.5-5.1); SODIUM LEVEL 139 MMOL/L (136-145); TOTAL PROTEIN 7.4 G/DL (5.7-8.2)
[2023-01-17 19:06] LABS: TOTAL 25(OH) VITAMIN D 30.7 NG/ML (20.0-100.0)
[2023-01-17 19:41] LABS: ERYTHROCYTE SEDIMENTATION RATE 20 mm/hr (0-20)
== END ==
LOC: M SFHCRHEU 17:28
PROVIDERS: ATTEND Internal Medicine
DX: E55.9 Vitamin D deficiency, unspecified (principal); H44.113 Panuveitis, bilateral

== ENCOUNTER 2023-01-23 09:30 | Outpatient (CLI) | payer OTHER ==
[2023-01-23 09:30] VITALS: BP 135/97
[~2023-01-23 09:30] MED LIST changes: +ACETAMINOPHEN 650MG ER TAB (TYLENOL ARTHRITIS) PO ONE; +ALBUTEROL SULFATE 2.5MG/0.5ML INH NEB SOLN INH PRN; +EPINEPHrine INJ 1 MG/ML 1ML AMP IM PRN; +INFLIXIMAB IV ONE; +NS IV ONE; +diphenhydrAMINE 50MG PO PRIOR TO INFUSION PO ONE; +diphenhydrAMINE 50MG/ML VIAL IV PRN; +inFLIXimab INJECTION 1,200 MG in NS 180 ML IV ONE; +methylPREDNISolone 125MG 2ML VIAL IV PRN
[2023-01-23 10:50] VITALS: BP 137/77
[2023-01-23 11:05] VITALS: BP 134/83
[2023-01-23 12:05] VITALS: BP 146/83
[2023-01-23 12:40] VITALS: BP 128/85
== END 2023-01-23 12:40 | disposition home or self-care (01) ==
LOC: M INFU 09:30
PROVIDERS: ATTEND Internal Medicine
DX: H44.113 Panuveitis, bilateral (principal); H30.93 Unspecified chorioretinal inflammation, bilateral; Z88.8 Allergy status to other drugs, medicaments and biological substances
CPT/HCPCS: 96413; 96415; J1745

== ENCOUNTER 2023-03-06 08:35 | Outpatient (CLI) | payer OTHER ==
[~2023-03-06] VITALS: Ht 193 cm; Wt 122.0 kg
[2023-03-06 08:30] VITALS: BP 156/90; O2SAT 98
[~2023-03-06 08:35] MED LIST changes: -ACETAMINOPHEN 650MG ER TAB (TYLENOL ARTHRITIS) PO ONE; -INFLIXIMAB IV ONE; -NS IV ONE; -diphenhydrAMINE 50MG PO PRIOR TO INFUSION PO ONE; -inFLIXimab INJECTION 1,200 MG in NS 180 ML IV ONE
[2023-03-06] MEDS ORDERED: ACETAMINOPHEN 650MG PO PRIOR TO INFUSION PO ONE (09:00)
[2023-03-06] MEDS ORDERED: diphenhydrAMINE 50MG PO PRIOR TO INFUSION PO ONE (09:00)
[2023-03-06] MEDS ORDERED: inFLIXimab INJECTION 1,200 MG in NS 180 ML IV ONE ×4 (09:00)
[2023-03-06] MEDS ORDERED: NS 1,000 ML IV SCH (09:00)
[2023-03-06 10:00] VITALS: BP 124/69; O2SAT 98
[2023-03-06 11:00] VITALS: BP 119/66; O2SAT 97
[2023-03-06 11:50] VITALS: BP 117/71; O2SAT 98
== END 2023-03-06 12:00 | disposition home or self-care (01) ==
LOC: M INFU 08:35
PROVIDERS: ATTEND Internal Medicine
DX: H44.113 Panuveitis, bilateral (principal); H30.93 Unspecified chorioretinal inflammation, bilateral
CPT/HCPCS: 96413; 96415; J1745

== ENCOUNTER → 2023-04-04 | Outpatient (REF) | payer OTHER ==
[~2023-04-04] MED LIST changes: -ALBUTEROL SULFATE 2.5MG/0.5ML INH NEB SOLN INH PRN; -EPINEPHrine INJ 1 MG/ML 1ML AMP IM PRN; -diphenhydrAMINE 50MG/ML VIAL IV PRN; -methylPREDNISolone 125MG 2ML VIAL IV PRN
== END ==
LOC: M LAB REF 16:17
PROVIDERS: ATTEND Nurse Practitioner Family
DX: R31.9 Hematuria, unspecified (principal)

== ENCOUNTER → 2023-04-26 | Outpatient (CLI) | payer OTHER ==
[~2023-04-26] MED LIST changes: -GABA-283 PO; +GABA-284 PO
== END ==
LOC: M PLAIMG 14:08
PROVIDERS: ATTEND Student in an Organized Health Care Education/Training Program
DX: N20.0 Calculus of kidney (principal)

== ENCOUNTER 2023-05-29 09:35 | Outpatient (CLI) | payer OTHER ==
[~2023-05-29 09:35] MED LIST changes: +ALBUTEROL SULFATE 2.5MG/0.5ML INH NEB SOLN INH PRN; +CURRENT HEIGHT AND WEIGHT NEEDED ON PATIENT XX SCH; +EPINEPHrine INJ 1 MG/ML 1ML AMP IM PRN; +diphenhydrAMINE 50MG/ML VIAL IV PRN; +methylPREDNISolone 125MG 2ML VIAL IV PRN
[2023-05-29] MEDS ORDERED: ACETAMINOPHEN 650MG ER TAB (TYLENOL ARTHRITIS) PO ONE (10:00)
[2023-05-29] MEDS ORDERED: NS IV ONE (10:00)
[2023-05-29] MEDS ORDERED: INFLIXIMAB IV ONE (10:00)
[2023-05-29] MEDS ORDERED: diphenhydrAMINE 25MG CAP PO ONE (10:00)
[2023-05-29 10:35] VITALS: BP 138/77; TEMP 97.4; O2SAT 98
[2023-05-29 11:00] VITALS: BP 136/75; TEMP 97; O2SAT 98
[2023-05-29 11:30] VITALS: BP 133/84; TEMP 97.3; O2SAT 100
[2023-05-29 12:35] VITALS: BP 142/82; TEMP 97.7; O2SAT 99
== END 2023-05-29 12:45 ==
LOC: M INFU 09:35
PROVIDERS: ATTEND Internal Medicine
DX: H44.113 Panuveitis, bilateral (principal); Z88.8 Allergy status to other drugs, medicaments and biological substances
CPT/HCPCS: 96413; 96415; J1745

== ENCOUNTER → 2023-06-08 | Outpatient (CLI) | payer OTHER ==
[~2023-06-08] MED LIST changes: -ALBUTEROL SULFATE 2.5MG/0.5ML INH NEB SOLN INH PRN; -CURRENT HEIGHT AND WEIGHT NEEDED ON PATIENT XX SCH; -EPINEPHrine INJ 1 MG/ML 1ML AMP IM PRN; -diphenhydrAMINE 50MG/ML VIAL IV PRN; -methylPREDNISolone 125MG 2ML VIAL IV PRN
[2023-06-08 18:18] LABS: C REACTIVE PROTEIN QUANTITATIV < 0.40 MG/DL (<1.0)
[2023-06-08 18:20] LABS: ALBUMIN 4.5 G/DL (3.2-5.2); ALKALINE PHOSPHATASE 62 U/L (46-116); ALT/SGPT 50 U/L (7.0-40); AST/SGOT 31 U/L (<34); BILIRUBIN,DIRECT 0.2 MG/DL (<0.4); BILIRUBIN,TOTAL 0.7 MG/DL (0.3-1.2); BLOOD UREA NITROGEN 19 MG/DL (9-23); CALCIUM LEVEL 9.6 MG/DL (8.5-10.1); CARBON DIOXIDE LEVEL 25 MMOL/L (20-31); CHLORIDE LEVEL 106 MMOL/L (98-107); CREATININE FOR GFR 0.96 MG/DL (0.70-1.30); GLOMERULAR FILTRATION RATE > 60.0 (>56); GLUCOSE, FASTING 110 MG/DL (60-100); POTASSIUM SERUM 4.5 MMOL/L (3.5-5.1); SODIUM LEVEL 138 MMOL/L (136-145); TOTAL PROTEIN 7.5 G/DL (5.7-8.2)
[2023-06-08 18:23] LABS: BASO # 0.1 10^3/uL (0.0-0.2); BASO % 0.6 % (0.0-1.0); EOS # 0.1 10^3/uL (0.0-0.5); EOS % 1.4 % (0.0-3.0); HEMATOCRIT 44.6 % (42.0-52.0); HEMOGLOBIN 14.8 g/dl (13.5-17.5); LYMPH # 2.8 10^3/uL (1.5-5.0); LYMPH % 33.3 % (24.0-44.0); MEAN CORPUSCULAR HEMOGLOBIN 28.8 pg (27.0-33.0); MEAN CORPUSCULAR HGB CONC 33.2 g/dl (32.0-36.5); MEAN CORPUSCULAR VOLUME 86.9 fl (80.0-96.0); MONO # 0.7 10^3/uL (0.0-0.8); MONO % 8.8 % (2.0-8.0); NEUTROPHILS # 4.7 10^3/uL (1.5-8.5); NEUTROPHILS % 55.7 % (36.0-66.0); PLATELET COUNT, AUTOMATED 324 10^3/uL (150-450); RED BLOOD COUNT 5.13 10^6/uL (4.30-6.10); WHITE BLOOD COUNT 8.4 10^3/uL (4.0-10.0)
[2023-06-08 19:11] LABS: ERYTHROCYTE SEDIMENTATION RATE 18 mm/hr (0-20)
== END ==
LOC: M WUC 14:01
PROVIDERS: ATTEND Internal Medicine
DX: H44.113 Panuveitis, bilateral (principal)

== ENCOUNTER 2023-07-03 09:39 | Emergency (ER) | payer OTHER ==
[~2023-07-03] VITALS: Ht 190.5 cm; Wt 122.7 kg
[2023-07-03] MEDS ORDERED: FOLI1TAB11 PO (10:04)
[2023-07-03] MEDS ORDERED: TAMS1CAP17 (10:06)
[2023-07-03] MEDS ORDERED: VITA200016 (10:06)
[2023-07-03] MEDS ORDERED: TADA5TAB (10:06)
[2023-07-03] MEDS ORDERED: methocarbamoL 500 MG TAB PO ONE (11:50)
[2023-07-03] MEDS ORDERED: predniSONE 20 MG TAB PO ONE (11:50)
[2023-07-03] MEDS ORDERED: LIDOCAINE 5% (LIDODERM) PATCH TD ONE (11:50)
[2023-07-03] MEDS ORDERED: KETOROLAC 60MG 2ML VIAL IM ONE (11:50)
[2023-07-03] MEDS ORDERED: ACETAMINOPHEN 500 MG TAB PO ONE (14:20)
[2023-07-03] MEDS ORDERED: METH-1164 PO (14:26)
[2023-07-03 14:27] VITALS: BP 127/90; TEMP 96.8; O2SAT 97
[2023-07-03] MEDS ORDERED: LIDO5DIS41 TD (14:32)
== END 2023-07-03 14:42 | disposition home or self-care (01) ==
LOC: MERGE 09:39 → M ED 09:39
DX: M46.1 Sacroiliitis, not elsewhere classified (principal); M16.12 Unilateral primary osteoarthritis, left hip; Z98.84 Bariatric surgery status; Z79.899 Other long term (current) drug therapy
CPT/HCPCS: 72148; 73502; 80047; 96372; 99283; J1885; J7512

== ENCOUNTER 2023-07-10 09:49 | Outpatient (CLI) | payer OTHER ==
[~2023-07-10 09:49] MED LIST changes: +ALBUTEROL SULFATE 2.5MG/0.5ML INH NEB SOLN INH PRN; +EPINEPHrine INJ 1 MG/ML 1ML AMP IM PRN; +LIDO5DIS41 TD; +METH-1164 PO; +TADA5TAB; +TAMS1CAP17; +VITA200016; +diphenhydrAMINE 50MG/ML VIAL IV PRN; +methylPREDNISolone 125MG 2ML VIAL IV PRN
[2023-07-10 10:00] VITALS: BP 136/86; O2SAT 96
[2023-07-10] MEDS ORDERED: NS IV ONE (10:15)
[2023-07-10] MEDS ORDERED: INFLIXIMAB IV ONE (10:15)
[2023-07-10] MEDS ORDERED: diphenhydrAMINE 50MG PO PRIOR TO INFUSION PO ONE (10:15)
[2023-07-10] MEDS ORDERED: ACETAMINOPHEN 650MG ER TAB (TYLENOL ARTHRITIS) PO ONE (10:15)
[2023-07-10 11:30] VITALS: BP 137/85; O2SAT 97
[2023-07-10 12:00] VITALS: BP 134/81; O2SAT 97
[2023-07-10 13:20] VITALS: BP 128/77; O2SAT 96
== END 2023-07-10 13:25 | disposition home or self-care (01) ==
LOC: M INFU 09:49
PROVIDERS: ATTEND Internal Medicine
DX: H44.113 Panuveitis, bilateral (principal); H30.93 Unspecified chorioretinal inflammation, bilateral; Z88.8 Allergy status to other drugs, medicaments and biological substances
CPT/HCPCS: 96413; 96415; J1745

== ENCOUNTER 2023-08-21 09:50 | Outpatient (CLI) | payer OTHER ==
[~2023-08-21] VITALS: Ht 190.5 cm; Wt 122.0 kg
[2023-08-21 09:50] VITALS: BP 134/78; O2SAT 96
[2023-08-21] MEDS ORDERED: NS IV ONE (10:00)
[2023-08-21] MEDS ORDERED: INFLIXIMAB IV ONE (10:00)
[2023-08-21] MEDS ORDERED: ACETAMINOPHEN 650MG ER TAB (TYLENOL ARTHRITIS) PO ONE (10:00)
[2023-08-21] MEDS ORDERED: diphenhydrAMINE 50MG PO PRIOR TO INFUSION PO ONE (10:00)
[2023-08-21] MEDS ORDERED: NS 1,000 ML IV SCH (10:00)
[2023-08-21 11:30] VITALS: BP 133/84; O2SAT 98
[2023-08-21 12:00] VITALS: BP 130/82; O2SAT 97
[2023-08-21 13:00] VITALS: BP 136/89; O2SAT 98
[2023-08-21 13:35] VITALS: BP 155/84; O2SAT 98
== END 2023-08-21 13:40 | disposition home or self-care (01) ==
LOC: M INFU 09:50
PROVIDERS: ATTEND Internal Medicine
DX: H44.113 Panuveitis, bilateral (principal); H30.93 Unspecified chorioretinal inflammation, bilateral; Z88.8 Allergy status to other drugs, medicaments and biological substances
CPT/HCPCS: 96413; 96415; J1745

== ENCOUNTER → 2023-09-26 | Outpatient (CLI) | payer OTHER ==
[~2023-09-26] MED LIST changes: -ALBUTEROL SULFATE 2.5MG/0.5ML INH NEB SOLN INH PRN; -EPINEPHrine INJ 1 MG/ML 1ML AMP IM PRN; -diphenhydrAMINE 50MG/ML VIAL IV PRN; -methylPREDNISolone 125MG 2ML VIAL IV PRN
[2023-09-26 16:43] LABS: BASO # 0.1 10^3/uL (0.0-0.2); BASO % 0.8 % (0.0-1.0); EOS # 0.2 10^3/uL (0.0-0.5); EOS % 1.7 % (0.0-3.0); HEMATOCRIT 42.9 % (42.0-52.0); HEMOGLOBIN 14.3 g/dl (13.5-17.5); LYMPH # 3.3 10^3/uL (1.5-5.0); LYMPH % 36.4 % (24.0-44.0); MEAN CORPUSCULAR HEMOGLOBIN 29.7 pg (27.0-33.0); MEAN CORPUSCULAR HGB CONC 33.3 g/dl (32.0-36.5); MONO # 0.8 10^3/uL (0.0-0.8); MONO % 9.4 % (2.0-8.0); NEUTROPHILS # 4.6 10^3/uL (1.5-8.5); NEUTROPHILS % 51.5 % (36.0-66.0); PLATELET COUNT, AUTOMATED 297 10^3/uL (150-450); RED BLOOD COUNT 4.82 10^6/uL (4.30-6.10); WHITE BLOOD COUNT 8.9 10^3/uL (4.0-10.0)
[2023-09-26 16:49] LABS: C REACTIVE PROTEIN QUANTITATIV < 0.40 MG/DL (<1.0)
[2023-09-26 16:51] LABS: ALBUMIN 4.4 G/DL (3.2-5.2); ALKALINE PHOSPHATASE 63 U/L (46-116); ALT/SGPT 51 U/L (7.0-40); AST/SGOT 31 U/L (<34); BILIRUBIN,DIRECT 0.2 MG/DL (<0.4); BILIRUBIN,TOTAL 0.5 MG/DL (0.3-1.2); BLOOD UREA NITROGEN 11 MG/DL (9-23); CALCIUM LEVEL 9.1 MG/DL (8.5-10.1); CARBON DIOXIDE LEVEL 30 MMOL/L (20-31); CHLORIDE LEVEL 105 MMOL/L (98-107); CREATININE FOR GFR 0.87 MG/DL (0.70-1.30); GLOMERULAR FILTRATION RATE > 60.0 (>56); GLUCOSE, FASTING 93 MG/DL (60-100); POTASSIUM SERUM 4.6 MMOL/L (3.5-5.1); SODIUM LEVEL 139 MMOL/L (136-145); TOTAL PROTEIN 7.3 G/DL (5.7-8.2)
[2023-09-26 17:07] LABS: ERYTHROCYTE SEDIMENTATION RATE 13 mm/hr (0-20)
== END ==
LOC: M WUC 14:07
PROVIDERS: ATTEND Internal Medicine
DX: H44.113 Panuveitis, bilateral (principal)

== ENCOUNTER 2023-10-16 12:00 | Outpatient (CLI) | payer OTHER ==
[2023-10-16 12:00] VITALS: BP 117/79; O2SAT 96
[~2023-10-16 12:00] MED LIST changes: +ACETAMINOPHEN 650MG ER TAB (TYLENOL ARTHRITIS) PO ONE; +ALBUTEROL SULFATE 2.5MG/0.5ML INH NEB SOLN INH PRN; +EPINEPHrine INJ 1 MG/ML 1ML AMP IM PRN; +INFLIXIMAB IV ONE; +NS IV ONE; +diphenhydrAMINE 50MG PO PRIOR TO INFUSION PO ONE; +diphenhydrAMINE 50MG/ML VIAL IV PRN; +methylPREDNISolone 125MG 2ML VIAL IV PRN
[2023-10-16 13:30] VITALS: BP 132/78; O2SAT 100
[2023-10-16 14:00] VITALS: BP 119/64; O2SAT 100
[2023-10-16 15:08] VITALS: BP 127/67; O2SAT 95
== END 2023-10-16 15:10 | disposition home or self-care (01) ==
LOC: M INFU 12:00
PROVIDERS: ATTEND Internal Medicine
DX: H44.113 Panuveitis, bilateral (principal); H30.93 Unspecified chorioretinal inflammation, bilateral; Z88.8 Allergy status to other drugs, medicaments and biological substances
CPT/HCPCS: 96413; 96415; J1745

== ENCOUNTER 2023-11-25 16:34 | Emergency (ER) | payer OTHER ==
[~2023-11-25] VITALS: Ht 190.5 cm; Wt 122.5 kg
[~2023-11-25 16:34] MED LIST changes: -ACETAMINOPHEN 650MG ER TAB (TYLENOL ARTHRITIS) PO ONE; -ALBUTEROL SULFATE 2.5MG/0.5ML INH NEB SOLN INH PRN; -EPINEPHrine INJ 1 MG/ML 1ML AMP IM PRN; -INFLIXIMAB IV ONE; -NS IV ONE; -diphenhydrAMINE 50MG PO PRIOR TO INFUSION PO ONE; -diphenhydrAMINE 50MG/ML VIAL IV PRN; -methylPREDNISolone 125MG 2ML VIAL IV PRN
[2023-11-25 16:35] VITALS: TEMP 98.4
[2023-11-25] MEDS: ACETAMINOPHEN 500 MG TAB PO ONE (19:22)
[2023-11-25] MEDS: methocarbamoL 500 MG TAB PO ONE ×2 (19:22→21:11)
[2023-11-25 19:23] LABS: BASO # 0.1 10^3/uL (0.0-0.2); BASO % 0.3 % (0.0-1.0); EOS # 0.2 10^3/uL (0.0-0.5); EOS % 1.1 % (0.0-3.0); HEMATOCRIT 41.9 % (42.0-52.0); HEMOGLOBIN 14.4 g/dl (13.5-17.5); LYMPH # 3.1 10^3/uL (1.5-5.0); LYMPH % 21.8 % (24.0-44.0); MEAN CORPUSCULAR HEMOGLOBIN 29.8 pg (27.0-33.0); MEAN CORPUSCULAR HGB CONC 34.4 g/dl (32.0-36.5); MEAN CORPUSCULAR VOLUME 86.7 fl (80.0-96.0); MONO # 1.2 10^3/uL (0.0-0.8); NEUTROPHILS # 9.8 10^3/uL (1.5-8.5); NEUTROPHILS % 68.5 % (36.0-66.0); PLATELET COUNT, AUTOMATED 269 10^3/uL (150-450); RED BLOOD COUNT 4.83 10^6/uL (4.30-6.10); WHITE BLOOD COUNT 14.3 10^3/uL (4.0-10.0)
[2023-11-25 19:30] LABS: ERYTHROCYTE SEDIMENTATION RATE 11 mm/hr (0-20)
[2023-11-25 19:40] LABS: C REACTIVE PROTEIN QUANTITATIV < 0.40 MG/DL (<1.0)
[2023-11-25 19:41] LABS: BLOOD UREA NITROGEN 17 MG/DL (9-23); CALCIUM LEVEL 8.7 MG/DL (8.5-10.1); CARBON DIOXIDE LEVEL 26 MMOL/L (20-31); CHLORIDE LEVEL 106 MMOL/L (98-107); CREATININE FOR GFR 0.87 MG/DL (0.70-1.30); GLOMERULAR FILTRATION RATE > 60.0 (>56); GLUCOSE, FASTING 89 MG/DL (60-100); POTASSIUM SERUM 4.4 MMOL/L (3.5-5.1); SODIUM LEVEL 137 MMOL/L (136-145)
[2023-11-25 19:44] LABS: URIC ACID 4.8 MG/DL (3.7-9.2)
[2023-11-25] MEDS ORDERED: METH-1164 PO (21:04)
[2023-11-25 21:17] VITALS: BP 132/77; O2SAT 98
== END 2023-11-25 21:29 | disposition home or self-care (01) ==
LOC: M ED 16:34
DX: S93.402A Sprain of unspecified ligament of left ankle, initial encounter (principal); Y92.9 Unspecified place or not applicable; Y93.9 Activity, unspecified; Y99.9 Unspecified external cause status; J45.909 Unspecified asthma, uncomplicated; E11.9 Type 2 diabetes mellitus without complications; Z88.8 Allergy status to other drugs, medicaments and biological substances; Z79.899 Other long term (current) drug therapy; Z79.4 Long term (current) use of insulin

== ENCOUNTER 2023-11-27 09:50 | Outpatient (CLI) | payer OTHER ==
[~2023-11-27] VITALS: Ht 190.5 cm; Wt 122.7 kg
[2023-11-27 09:50] VITALS: BP 133/71; O2SAT 98
[~2023-11-27 09:50] MED LIST changes: +ALBUTEROL SULFATE 2.5MG/0.5ML INH NEB SOLN INH PRN; +EPINEPHrine INJ 1 MG/ML 1ML AMP IM PRN; +diphenhydrAMINE 50MG/ML VIAL IV PRN; +methylPREDNISolone 125MG 2ML VIAL IV PRN
[2023-11-27] MEDS: diphenhydrAMINE 50MG PO PRIOR TO INFUSION PO ONE (10:06)
[2023-11-27] MEDS: ACETAMINOPHEN 650MG ER TAB (TYLENOL ARTHRITIS) PO ONE (10:07)
[2023-11-27] MEDS: NS IV ONE (10:42)
[2023-11-27] MEDS: INFLIXIMAB IV ONE (10:42)
[2023-11-27 11:00] VITALS: BP 143/72; TEMP 99.2; O2SAT 97
[2023-11-27 11:30] VITALS: BP 137/79; TEMP 99; O2SAT 99
[2023-11-27 12:15] VITALS: BP 138/90; TEMP 98.6; O2SAT 98
[2023-11-27 13:00] VITALS: BP 138/90; TEMP 99; O2SAT 98
== END 2023-11-27 13:15 ==
LOC: M INFU 09:50
PROVIDERS: ATTEND Internal Medicine
DX: H44.113 Panuveitis, bilateral (principal); H30.93 Unspecified chorioretinal inflammation, bilateral; Z88.8 Allergy status to other drugs, medicaments and biological substances
CPT/HCPCS: 96413; 96415; J1745

== ENCOUNTER → 2023-12-05 | Outpatient (CLI) | payer OTHER ==
[~2023-12-05] MED LIST changes: -ALBUTEROL SULFATE 2.5MG/0.5ML INH NEB SOLN INH PRN; -EPINEPHrine INJ 1 MG/ML 1ML AMP IM PRN; -diphenhydrAMINE 50MG/ML VIAL IV PRN; -methylPREDNISolone 125MG 2ML VIAL IV PRN
== END ==
LOC: M SOG 16:23
PROVIDERS: ATTEND Physician Assistant
DX: M79.641 Pain in right hand (principal); M79.642 Pain in left hand

== ENCOUNTER → 2023-12-06 | Outpatient (CLI) | payer OTHER | LOC: M SOG 08:31 | PROVIDERS: ATTEND Physician Assistant | DX: M79.641 Pain in right hand (principal); M79.642 Pain in left hand ==

== ENCOUNTER 2024-01-08 10:25 | Outpatient (CLI) | payer OTHER ==
[~2024-01-08] VITALS: Ht 190.5 cm; Wt 123.0 kg
[2024-01-08 10:30] VITALS: BP 124/75; O2SAT 98
[2024-01-08] MEDS ORDERED: EPINEPHrine INJ 1 MG/ML 1ML AMP IM PRN (10:40)
[2024-01-08] MEDS ORDERED: diphenhydrAMINE 50MG/ML VIAL IV PRN (10:40)
[2024-01-08] MEDS ORDERED: ALBUTEROL SULFATE 2.5MG/0.5ML INH NEB SOLN INH PRN (10:40)
[2024-01-08] MEDS ORDERED: methylPREDNISolone 125MG 2ML VIAL IV PRN (10:45)
[2024-01-08] MEDS: diphenhydrAMINE 50MG PO PRIOR TO INFUSION PO ONE (10:49)
[2024-01-08] MEDS: ACETAMINOPHEN 650MG ER TAB (TYLENOL ARTHRITIS) PO ONE (10:49)
[2024-01-08] MEDS: INFLIXIMAB IV ONE (11:25)
[2024-01-08] MEDS: NS IV ONE (11:25)
[2024-01-08 12:30] VITALS: BP 130/79; O2SAT 100
[2024-01-08 13:50] VITALS: BP 139/94; O2SAT 98
== END 2024-01-08 13:50 ==
LOC: M INFU 10:25
PROVIDERS: ATTEND Internal Medicine
DX: H44.113 Panuveitis, bilateral (principal); H30.93 Unspecified chorioretinal inflammation, bilateral; Z88.8 Allergy status to other drugs, medicaments and biological substances
CPT/HCPCS: 96413; 96415; J1745

== ENCOUNTER → 2024-02-05 | Outpatient (CLI) | payer OTHER | LOC: M SOG 07:59 | PROVIDERS: ATTEND Physician Assistant | DX: M25.522 Pain in left elbow (principal) ==

== ENCOUNTER → 2024-02-05 | Outpatient (CLI) | payer OTHER | LOC: M PLALAB 13:58 | PROVIDERS: ATTEND Family Medicine | DX: M25.562 Pain in left knee (principal) ==

== ENCOUNTER 2024-02-19 10:15 | Outpatient (CLI) | payer OTHER ==
[~2024-02-19] VITALS: Ht 190.5 cm; Wt 127.0 kg
[2024-02-19 10:15] VITALS: BP 135/80; O2SAT 100
[~2024-02-19 10:15] MED LIST changes: +ALBUTEROL SULFATE 2.5MG/0.5ML INH NEB SOLN INH PRN; +EPINEPHrine INJ 1 MG/ML 1ML AMP IM PRN; +diphenhydrAMINE 50MG/ML VIAL IV PRN; +methylPREDNISolone 125MG 2ML VIAL IV PRN
[2024-02-19] MEDS ORDERED: INFLIXIMAB IV ONE (10:30)
[2024-02-19] MEDS ORDERED: NS IV ONE (10:30)
[2024-02-19] MEDS: ACETAMINOPHEN 650MG ER TAB (TYLENOL ARTHRITIS) PO ONE (10:47)
[2024-02-19] MEDS: diphenhydrAMINE 50MG PO PRIOR TO INFUSION PO ONE (10:47)
[2024-02-19] MEDS: NS IV ONE (11:32)
[2024-02-19] MEDS: INFLIXIMAB IV ONE (11:32)
[2024-02-19 12:00] VITALS: BP 164/83; O2SAT 100
[2024-02-19 12:30] VITALS: BP 155/88; O2SAT 100
[2024-02-19 13:49] VITALS: BP 141/94; O2SAT 97
== END 2024-02-19 13:50 ==
LOC: M INFU 10:15
PROVIDERS: ATTEND Internal Medicine
DX: H44.113 Panuveitis, bilateral (principal); H30.93 Unspecified chorioretinal inflammation, bilateral; Z88.8 Allergy status to other drugs, medicaments and biological substances
CPT/HCPCS: 96413; 96415; J1745

== ENCOUNTER 2024-02-28 13:54 | Outpatient (RCR) | payer OTHER ==
[~2024-02-28 13:54] MED LIST changes: -ALBUTEROL SULFATE 2.5MG/0.5ML INH NEB SOLN INH PRN; -EPINEPHrine INJ 1 MG/ML 1ML AMP IM PRN; -diphenhydrAMINE 50MG/ML VIAL IV PRN; -methylPREDNISolone 125MG 2ML VIAL IV PRN
== END 2024-03-17 ==
LOC: M PT 13:54
PROVIDERS: ATTEND Family Medicine
DX: M76.892 Other specified enthesopathies of left lower limb, excluding foot (principal)

== ENCOUNTER 2024-04-01 10:45 | Outpatient (CLI) | payer OTHER ==
[~2024-04-01] VITALS: Ht 193 cm; Wt 127.0 kg
[~2024-04-01 10:45] MED LIST changes: +ALBUTEROL SULFATE 2.5MG/0.5ML INH NEB SOLN INH PRN; +EPINEPHrine INJ 1 MG/ML 1ML AMP IM PRN; +diphenhydrAMINE 50MG/ML VIAL IV PRN; +methylPREDNISolone 125MG 2ML VIAL IV PRN
[2024-04-01 10:50] VITALS: BP 127/87; O2SAT 98
[2024-04-01] MEDS: ACETAMINOPHEN 650MG ER TAB (TYLENOL ARTHRITIS) PO ONE (11:32)
[2024-04-01] MEDS: diphenhydrAMINE 50MG PO PRIOR TO INFUSION PO ONE (11:33)
[2024-04-01] MEDS: INFLIXIMAB IV ONE (11:40)
[2024-04-01] MEDS: NS IV ONE (11:40)
[2024-04-01 14:30] VITALS: BP 125/80; O2SAT 98
== END 2024-04-01 14:30 ==
LOC: M INFU 10:45
PROVIDERS: ATTEND Internal Medicine
DX: H44.113 Panuveitis, bilateral (principal); H30.93 Unspecified chorioretinal inflammation, bilateral; Z88.8 Allergy status to other drugs, medicaments and biological substances
CPT/HCPCS: 96413; 96415; J1745

== ENCOUNTER → 2024-04-25 | Outpatient (REF) | payer OTHER ==
[~2024-04-25] MED LIST changes: -ALBUTEROL SULFATE 2.5MG/0.5ML INH NEB SOLN INH PRN; -EPINEPHrine INJ 1 MG/ML 1ML AMP IM PRN; -diphenhydrAMINE 50MG/ML VIAL IV PRN; -methylPREDNISolone 125MG 2ML VIAL IV PRN
== END ==
LOC: M SFHCPLAZ 16:40
PROVIDERS: ATTEND Family Medicine
DX: J06.9 Acute upper respiratory infection, unspecified (principal)

== ENCOUNTER 2024-05-13 10:30 | Outpatient (CLI) | payer OTHER ==
[~2024-05-13] VITALS: Ht 190.5 cm; Wt 122.7 kg
[~2024-05-13 10:30] MED LIST changes: +ALBUTEROL SULFATE 2.5MG/0.5ML INH NEB SOLN INH PRN; +EPINEPHrine INJ 1 MG/ML 1ML AMP IM PRN; +diphenhydrAMINE 50MG/ML VIAL IV PRN; +methylPREDNISolone 125MG 2ML VIAL IV PRN
[2024-05-13 10:35] VITALS: BP 135/96; O2SAT 98
[2024-05-13] MEDS: ACETAMINOPHEN 650MG ER TAB (TYLENOL ARTHRITIS) PO ONE (10:50)
[2024-05-13] MEDS: diphenhydrAMINE 50MG PO PRIOR TO INFUSION PO ONE (10:51)
[2024-05-13] MEDS: NS IV ONE (11:32)
[2024-05-13] MEDS: INFLIXIMAB IV ONE (11:32)
[2024-05-13 11:45] VITALS: BP 123/81; O2SAT 97
[2024-05-13 12:15] VITALS: BP 121/79; O2SAT 98
[2024-05-13 12:45] VITALS: BP 125/81; O2SAT 97
[2024-05-13 13:45] VITALS: BP 140/95; O2SAT 99
== END 2024-05-13 13:50 ==
LOC: M INFU 10:30
PROVIDERS: ATTEND Internal Medicine
DX: H44.113 Panuveitis, bilateral (principal); H30.93 Unspecified chorioretinal inflammation, bilateral; Z88.8 Allergy status to other drugs, medicaments and biological substances
CPT/HCPCS: 96365; 96366; J1745

== ENCOUNTER → 2024-05-24 | Outpatient (CLI) | payer OTHER ==
[~2024-05-24] MED LIST changes: -ALBUTEROL SULFATE 2.5MG/0.5ML INH NEB SOLN INH PRN; -EPINEPHrine INJ 1 MG/ML 1ML AMP IM PRN; -diphenhydrAMINE 50MG/ML VIAL IV PRN; -methylPREDNISolone 125MG 2ML VIAL IV PRN
[2024-05-24 10:47] LABS: BASO # 0.1 10^3/uL (0.0-0.2); EOS # 0.2 10^3/uL (0.0-0.5); EOS % 2.6 % (0.0-3.0); HEMATOCRIT 42.6 % (42.0-52.0); HEMOGLOBIN 14.3 g/dl (13.5-17.5); LYMPH # 2.8 10^3/uL (1.5-5.0); LYMPH % 38.1 % (24.0-44.0); MEAN CORPUSCULAR HEMOGLOBIN 29.6 pg (27.0-33.0); MEAN CORPUSCULAR HGB CONC 33.6 g/dl (32.0-36.5); MEAN CORPUSCULAR VOLUME 88.2 fl (80.0-96.0); MONO # 0.6 10^3/uL (0.0-0.8); MONO % 8.5 % (2.0-8.0); NEUTROPHILS # 3.6 10^3/uL (1.5-8.5); NEUTROPHILS % 49.5 % (36.0-66.0); PLATELET COUNT, AUTOMATED 281 10^3/uL (150-450); RED BLOOD COUNT 4.83 10^6/uL (4.30-6.10); WHITE BLOOD COUNT 7.3 10^3/uL (4.0-10.0)
[2024-05-24 11:08] LABS: ERYTHROCYTE SEDIMENTATION RATE 10 mm/hr (0-20)
[2024-05-24 11:17] LABS: C REACTIVE PROTEIN QUANTITATIV < 0.40 MG/DL (<1.0)
[2024-05-24 11:18] LABS: ALBUMIN 4.3 G/DL (3.2-5.2); ALKALINE PHOSPHATASE 67 U/L (46-116); ALT/SGPT 49 U/L (7.0-40); AST/SGOT 26 U/L (<34); BILIRUBIN,DIRECT 0.2 MG/DL (<0.4); BILIRUBIN,TOTAL 0.6 MG/DL (0.3-1.2); BLOOD UREA NITROGEN 11 MG/DL (9-23); CALCIUM LEVEL 8.6 MG/DL (8.5-10.1); CARBON DIOXIDE LEVEL 26 MMOL/L (20-31); CHLORIDE LEVEL 106 MMOL/L (98-107); GLOMERULAR FILTRATION RATE > 60.0 (>56); GLUCOSE, FASTING 120 MG/DL (60-100); POTASSIUM SERUM 4.3 MMOL/L (3.5-5.1); SODIUM LEVEL 137 MMOL/L (136-145); TOTAL PROTEIN 7.2 G/DL (5.7-8.2)
== END ==
LOC: M WUC 08:07
PROVIDERS: ATTEND Internal Medicine
DX: H44.113 Panuveitis, bilateral (principal)

== ENCOUNTER 2024-07-04 09:10 | Outpatient (CLI) | payer OTHER ==
[~2024-07-04] VITALS: Ht 193 cm; Wt 120.0 kg
[2024-07-04] VITALS (8 sets, daily range): BP systolic 118–143; BP diastolic 70–92; O2SAT 96–100
[2024-07-04] MEDS ORDERED: diphenhydrAMINE 50MG/ML VIAL IV PRN (09:30)
[2024-07-04] MEDS ORDERED: ALBUTEROL SULFATE 2.5MG/0.5ML INH NEB SOLN INH PRN (09:30)
[2024-07-04] MEDS ORDERED: EPINEPHrine INJ 1 MG/ML 1ML AMP IM PRN (09:30)
[2024-07-04] MEDS: ACETAMINOPHEN 650MG ER TAB (TYLENOL ARTHRITIS) PO ONE (09:39)
[2024-07-04] MEDS: diphenhydrAMINE 50MG PO PRIOR TO INFUSION PO ONE (09:39)
[2024-07-04] MEDS: inFLIXimab INJECTION 1,200 MG in NS 180 ML IV ONE (10:05)
== END 2024-07-04 12:30 ==
LOC: M INFU 09:10
PROVIDERS: ATTEND Internal Medicine
DX: H44.113 Panuveitis, bilateral (principal); Z88.8 Allergy status to other drugs, medicaments and biological substances
CPT/HCPCS: 96413; 96415; J1745

== ENCOUNTER 2024-08-22 09:30 | Outpatient (CLI) | payer OTHER ==
[~2024-08-22] VITALS: Ht 190.5 cm; Wt 118.0 kg
[2024-08-22 09:25] VITALS: BP 153/93; O2SAT 98
[~2024-08-22 09:30] MED LIST changes: +ACETAMINOPHEN 650MG PO PRIOR TO INFUSION PO ONE; +ALBUTEROL SULFATE 2.5MG/0.5ML INH NEB SOLN INH PRN; +ATOR-398 PO; +EPINEPHrine INJ 1 MG/ML 1ML AMP IM PRN; -LIPI80TA PO; +NS 1,000 ML IV SCH; -TADA5TAB; +TADA5TAB94; +diphenhydrAMINE 50MG/ML VIAL IV PRN; +methylPREDNISolone 125MG 2ML VIAL IV PRN
[2024-08-22] MEDS: ACETAMINOPHEN 650MG ER TAB (TYLENOL ARTHRITIS) PO ONE (09:37)
[2024-08-22] MEDS: diphenhydrAMINE 50MG PO PRIOR TO INFUSION PO ONE (09:37)
[2024-08-22] MEDS: inFLIXimab INJECTION 1,200 MG in NS 180 ML IV ONE (10:11)
[2024-08-22 10:45] VITALS: BP 132/60; O2SAT 99
[2024-08-22 11:15] VITALS: BP 140/70; O2SAT 94
[2024-08-22 12:20] VITALS: BP 145/90; O2SAT 98
== END 2024-08-22 12:20 ==
LOC: M INFU 09:30
PROVIDERS: ATTEND Internal Medicine
DX: H44.113 Panuveitis, bilateral (principal); Z88.8 Allergy status to other drugs, medicaments and biological substances
CPT/HCPCS: 96413; 96415; J1745

== ENCOUNTER → 2024-10-03 | Outpatient (CLI) | payer OTHER ==
[~2024-10-03] VITALS: Ht 190.5 cm; Wt 118.2 kg
[~2024-10-03] MED LIST changes: -ACETAMINOPHEN 650MG PO PRIOR TO INFUSION PO ONE; -ALBUTEROL SULFATE 2.5MG/0.5ML INH NEB SOLN INH PRN; -EPINEPHrine INJ 1 MG/ML 1ML AMP IM PRN; +INFLIXIMAB IV ONE; -NS 1,000 ML IV SCH; +NS IV ONE; -diphenhydrAMINE 50MG/ML VIAL IV PRN; -methylPREDNISolone 125MG 2ML VIAL IV PRN
[2024-10-03] MEDS: ACETAMINOPHEN 650MG PO PRIOR TO INFUSION PO ONE (10:30)
[2024-10-03 10:40] VITALS: BP 150/98; O2SAT 100
[2024-10-03] MEDS: inFLIXimab INJECTION 1,200 MG in NS 180 ML IV ONE (11:27)
[2024-10-03] MEDS: diphenhydrAMINE 50MG PO PRIOR TO INFUSION PO ONE (11:31)
[2024-10-03 12:00] VITALS: BP 147/90; O2SAT 100
[2024-10-03 13:30] VITALS: BP 150/91; O2SAT 100
== END ==
LOC: M INFU 09:34
PROVIDERS: ATTEND Internal Medicine
DX: H44.113 Panuveitis, bilateral (principal); Z88.8 Allergy status to other drugs, medicaments and biological substances
CPT/HCPCS: 96413; 96415; J1745

== ENCOUNTER → 2024-10-10 | Outpatient (CLI) | payer OTHER ==
[~2024-10-10] MED LIST changes: +FLON1SPR; -INFLIXIMAB IV ONE; +METH-1165 PO; -NS IV ONE; +THERTAB52 PO
== END ==
LOC: M PLAIMG 13:25
PROVIDERS: ATTEND Physician Assistant
DX: N23 Unspecified renal colic (principal)

== ENCOUNTER → 2024-10-31 | Outpatient (CLI) | payer OTHER ==
[2024-10-31 18:17] LABS: BASO # 0.1 10^3/uL (0.0-0.2); EOS # 0.2 10^3/uL (0.0-0.5); EOS % 2.9 % (0.0-3.0); HEMATOCRIT 43.8 % (42.0-52.0); HEMOGLOBIN 14.8 g/dl (13.5-17.5); LYMPH # 2.5 10^3/uL (1.5-5.0); LYMPH % 35.5 % (24.0-44.0); MEAN CORPUSCULAR HEMOGLOBIN 29.9 pg (27.0-33.0); MEAN CORPUSCULAR HGB CONC 33.8 g/dl (32.0-36.5); MEAN CORPUSCULAR VOLUME 88.5 fl (80.0-96.0); MONO # 0.8 10^3/uL (0.0-0.8); MONO % 11.2 % (2.0-8.0); NEUTROPHILS # 3.5 10^3/uL (1.5-8.5); NEUTROPHILS % 49.1 % (36.0-66.0); PLATELET COUNT, AUTOMATED 313 10^3/uL (150-450); RED BLOOD COUNT 4.95 10^6/uL (4.30-6.10); WHITE BLOOD COUNT 7.1 10^3/uL (4.0-10.0)
[2024-10-31 18:32] LABS: ALBUMIN 4.1 G/DL (3.2-5.2); ALKALINE PHOSPHATASE 64 U/L (40-129); ALT/SGPT 42 U/L (7.0-40); AST/SGOT 25 U/L (<34); BILIRUBIN,DIRECT 0.2 MG/DL (<0.4); BILIRUBIN,TOTAL 0.5 MG/DL (0.3-1.2); BLOOD UREA NITROGEN 13 MG/DL (9-23); C REACTIVE PROTEIN QUANTITATIV < 0.50 MG/DL (<1.0); CALCIUM LEVEL 9.2 MG/DL (8.5-10.1); CARBON DIOXIDE LEVEL 26 MMOL/L (20-31); CHLORIDE LEVEL 107 MMOL/L (98-107); CREATININE FOR GFR 0.94 MG/DL (0.70-1.30); GLOMERULAR FILTRATION RATE > 60.0 (>56); GLUCOSE, FASTING 98 MG/DL (60-100); SODIUM LEVEL 141 MMOL/L (136-145); TOTAL PROTEIN 7.3 G/DL (5.7-8.2)
[2024-10-31 19:09] LABS: ERYTHROCYTE SEDIMENTATION RATE 9 mm/hr (0-20)
== END ==
LOC: M PLALAB 11:38
PROVIDERS: ATTEND Internal Medicine
DX: H44.113 Panuveitis, bilateral (principal)

== ENCOUNTER → 2024-10-31 | Outpatient (CLI) | payer OTHER ==
[2024-10-31 18:21] LABS: HEMOGLOBIN A1c 6.1 % (4.0-6.0)
[2024-10-31 18:34] LABS: CHOLESTEROL LEVEL 213 MG/DL (<200); CHOLESTEROL RISK RATIO 3.78 (<5); HDL CHOLESTEROL 56.3 MG/DL (>40); LDL CHOLESTEROL 116.3 MG/DL (<100); NON-HDL-C 156.7 MG/DL; TRIGLYCERIDES LEVEL 202 MG/DL (<150)
[2024-10-31 18:36] LABS: VITAMIN B12 LEVEL 573 PG/ML (211-911)
[2024-10-31 18:37] LABS: FOLATE > 24.0 NG/ML (>5.4)
== END ==
LOC: M PLALAB 11:40
PROVIDERS: ATTEND Family Medicine
DX: K13.0 Diseases of lips (principal)

== ENCOUNTER 2024-11-28 08:15 | Outpatient (CLI) | payer OTHER ==
[~2024-11-28] VITALS: Ht 190.5 cm; Wt 118.1 kg
[2024-11-28 08:15] VITALS: BP 137/93; O2SAT 98
[~2024-11-28 08:15] MED LIST changes: +ALBUTEROL SULFATE 2.5MG/0.5ML INH NEB SOLN INH PRN; +EPINEPHrine INJ 1 MG/ML 1ML AMP IM PRN; +diphenhydrAMINE 50MG/ML VIAL IV PRN; +methylPREDNISolone 125MG 2ML VIAL IV PRN
[2024-11-28] MEDS: diphenhydrAMINE 50MG PO PRIOR TO INFUSION PO ONE (08:30)
[2024-11-28] MEDS: ACETAMINOPHEN 650MG PO PRIOR TO INFUSION PO ONE (08:31)
[2024-11-28] MEDS: inFLIXimab INJECTION 1,200 MG in NS 180 ML IV ONE (09:15)
[2024-11-28 09:45] VITALS: BP 140/88; O2SAT 97
[2024-11-28 11:30] VITALS: BP 134/88; O2SAT 99
== END 2024-11-28 11:30 ==
LOC: M INFU 08:15
PROVIDERS: ATTEND Internal Medicine
DX: H44.113 Panuveitis, bilateral (principal); H30.93 Unspecified chorioretinal inflammation, bilateral; Z88.8 Allergy status to other drugs, medicaments and biological substances
CPT/HCPCS: 96413; 96415; J1745

== ENCOUNTER 2025-04-03 07:50 | Outpatient (CLI) | payer OTHER ==
[~2025-04-03] VITALS: Ht 190.5 cm; Wt 116.0 kg
[~2025-04-03 07:50] MED LIST changes: -ALBUTEROL SULFATE 2.5MG/0.5ML INH NEB SOLN INH PRN; -EPINEPHrine INJ 1 MG/ML 1ML AMP IM PRN; -FLOM0.4C39 PO; +LIDO1ADH93 TD; -LIDO5DIS41 TD; +TADA5TAB2; -TADA5TAB94; +TAMS-18 PO; -diphenhydrAMINE 50MG/ML VIAL IV PRN; -methylPREDNISolone 125MG 2ML VIAL IV PRN
[2025-04-03] MEDS ORDERED: ALBUTEROL SULFATE 2.5 MG/0.5 ML INH CONCENTRATE NEB SOLN INH PRN (08:00)
[2025-04-03] MEDS ORDERED: diphenhydrAMINE 50 MG/ML VIAL IV PRN (08:00)
[2025-04-03] MEDS ORDERED: EPINEPHrine INJ 1 MG/ML 1ML AMP IM PRN (08:00)
[2025-04-03] MEDS: diphenhydrAMINE 50MG PO PRIOR TO INFUSION PO ONE (08:04)
[2025-04-03] MEDS: ACETAMINOPHEN 650 MG ER TAB PO ONE (08:04)
[2025-04-03] MEDS: inFLIXimab INJECTION 1,200 MG in NS 180 ML IV ONE (08:47)
[2025-04-03 09:30] VITALS: BP 137/89; O2SAT 100
[2025-04-03 10:20] VITALS: BP 150/79; O2SAT 100
== END 2025-04-03 09:45 ==
LOC: M INFU 07:50
PROVIDERS: ATTEND Internal Medicine
DX: H44.113 Panuveitis, bilateral (principal); H30.93 Unspecified chorioretinal inflammation, bilateral; Z88.8 Allergy status to other drugs, medicaments and biological substances
CPT/HCPCS: 96413; 96415; J1745

== ENCOUNTER → 2025-05-08 | Outpatient (REF) | payer OTHER ==
[2025-05-08 16:09] LABS: BASO # 0.1 10^3/uL (0.0-0.2); BASO % 0.9 % (0.0-1.0); EOS # 0.2 10^3/uL (0.0-0.5); EOS % 2.8 % (0.0-3.0); ERYTHROCYTE SEDIMENTATION RATE 27 mm/hr (0-20); LYMPH # 2.0 10^3/uL (1.5-5.0); LYMPH % 34.6 % (24.0-44.0); MONO # 0.9 10^3/uL (0.0-0.8); MONO % 15.1 % (2.0-8.0); NEUTROPHILS # 2.7 10^3/uL (1.5-8.5); NEUTROPHILS % 46.6 % (36.0-66.0); PLATELET COUNT, AUTOMATED 286 10^3/uL (150-450)
[2025-05-08 16:35] LABS: C REACTIVE PROTEIN QUANTITATIV 1.65 MG/DL (<1.0)
[2025-05-08 16:36] LABS: ALT/SGPT 35 U/L (7.0-40); AST/SGOT 25 U/L (<34); CALCIUM LEVEL 8.9 MG/DL (8.5-10.1); CARBON DIOXIDE LEVEL 28 MMOL/L (20-31); CHLORIDE LEVEL 103 MMOL/L (98-107); CREATININE FOR GFR 0.72 MG/DL (0.70-1.30); GLOMERULAR FILTRATION RATE > 90.0 (>56); MAGNESIUM LEVEL 2.0 MG/DL (1.8-2.4); PHOSPHORUS LEVEL 3.7 MG/DL (2.5-4.9); POTASSIUM SERUM 4.5 MMOL/L (3.5-5.1); SODIUM LEVEL 141 MMOL/L (136-145)
[2025-05-08 16:37] LABS: TOTAL 25(OH) VITAMIN D 24.6 NG/ML (20.0-100.0)
[2025-05-08 17:10] LABS: VITAMIN B12 LEVEL 551 PG/ML (211-911)
== END ==
LOC: M SFHCRHEU 11:35
PROVIDERS: ATTEND Internal Medicine
DX: R25.2 Cramp and spasm (principal); E55.9 Vitamin D deficiency, unspecified; H44.113 Panuveitis, bilateral; Z79.899 Other long term (current) drug therapy

== ENCOUNTER 2025-07-25 06:51 | Outpatient (CLI) | payer OTHER ==
[~2025-07-25] VITALS: Ht 188 cm; Wt 113.6 kg
[2025-07-25 06:50] VITALS: BP 170/88; O2SAT 99
[2025-07-25] MEDS: ACETAMINOPHEN 650 MG ER TAB PO ONE (06:57)
[2025-07-25] MEDS: diphenhydrAMINE 50MG PO PRIOR TO INFUSION PO ONE (06:57)
[2025-07-25] MEDS ORDERED: NS IV ONE (07:00)
[2025-07-25] MEDS ORDERED: INFLIXIMAB IV ONE (07:00)
[2025-07-25] MEDS ORDERED: inFLIXimab INJECTION 1,200 MG in NS 180 ML IV ONE (07:00)
[2025-07-25] MEDS ORDERED: ALBUTEROL SULFATE 2.5 MG/0.5 ML INH CONCENTRATE NEB SOLN INH PRN (07:01)
[2025-07-25] MEDS ORDERED: diphenhydrAMINE 50 MG/ML VIAL IV PRN (07:01)
[2025-07-25] MEDS ORDERED: EPINEPHrine INJ 1 MG/ML 1ML AMP IM PRN (07:01)
[2025-07-25] MEDS: inFLIXimab INJECTION 1,200 MG in NS 180 ML IV ONE (07:55)
[2025-07-25 08:30] VITALS: BP 141/80; O2SAT 100
[2025-07-25 09:00] VITALS: BP 138/79; O2SAT 100
[2025-07-25 09:30] VITALS: BP 133/77; O2SAT 100
[2025-07-25 10:30] VITALS: BP 145/86; O2SAT 99
[2025-07-25] MEDS ORDERED: ERGO500029 PO (11:55)
[2025-07-25] MEDS ORDERED: METH2.5T48 PO (11:55)
[2025-07-25] MEDS ORDERED: FLUT12AE2 INH (14:32)
== END 2025-07-25 10:30 | disposition home or self-care (01) ==
LOC: M INFU 06:51
PROVIDERS: ATTEND Internal Medicine
DX: H44.113 Panuveitis, bilateral (principal); H30.93 Unspecified chorioretinal inflammation, bilateral; R41.82 Altered mental status, unspecified; T88.7XXA Unspecified adverse effect of drug or medicament, initial encounter; E11.9 Type 2 diabetes mellitus without complications; I10 Essential (primary) hypertension; G40.909 Epilepsy, unspecified, not intractable, without status epilepticus; F43.10 Post-traumatic stress disorder, unspecified; F31.9 Bipolar disorder, unspecified; Z88.8 Allergy status to other drugs, medicaments and biological substances; Z79.899 Other long term (current) drug therapy; Z79.810 Long term (current) use of selective estrogen receptor modulators (SERMs)
CPT/HCPCS: 70450; 71045; 80047; 80048; 80076; 80143; 81001; 82077; 82140; 82803; 83605; 83930; 84443; 85025; 93005; 93041; 94760; 96413; 96415; 99285; J1745

== ENCOUNTER 2025-07-25 10:31 | Emergency (ER) | payer OTHER ==
[~2025-07-25] VITALS: Ht 190.5 cm; Wt 114.7 kg
[2025-07-25 10:55] LABS: VENOUS BASE EXCESS 1.1 (-2.0-2.0); VENOUS HCO3 26.4 MMOL/L (23.0-27.0); VENOUS O2 SATURATION 87.7 % (60.0-80.0); VENOUS PARTIAL PRESSURE CO2 44.3 mmHg (38.0-50.0); VENOUS PARTIAL PRESSURE O2 50.1 mmHg (30.0-50.0); VENOUS PH 7.393 UNITS (7.330-7.430); VENOUS STANDARD HCO3 25.2 MMOL/L; VENOUS TOTAL CO2 27.8 MMOL/L (24.0-28.0)
[2025-07-25 10:59] LABS: BASO # 0.1 10^3/uL (0.0-0.2); BASO % 0.9 % (0.0-1.0); EOS # 0.2 10^3/uL (0.0-0.5); EOS % 2.2 % (0.0-3.0); LYMPH # 2.4 10^3/uL (1.5-5.0); LYMPH % 36.2 % (24.0-44.0); MONO # 0.8 10^3/uL (0.0-0.8); MONO % 11.3 % (2.0-8.0); NEUTROPHILS # 3.3 10^3/uL (1.5-8.5); NEUTROPHILS % 49.3 % (36.0-66.0); PLATELET COUNT, AUTOMATED 300 10^3/uL (150-450)
[2025-07-25 11:23] LABS: ETHYL ALCOHOL (ETHANOL) < 0.003 % (0.000-0.010)
[2025-07-25 11:24] LABS: ALT/SGPT 40 U/L (7.0-40); AST/SGOT 30 U/L (<34); CALCIUM LEVEL 8.8 MG/DL (8.5-10.1); CARBON DIOXIDE LEVEL 27 MMOL/L (20-31); CHLORIDE LEVEL 104 MMOL/L (98-107); CREATININE FOR GFR 0.88 MG/DL (0.70-1.30); GLOMERULAR FILTRATION RATE > 90.0 (>56); POTASSIUM SERUM 4.3 MMOL/L (3.5-5.1); SALICYLATE LEVEL < 3.0 MG/DL (<30); SODIUM LEVEL 140 MMOL/L (136-145)
[2025-07-25 11:35] LABS: OSMOLALITY SERUM 303 MOSM/KG (275-295)
[2025-07-25] MEDS ORDERED: ERGO500029 PO (11:55)
[2025-07-25] MEDS ORDERED: METH2.5T48 PO (11:55)
[2025-07-25 13:04] LABS: KETONE, URINE AUTO RFX NEGATIVE (NEGATIVE); LEUKOCYTE ESTERASE UR AUTO RFX NEGATIVE (NEGATIVE); NITRITE, URINE AUTO RFX NEGATIVE (NEGATIVE); RBC, URINE AUTO RFX 1 /HPF (0-3); SQUAM EPITHELIAL CELL UR AURFX 0 /HPF (0-6); WBC, URINE AUTO RFX 1 /HPF (0-3)
[2025-07-25] MEDS ORDERED: FLUT12AE2 INH (14:32)
[2025-07-25] MEDS ORDERED: HOME MED LIST COMPLETE! XX SCH (14:35)
[2025-07-25 15:07] VITALS: BP 156/94; TEMP 98.3; O2SAT 98
== END 2025-07-25 15:15 | disposition home or self-care (01) ==
LOC: M ED 10:31
DX: R41.82 Altered mental status, unspecified (principal); T88.7XXA Unspecified adverse effect of drug or medicament, initial encounter; E11.9 Type 2 diabetes mellitus without complications; I10 Essential (primary) hypertension; G40.909 Epilepsy, unspecified, not intractable, without status epilepticus; F43.10 Post-traumatic stress disorder, unspecified; F31.9 Bipolar disorder, unspecified; Z88.8 Allergy status to other drugs, medicaments and biological substances; Z79.899 Other long term (current) drug therapy; Z79.810 Long term (current) use of selective estrogen receptor modulators (SERMs)

== ENCOUNTER 2025-09-08 08:16 | Outpatient (CLI) | payer OTHER ==
[~2025-09-08] VITALS: Ht 190.5 cm; Wt 116.8 kg
[~2025-09-08 08:16] MED LIST changes: +ALBUTEROL SULFATE 2.5 MG/0.5 ML INH CONCENTRATE NEB SOLN INH PRN; +EPINEPHrine INJ 1 MG/ML 1ML AMP IM PRN; +ERGO500029 PO; +FLUT12AE2 INH; +METH2.5T48 PO; +diphenhydrAMINE 50 MG/ML VIAL IV PRN
[2025-09-08 08:25] VITALS: BP 122/82; O2SAT 98
[2025-09-08] MEDS: ACETAMINOPHEN 650 MG ER TAB PO ONE (08:38)
[2025-09-08] MEDS: diphenhydrAMINE 50MG PO PRIOR TO INFUSION PO ONE (08:38)
[2025-09-08] MEDS: inFLIXimab INJECTION 1,200 MG in NS 180 ML IV ONE (09:35)
[2025-09-08 10:00] VITALS: BP 120/80; O2SAT 99
[2025-09-08 10:30] VITALS: BP 123/75; O2SAT 98
[2025-09-08 11:45] VITALS: BP 129/79; O2SAT 96
== END 2025-09-08 11:45 | disposition home or self-care (01) ==
LOC: M INFU 08:16
PROVIDERS: ATTEND Internal Medicine
DX: H44.113 Panuveitis, bilateral (principal); H30.93 Unspecified chorioretinal inflammation, bilateral; Z88.8 Allergy status to other drugs, medicaments and biological substances
CPT/HCPCS: 96413; 96415; J1745